=== PATIENT | female | born 1945 | race Caucasian/White ===

== ENCOUNTER → 2017-07-21 06:33 | Outpatient (CLI) | payer MEDICARE, SELFPAY ==
--- NOTE | 2017-07-21 08:14 | AAVD_ITS ---
Reason For Study: AAA repair Aorta Measurements Aorta Doppler Measurements Proximal aorta measures1.9 x 1.8cm. in cross- Peak systolic flow velocities within the proximal sectional axis. aorta measure 74.8 cm/sec. Proximal aorta measures1.8cm. in longitudinal Peak systolic flow velocities within the mid axis. aorta measure 79.3 cm/sec. Mid aorta measures1.9 x 2.0cm. in cross-sectionalPeak systolic flow velocities within the distal axis. aorta measure 60.2 cm/sec. Mid aorta measures1.9cm. in longitudinal axis. Distal aorta measures2.0 x 2.0cm. in cross- sectional axis. Distal aorta measures2.0cm. in longitudinal axis. Left Iliac Artery Left iliac artery measures 1.1 x 1.0 cm. in the cross-sectional axis. Peak systolic velocity in the left iliac artery measures 109.0 cm/sec. Right Iliac Artery Right iliac artery measures 1.0 x 1.0 cm. in the cross-sectional axis. Peak systolic velocity in the right iliac artery measures 114.0 cm/sec. Procedure Aorta IVC Iliac vasculature or bypass grafts 34951. Technically difficult due to body habitus and bowel gas. Exam performed in department. Interpretation Summary 1. No aneurysm seen. 2. No aortoiliac stenosis. Ordering Physician: Frank Kellogg Referring Physician: Ari Carballo Chi Performed By: Adali Allen RVT
== END ==
PROVIDERS: Family Provider Family Medicine Geriatric Medicine; PCP Family Medicine Geriatric Medicine; Visit Provider Nurse Practitioner Family
DX: I71.4 Abdominal aortic aneurysm, without rupture (principal); Z98.890 Other specified postprocedural states; Z86.79 Personal history of other diseases of the circulatory system
CPT/HCPCS: 93978

== ENCOUNTER → 2017-10-04 15:47 | Outpatient (CLI) | payer MEDICARE, SELFPAY ==
[2017-10-04 17:29] LABS: Absolute Lymphocyte Count 1.87 X10^3/ul (0.83-4.51); Absolute Neutrophil Count 4.5 X10^3/uL (2.0-7.7); Basophil# 0.04 X10^3/uL; Basophil% 0.6 % (0-1); Eosinophil# 0.12 X10^3/uL; Eosinophils% 1.7 % (0-5); Hematocrit 47.2 % (37-47); Hemoglobin 15.6 g/dl (12.0-15.0); Lymphocyte # 1.87 X10^3/ul (4.0); Lymphocyte % 27.1 % (19-41); Mean Corp Hgb Conc 33.1 g/gl (32-36); Mean Corpuscular Hgb 30.4 pg (27.0-32.0); Mean Corpuscular Volume 91.8 fL (81-99); Mean Platelet Vol. 11.9 fl (6.2-12.0); Monocyte# 0.34 X10^3/uL; Monocyte% 4.9 % (0-10); Neutrophil # 4.51 X10^3/uL (2.7-7.7); Neutrophil % 65.4 % (47-70); Platelet Count 225 K/mm3 (150-450); RBC Distribution Width CV 14.1 % (11.6-14.6); RBC Distribution Width SD 46.1 fl (35.1-43.9); Red Blood Count 5.14 M/mm3 (4.2-5.4); White Blood Count 6.9 K/mm3 (4.4-11.0)
[2017-10-04 17:44] LABS: POSITIVE COUNT NO; POSITIVE DIFFERENTIAL NO; POSITIVE MORPHOLOGY NO
[2017-10-04 17:46] LABS: ALB/GLOB Ratio 1.1 RATIO (0.9-2.4); AST(SGOT) 16 U/L (15-37); Alanine Aminotransfer ALT/SGPT 24 U/L (13-56); Albumin, Serum 3.7 g/dL (3.2-5.0); Alkaline Phosphatase 52 U/L (45-117); Anion Gap 6 (5-15); BUN 16 mg/dL (7-18); BUN/Creat Ratio 15.2 RATIO (10-20); Calcium,Total 8.8 mg/dL (8.5-10.1); Chloride 101 mmol/L (98-107); Creatinine, Serum 1.05 mg/dL (0.55-1.02); EST Glomerular Filtration Rate 55 mL/min (>60); Est Glom Filt Rate - Afr Amer 67 mL/min (>60); Globulin 3.4 g/dL (2.2-4.2); Glucose 119 mg/dL (74-106); Potassium 3.7 mmol/L (3.5-5.1); Protein, Total 7.1 g/dL (6.4-8.2); Sodium Level 139 mmol/L (136-145); Thyroid Stim Hormone (TSH) 0.91 uIU/mL (0.358-3.74); Vitamin D,25 Hydroxy 24.3 ng/mL (29.95-100.01)
== END ==
PROVIDERS: Family Provider Family Medicine Geriatric Medicine; PCP Family Medicine Geriatric Medicine; Visit Provider Family Medicine Geriatric Medicine
DX: E55.9 Vitamin D deficiency, unspecified (principal); R53.83 Other fatigue
CPT/HCPCS: 36415; 80053; 82306; 84443; 85025

== ENCOUNTER → 2017-12-29 07:49 | Outpatient (CLI) | payer MEDICARE, SELFPAY ==
[2017-12-29 09:23] LABS: AST(SGOT) 14 U/L (15-37); Alanine Aminotransfer ALT/SGPT 21 U/L (13-56); Albumin, Serum 3.7 g/dL (3.2-5.0); Alkaline Phosphatase 59 U/L (45-117); Cholesterol 222 mg/dL (200); Globulin 3.5 g/dL (2.2-4.2); High Density Lipoprotein 54 mg/dL; Protein, Total 7.2 g/dL (6.4-8.2); Triglycerides 82 mg/dL; Very Low Density Lipoprotein 16 mg/dL (5-40)
== END ==
PROVIDERS: Physician Assistant Medical; Family Provider Family Medicine Geriatric Medicine; PCP Family Medicine Geriatric Medicine; Visit Provider Internal Medicine Cardiovascular Disease
DX: E78.5 Hyperlipidemia, unspecified (principal)
CPT/HCPCS: 36415; 80061; 80076

== ENCOUNTER → 2018-04-11 16:31 | Outpatient (CLI) | payer MEDICARE, SELFPAY ==
[2018-04-11 17:39] LABS: Absolute Lymphocyte Count 1.68 X10^3/ul (0.83-4.51); Absolute Neutrophil Count 4.8 X10^3/uL (2.0-7.7); Basophil# 0.06 X10^3/uL; Basophil% 0.8 % (0-1); Eosinophil# 0.12 X10^3/uL; Eosinophils% 1.7 % (0-5); Hemoglobin 15.6 g/dl (12.0-15.0); Lymphocyte # 1.68 X10^3/ul (4.0); Lymphocyte % 23.4 % (19-41); Mean Corp Hgb Conc 33.2 g/gl (32-36); Mean Corpuscular Hgb 30.2 pg (27.0-32.0); Mean Corpuscular Volume 90.9 fL (81-99); Mean Platelet Vol. 12.2 fl (6.2-12.0); Monocyte# 0.47 X10^3/uL; Monocyte% 6.5 % (0-10); Neutrophil # 4.84 X10^3/uL (2.7-7.7); Neutrophil % 67.3 % (47-70); Platelet Count 217 K/mm3 (150-450); RBC Distribution Width CV 14.2 % (11.6-14.6); RBC Distribution Width SD 46.9 fl (35.1-43.9); Red Blood Count 5.17 M/mm3 (4.2-5.4); White Blood Count 7.2 K/mm3 (4.4-11.0)
[2018-04-11 17:42] LABS: POSITIVE COUNT NO; POSITIVE DIFFERENTIAL NO; POSITIVE MORPHOLOGY NO
[2018-04-11 18:13] LABS: Vitamin D,25 Hydroxy 25.2 ng/mL (29.95-100.01)
[2018-04-11 18:16] LABS: ALB/GLOB Ratio 1.1 RATIO (0.9-2.4); AST(SGOT) 20 U/L (15-37); Alanine Aminotransfer ALT/SGPT 25 U/L (13-56); Albumin, Serum 3.5 g/dL (3.2-5.0); Alkaline Phosphatase 51 U/L (45-117); Anion Gap 4 (5-15); BUN 16 mg/dL (7-18); BUN/Creat Ratio 16.6 RATIO (10-20); Calcium,Total 8.6 mg/dL (8.5-10.1); Chloride 103 mmol/L (98-107); Creatinine, Serum 0.96 mg/dL (0.55-1.02); EST Glomerular Filtration Rate 61 mL/min (>60); Est Glom Filt Rate - Afr Amer 73 mL/min (>60); Globulin 3.3 g/dL (2.2-4.2); Glucose 99 mg/dL (74-106); Potassium 3.5 mmol/L (3.5-5.1); Protein, Total 6.8 g/dL (6.4-8.2); Sodium Level 138 mmol/L (136-145); Thyroid Stim Hormone (TSH) 0.69 uIU/mL (0.358-3.74)
[2018-04-15 08:49] LABS: Hep C Antibodies <0.1 s/co ratio (0.0-0.9)
== END ==
PROVIDERS: Family Provider Family Medicine Geriatric Medicine; PCP Family Medicine Geriatric Medicine; Visit Provider Family Medicine Geriatric Medicine
DX: E55.9 Vitamin D deficiency, unspecified (principal); I10 Essential (primary) hypertension; Z13.89 Encounter for screening for other disorder
CPT/HCPCS: 36415; 80053; 82306; 84443; 85025; 86803

== ENCOUNTER → 2018-08-26 10:02 | Outpatient (CLI) | payer MEDICARE, SELFPAY ==
[2018-08-15 15:35] VITALS: BMI 32.9
--- NOTE | 2018-08-26 10:05 | STEWCON_ITS ---
Reason For Study: S/P CABG Stress Results Protocol: Dobutamine Stress Echo Maximum Predicted HR: 149 bpm Target HR: 127 bpm % Maximum Predicted HR: 90 % DurationHeart Rate Stage (mm:ss) (bpm) BP Dose Comment BASELINE 68 134/84 DEFINITY 0.8 ML USED DURING STRESS DSE- 10 MCG 3:30 85 122/4410.00 DSE- 20 MCG 3:14 125 90/75 20.00 DSE- 30 MCG 1:05 134 114/5430.00 RECOVERY 95 119/86 Stress Duration: 7:49 mm:ss Maximum Stress HR: 134 bpm Baseline Echocardiogram Findings The estimated ejection fraction is 65 %. Stress Echo Wall motion Data Resting WM Intermediate WM Stress WM Resting Wall Motion Wall Motion Stress No regional wall motion No regional wall motion abnormalities noted. abnormalities noted. EKG Data The baseline ECG displays normal sinus rhythm. The patient was titrated from 10 mcg to a maximun of 30 mcg of dobutamine during the stress. The maximum heart rate attained was 134 beats per minute. This was 89% of maximum predicted heart rate. During dobutamine infusion, there were no ST or T wave changes noted to suggest ischemia. No clinical angina was noted. Interpretation Summary The estimated ejection fraction is 65 %. Normal, adequate, dobutamine echocardiogram. Negative for ischemia by EKG and echocardiographic criteria. No anginal symptoms noted. Rare PVCs noted. Appropriate blood pressure response to dobutamine. Final LVEF is 75%. Test terminated due to the attainment of target heart rate. Decreased sensitivity due to poor echo windows requiring Definity agent. No complications. The study was technically difficult. Contrast injection was performed. Ordering Physician: Deepak Chacon Referring Physician: Deepak Chacon Performed By: Alea Kellogg, LIAM, RVT
--- NOTE | 2018-08-26 10:05 | CDU_ITS ---
Reason For Study: CVA Rt. Velocities/BP Lt. Velocities/BP Prox CCA 70/7 cm/sec. Prox CCA 80/18 cm/sec. Mid CCA 45/13 cm/sec. Mid CCA 66/16 cm/sec. Dist CCA 91/ cm/sec. Dist CCA 61/18 cm/sec. Prox ICA 79/21 cm/sec. Prox ICA 106/29 cm/sec. Mid ICA 100/32 cm/sec. Mid ICA 121/30 cm/sec. Dist ICA 120/33 cm/sec. Dist ICA 61/24 cm/sec. Rt. ICA/CCA = 2.7. Lt. ICA/CCA = 1.8. Prox ECA 70/18 cm/sec. Prox ECA 153/19 cm/sec. Rt. Vert. 45/10 cm/sec. Lt. Vert. 63/10 cm/sec. Right Extracranial There is heterogeneous, irregular atherosclerotic plaque noted in the right common carotid artery. There is heterogeneous, irregular atherosclerotic plaque noted in the right internal carotid artery. There is heterogeneous, irregular atherosclerotic plaque noted in the right external carotid artery. Antegrade flow is noted in the right vertebral artery. Left Extracranial There is heterogeneous, irregular atherosclerotic plaque noted in the left common carotid artery. There is heterogeneous, irregular atherosclerotic plaque noted in the left internal carotid artery. There is heterogeneous, irregular atherosclerotic plaque noted in the left external carotid artery. Antegrade flow is noted in the left vertebral artery. Procedure Carotid Duplex 52076. Exam performed in department. Interpretation Summary Mild (<50%) stenosis right extracranial internal carotid. Mild (<50%) stenosis left extracranial internal carotid. Flow within the vertebral arteries is antegrade bilaterally. Ordering Physician: Deepak Chacon Referring Physician: SALVADOR ELI CHI Performed By: Isabel Kay, RDCS, RVT
== END ==
PROVIDERS: Family Provider Family Medicine Geriatric Medicine; PCP Family Medicine Geriatric Medicine; Referring Provider Internal Medicine Cardiovascular Disease; Visit Provider Internal Medicine Cardiovascular Disease
DX: I25.10 Atherosclerotic heart disease of native coronary artery without angina pectoris (principal); Z98.890 Other specified postprocedural states; E78.5 Hyperlipidemia, unspecified; I65.22 Occlusion and stenosis of left carotid artery
CPT/HCPCS: 93017; 93350; 93880; J7040; Q9957; A4216; C8928

== ENCOUNTER 2018-10-14 02:57 | Inpatient (IN) | payer MEDICARE, SELFPAY ==
[2018-08-15 15:35] VITALS: BMI 32.9
[2018-10-14] VITALS (18 sets, daily range): BP systolic 86–109; BP diastolic 54–75; PULSE 76–112; RESP 18–24; TEMP 36.4–37.3; O2SAT 82–97; BMI 33.1; BMI 33.0
--- NOTE | 2018-10-14 03:14 | EKG12_ITS ---
Test Reason : SOB Blood Pressure : / mmHG Vent. Rate : 094 BPM Atrial Rate : 094 BPM P-R Int : 148 ms QRS Dur : 088 ms QT Int : 358 ms P-R-T Axes : 064 045 097 degrees QTc Int : 447 ms Normal sinus rhythm with sinus arrhythmia Nonspecific ST and T wave abnormality Abnormal ECG Confirmed by JAYEN HOGUE, MICHAEL ([id number]), editor book PANFILO RODRIGUES ([id number]) on 10/17/2018 2:07:51 PM Referred By: Fawad Monsivais Confirmed By:MICHAEL GODOY MD
[2018-10-14] MEDS: Albuterol 2.5 MG/3 ML VIAL.NEB. INHALATION (03:28)
[2018-10-14] MEDS: Ipratropium/Albuterol Sulfate 3 ML AMPUL.NEB INHALATION ×5 (03:28→19:22)
[2018-10-14] MEDS: MethylPREDNISolone 125 MG/2 ML Vial IV (03:28)
[2018-10-14 03:36] LABS: Absolute Lymphocyte Count 0.79 X10^3/ul (0.83-4.51); Absolute Neutrophil Count 3.6 X10^3/uL (2.0-7.7); Basophil# 0.03 X10^3/uL; Basophil% 0.6 % (0-1); Eosinophil# 0.01 X10^3/uL; Eosinophils% 0.2 % (0-5); Hematocrit 46.9 % (37-47); Hemoglobin 15.7 g/dl (12.0-15.0); Lymphocyte # 0.79 X10^3/ul (4.0); Lymphocyte % 15.9 % (19-41); Mean Corp Hgb Conc 33.5 g/gl (32-36); Mean Corpuscular Hgb 30.4 pg (27.0-32.0); Mean Corpuscular Volume 90.9 fL (81-99); Mean Platelet Vol. 11.2 fl (6.2-12.0); Monocyte# 0.57 X10^3/uL; Monocyte% 11.5 % (0-10); Neutrophil # 3.56 X10^3/uL (2.7-7.7); Neutrophil % 71.6 % (47-70); Platelet Count 142 K/mm3 (150-450); RBC Distribution Width CV 14.4 % (11.6-14.6); RBC Distribution Width SD 48.2 fl (35.1-43.9); Red Blood Count 5.16 M/mm3 (4.2-5.4)
[2018-10-14 03:38] LABS: POSITIVE COUNT NO; POSITIVE DIFFERENTIAL NO; POSITIVE MORPHOLOGY NO
[2018-10-14 03:55] LABS: Anion Gap 8 (5-15); BUN 16 mg/dL (7-18); BUN/Creat Ratio 13.7 RATIO (10-20); Chloride 95 mmol/L (98-107); Creatinine, Serum 1.17 mg/dL (0.55-1.02); EST Glomerular Filtration Rate 48 mL/min (>60); Est Glom Filt Rate - Afr Amer 59 mL/min (>60); Estimated Creatinine Clearance 36.48 ml/min; Glucose 113 mg/dL (74-106); Potassium 3.4 mmol/L (3.5-5.1); Sodium Level 136 mmol/L (136-145)
--- NOTE | 2018-10-14 03:55 | RAD_ITS ---
STUDY: X-RAY CHEST REASON FOR EXAM: Female, 73 years old. Cough and upper respiratory congestion TECHNIQUE: PA and lateral views of the chest. COMPARISON: 01/06/1916 FINDINGS: Mild patchy airspace opacification at the right lung base, new from prior imaging. Questionable correlate seen anteriorly on the lateral view. No pleural effusion or pneumothorax. Normal size heart. Median sternotomy wires and coronary artery bypass graft clips noted. Normal mediastinum and candis. Normal visualized pulmonary arteries. Normal visualized aortic arch and descending thoracic aorta. There are diffuse degenerative changes of the visualized thoracic spine. Normal visualized ribs, clavicles, and shoulders. There is no demonstrated abnormality of the visualized soft tissue structures of the upper abdomen. RAD/Chest PA and Lateral IMPRESSION: Right anterior lung base atelectasis versus infiltrate Electronically Signed: Abhilash Jalloh MD at 4:22 EDT Tel , Service support ,
--- NOTE | 2018-10-14 04:39 | ED.DCSUM_ITS ---
- ER Visit Summary Date of Service: 10/14/18 Chief Complaint: Cough History of Present Illness: The patient is a 73 F who presents with chills sweats and cough. She has been ill for 4 days. She complains of nonproductive cough and shortness of breath. She reports subjective fevers chills and sweats. No sick contacts. She is not on home oxygen. Patient denies history of COPD or asthma although COPD was noted on the patient's prior records. She also has a history of coronary disease, prior stroke, AAA and repair. She denies any pain. She denies nausea vomiting diarrhea congestion rhinorrhea sore throat. Physical Examination: Initial heart rate 112, respiratory rate 22, temperature 99.2, blood pressure 96/62, pulse ox 82% on room air Moist mucous membranes Heart regular tachycardia Patient is tachypneic with increased work of breathing decreased air exchange and diffuse inspiratory and expiratory wheezing Abdomen soft Extremities nontender without edema Alert Test Results: EKG shows sinus rhythm at a rate of 94. Rapid influenza is negative. Labs notable for platelets 142, creatinine 1.17, glucose 113. Chest x-ray shows right anterior lung base atelectasis versus infiltrate. Emergency Department Course and Treatment: Patient presents with inspiratory and expiratory wheezing, decreased air exchange. She was treated with albuterol and Atrovent aerosols here as well as IV Solu-Medrol. She is improved on reevaluation although continues to wheeze significantly. Chest x-ray showed possible infiltrate. After discussion with the hospitalist we will treat with oral Levaquin. Patient discussed with hospitalist and admitted. Treatment Plan: [] Disposition: Admit Impression: Bronchitis with wheezing Possible community-acquired pneumonia Hypoxia This note was generated with [employer] dictation software. It may contain incorrect words, spelling, and punctuation that were not noted in review of the chart prior to signing ED Disposition - Plan for ED Patient: Referrals: Ari Carballo Chi, MD [Primary Care Provider] -
[2018-10-14] MEDS: levoFLOXacin 750 MG Tablet PO (04:56)
--- NOTE | 2018-10-14 05:22 | PCM.HP.STD ---
Problem List (1) Shortness of breath Status: Acute (2) Nonproductive cough Status: Acute (3) Chills with fever Status: Acute History of Present Illness Date of Admission: 10/14/18 Chief Complaint: Shortness of breath, nonproductive cough, chills and fever The patient is a 73 year old F who was seen in the emergency room at [facility] with a chief complaint of nonproductive cough, chills, and fever over the last several days. Patient states she began feeling ill this last Wednesday, she denies any dysuria, diarrhea, nausea, or vomiting. Patient has a history of COPD and her medical record here but the patient denies any knowledge of having COPD. Patient had pulmonary function tests in 2017 which showed COPD. Work-up in the emergency room included a chest x-ray which resulted and a reading of right anterior lung base atelectasis versus infiltrate, patient's CBC was unremarkable, her chemistry panel was remarkable for a slightly low potassium at 3.4 and creatinine was 1.17. On examination, patient had marked expiratory wheezing over all lung chairez. Patient was given IV Solu-Medrol and aerosol treatments, she required supplemental oxygen at 3 L to maintain her pulse ox above 90. Patient will be admitted to [facility] for acute exacerbation of COPD, hypoxia, and probable viral tracheobronchitis. 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 Blue 07/15/2005 Benign essential hypertension (Chronic) Chronic obstructive lung disease (Chronic) Hyperlipidemia (Chronic) TIA (transient ischemic attack) (Chronic) Medical History: Medical History (Last Reviewed 08/15/18 @ 15:35 by Toshia Paniagua) Left carotid artery stenosis (Chronic) I65.22 Atherosclerosis of coronary artery of [place] heart without angina pectoris (Chronic) I25.10 Weight gain (Chronic) R63.5 Benign essential hypertension (Chronic) I10 Chronic obstructive lung disease (Chronic) J44.9 Hyperlipidemia (Chronic) E78.5 TIA (transient ischemic attack) (Chronic) Acute left TAPPER HAND stroke (Acute) I63.532 JOSEMANUEL (obstructive sleep apnea) G47.33 Allergies codeine Allergy (Verified 10/14/18 03:03) Unknown Penicillins Allergy (Verified 10/14/18 05:19) Rash, fainting Sulfa (Sulfonamide Antibiotics) Allergy (Verified 10/14/18 03:03) Unknown per pt when was a child mother told her she was allergic not sure of reaction atorvastatin [From Lipitor] Adverse Reaction (Unknown, Verified 10/14/18 03:03) Myalgia fluvastatin [From Lescol] Adverse Reaction (Unknown, Verified 10/14/18 03:03) Myalgia lisinopril Adverse Reaction (Unknown, Verified 10/14/18 03:03) Cough losartan [From Cozaar] Adverse Reaction (Unknown, Verified 10/14/18 03:03) Cough niacin Adverse Reaction (Unknown, Verified 10/14/18 03:03) Rash rosuvastatin [From Crestor] Adverse Reaction (Unknown, Verified 10/14/18 03:03) Myalgia simvastatin [From Zocor] Adverse Reaction (Unknown, Verified 10/14/18 03:03) Myalgia Iodinated Contrast- Oral and IV Dye [DYEE] Adverse Reaction (Verified 10/14/18 05:19) Vomiting Home Medications: Ambulatory Orders Medication Instructions Recorded cholecalciferol (vitamin D3) 1,000 1,000 unit PO QDAY 01/17/18 unit capsule hydrochlorothiazide 12.5 mg tablet 12.5 mg PO QDAY #90 tab 08/15/18 isosorbide mononitrate ER 30 mg 30 mg PO QDAY #90 tab 08/15/18 tablet,extended release 24 hr magnesium oxide 400 mg capsule 400 mg PO DAILY cap 08/15/18 metoprolol succinate ER 25 mg 25 mg PO QDAY #90 tab 08/15/18 tablet,extended release 24 hr clopidogrel 75 mg tablet 75 mg PO QDAY #90 tab 10/10/18 Surgical History: Surgical History (Last Reviewed 08/15/18 @ 15:35 by Toshia Paniagua) History of AAA (abdominal aortic aneurysm) repair (Chronic) Onset Date: ~2008 Z98.890 Hx of CABG (Chronic) Onset Date: 07/15/05 Z95.1 COLIN to LAD, radial artery as a free graft to the ramus intermedius, SVG to Dx and marginal branch of LCX @ [facility] per Dr. Blue 07/15/2005 History of abdominal aortic aneurysm repair Onset Date: ~05/10/09 Z98.890 [facility] per Dr. 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 Denies: Anorexia, Night Sweats, Malaise, Weakness, Weight Change, Fatigue Eyes: Denies: Cataracts, Conjunctivae Inflammation, Double vision, Drainage HEENT: Denies: Difficulty Swallowing, Dysphasia, Ear Pain, Eye Pain, Hearing Changes, Nasal bleeding, Nasal Congestion, Post Nasal Drip Cardiovascular: Denies: Chest Pain, Claudication, Chest Pressure, Chest Tightness, Edema, Heaviness, Orthopnea, Palpitations, Paroxysmal Noc. Dyspnea Respiratory: Reports: Cough, Shortness of Breath, Shortness of breath at rest, Shortness of breath upon exertion, Wheezing. Denies: Hemoptysis, Sputum production Gastrointestinal: Denies: Abdominal Pain, Constipation, Diarrhea, Hematemesis, Hematochezia, Nausea, Melena, Vomiting Genitourinary: Denies: Dysuria, Frequency, Hematuria, Hesitancy, Incontinence, Nocturia, Urgency Gynecological: Denies: Breast symptoms Musculoskeletal: Denies: Foot Pain, Hand Pain, Joint Pain, Joint stiffness, Joint swelling, Joint Tenderness, Leg Pain Skin: Denies: Dryness, Jaundice, Pruritis, Rash Neurological: Denies: Blurred vision, Double vision, Change in Speech, Slurred speech, Difficulty swallowing, Focal weakness, Headaches, Numbness, Tingling Psychiatric: Denies: Anxiety, Depression, Homicidal Ideations, Suicidal Ideations Endocrine: Denies: Change in Body Habitus, Heat/ Cold Intolerance, Polydipsia, Polyuria Hematologic/ Lymphatic: Denies: Adenopathy, Anemia, Easy Bruising, Easy Bleeding, Petechiae, Purpura VTE Information - Inpt Only VTE Present on Admission: No VTE Mechan Device Prophylaxis: None VTE Pharm Prophylaxis ordered?: Yes Patient Problems: Active and Suspected Problems (Last Reviewed 08/15/18 @ 15:35 by Toshia Paniagua) Shortness of breath (Acute) Nonproductive cough (Acute) Chills with fever (Acute) - Physical Exam General: Alert, Oriented x3, Cooperative HEENT: Atraumatic, PERRLA, EOMI, Normocephalic Neck: Supple, No JVD, Negative Carotid Bruits Lungs: Normal air movement, No rhonchi, No rales, Wheezes Cardiovascular: Regular rate, Regular Rhythm, Normal S1, Normal S2, No murmurs Abdomen: Bowel Sounds Present, Soft, Non Tender, Non-Distended, No hernias noted Extremities: No clubbing, No cyanosis, No edema, Capillary Refill Less than 3 Seconds Skin: No rashes, No breakdown Musculoskeletal: No Tenderness to Palpation of Joints or Extremities Neurological: Cranial nerves II-XII grossly intact, Neuro grossly intact, Sensory exam intact to light touch and pain, Coordination normal Psych/Mental Status: Normal Affect, Appropriate, Alert and oriented to time, place, person, mood and affect Vital Signs Temp Pulse Resp BP Pulse Ox 99.2 F H 92 19 H 96/62 92 10/14/18 02:57 10/14/18 03:41 10/14/18 03:41 10/14/18 03:04 10/14/18 03:30 Oxygen Flow Rate (L/min) 3 Oxygen Delivery Method Nasal Cannula Weight: 84.9 kg Body Mass Index (BMI) 33.1 Finger Stick Blood Glucose 96 Microbiology Past 72 Hours 10/14/18 03:45 Influenza Types A,B Direct FA (DIDI) - Final Mucosa - Nose Laboratory Tests Past 24 Hrs 03/29/19 03/29/19 03:27 03:27 WBC 5.0 RBC 5.16 Hgb 15.7 H Hct 46.9 MCV 90.9 MCH 30.4 MCHC 33.5 RDW 14.4 RDW Differential 48.2 H Plt Count 142 L MPV 11.2 Immature Gran % (Auto) 0.200 Neut % (Auto) 71.6 H Lymph % (Auto) 15.9 L [facility] % (Auto) 11.5 H Eos % (Auto) 0.2 Baso % (Auto) 0.6 Absolute Neuts (auto) 3.6 Absolute Lymphs (auto) 0.79 L Total Counted Not Reportable Sodium 136 Potassium 3.4 L Chloride 95 L Carbon Dioxide 33.0 H Anion Gap 8 BUN 16 Creatinine 1.17 H Estim Creat Clear Calc 36.48 Est GFR (MDRD) Af Amer 59 L Est GFR (MDRD) Non-Af 48 L BUN/Creatinine Ratio 13.7 Glucose 113 H Calcium 8.0 L Assessment/Plan All Active Problems (Last Reviewed 08/15/18 @ 15:35 by Toshia Paniagua) Shortness of breath (Acute) Nonproductive cough (Acute) Chills with fever (Acute) Acute left TAPPER HAND stroke (Acute) #1 acute exacerbation of COPD-patient will be admitted to [facility] 3, she will be given IV corticosteroids, aggressive aerosol treatments, pulse ox will be monitored, respiratory panel was ordered, I have elected to keep the patient on oral Levaquin for now #2 hypoxia secondary to #1-pulse ox will be monitored, oxygen will be weaned possible #3 probable viral tracheobronchitis-respiratory panel was ordered #4 coronary artery disease-stable #5 [id number] secondary to diuretic usage- patient will be given potassium supplementation #6 elevated creatinine-probably secondary to diuretic usage #7 essential hypertension Code Visit Inpatient E&M: 58939 Init Hosp L3
--- NOTE | 2018-10-14 05:26 | HP.PCM_ITS ---
Problem List (1) Shortness of breath Status: Acute (2) Nonproductive cough Status: Acute (3) Chills with fever Status: Acute History of Present Illness Date of Admission: 10/14/18 Chief Complaint: Shortness of breath, nonproductive cough, chills and fever The patient is a 73 year old F who was seen in the emergency room at [facility] with a chief complaint of nonproductive cough, chills, and fever over the last several days. Patient states she began feeling ill this last Wednesday, she denies any dysuria, diarrhea, nausea, or vomiting. Patient has a history of COPD and her medical record here but the patient denies any knowledge of having COPD. Patient had pulmonary function tests in 2017 which showed COPD. Work-up in the emergency room included a chest x-ray which resulted and a reading of right anterior lung base atelectasis versus infiltrate, patient's CBC was unremarkable, her chemistry panel was remarkable for a slightly low potassium at 3.4 and creatinine was 1.17. On examination, patient had marked expiratory wheezing over all lung chairez. Patient was given IV Solu-Medrol and aerosol treatments, she required supplemental oxygen at 3 L to maintain her pulse ox above 90. Patient will be admitted to [facility] for acute exacerbation of COPD, hypoxia, and probable viral tracheobronchitis. 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) I63.532 JOSEMANUEL (obstructive sleep apnea) G47.33 Allergies codeine Allergy (Verified 10/14/18 03:03) Unknown Penicillins Allergy (Verified 10/14/18 05:19) Rash, fainting Sulfa (Sulfonamide Antibiotics) Allergy (Verified 10/14/18 03:03) Unknown per pt when was a child mother told her she was allergic not sure of reaction atorvastatin [From Lipitor] Adverse Reaction (Unknown, Verified 10/14/18 03:03) Myalgia fluvastatin [From Lescol] Adverse Reaction (Unknown, Verified 10/14/18 03:03) Myalgia lisinopril Adverse Reaction (Unknown, Verified 10/14/18 03:03) Cough losartan [From Cozaar] Adverse Reaction (Unknown, Verified 10/14/18 03:03) Cough niacin Adverse Reaction (Unknown, Verified 10/14/18 03:03) Rash rosuvastatin [From Crestor] Adverse Reaction (Unknown, Verified 10/14/18 03:03) Myalgia simvastatin [From Zocor] Adverse Reaction (Unknown, Verified 10/14/18 03:03) Myalgia Iodinated Contrast- Oral and IV Dye [DYEE] Adverse Reaction (Verified 10/14/18 05:19) Vomiting Home Medications: Ambulatory Orders Medication Instructions Recorded cholecalciferol (vitamin D3) 1,000 1,000 unit PO QDAY 01/17/18 unit capsule hydrochlorothiazide 12.5 mg tablet 12.5 mg PO QDAY #90 tab 08/15/18 isosorbide mononitrate ER 30 mg 30 mg PO QDAY #90 tab 08/15/18 tablet,extended release 24 hr magnesium oxide 400 mg capsule 400 mg PO DAILY cap 08/15/18 metoprolol succinate ER 25 mg 25 mg PO QDAY #90 tab 08/15/18 tablet,extended release 24 hr clopidogrel 75 mg tablet 75 mg PO QDAY #90 tab 10/10/18 Surgical History: Surgical History (Last Reviewed 08/15/18 @ 15:35 by Toshia Paniagua) History of AAA (abdominal aortic aneurysm) repair (Chronic) Onset Date: ~2008 Z98.890 Hx of CABG (Chronic) Onset Date: 07/15/05 Z95.1 COLIN to LAD, radial artery as a free graft to the ramus intermedius, SVG to Dx and marginal branch of LCX @ [facility] per Dr. Blue 07/15/2005 History of abdominal aortic aneurysm repair Onset Date: ~05/10/09 Z98.890 [facility] per Dr. 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 Denies: Anorexia, Night Sweats, Malaise, Weakness, Weight Change, Fatigue Eyes: Denies: Cataracts, Conjunctivae Inflammation, Double vision, Drainage HEENT: Denies: Difficulty Swallowing, Dysphasia, Ear Pain, Eye Pain, Hearing Changes, Nasal bleeding, Nasal Congestion, Post Nasal Drip Cardiovascular: Denies: Chest Pain, Claudication, Chest Pressure, Chest Tightness, Edema, Heaviness, Orthopnea, Palpitations, Paroxysmal Noc. Dyspnea Respiratory: Reports: Cough, Shortness of Breath, Shortness of breath at rest, Shortness of breath upon exertion, Wheezing. Denies: Hemoptysis, Sputum production Gastrointestinal: Denies: Abdominal Pain, Constipation, Diarrhea, Hematemesis, Hematochezia, Nausea, Melena, Vomiting Genitourinary: Denies: Dysuria, Frequency, Hematuria, Hesitancy, Incontinence, Nocturia, Urgency Gynecological: Denies: Breast symptoms Musculoskeletal: Denies: Foot Pain, Hand Pain, Joint Pain, Joint stiffness, Joint swelling, Joint Tenderness, Leg Pain Skin: Denies: Dryness, Jaundice, Pruritis, Rash Neurological: Denies: Blurred vision, Double vision, Change in Speech, Slurred speech, Difficulty swallowing, Focal weakness, Headaches, Numbness, Tingling Psychiatric: Denies: Anxiety, Depression, Homicidal Ideations, Suicidal Ideations Endocrine: Denies: Change in Body Habitus, Heat/ Cold Intolerance, Polydipsia, Polyuria Hematologic/ Lymphatic: Denies: Adenopathy, Anemia, Easy Bruising, Easy Bleeding, Petechiae, Purpura VTE Information - Inpt Only VTE Present on Admission: No VTE Mechan Device Prophylaxis: None VTE Pharm Prophylaxis ordered?: Yes Patient Problems: Active and Suspected Problems (Last Reviewed 08/15/18 @ 15:35 by Toshia Paniagua) Shortness of breath (Acute) Nonproductive cough (Acute) Chills with fever (Acute) - Physical Exam General: Alert, Oriented x3, Cooperative HEENT: Atraumatic, PERRLA, EOMI, Normocephalic Neck: Supple, No JVD, Negative Carotid Bruits Lungs: Normal air movement, No rhonchi, No rales, Wheezes Cardiovascular: Regular rate, Regular Rhythm, Normal S1, Normal S2, No murmurs Abdomen: Bowel Sounds Present, Soft, Non Tender, Non-Distended, No hernias noted Extremities: No clubbing, No cyanosis, No edema, Capillary Refill Less than 3 Seconds Skin: No rashes, No breakdown Musculoskeletal: No Tenderness to Palpation of Joints or Extremities Neurological: Cranial nerves II-XII grossly intact, Neuro grossly intact, Sensory exam intact to light touch and pain, Coordination normal Psych/Mental Status: Normal Affect, Appropriate, Alert and oriented to time, place, person, mood and affect Vital Signs Temp Pulse Resp BP Pulse Ox 99.2 F H 92 19 H 96/62 92 10/14/18 02:57 10/14/18 03:41 10/14/18 03:41 10/14/18 03:04 10/14/18 03:30 Oxygen Flow Rate (L/min) 3 Oxygen Delivery Method Nasal Cannula Weight: 84.9 kg Body Mass Index (BMI) 33.1 Finger Stick Blood Glucose 96 Microbiology Past 72 Hours 10/14/18 03:45 Influenza Types A,B Direct FA (DIDI) - Final Mucosa - Nose Laboratory Tests Past 24 Hrs 03/29/19 03/29/19 03:27 03:27 WBC 5.0 RBC 5.16 Hgb 15.7 H Hct 46.9 MCV 90.9 MCH 30.4 MCHC 33.5 RDW 14.4 RDW Differential 48.2 H Plt Count 142 L MPV 11.2 Immature Gran % (Auto) 0.200 Neut % (Auto) 71.6 H Lymph % (Auto) 15.9 L Dewey % (Auto) 11.5 H Eos % (Auto) 0.2 Baso % (Auto) 0.6 Absolute Neuts (auto) 3.6 Absolute Lymphs (auto) 0.79 L Total Counted Not Reportable Sodium 136 Potassium 3.4 L Chloride 95 L Carbon Dioxide 33.0 H Anion Gap 8 BUN 16 Creatinine 1.17 H Estim Creat Clear Calc 36.48 Est GFR (MDRD) Af Amer 59 L Est GFR (MDRD) Non-Af 48 L BUN/Creatinine Ratio 13.7 Glucose 113 H Calcium 8.0 L Assessment/Plan All Active Problems (Last Reviewed 08/15/18 @ 15:35 by Toshia Paniagua) Shortness of breath (Acute) Nonproductive cough (Acute) Chills with fever (Acute) 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) #1 acute exacerbation of COPD-patient will be admitted to [facility] 3, she will be given IV corticosteroids, aggressive aerosol treatments, pulse ox will be monitored, respiratory panel was ordered, I have elected to keep the patient on oral Levaquin for now #2 hypoxia secondary to #1-pulse ox will be monitored, oxygen will be weaned possible #3 probable viral tracheobronchitis-respiratory panel was ordered #4 coronary artery disease-stable #5 [id number] secondary to diuretic usage- patient will be given potassium supplementation #6 elevated creatinine-probably secondary to diuretic usage #7 essential hypertension Code Visit Inpatient E&M: 38731 Init Hosp L3
[2018-10-14] MEDS: 0.9% NaCl Peripheral Flush Adult/Peds IV ×2 (06:05→16:32)
--- NOTE | 2018-10-14 07:02 | PCM.PROGNOTE ---
Patient Problems: Active and Suspected Problems (Last Reviewed 08/15/18 @ 15:35 by Toshia Paniagua) Shortness of breath (Acute) Nonproductive cough (Acute) Chills with fever (Acute) Subjective: The patient is a 73-year-old female with a past medical history of coronary artery disease with history of CABG, AAA (status post repair), COPD, hyperlipidemia, TIA, hypertension, left carotid stenosis and obesity who presented to the emergency department at [facility] on 10/14/2018 complaining of nonproductive cough, chills and fever for the preceding several days. Vital signs of presentation to the emergency room were temp 99.2, pulse rate 112, respiratory rate 22 and she was 82% saturated on room air. White blood cell count was 5.0 with 72% neutrophils. Hemoglobin was increased at 15.7 and platelet count was decreased at 142. Serum bicarb was increased at 33 and the potassium was 3.4. BUN was 16 and creatinine was 1.17 which is within her baseline. Chest x-ray shows possible early infiltrate in the right base vs atelectasis. There is a suspicious irregular nodule vs infiltrate in the left mid lung per my review....when compared to an old film this area is larger. She was treated with aerosolized bronchodilators, supplemental oxygen and IV Levaquin in the emergency department. she was admitted to the hospital with a diagnosis of Acute exacerbation of COPD and was kept on Levaquin, Duoneb q6H and Albuterol q4H. High dose IV steroids were added. All events of the past 24 hours been reviewed. She is afebrile this morning. Tachycardia has resolved. Blood pressure is low at 86/59. Respiratory rate is 24 she is 92% saturated on a 35% Ventimask. Tells me she got sick this past Wednesday, 5 days ago. She had chills and fever and a dry cough. Denies myalgias and arthralgias. Denies chest pain. She has had decreased appetite and intake. She has a dry cough and shortness of breath at rest and with exertion. She has had pulmonary function tests in the past but does not know the results. She has had a sleep study and has JOSEMANUEL only when laying on her back and so she was not prescribed CPAP. She felt somewhat better after aerosol a short time ago. She had a stress echocardiogram in August 2018 that was negative for ischemia and revealed a 65% ejection fraction. - Physical Exam General: Alert, Oriented x3, Cooperative, No apparent distress - has a venti mask on. No conversational dyspnea, no accessory muscle use. HEENT: Atraumatic, PERRLA, Normocephalic Oral: Dry Mucosa Neck: Supple, Negative Carotid Bruits Lungs: No rales, Diminished, Wheezes - with a prolonged expiratory phase Cardiovascular: Regular rate, Regular Rhythm, Normal S1, Normal S2, No murmurs, No Ectopic Activity, No rub noted, No Gallop Abdomen: Bowel Sounds Present, Soft, Non Tender, Non-Distended, No Hepato-splenomegaly, - - No masses Extremities: No clubbing, No cyanosis, No edema, No Calf Tenderness, Peripheral Pulses Normal Skin: No rashes Neurological: Cranial nerves II-XII grossly intact, Neuro grossly intact Psych/Mental Status: Normal Affect, Appropriate Vital Signs Temp Pulse Resp BP Pulse Ox 98.9 F 85 24 H 86/59 L 92 10/14/18 06:44 10/14/18 06:44 10/14/18 06:44 10/14/18 06:44 10/14/18 06:44 Oxygen Flow Rate (L/min) 8 Oxygen Delivery Method Venturi Mask Weight: 186 lb 8.177 oz Body Mass Index (BMI) 33.0 Finger Stick Blood Glucose 96 Microbiology Past 72 Hours 10/14/18 03:45 Influenza Types A,B Direct FA (DIDI) - Final Mucosa - Nose Laboratory Tests Past 24 Hrs 10/14/18 10/14/18 03:27 03:27 WBC 5.0 RBC 5.16 Hgb 15.7 H Hct 46.9 MCV 90.9 MCH 30.4 MCHC 33.5 RDW 14.4 RDW Differential 48.2 H Plt Count 142 L MPV 11.2 Immature Gran % (Auto) 0.200 Neut % (Auto) 71.6 H Lymph % (Auto) 15.9 L Darke % (Auto) 11.5 H Eos % (Auto) 0.2 Baso % (Auto) 0.6 Absolute Neuts (auto) 3.6 Absolute Lymphs (auto) 0.79 L Total Counted Not Reportable Sodium 136 Potassium 3.4 L Chloride 95 L Carbon Dioxide 33.0 H Anion Gap 8 BUN 16 Creatinine 1.17 H Estim Creat Clear Calc 36.48 Est GFR (MDRD) Af Amer 59 L Est GFR (MDRD) Non-Af 48 L BUN/Creatinine Ratio 13.7 Glucose 113 H Calcium 8.0 L Medical Necessity - Tobacco Use Smoking Status: Former smoker Tobacco Use: Cigarettes Assessment/Plan All Active Problems (Last Reviewed 08/15/18 @ 15:35 by Toshia Paniagua) Shortness of breath (Acute) Nonproductive cough (Acute) Chills with fever (Acute) 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 acute exacerbation COPD likely due to a viral URI 2. ? early infiltrate in the right base - no crackles in this area......suspect just atelectasis 3. COPD 4. hx of tobacco dependence - quit 7 years ago 5. CAD with hx of CABG - negative stress ECHO 08/26/18 with normal EF 6. HTN 7. HLD 8. Left carotid stenosis with a hx of TIA 9. Obesity 10. Hypokalemia ABG - refused Normal saline fluid bolus and started an IV at 100 cc/h of normal saline with 10 mEq potassium Change the DuoNeb aerosols to every 4 hours and continue every 2 are albuterol as needed Continue Solu-Medrol 40 mg IV every 8 hours Blood cultures now Respiratory panel has been ordered Continue Levaquin - will DC if the respiratory panel is positive Code Visit Inpatient E&M: 42311 Subs Hosp L2
[2018-10-14 07:40] LABS: AST(SGOT) 36 U/L (15-37); Alanine Aminotransfer ALT/SGPT 27 U/L (13-56); Albumin, Serum 3.3 g/dL (3.2-5.0); Alkaline Phosphatase 48 U/L (45-117); Bilirubin, Direct 0.19 mg/dL (0.00-0.30); Globulin 3.4 g/dL (2.2-4.2); Magnesium 1.7 mg/dL (1.6-2.6); Protein, Total 6.7 g/dL (6.4-8.2)
[2018-10-14 07:45] LABS: Hemoglobin A1c 5.7 % (4.2-6.3)
--- NOTE | 2018-10-14 08:10 | CPS ---
pt refused ABG jose alberto, RN & Dr Quintana are aware.
--- NOTE | 2018-10-14 10:15 | CASEMGMT ---
RN CM Face to Face with patient for initial transition planning/care coordination assessment. RN CM introduced self and role at [facility]. Patient sitting in chair, alert and oriented. Patient willing to participate in assessment and is able to answer all questions appropriately. Care providers, pharmacy, and demographics verified. Patient wishes to discharge home, denies need for home health at this time. Patient states she has no further needs or concerns at this time. CM to follow for discharge planning needs that may arise. PCP: Haris Specialists: Oswaldo payroll benefits clerk Preferred Pharmacy: [facility] Insurance: [employer] [facility] Prescription Benefit: yes Living Will/HPOA: None LNOK: Living Arrangements: Patient lives with and cares for father. Patient states she is independent at home. Transportation: self/ DME/HHC: Patient has cane and walker at home and blood pressure cuff. Patient denies need for home oxygen and does not want home oxygen at discharge. Preferred DME company is [employer], which is her insurance preferred provider. Denies need for HHC Disposition Plan: Patient to discharge home with family support and follow-up plans in place. CM to monitor for need for home oxygen. Reena MERCHANT, RN, CM
[2018-10-14] MEDS: Clopidogrel Bisulfate 75 MG Tablet PO (10:27)
[2018-10-14] MEDS: Magnesium Oxide 400 MG Tablet PO (10:27)
[2018-10-14] MEDS: Enoxaparin 40 MG/0.4 ML Syringe SC (10:27)
[2018-10-14] MEDS: Isosorbide Mononitrate 30 MG Tablet PO (11:33)
[2018-10-14] MEDS: proMETHazine 25 MG/ML Syringe 12.5 MG IV (16:32)
--- NOTE | 2018-10-14 21:49 | NURSING ---
Went in Pt rooms to get vitals and give night time meds. Pt was very angry that she was woken up. She had told previous nurses that if she was sleeping not to wake her. Informed patient that I needed to make sure she was doing ok and give her her meds. Her BP had been running low and I needed to make sure that it hadn't dropped. Pt stated that it had been fine last time. It was 100/75 and I told her that was low and I just need to make sure. Pt states that now she will not be able to fall back asleep. I let her know I would ask the Dr if she could have something to sleep. I told he I would not bother her until morning.
[2018-10-15] VITALS (11 sets, daily range): BP systolic 93–117; BP diastolic 60–80; PULSE 60–96; RESP 18–20; TEMP 36.6–36.8; O2SAT 89–97
[2018-10-15] MEDS: Ipratropium/Albuterol Sulfate 3 ML AMPUL.NEB INHALATION ×4 (06:42→20:53)
[2018-10-15] MEDS: Isosorbide Mononitrate 30 MG Tablet PO (10:48)
[2018-10-15] MEDS: Clopidogrel Bisulfate 75 MG Tablet PO (10:48)
[2018-10-15] MEDS: Magnesium Oxide 400 MG Tablet PO (10:48)
--- NOTE | 2018-10-15 12:55 | CT_ITS ---
We are attempting to reach Kathleen Quintana to discuss findings. An addendum with communication details will be sent when the communication is complete. STUDY: CT CHEST WITHOUT CONTRAST REASON FOR EXAM: Female, 73 years old. Shortness of breath. Cough and fever. RADIATION DOSAGE (If Supplied By Facility): CTDIvol = ( 23.54 ) mGy, DLP = ( 754.59 ) mGycm TECHNIQUE: Transaxial imaging was performed without the administration of intravenous contrast material. Individualized dose optimization techniques were used for this CT. COMPARISON: None. FINDINGS: TRACHEA, THYROID, ESOPHAGUS: No tracheomalacia,stricture or wall thickening. Thyroid and esophagus are normal CARDIOVASCULAR SYSTEM: The thoracic aorta is grossly within normal limits. The pulmonary trunk and the left pulmonary arteries are also grossly within normal limits. The heart is not enlarged. There are no vascular developmental anomalies. STACY AND LYMPH NODES: There is a 1.6 x 0.9 cm precarinal lymph node LUNGS, LOW-ATTENUATION: No traction bronchiectasis, honeycombing,emphysema, lung cysts or cavitations LUNGS, HIGH ATTENUATION: There is a 1.7 cm spiculated nodule in the superior segment of the left lower lobe and a 9.5 mm spiculated groundglass nodule in the lingula division of the left upper lobe. Platelike atelectatic changes and patchy areas of consolidation are identified in the right lung base. Pneumonia suspected LUNGS, MOSAIC/CRAZY PAVING: Not evident PLEURA AND CHEST WALL: No plural effusions, pneumothoraces,rib fractures or any osteolytic/osteoblastic changes . The soft tissue chest wall including the breasts are normal UPPER ABDOMEN: Unremarkable CT/Chest without Contrast IMPRESSION: A mixture of consolidation and atelectatic changes in the right lower lobe. Pneumonia suspected. A 1.7 cm spiculated nodule in the apical segment of the left lower lobe. A malignant neoplastic process is suspected. A 9.5 mm spiculated groundglass nodule in the lingula division of the left upper lobe. A PET CT scan is suggested to further evaluate the 2 left lung lesions Electronically Signed: Carlos Brandon MD at 0:54 EDT Tel , Service support ,
--- NOTE | 2018-10-15 19:11 | PCM.PROGNOTE ---
Patient Problems: Active and Suspected Problems (Last Reviewed 08/15/18 @ 15:35 by Toshia Paniagua) Shortness of breath (Acute) Nonproductive cough (Acute) Chills with fever (Acute) Subjective: All events of the past 24 hours of been reviewed. She is afebrile. The last blood pressure was mildly decreased at 93/60. Tachycardia has resolved. She is 94% saturated on a 1-1/2 L nasal cannula and 89% on room air at rest. Respiratory panel is positive for influenza A, subtype H1. Sputum culture appears to be normal respiratory bismark. States she is feeling better today. Still coughing. Tells me that she has been using the IS and the acapella. Having some loose stool. Denies CP and the SOB is better Objective: - Physical Exam General: Alert, Oriented x3, Cooperative, No apparent distress - Currently saturating well on a 2 LPM NC. No conversational dyspnea, no accessory muscle use. HEENT: Atraumatic, PERRLA, Normocephalic Oral: Dry Mucosa Neck: Supple, Negative Carotid Bruits Lungs: No rales, Diminished, minimal wheezing today and mostly in the R base Cardiovascular: Regular rate, Regular Rhythm, Normal S1, Normal S2, No murmurs, No Ectopic Activity, No rub noted, No Gallop Abdomen: Bowel Sounds Present, Soft, Non Tender, Non-Distended, No Hepato-splenomegaly, - - No masses Extremities: No clubbing, No cyanosis, No edema, No Calf Tenderness, Peripheral Pulses Normal Skin: No rashes Neurological: Cranial nerves II-XII grossly intact, Neuro grossly intact Psych/Mental Status: Normal Affect, Appropriate - Physical Exam Vital Signs Temp Pulse Resp BP Pulse Ox 98.3 F 86 20 H 93/60 94 10/15/18 14:40 10/15/18 15:25 10/15/18 15:25 10/15/18 14:40 10/15/18 14:40 Oxygen Flow Rate (L/min) 1.5 Oxygen Delivery Method Room Air Weight: 186 lb 8.177 oz Body Mass Index (BMI) 33.0 Finger Stick Blood Glucose 96 Intake and Output for Last 24 Hours 10/13/18 10/14/18 10/15/18 23:59 23:59 23:59 Intake Total 2093 / 2093 3245 / 3245 Output Total 200 / 200 200 / 200 Balance 1893 / 1893 3045 / 3045 Microbiology Past 72 Hours 10/14/18 09:15 Gram Stain - Final Sputum, Expectorated/Coughed Respiratory Culture - Preliminary Appears to be normal respiratory bismark. Further studies to follow. 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 acute exacerbation COPD likely due to influenza A 2. ? infiltrate in the right base 3. COPD 4. hx of tobacco dependence - quit 7 years ago 5. CAD with hx of CABG - negative stress ECHO 08/26/18 with normal EF 6. HTN 7. HLD 8. Left carotid stenosis with a hx of TIA 9. Obesity 10. Hypokalemia 11. CXR at admission has suspicious area in the left mid lung......compared to an old CXR in 2016......there was scarring in the past but the area looks bigger now. Tells me that she gets bronchitis every year for a few months and that she has had PNA several times Will get a CT of the chest with high resolution to look at possible nodule and to look for bronchiectasis Start Tamiflu 75 mg p.o. twice daily DC IV fluids-she is eating well now. Ambulatory pulse ox on room air prior to discharge Possible discharge in the a.m. if she continues to improve Code Visit Inpatient E&M: 73155 Subs Hosp L2
--- NOTE | 2018-10-15 19:15 | PN_ITS ---
Patient Problems: Active and Suspected Problems (Last Reviewed 08/15/18 @ 15:35 by Toshia Paniagua) Shortness of breath (Acute) Nonproductive cough (Acute) Chills with fever (Acute) Subjective: All events of the past 24 hours of been reviewed. She is afebrile. The last blood pressure was mildly decreased at 93/60. Tachycardia has res olved. She is 94% saturated on a 1-1/2 L nasal cannula and 89% on room air at rest. Respiratory panel is positive for influenza A, subtype H1. Sputum culture appears to be normal respiratory bismark. States she is feeling better today. Still coughing. Tells me that she has been using the IS and the acapella. Having some loose stool. Denies CP and the SOB is better Objective: - Physical Exam General: Alert, Oriented x3, Cooperative, No apparent distress - Currently saturating well on a 2 LPM NC. No conversational dyspnea, no accessory muscle use. HEENT: Atraumatic, PERRLA, Normocephalic Oral: Dry Mucosa Neck: Supple, Negative Carotid Bruits Lungs: No rales, Diminished, minimal wheezing today and mostly in the R base Cardiovascular: Regular rate, Regular Rhythm, Normal S1, Normal S2, No murmurs, No Ectopic Activity, No rub noted, No Gallop Abdomen: Bowel Sounds Present, Soft, Non Tender, Non-Distended, No Hepato- splenomegaly, - - No masses Extremities: No clubbing, No cyanosis, No edema, No Calf Tenderness, Peripheral Pulses Normal Skin: No rashes Neurological: Cranial nerves II-XII grossly intact, Neuro grossly intact Psych/Mental Status: Normal Affect, Appropriate - Physical Exam Vital Signs Temp Pulse Resp BP Pulse Ox 98.3 F 86 20 H 93/60 94 10/15/18 14:40 10/15/18 15:25 10/15/18 15:25 10/15/18 14:40 10/15/18 14:40 Oxygen Flow Rate (L/min) 1.5 Oxygen Delivery Method Room Air Weight: 186 lb 8.177 oz Body Mass Index (BMI) 33.0 Finger Stick Blood Glucose 96 Intake and Output for Last 24 Hours 10/13/18 10/14/18 10/15/18 23:59 23:59 23:59 Intake Total 2093 / 2093 3245 / 3245 Output Total 200 / 200 200 / 200 Balance 1893 / 1893 3045 / 3045 Microbiology Past 72 Hours 10/14/18 09:15 Gram Stain - Final Sputum, Expectorated/Coughed Respiratory Culture - Preliminary Appears to be normal respiratory bismark. Further studies to follow. 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 acute exacerbation COPD likely due to influenza A 2. ? infiltrate in the right base 3. COPD 4. hx of tobacco dependence - quit 7 years ago 5. CAD with hx of CABG - negative stress ECHO 08/26/18 with normal EF 6. HTN 7. HLD 8. Left carotid stenosis with a hx of TIA 9. Obesity 10. Hypokalemia 11. CXR at admission has suspicious area in the left mid lung......compared to an old CXR in 2016......there was scarring in the past but the area looks bigger now. Tells me that she gets bronchitis every year for a few months and that she has had PNA several times Will get a CT of the chest with high resolution to look at possible nodule and to look for bronchiectasis Start Tamiflu 75 mg p.o. twice daily DC IV fluids-she is eating well now. Ambulatory pulse ox on room air prior to discharge Possible discharge in the a.m. if she continues to improve Code Visit Inpatient E&M: 88408 Subs Hosp L2
[2018-10-15] MEDS: 0.9% NaCl Peripheral Flush Adult/Peds IV ×2 (19:51→21:18)
[2018-10-15] MEDS: Ceftriaxone 1 GM/50 ML BAG IV (19:51)
[2018-10-15] MEDS: guaiFENesin 1,200 MG Tablet 1200 MG PO (21:18)
[2018-10-15] MEDS: Oseltamivir Phosphate 30 MG Capsule PO (21:18)
[2018-10-15] MEDS: ALPRAZolam 0.25 MG Tablet PO (22:02)
[2018-10-16] VITALS (13 sets, daily range): BP systolic 103–124; BP diastolic 68–82; PULSE 72–99; RESP 18–24; TEMP 36.7–37.1; O2SAT 86–95
[2018-10-16] MEDS: Ipratropium/Albuterol Sulfate 3 ML AMPUL.NEB INHALATION ×6 (02:42→23:03)
[2018-10-16] MEDS: 0.9% NaCl Peripheral Flush Adult/Peds IV ×4 (05:55→23:19)
[2018-10-16 06:30] LABS: Hematocrit 42.8 % (37-47); Hemoglobin 13.9 g/dl (12.0-15.0); Mean Corp Hgb Conc 32.5 g/gl (32-36); Mean Corpuscular Hgb 29.8 pg (27.0-32.0); Mean Corpuscular Volume 91.8 fL (81-99); Mean Platelet Vol. 11.8 fl (6.2-12.0); Platelet Count 154 K/mm3 (150-450); RBC Distribution Width CV 14.9 % (11.6-14.6); RBC Distribution Width SD 50.3 fl (35.1-43.9); Red Blood Count 4.66 M/mm3 (4.2-5.4); White Blood Count 10.6 K/mm3 (4.4-11.0)
[2018-10-16 06:33] LABS: Scan Indicated on CBC? Y/N NO
[2018-10-16 06:41] LABS: Anion Gap 5 (5-15); BUN 22 mg/dL (7-18); Calcium,Total 8.3 mg/dL (8.5-10.1); Chloride 106 mmol/L (98-107); EST Glomerular Filtration Rate 58 mL/min (>60); Est Glom Filt Rate - Afr Amer 70 mL/min (>60); Estimated Creatinine Clearance 42.68 ml/min; Glucose 78 mg/dL (74-106); Sodium Level 140 mmol/L (136-145)
[2018-10-16] MEDS: Magnesium Oxide 400 MG Tablet PO (11:19)
[2018-10-16] MEDS: guaiFENesin 1,200 MG Tablet 1200 MG PO ×2 (11:20→22:09)
[2018-10-16] MEDS: Isosorbide Mononitrate 30 MG Tablet PO (11:20)
[2018-10-16] MEDS: Clopidogrel Bisulfate 75 MG Tablet PO (11:20)
[2018-10-16] MEDS: Oseltamivir Phosphate 30 MG Capsule PO ×2 (11:20→22:09)
--- NOTE | 2018-10-16 19:05 | PCM.PROGNOTE ---
Patient Problems: Active and Suspected Problems (Last Reviewed 08/15/18 @ 15:35 by Toshia Paniagua) Shortness of breath (Acute) Nonproductive cough (Acute) Chills with fever (Acute) Subjective: Day #2 Tamiflu Day #2 Rocephin The patient is a 73-year-old female admitted to the hospital with cough and shortness of breath. She has been diagnosed with influenza A. She was started on Tamiflu. Plain x-ray of the chest showed 2 suspicious nodular type lesions in the left mid lung. CT scan of the chest was obtained and showed a precarinal lymph node and 2 spiculated nodules in the left lung. She was a longtime smoker but quit 3 years ago. She is going to follow-up with Dr. Marko Deshpande in the pulmonary clinic to schedule further workup All events of the past 24 hours of been reviewed. Afebrile Vital signs are stable Pulse ox on room air at rest is 92% but ambulating on room air is 86%. All lab was personally reviewed. White blood cell count, hemoglobin and platelets are all within normal limits today. BMP is remarkable for a BUN of 22 but the creatinine has improved to 1.00. The elevation in BUN is likely secondary to intravenous steroids. Hypokalemia has resolved. CT scan of the chest showed a 1.6 x 0.9 cm precarinal lymph node, a 1.7 cm spiculated nodule in the apical segment of the left lower lobe and a 9.5 mm spiculated groundglass nodule in the lingula division of the left upper lobe. There is also a right lower lobe infiltrate. Malignancy can not be ruled out. I discussed the results of the CT scan with the patient and explained the need to follow-up with pulmonary to get a biopsy. On of the nodules is close to the pleura and may be able to be transcutaneously biopsied. She continues to cough and it is mostly dry. The cough kept her up most of the night. She denies any chest discomfort. States the shortness of breath is better. Objective: - Physical Exam General: Alert, Oriented x3, Cooperative, No apparent distress - Currently saturating well on a 2 LPM NC. No conversational dyspnea, no accessory muscle use. HEENT: Atraumatic, PERRLA, Normocephalic Oral: Dry Mucosa Neck: Supple, Negative Carotid Bruits Lungs: No rales, Diminished, localized inspiratory and exp wheezing in the R base. No other wheezing and no rales. Not tachypneic, no conversational dyspnea, no accessory muscle use. Cardiovascular: Regular rate, Regular Rhythm, Normal S1, Normal S2, No murmurs, No Ectopic Activity, No rub noted, No Gallop Abdomen: Bowel Sounds Present, Soft, Non Tender, Non-Distended, No Hepato-splenomegaly, - - No masses Extremities: No clubbing, No cyanosis, No edema, No Calf Tenderness, Peripheral Pulses Normal Skin: No rashes Neurological: Cranial nerves II-XII grossly intact, Neuro grossly intact Psych/Mental Status: Normal Affect, Appropriate - Physical Exam Vital Signs Temp Pulse Resp BP Pulse Ox 98.2 F 87 18 117/69 92 10/16/18 16:50 10/16/18 16:50 10/16/18 16:50 10/16/18 16:50 10/16/18 16:50 Oxygen Flow Rate (L/min) [ 1 AMBULATION with Oxygen] Oxygen Flow Rate (L/min) 1 Oxygen Delivery Method Room Air Weight: 186 lb 8.177 oz Body Mass Index (BMI) 33.0 Finger Stick Blood Glucose 96 Intake and Output for Last 24 Hours 10/14/18 10/15/18 10/16/18 23:59 23:59 23:59 Intake Total 2093 / 2093 3245 / 3245 2160 / 2160 Output Total 200 / 200 200 / 200 3 / 3 Balance 1893 / 1893 3045 / 3045 2157 / 2157 Microbiology Past 72 Hours 10/14/18 09:15 Gram Stain - Final Sputum, Expectorated/Coughed Respiratory Culture - Final 10/14/18 07:45 Blood Culture - Preliminary Blood Culture (Wb) - Anticubital Right No growth in 48 hours. 10/14/18 07:35 Blood Culture - Preliminary Blood Culture (Wb) - Anticubital Left No growth in 48 hours. 10/14/18 03:55 Respiratory Panel (PCR) - Final Mucosa - Nasopharyngeal Influenza A (Subtype H1) 10/14/18 03:45 Influenza Types A,B Direct FA (DIDI) - Final Mucosa - Nose Laboratory Tests Past 24 Hrs 10/16/18 10/16/18 05:28 05:28 WBC 10.6 RBC 4.66 Hgb 13.9 Hct 42.8 MCV 91.8 MCH 29.8 MCHC 32.5 RDW 14.9 H RDW Differential 50.3 H Plt Count 154 MPV 11.8 Sodium 140 Potassium 4.0 Chloride 106 Carbon Dioxide 29.0 Anion Gap 5 BUN 22 H Creatinine 1.00 Estim Creat Clear Calc 42.68 Est GFR (MDRD) Af Amer 70 Est GFR (MDRD) Non-Af 58 L BUN/Creatinine Ratio 22.0 H Glucose 78 Calcium 8.3 L Magnesium 2.0 Medical Necessity - Tobacco Use Smoking Status: Former smoker Tobacco Use: Cigarettes Assessment/Plan All Active Problems (Last Reviewed 08/15/18 @ 15:35 by Toshia Paniagua) Shortness of breath (Acute) Nonproductive cough (Acute) Chills with fever (Acute) 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 acute exacerbation COPD due to influenza A 2. CAP with infiltrate in the right base-started on Rocephin on 10/15/2018 3. COPD 4. hx of tobacco dependence - quit 7 years ago 5. CAD with hx of CABG - negative stress ECHO 08/26/18 with normal EF 6. HTN 7. HLD 8. Left carotid stenosis with a hx of TIA 9. Obesity 10. Hypokalemia-resolved 11. Abnormal CT chest with a 1.7 cm spiculated nodule in the apical segment of the left lower lobe and a 9.5 mm spiculated groundglass nodule in the lingula division of the left upper lobe. There is also a 1.6 by 0.9 cm precarinal lymph node. Continue Tamiflu and Rocephin Will likely need oxygen at discharge Continue incentive spirometry Will follow-up in the pulmonary clinic with Cammie or Dr. Deshpande within the next 1-2 weeks to order further workup to evaluate the spiculated pulmonary nodules in the left lung Convert to p.o. prednisone in the a.m. Possible discharge tomorrow Code Visit Inpatient E&M: 04747 Subs Hosp L2
[2018-10-16] MEDS: Ceftriaxone 1 GM/50 ML BAG IV (22:09)
[2018-10-16] MEDS: ALPRAZolam 0.25 MG Tablet PO (22:09)
[2018-10-17 05:22] VITALS: BP 140/85; PULSE 88; RESP 18; TEMP 36.7; O2SAT 92
[2018-10-17 06:45] VITALS: PULSE 74; RESP 16; O2SAT 92
[2018-10-17] MEDS: Ipratropium/Albuterol Sulfate 3 ML AMPUL.NEB INHALATION ×2 (06:45→10:51)
[2018-10-17 08:17] VITALS: BP 121/81; PULSE 79; RESP 16; TEMP 36.9; O2SAT 94
[2018-10-17] MEDS: predniSONE 20 MG Tablet 40 MG PO (08:28)
[2018-10-17] MEDS: Oseltamivir Phosphate 30 MG Capsule PO (08:38)
[2018-10-17 08:39] VITALS: PULSE 79
[2018-10-17] MEDS: Isosorbide Mononitrate 30 MG Tablet PO (08:39)
[2018-10-17] MEDS: Clopidogrel Bisulfate 75 MG Tablet PO (08:39)
[2018-10-17] MEDS: Metoprolol(XL)Succ 25 MG Tablet PO (08:39)
[2018-10-17] MEDS: guaiFENesin 1,200 MG Tablet 1200 MG PO (08:39)
[2018-10-17] MEDS: Magnesium Oxide 400 MG Tablet PO (08:39)
--- NOTE | 2018-10-17 10:46 | DCINST_ITS ---
- Discharge Diagnoses Current Active Problems: Current Active and Chronic Problems (Last Reviewed 08/15/18 @ 15:35 by Toshia Paniagua) Shortness of breath (Acute) Nonproductive cough (Acute) Chills with fever (Acute) You will use the following diet at home:: Cardiac Your food should be the consistency of: Regular Your liquids should be the consistency of: Regular/Thin Discharge Activity: Return to Normal Activity Weight Bearing Status: Weight bearing as tolerated Call your doctor if you observe: Fever of 101 or Higher, Shortness of breath Instructions: What is COPD?, ED Nodule Solitary Pulmonary Additional Instructions: follow up with Dr Deshpande in Pulmonary Clinic in one week for assessment of lung nodule Allergies/Adverse Reactions: Allergies codeine Allergy (Verified 10/14/18 03:03) Unknown Penicillins Allergy (Verified 10/14/18 05:19) Rash, fainting Sulfa (Sulfonamide Antibiotics) Allergy (Verified 10/14/18 03:03) Unknown per pt when was a child mother told her she was allergic not sure of reaction atorvastatin [From Lipitor] Adverse Reaction (Unknown, Verified 10/14/18 03:03) Myalgia fluvastatin [From Lescol] Adverse Reaction (Unknown, Verified 10/14/18 03:03) Myalgia lisinopril Adverse Reaction (Unknown, Verified 10/14/18 03:03) Cough losartan [From Cozaar] Adverse Reaction (Unknown, Verified 10/14/18 03:03) Cough niacin Adverse Reaction (Unknown, Verified 10/14/18 03:03) Rash rosuvastatin [From Crestor] Adverse Reaction (Unknown, Verified 10/14/18 03:03) Myalgia simvastatin [From Zocor] Adverse Reaction (Unknown, Verified 10/14/18 03:03) Myalgia Iodinated Contrast- Oral and IV Dye [DYEE] Adverse Reaction (Verified 10/14/18 05:19) Vomiting Medications to take at Discharge cholecalciferol (vitamin D3) 1,000 unit capsule 1,000 unit PO QDAY 01/17/18 hydrochlorothiazide 12.5 mg tablet 12.5 mg PO QDAY #90 tab 08/15/18 isosorbide mononitrate ER 30 mg tablet,extended release 24 hr 30 mg PO QDAY #90 tab 08/15/18 magnesium oxide 400 mg capsule 400 mg PO DAILY cap 08/15/18 metoprolol succinate ER 25 mg tablet,extended release 24 hr 25 mg PO QDAY #90 tab 08/15/18 clopidogrel 75 mg tablet 75 mg PO QDAY #90 tab 10/10/18 Albuterol IH (ProAir) [Proair Hfa] 1 - 2 puff INHALATION Q4H PRN PRN #1 inhaler 10/17/18 Oseltamivir Phosphate [Tamiflu] 30 mg PO BID 3 Days #6 capsule 10/17/18 predniSONE tablet 40 mg PO DAILY@0800 #10 tablet 10/17/18 The following prescriptions were given: Albuterol IH (ProAir) [Proair Hfa] 1 - 2 puff INHALATION Q4H PRN PRN #1 inhaler PRN Reason: Sob &/Or Wheezing predniSONE tablet 40 mg PO DAILY@0800 #10 tablet Oseltamivir Phosphate [Tamiflu] 30 mg PO BID 3 Days #6 capsule Primary Care Physician: Ari Carballo Chi, MD [Primary Care Provider] - Please follow up with your Primary Care Physician in: one week Test Results: Test results from this visit will be discussed in further detail at your follow- up appointment, if applicable. Please Follow Up With: Marko Deshpande DO When: 1 week Proposed Discharge Date: 10/17/18
--- NOTE | 2018-10-17 10:46 | PCM.DC.SUM ---
Discharge Date and Diagnosis Date of Admission: 10/14/18 Date of Discharge: 10/17/18 - Primary Discharge Diagnosis Active and Suspected Problems (Last Reviewed 08/15/18 @ 15:35 by Toshia Paniagua) Shortness of breath (Acute) Nonproductive cough (Acute) Chills with fever (Acute) influenza A infection lung nodules - Secondary Discharge Diagnosis Chronic Problems (Last Reviewed 08/15/18 @ 15:35 by Toshia Paniagua) Left carotid artery stenosis (Chronic) Atherosclerosis of coronary artery of [place] heart without angina pectoris (Chronic) Weight gain (Chronic) History of AAA (abdominal aortic aneurysm) repair (Chronic ~2008) Hx of CABG (Chronic 07/15/05) COLIN to LAD, radial artery as a free graft to the ramus intermedius, SVG to Dx and marginal branch of LCX @ [facility] Dr. Blue 07/15/2005 Benign essential hypertension (Chronic) Chronic obstructive lung disease (Chronic) Hyperlipidemia (Chronic) TIA (transient ischemic attack) (Chronic) Hospital Course and Treatment Imaging Results: Diagnostic Data Chest X-Ray 10/14/18 03:55 IMPRESSION: Right anterior lung base atelectasis versus infiltrate Electronically Signed: Abhilash Jalloh MD at 4:22 EDT Tel , Service support , Chest CT 10/15/18 12:55 IMPRESSION: A mixture of consolidation and atelectatic changes in the right lower lobe. Pneumonia suspected. A 1.7 cm spiculated nodule in the apical segment of the left lower lobe. A malignant neoplastic process is suspected. A 9.5 mm spiculated groundglass nodule in the lingula division of the left upper lobe. A PET CT scan is suggested to further evaluate the 2 left lung lesions Electronically Signed: Carols Brandon MD at 0:54 EDT Tel , Service support , ADDENDUM: 10/16/18 0205 IMPRESSION: A mixture of consolidation and atelectatic changes in the right lower lobe. Pneumonia suspected. A 1.7 cm spiculated nodule in the apical segment of the left lower lobe. A malignant neoplastic process is suspected. A 9.5 mm spiculated groundglass nodule in the lingula division of the left upper lobe. A PET CT scan is suggested to further evaluate the 2 left lung lesions N.B. : The above information has been verbally conveyed by Carlos Brandon MD to Kathi Dalal RN, on 10/16/2018 01:58:39 (ET). Electronically Signed: Carlos Brandon MD at 0:54 EDT Tel , Service support , Operations: None Procedures: None Summary of Care Provided: The patient is a 73 year old F with past medical history as listed. She was admitted to the ED with a complaint of fever, chills and a nonproductive cough for the last few days prior to admission. Patient was noted to have a history of COPD per her medical record however she denied having COPD. She had a chest x-ray which showed right anterior lung base atelectasis versus infiltrate. She had no elevated white cell count. She was started on IV Solu-Medrol and aerosols and was requiring up to 3 L of oxygen to maintain saturation above 90%. She was initially admitted and managed for acute COPD exacerbation. Influenza screen done was positive for influenza A. She was therefore managed for acute influenza infection and was started on Tamiflu. Patient remained stable and wheezing shortness of breath resolved. She was transitioned off of oxygen. Of note, plain chest x-ray showed 2 suspicious nodular type lesions in the left midlung and a CT of the chest obtained showed a precarinal lymph node and 2 spiculated nodules in the left lung. Patient had been a long-term smoker but quit 3 years prior to admission. She remained stable and walking pulse ox was 92% on room air, therefore she didnt qualify for oxygen. With a prescription for Tamiflu for 3 days to complete a 5-day course. She was also discharged with a prescription for p.o. prednisone and albuterol inhaler. She is to follow-up with pulmonology-Dr. Marko Deshpande on account of lung nodules. She is also to follow-up with her primary care doctor. Patient seen and examined prior to discharge. She felt very well and had no complaints. Shortness of breath and wheezing as well as cough had fully resolved. Review of systems otherwise negative. Labs and vitals reviewed. Home medications reviewed on consult. [] o/e: Vital Signs Height 5 ft 3 in Weight: 186 lb 8.177 oz Weight in Pounds 186.5 lbs Pulse Ox [AMBULATION with 94 Oxygen] Pulse Ox [AMBULATING on Room 88 Air] Pulse Ox [At REST on Room Air] 86 Pulse Ox 92 Temperature 98.4 F Pulse Rate 78 Respiratory Rate 16 Blood Pressure [BP] 100/75 Blood Pressure 121/81 Blood Pressure Position [BP] Sitting Blood Pressure Position Sitting General: Alert, Oriented x3, Cooperative, No apparent distress HEENT: Atraumatic, PERRLA, Normocephalic Oral: Dry Mucosa Neck: Supple, Negative Carotid Bruits Lungs: No rales, clear to auscultation. Cardiovascular: Regular rate, Regular Rhythm, Normal S1, Normal S2, No murmurs Abdomen: Bowel Sounds Present, Soft, Non Tender, Non-Distended, No Hepato-splenomegaly, Extremities: No clubbing, No cyanosis, No edema, No Calf Tenderness, Peripheral Pulses Normal Skin: No rashes Neurological: Cranial nerves II-XII grossly intact, Neuro grossly intact Psych/Mental Status: Normal Affect, Appropriate Plan as discussed above. - Physical Exam Vital Signs Temp Pulse Resp BP Pulse Ox 98.4 F 79 16 121/81 H 94 10/17/18 08:17 10/17/18 08:39 10/17/18 08:17 10/17/18 08:17 10/17/18 08:17 Oxygen Flow Rate (L/min) [ 1 AMBULATION with Oxygen] Oxygen Flow Rate (L/min) 1 Oxygen Delivery Method Room Air Weight: 186 lb 8.177 oz Body Mass Index (BMI) 33.0 Finger Stick Blood Glucose 96 Intake and Output for Last 24 Hours 10/15/18 10/16/18 10/17/18 23:59 23:59 23:59 Intake Total 3245 / 3245 2628 / 2628 150 / 150 Output Total 200 / 200 353 / 353 600 / 600 Balance 3045 / 3045 2275 / 2275 -450 / -450 Microbiology Past 72 Hours 10/14/18 09:15 Gram Stain - Final Sputum, Expectorated/Coughed Respiratory Culture - Final 10/14/18 07:45 Blood Culture - Preliminary Blood Culture (Wb) - Anticubital Right No growth in 48 hours. 10/14/18 07:35 Blood Culture - Preliminary Blood Culture (Wb) - Anticubital Left No growth in 48 hours. 10/14/18 03:55 Respiratory Panel (PCR) - Final Mucosa - Nasopharyngeal Influenza A (Subtype H1) Discharge Diet: Light diet - advance as tolerated Discharge Activity: Return to Normal Activity Weight Bearing Status: Weight bearing as tolerated Call your doctor if you observe: Fever of 101 or Higher, Shortness of breath Home Medications: Medications to take at Discharge cholecalciferol (vitamin D3) 1,000 unit capsule 1,000 unit PO QDAY 01/17/18 hydrochlorothiazide 12.5 mg tablet 12.5 mg PO QDAY #90 tab 08/15/18 isosorbide mononitrate ER 30 mg tablet,extended release 24 hr 30 mg PO QDAY #90 tab 08/15/18 magnesium oxide 400 mg capsule 400 mg PO DAILY cap 08/15/18 metoprolol succinate ER 25 mg tablet,extended release 24 hr 25 mg PO QDAY #90 tab 08/15/18 clopidogrel 75 mg tablet 75 mg PO QDAY #90 tab 10/10/18 Albuterol IH (ProAir) [Proair Hfa] 1 - 2 puff INHALATION Q4H PRN PRN #1 inhaler 10/17/18 Oseltamivir Phosphate [Tamiflu] 30 mg PO BID 3 Days #6 capsule 10/17/18 predniSONE tablet 40 mg PO DAILY@0800 #10 tablet 10/17/18 Following Prescrptions Were Given to Patient: Albuterol IH (ProAir) [Proair Hfa] 1 - 2 puff INHALATION Q4H PRN PRN #1 inhaler PRN Reason: Sob &/Or Wheezing predniSONE tablet 40 mg PO DAILY@0800 #10 tablet Oseltamivir Phosphate [Tamiflu] 30 mg PO BID 3 Days #6 capsule Primary Care Physician: Ari Carballo Chi, MD [Primary Care Provider] - Please follow up with your Primary Care Physician in: one week Please Follow Up With: Marko Deshpande, DO When: 1 week Patient Instructions: What is COPD?, ED Nodule Solitary Pulmonary Disposition: Home Minutes spent on discharge:: 40 Patient Condition:: Stable Medical Necessity - Tobacco Use Smoking Status: Former smoker Tobacco Use: Cigarettes Meaningful Use Info Meaningful Use Diagnoses (Choose all that apply): None applicable Code Visit Inpatient E&M: 47672 Disch Hosp
[2018-10-17 10:51] VITALS: PULSE 78; RESP 16
[2018-10-17 11:39] VITALS: O2SAT 92
--- NOTE | 2018-10-18 16:17 | CASEMGMT ---
RN FRANKIE DC PHONE CALL DC DATE: 10/17/18 DC Disposition: Home LACE/STRATA: 05/21 Intro role of CM to patient via home phone. Pt states she still has cough but is feeling better. No questions re: medications. Pt has f/u appointment scheduled. No care improvement suggestions given. Ariel BYNUMN RN AC
== END 2018-10-17 12:22 | disposition home or self-care (01) | DRG 194 ==
LOC: ED 03:34 → MS3 04:55
PROVIDERS: Internal Medicine; Admitting Provider Internal Medicine; Emergency Provider Emergency Medicine; Family Provider Family Medicine Geriatric Medicine; PCP Family Medicine Geriatric Medicine; Referring Provider Internal Medicine; Visit Provider Student in an Organized Health Care Education/Training Program
DX: J10.1 Influenza due to other identified influenza virus with other respiratory manifestations (principal); J44.1 Chronic obstructive pulmonary disease with (acute) exacerbation; I25.10 Atherosclerotic heart disease of native coronary artery without angina pectoris; E78.5 Hyperlipidemia, unspecified; Z95.1 Presence of aortocoronary bypass graft; Z86.79 Personal history of other diseases of the circulatory system; Z87.891 Personal history of nicotine dependence; Z86.73 Personal history of transient ischemic attack (TIA), and cerebral infarction without residual deficits; E87.6 Hypokalemia; E66.9 Obesity, unspecified; Z68.33 Body mass index [BMI] 33.0-33.9, adult; I65.22 Occlusion and stenosis of left carotid artery; I10 Essential (primary) hypertension; R91.8 Other nonspecific abnormal finding of lung field
CPT/HCPCS: 36415; 36600; 71046; 71250; 80048; 80076; 83036; 83735; 84100; 85025; 85027; 87040; 87070; 87205; 87633; 87804; 93005; 94640; 94667; 94668; 97110; 97116; 97162; 97166; 97530; 97535; 97802; 99285; J7030; J7040; A4216

== ENCOUNTER → 2018-10-25 | Outpatient (CLI) | payer MEDICARE, SELFPAY ==
[2018-10-19 08:43] VITALS: BMI 33.3
[2018-10-25 15:33] LABS: International Normalized Ratio 0.9; Prothrombin Time (Protime)PT. 12.4 SECONDS (11.7-14.9)
== END | disposition home or self-care (01) ==
PROVIDERS: Family Provider Family Medicine Geriatric Medicine; PCP Family Medicine Geriatric Medicine; Visit Provider Nurse Practitioner Acute Care
DX: R06.02 Shortness of breath (principal); R91.8 Other nonspecific abnormal finding of lung field; R68.83 Chills (without fever)
CPT/HCPCS: 36415; 85610; 85730; 87633

== ENCOUNTER → 2018-11-02 | Outpatient (CLI) | payer MEDICARE, SELFPAY ==
[2018-10-19 08:43] VITALS: BMI 33.3
[2018-11-02] VITALS (11 sets, daily range): BP systolic 112–157; BP diastolic 66–113; PULSE 64–80; RESP 11–18; TEMP 36.8; O2SAT 92–100; BMI 33.1
--- NOTE | 2018-11-02 | ASPIGT_PTH ---
PATIENT: CLEO SAM LOC: CT U#:[id number] AGE/SX: 73/F ROOM: RE11/02/[address]: GLORY Valerio : 1945 BED: DIS: 11/02/2018 SPEC #: [id number] RECD: 11/02/18 14:22 STATUS: MAXIMUS RESamson #: [id number] DAYAMI: 11/02/18 00:[address]: Cammie Martel NP DEPT: SURGICAL PATHOLOGY RECD BY: Abhilash Palomino ENTERED: 11/02/18 14:22 SP TYPE: ASP RAD OTHR DR: Dr. Ari Carballo MD Tissues: Lung, NOS Procedures: FNA Specimen Adequacy Special Stain Group II Surgery Specimen Level IV Imprint (control) HEADER OPERATION: CT-guided left lung biopsy PRE-OP DIAGNOSIS: Mass TISSUE SUBMITTED: [address]-guided left lung biopsy MICROSCOPIC DIAGNOSIS Left lung, CT-guided biopsy: A minute cluster of atypical cells (<0.1 cm in greatest dimension), highly suspicious for non-small cell carcinoma favor squamous cell carcinoma. See comment. JULIANNA:antonella 11/07/18 COMMENT The specimen is evaluated at the time of biopsy by Dr. Dumont. Immediate Evaluation: Set 1 - Negative for malignant cells (one touch imprint). Set 2 - Negative for malignant cells (one touch imprint). The specimen predominantly consists of unremarkable lung parenchymal tissue. Immunohistochemistry ([id number]) supports the above diagnosis. Case has been reviewed in consultation with Dr. Barbosa who concurs with the above diagnosis. IDC:AM MICROSCOPIC DESCRIPTION Slides are reviewed. GROSS DESCRIPTION Received in fixative is one container labeled with the patient's name and designated left lung, CT-guided biopsy. The specimen consists of multiple irregular fragments of diaz soft tissue that in aggregate measure 1 x 0.1 x <0.1 cm. The specimen is totally submitted in one cassette. Two touch imprints are prepared at the time of core biopsy. / JULIANNA:antonella 11/02/18 TC:0 CPT: 66850, 83963, 54061
--- NOTE | 2018-11-02 | IMM_PTH ---
PATIENT: CLEO SAM LOC: CT U#:[id number] AGE/SX: 73/F ROOM: RE11/02/[address]: GLORY Valerio : 1945 BED: DIS: 11/02/2018 SPEC #: [id number] RECD: 11/04/18 11:30 STATUS: MAXIMUS RESamson #: [id number] DAYAMI: 11/02/18 00:[address]: Cammie Martel NP DEPT: IMMUNOHISTOCHEMISTRY RECD BY: Heather Rodriguez ENTERED: 11/04/18 11:42 SP TYPE: IMMUNO OTHR DR: Dr. Ari Carballo MD Tissues: Lung, NOS Procedures: CK20 (add) CK5-6 (add) TTF1 (add) P40 (add) CK7 (initial) PHYSICIAN & INSTITUTION [place] [id number] SPECIMEN INFORMATION: Tissue Source: CT-guided left lung biopsy Clinical Info: Lung mass Specimen Number: [id number] CPT code: 14988, 74860 x4 METHODOLOGY: Deparaffinized sections of prefer/formalin-fixed tissue or PAP/DQ stained slides are incubated with monoclonal/polyclonal antibodies/oligonucleotide probes. Localization is made via biotin free immunoperoxidase method. Appropriate controls are performed and reacted as expected. Results on target cell population are indicated in the following table: RESULTS: ANTIBODY / CLONE RESULT CK7 (OV-TL12/30) negative CK20 (KS20.8) negative CK5-6 (D5 & 1684) positive P40 (BC28) positive TTF-1 (8G7G3/1) negative These tests were developed and their performance characteristics determined by [facility]. They may not have been cleared or approved by the U.S. Food and Drug Administration. The FDA has determined that such clearance or approval is not necessary. INTERPRETATION: Left lung, CT-guided biopsy: A minute cluster of atypical cells, highly suspicious for non-small cell carcinoma, favor squamous cell carcinoma. SJ:antonella 11/07/18 Case has been reviewed in consultation with Dr. Barbosa who concurs with the above diagnosis. IDC:AM
--- NOTE | 2018-11-02 08:46 | CT_ITS ---
PROCEDURE: CT GUIDED CORE NEEDLE BIOPSY OF A left lower lobe nodular LUNG LESION INDICATION: Female, 73 years old. 1.7 cm nodule in the apical segment of the left lower lobe. PHYSICIAN: Dr. Aguila CONSENT: Written informed consent was obtained having explained the risks, benefits and alternatives in detail with the patient who accepted the risks and agreed to proceed. Laboratory review and clinical assessment was performed. CONSCIOUS SEDATION PROTOCOL: The Drugs used were: 2 mg Versed, IV., and 50 mcg Fentanyl, IV. The sedation time was: 34 minutes. Conscious sedation was started at 9:41 AM and terminated at 10:15 AM. The conscious sedation protocol was independently monitored. RADIATION DOSAGE (If Supplied By Facility): CTDIvol = ( 16.7 ) mGy, DLP = ( 538.61 ) mGycm Individualized dose optimization techniques were used for this CT. TECHNIQUE: The patient was placed in the prone position. A noncontrast CT was performed to localize the lesion in the superior segment of the left lower lobe . The skin surface was prepped and draped in a sterile fashion. 1% lidocaine was used for local anesthesia. Using CT guidance, a 20-gauge coaxial biopsy device was advanced to the periphery of the lesion. A total of 5 core specimens were obtained. The specimens were placed in a formalin solution. A post procedure CT demonstrated no adverse sequelae or pneumothorax. The patient tolerated the procedure well without adverse event. A negative biopsy does not exclude malignancy. Further imaging or clinical followup based on patient condition and degree of clinical suspicion for malignancy. Suggest rebiopsy, if biopsy results do not match with clinical scenario. CT/Biopsy/Inj or Needle Placement IMPRESSION: 1. CT directed core needle biopsy of the left lower lobe nodule using CT image guidance with image documentation as described. Pathology results are pending. 2. Conscious Sedation protocol utilized with independent monitoring. Electronically Signed: Tripp Aguila, at 10:41 EDT , Service support ,
[2018-11-02] MEDS: Midazolam 2 MG/2 ML Syringe IV ×2 (09:40→10:01)
[2018-11-02] MEDS: fentaNYL 100 MCG/2 ML Ampul IV (10:01)
--- NOTE | 2018-11-02 10:25 | RAD_ITS ---
STUDY: X-RAY CHEST REASON FOR EXAM: Female, 73 years old. Immediate post left lung biopsy radiographs. TECHNIQUE: AP inspiration and expiration views. COMPARISON: Comparison is made with prior examination dated October 14, 2018. FINDINGS: There is no evidence of pneumothorax following the left lung biopsy. There is evidence of increased density in the superior segment of the left lower lobe most likely secondary to post biopsy focal pulmonary hemorrhage. The patient is asymptomatic. RAD/Chest Insp/Exp 2 View IMPRESSION: No evidence of pneumothorax on the immediate post left lung biopsy radiograph. Findings suggestive of focal hemorrhage at the biopsy site. Electronically Signed: Tripp Aguila, at 10:43 EDT , Service support ,
--- NOTE | 2018-11-02 12:10 | RAD_ITS ---
STUDY: X-RAY CHEST REASON FOR EXAM: Female, 73 years old. This is a 2 hour post left lung biopsy radiograph. TECHNIQUE: AP inspiration and expiration views. COMPARISON: Comparison is made with prior study done earlier today. FINDINGS: There is no evidence of pneumothorax on the delayed chest radiograph. RAD/Chest Insp/Exp 2 View IMPRESSION: No pneumothorax on the delayed chest radiographs. Electronically Signed: Tripp Augila, at 10:18 EDT , Service support ,
== END | disposition home or self-care (01) ==
LOC: CT 08:45
PROVIDERS: Family Provider Family Medicine Geriatric Medicine; PCP Family Medicine Geriatric Medicine; Referring Provider Nurse Practitioner Acute Care; Visit Provider Nurse Practitioner Acute Care
DX: R91.1 Solitary pulmonary nodule (principal)
CPT/HCPCS: 32405; 71046; 77012; 88172; 88305; 88313; 88341; 88342; 99156; 99157

== ENCOUNTER → 2018-11-14 | Outpatient (CLI) | payer MEDICARE, SELFPAY ==
[2018-11-08 14:38] VITALS: BMI 33.1
--- NOTE | 2018-11-14 12:00 | PET_ITS ---
EXAMINATION: FDG PET CT INDICATIONS: A 73-year-old female with history of recent diagnosis of primary lung carcinoma presenting for initial staging examination. COMPARISON EXAMINATION: CT of the chest report dated 10/15/18. INDEX LESION SIZE SUV INTERPRETATION Left lower posteromedial lung field, left lower lobe 22.5 mm x 23.6 mm (frame 177) 6.7 Fulfills quantitative criteria for viable neoplasm NON-INDEX LESION SIZE SUV INTERPRETATION Carinal level mediastinum, bilateral thoracic perihilum 2.6 (max) Quantitative criteria for viable neoplasm are not fulfilled Right lower anterior hemithorax pulmonary parenchyma, linear 1.2 Quantitative criteria for viable neoplasm are not fulfilled TECHNIQUE: Following the intravenous administration of 16.9 mCi of F-18 deoxyglucose via the right antecubital fossa, multiplanar image acquisitions of the neck, chest, abdomen and pelvis to level of mid thigh, obtained at one hour post radiopharmaceutical administration contemporaneously interpreted with the current CT of the neck, chest, abdomen and pelvis to level of mid thigh, dated 11/14/[address] of the chest report dated 10/15/18 reveal: SERUM GLUCOSE LEVEL: 75 mg/dl. HEIGHT: 63 inches. WEIGHT: 187 lbs. FINDINGS: 1. Focal increased glucose metabolism is defined in the left lower posteromedial lung field, left lower lobe generating a calculated maximum standard uptake value of 6.7. The maximal axial diameter of the pleural-based density on review of CT of the chest dated 11/14/18 is 22.5 mm (transverse) x 23.6 mm (AP). 2. Multifocal increased FDG concentration is demonstrated in the carinal level mediastinum and bilateral thoracic perihilum generating a calculated maximum standard uptake value of 2.6. Strict quantitative criteria for centrally located thoracic-viable neoplasm are not fulfilled. 3. Normal physiologic distribution of the radiopharmaceutical is apparent in the hepatic (4.4) and splenic parenchyma, both renal units, bladder and visualized intestinal tract. There is uniform distribution of the radiopharmaceutical concentration defined in the visualized cerebellar hemispheres and cerebral cortical structures.? There is an asymmetric decrease in glucose metabolism manifest in the right occipital cerebral cortex with otherwise relative preservation of tracer distribution in the remaining visualized cerebral cortical and subcortical structures. Diffuse intestinal tract activity is noted throughout all four quadrants of the abdominal-pelvic retroperitoneum, mesentery consistent with normal physiologic distribution of the radiopharmaceutical. There appears to be delineation of the left hemidiaphragm. A linear increase in fluorine-labeled glucose uptake is noted in the right lower anterior lung field oriented in the horizontal plane generating a calculated maximum standard uptake value of 1.2. Pertinent CT findings are as follows. CHEST: There are no additional parenchymal densities-nodules defined in the right-left hemithorax demonstrating discernible, quantitatively significant increased glucose metabolism. Atherosclerotic calcification is defined in the thoracic aorta without evidence of dilatation, aneurysm formation. Coronary arterial calcification is observed. Right-left axillary soft tissue densities with fatty hilus formation are non-glucose avid. There is evidence of prior median sternotomy. ABDOMEN AND PELVIS: Tortuosity of the abdominal aorta is noted. Atherosclerotic calcification is defined in the abdominal aorta without evidence of aneurysm formation. Abdominal-pelvic arterial calcification is observed. The uterus appears surgically absent. Colonic diverticulosis is defined. SKELETAL: Degenerative changes defined in the cervical, thoracic and lumbar spine demonstrate no evidence for glucose hypermetabolism. PET/PET/CT Tumor Base -Thigh Init IMPRESSION: 1. ABNORMAL EXAMINATION INDICATIVE OF MALIGNANT-VIABLE NEOPLASM. 2. Increased radiopharmaceutical concentration noted in the left lower posteromedial lung field, left lower lobe fulfills quantitative criteria for viable neoplasm. (Horta et al, Annals of Internal Medicine, 138:724, 2003). 3. Mediastinal and bilateral thoracic perihilar mild increased FDG distribution does not fulfill quantitative criteria for malignant transformation. (SvenSteentiffani et al, Journal of Clinical Oncology 16:2142, 1998). 4. The linear increase in glucose distribution visualized in the right lower anterior lung field does not fulfill quantitative criteria for viable neoplasm. 5. No other quantitatively significant hypermetabolic abnormalities are noted. There is no definitive scintigraphic evidence of distant metastatic disease. Electronic Signature Jose Ibrahim D.O. Electronically Signed: Jose Ibrahim DO at 23:41 EDT Tel , Service support ,
== END | disposition home or self-care (01) ==
LOC: ONC 11:20
PROVIDERS: Family Provider Family Medicine Geriatric Medicine; PCP Family Medicine Geriatric Medicine; Referring Provider Nurse Practitioner Acute Care; Visit Provider Nurse Practitioner Acute Care
DX: C34.32 Malignant neoplasm of lower lobe, left bronchus or lung (principal)
CPT/HCPCS: 78815; A9552

== ENCOUNTER → 2018-11-16 | Outpatient (CLI) | payer MEDICARE, SELFPAY ==
[2018-11-08 14:38] VITALS: BMI 33.1
--- NOTE | 2018-11-16 16:53 | MRI_ITS ---
STUDY: MRI BRAIN WITH AND WITHOUT CONTRAST REASON FOR EXAM: Female, 73 years old. Lung cancer staging TECHNIQUE: Standardized multiplanar fat and water weighted pulse sequences were obtained. 16ml IV Dotarem was administered for the contrast portion of the examination. COMPARISON: January 09, 2016 FINDINGS: Atrophy and scattered periventricular white matter ischemic changes without mass effect or restricted diffusion.. Tiny old lacunar infarct in left basal ganglia and right posterior thalamus.. There is no extra-axial fluid accumulation. Old infarct in the right medial temporal and occipital lobes. Normal flow voids within the major intracranial circulation suggesting patency by spin echo criteria. Normal venous enhancement. There is no enhancing intra-axial or extra-axial abnormality. Normal sella turcica, pituitary gland, infundibular stalk, optic chiasm and hypothalamus. Normal tectal plate and pineal gland. Normal midbrain, devyn and medulla. Normal cerebellum. Normal basal cisterns. Normal bilateral temporal bones. Normal bilateral internal auditory canals. Postsurgical changes of the orbits.. Severe diffuse mucosal thickening of the maxillary ethmoid and sphenoid sinuses with sparing of the frontal sinuses.. Normal calvarium and skull base. Normal visualized soft tissue structures. Normal visualized upper cervical spine. MRI/Brain W/WO Contrast IMPRESSION: Atrophy and periventricular white matter ischemic changes. 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
== END | disposition home or self-care (01) ==
LOC: MRI 16:46
PROVIDERS: Family Provider Family Medicine Geriatric Medicine; PCP Family Medicine Geriatric Medicine; Referring Provider Nurse Practitioner Acute Care; Visit Provider Nurse Practitioner Acute Care
DX: C34.90 Malignant neoplasm of unspecified part of unspecified bronchus or lung (principal)
CPT/HCPCS: 70553; A9575; A4216

== ENCOUNTER → 2019-01-02 | Outpatient (CLI) | payer MEDICARE, SELFPAY ==
[2018-11-21 15:22] VITALS: BMI 33.0
--- NOTE | 2019-01-02 10:38 | CPS ---
There was an attached comment with the PFT electronic order for an ABG on room air. The patient refused to get the ABG drawn and said that she has already discussed with Dr. Russell that she would not get it done unless she had something for anxiety/sedation because it scared her too much.
--- NOTE | 2019-01-02 12:54 | PFT ---
INTRODUCTION: The patient is a 73-year-old female that presents for pulmonary function testing secondary to a diagnosis of lung cancer. Respiratory therapy reports good patient effort. Bronchodilators were used during testing. INTERPRETATION: Forced expiration spirometry demonstrates the presence of a moderate large airways obstructive ventilatory defect. There was no significant response to aerosolized bronchodilators. Spirograms are of good quality and do not plateau. Body plethysmography was performed and reveals an elevated TLC and RV, indicative of underlying hyperinflation and air-trapping. Diffusing capacity by single breath CO is at the lower limits of normal. There has been improvement in the patient's spirometric values when compared to pulmonary function studies completed in May 2017. IMPRESSION: Irreversible moderate large airways obstructive ventilatory defect with associated hyperinflation and air-trapping. Diffusing capacity is at the lower limits of normal.
== END | disposition home or self-care (01) ==
LOC: PSN 09:06
PROVIDERS: Family Provider Family Medicine Geriatric Medicine; PCP Family Medicine Geriatric Medicine; Referring Provider Internal Medicine Medical Oncology; Visit Provider Internal Medicine Medical Oncology
DX: C34.92 Malignant neoplasm of unspecified part of left bronchus or lung (principal)
CPT/HCPCS: 94060; 94726; 94729

== ENCOUNTER → 2019-01-27 | Outpatient (CLI) | payer MEDICARE, SELFPAY ==
[2018-12-28 15:45] VITALS: BMI 33.5
--- NOTE | 2019-01-27 08:23 | CT_ITS ---
STUDY: CT CHEST WITHOUT CONTRAST REASON FOR EXAM: Female, 73 years old. Bronchogenic cancer. Scheduled for surgery for left lower lobectomy. RADIATION DOSAGE (If Supplied By Facility): CTDIvol = ( 16.03 ) mGy, DLP = ( 636.93 ) mGycm TECHNIQUE: Transaxial imaging was performed without the administration of intravenous contrast material. Multiplanar coronal and sagittal images were reformatted. Individualized dose optimization techniques were used for this CT. COMPARISON: PET/CT scan, November 14, 2018. FINDINGS: The lungs are well expanded. There is a lobulated pleural-based soft tissue mass in the superior segment of the left lower lobe measuring 1.9 x 1.8 x 1.5 cm. There is minimal linear scarring in the left posterior costophrenic angle. No other masses or infiltrates are noted. There is minimal pleural thickening inferior to the mass in the posterior right lung base. Sternal cerclage wires and vascular clips are present from a prior sternotomy and coronary artery bypass graft procedure (CABG). Heart is normal in size. There is paratracheal, AP window and subcarinal lymphadenopathy. The largest lymph node, in the paratracheal region, measures 0.8 x 1.4 x 1.0 cm Normal hilar regions. Normal unenhanced pulmonary arteries. There is atherosclerotic calcification of the aortic arch with tortuosity and elongation of the aortic arch and descending thoracic aorta. There is no aneurysm. There are multi-level degenerative changes of the thoracic spine. Contrast and noncalcified laminated gallstones within the gallbladder lumen. The upper abdomen appears otherwise unremarkable. CT/Chest without Contrast IMPRESSION: 1. Lobulated pleural-based mass in superior segment left lower lobe correlates with the abnormal area of increased metabolism noted on the PET scan. 2. Mediastinal lymphadenopathy. 3. Evidence of CABG procedure. 4. Atherosclerotic changes of the aorta without aneurysm. 5. Question gallstones without acute cholecystitis. 6. Degenerative changes of the thoracic spine. Electronically Signed: Hadley Hannah DO at 17:02 EDT Tel [phone], Service support ,
== END | disposition home or self-care (01) ==
PROVIDERS: Family Provider Family Medicine Geriatric Medicine; PCP Family Medicine Geriatric Medicine; Referring Provider Thoracic Surgery (Cardiothoracic Vascular Surgery)
DX: C34.92 Malignant neoplasm of unspecified part of left bronchus or lung (principal)
CPT/HCPCS: 71250

== ENCOUNTER → 2019-02-16 | Outpatient (CLI) | payer MEDICARE, SELFPAY ==
[2019-02-16 14:36] VITALS: BMI 35.5
== END | disposition home or self-care (01) ==
LOC: LABSPEC 15:37
PROVIDERS: Family Provider Family Medicine Geriatric Medicine; PCP Family Medicine Geriatric Medicine; Referring Provider Nurse Practitioner Acute Care; Visit Provider Nurse Practitioner Acute Care
DX: J44.9 Chronic obstructive pulmonary disease, unspecified (principal)
CPT/HCPCS: 87070; 87077; 87186; 87205

== ENCOUNTER → 2019-03-13 | Outpatient (CLI) | payer MEDICARE, SELFPAY ==
[2019-02-16 13:40] VITALS: BMI 35.5
[2019-03-02 13:30] VITALS: BMI 34.0
--- NOTE | 2019-03-13 13:12 | CT_ITS ---
STUDY: CT CHEST WITHOUT CONTRAST REASON FOR EXAM: Female, 74 years old. Lung cancer restaging, partial lung resection RADIATION DOSAGE (If Supplied By Facility): CTDIvol = ( 19.16 ) mGy, DLP = ( 660.74 ) mGycm TECHNIQUE: Transaxial imaging was performed without the administration of intravenous contrast material. Individualized dose optimization techniques were used for this CT. COMPARISON: Previous study of 01/27/2019 FINDINGS: There are linear fibrotic markings of the left lower lobe. Partial left lower lobectomy changes are noted. There is minimal pleural thickening of the posterior left hemithorax. There is fluid in the inferior right major fissure. The heart size is within normal limits. Coronary arterial and valvular calcifications are present. There is no pericardial effusion. There are scattered mediastinal nodes measuring up to 1.3 cm in short axis. This largest node is located in the precarinal region. Hilar areas are difficult to assess on this noncontrast study. There is no obvious hilar adenopathy. There is mild dilatation of the main pulmonary artery measuring up to 3.1 cm. There are calcified plaques of the thoracic aorta. There is no evidence of thoracic aortic aneurysm. Status post sternotomy changes are noted. There is diffuse endplate spondylosis of the thoracic spine. There is no evidence of osseous metastatic disease. There are status post surgical changes of the posterior left sixth rib. There are calcified plaques of the abdominal aorta. There appear to be faintly calcified gallstones. CT/Chest without Contrast IMPRESSION: 1. Partial left lower lobectomy changes are noted. There is minimal pleural thickening in the posterolateral left hemithorax. 2. There is fluid in the inferior right major fissure. 3. Scattered mediastinal nodes measuring up to 1.3 cm in short axis, appearing similar to the previous study. 4. Mild dilatation of the main pulmonary artery measuring up to 3.1 cm. This may be associated with pulmonary hypertension. 5. Calcified plaques of the thoracic aorta. There is no evidence of thoracic aortic aneurysm. 6. Status post surgical changes of the posterior left sixth rib. Electronically Signed: Umberto Mederos MD at 17:18 EDT , Service support ,
== END | disposition home or self-care (01) ==
LOC: CT 13:11
PROVIDERS: Family Provider Family Medicine Geriatric Medicine; PCP Family Medicine Geriatric Medicine; Referring Provider Internal Medicine Medical Oncology; Visit Provider Internal Medicine Medical Oncology
DX: C34.92 Malignant neoplasm of unspecified part of left bronchus or lung (principal)
CPT/HCPCS: 71250

== ENCOUNTER 2019-03-22 09:29 | Day surgery (SDC) | payer MEDICARE, SELFPAY ==
--- NOTE | 2019-03-16 02:29 | HP_ITS ---
Intake Vital Signs 03/16/19 Body Mass Index (BMI) 34.0 03/16/19 Height 5 ft 4 in 03/16/19 Weight: 195 lb 03/16/19 Body Mass Index (BMI) 33.5 03/16/19 Blood Pressure 142/91 H 03/16/19 Blood Pressure Location Rt brachial 03/16/19 Blood Pressure Position Sitting 03/16/19 Respiratory Rate 20 H 03/16/19 Pulse Rate 82 03/16/19 Pulse Source Monitor 03/16/19 Temperature 98.0 F 03/16/19 Temperature Source Oral 03/16/19 Pulse Ox 90 03/16/19 Oxygen Delivery Method room air Intake Visit Reasons: Port Placement Chief Complaint: F/U for management of Lung cancer. Shipping Support Required: No Is patient in pain?: No Allergies Penicillins Allergy (Mild, Verified 03/16/19 14:07) Rash simvastatin Allergy (Unknown, Verified 03/16/19 14:07) Myalgia Sulfa (Sulfonamide Antibiotics) Allergy (Unknown, Verified 03/16/19 14:07) Unknown Iodinated Contrast Media [Iodinated Contrast- Oral and IV Dye] Adverse Reaction (Severe, Verified 03/16/19 14:07) Vomiting lisinopril Adverse Reaction (Mild, Verified 03/16/19 14:07) Cough losartan Adverse Reaction (Mild, Verified 03/16/19 14:07) Cough atorvastatin Adverse Reaction (Unknown, Verified 03/16/19 14:07) Myalgia fluvastatin Adverse Reaction (Unknown, Verified 03/16/19 14:07) Myalgia niacin Adverse Reaction (Unknown, Verified 03/16/19 14:07) Rash rosuvastatin Adverse Reaction (Unknown, Verified 03/16/19 14:07) Myalgia Medications cholecalciferol (vitamin D3) 1,000 unit capsule 1,000 unit PO QDAY 01/17/18 [History Confirmed 03/16/19] isosorbide mononitrate ER 30 mg tablet,extended release 24 hr 30 mg PO QDAY #90 tab 08/15/18 [Rx Confirmed 03/16/19] magnesium 400 mg (as magnesium oxide) capsule 400 mg PO DAILY cap 08/15/18 [History Confirmed 03/16/19] metoprolol succinate ER 25 mg tablet,extended release 24 hr 25 mg PO QDAY #90 tab 01/28/19 [Rx Confirmed 03/16/19] clopidogrel 75 mg tablet 75 mg PO QDAY #90 tab 10/10/18 [Rx Confirmed 03/16/19] umeclidinium 62.5 mcg-vilanterol 25 mcg/actuation powdr for inhalation 1 inh INHALATION Q24H #60 ea 10/19/18 [Rx Confirmed 03/16/19] albuterol sulfate HFA 90 mcg/actuation aerosol inhaler 1 - 2 puff INHALATION Q4H PRN PRN #1 inhaler 10/25/18 [Rx Confirmed 03/16/19] Disability Placard 0 .ROUTE .MEDSUPPLY #1 ea 01/23/19 [Rx Confirmed 03/16/19] guaifenesin ER 1,200 mg tablet, extended release 12 hr 1,200 mg PO Q12H #60 tab 02/16/19 [Rx Confirmed 03/16/19] PFSH Medical History Squamous cell carcinoma of lung (Acute) Non-small cell cancer of left lung (Chronic) Left carotid artery stenosis (Chronic) Atherosclerosis of coronary artery of [place] heart without angina pectoris (Chronic) Weight gain (Chronic) Benign essential hypertension (Chronic) Chronic obstructive lung disease (Chronic) Hyperlipidemia (Chronic) TIA (transient ischemic attack) (Chronic) Acute left RN ON SITE stroke (Acute) R breast gland removed (Acute) JOSEMANUEL (obstructive sleep apnea) (Chronic) Surgical History History of AAA (abdominal aortic aneurysm) repair (Chronic ~2008) Hx of CABG (Chronic 07/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) History of appendectomy (Acute) History of partial hysterectomy (Acute) History of tonsillectomy (Acute) History of abdominal aortic aneurysm repair (Chronic ~05/10/09) History of left heart catheterization (Chronic) Family History Father CAD (coronary artery disease) CVA (cerebral vascular accident) Social History (Updated 03/16/19 @ 14:29 by Pete Matthews MD) Smoking Status: Former smoker alcohol intake: current alcohol intake frequency: holidays/special occasions only Alcohol type: beer, wine, hard liquor substance use type: does not use caffeine: Yes Type: coffee Number of servings: 5 what type of physical activity do you participate in: none seatbelt use: never do you feel safe at home: Yes HPI HPI HPI: CLEO SAM, is a 74 F who presents to the office today for HPI HPI Surgical H&P: Yes HPI: CLEO SAM, is a 74 F who presents to the office today for chest port placement. Patient is here for non-small cell carcinoma of the lung. She had resection in January. At that time she also had a CVA from being off of her Plavix. ROS General General: Yes fatigue; no weight change, appetite, colon cancer, breast cancer or weakness HEENT HEENT: Yes eye surgery; no difficulty swallowing, eye injury, swollen glands or hoarseness Endo Endocrine: No thyroid disease, diabetes mellitus, thyroid cancer, Hair loss, heat intolerance or cold intolerance Skin Skin: Yes changing moles; no rash Breast Breast: No left breast lump, right breast lump, nipple discharge, breast pain, abnormal mammogram, abnormal US or breast enlargement Musc Musculoskeletal: No back problems, arthritis, rheumatoid arthritis, gout or joint pain Cardio Cardiovascular: Yes heart disease, heart attack and heart stent; no murmur, pacemaker, atrial fibrillation, high blood pressure, palpitations, shortness of breat with exertion or chest pain Psych Psychiatric: No depression, anxiety or hearing voices Resp Respiratory: Yes shortness of breath, No sleep apnea, Yes cough, Yes COPD, No asthma, No emphysema, No wheezing Gastro Gastrointestinal: No abdominal pain, No nausea or vomiting, No diarrhea, No constipation, No blood in stool, No acid reflux, No hemorrhoids, No ulcers, No gallbladder problem, No black,tarry stools Leonel Hematologic: Yes blood thinners, No blood disorders, No bleeding, No anemia, Yes blood clots Neuro Neurologic: No system reviewed and no additional complaints, except as docu, No as per HPI, No abnormal walking, No abnormal hearing, No abnormal movements, No abnormal speech, No behavioral changes, No burning sensations, No confusion, No seizure-like activity, No unsteadiness, No dizziness, No localized weakness, No frequent falls, No headache(s), No lack of coordination, No loss of vision, No memory loss, Yes numbness, No other visual disturbances, No radiating pain, No restless legs, No sensory deficit, No fainting, Yes tingling, No tremor(s), No weakness, Yes other (Stroke/TIA) Exam Const General: cooperative Orientation: alert, oriented x3 Chest Breast Palpation: No nipple discharge Resp Effort & Inspection: normal respiratory effort Auscultation: clear to auscultation bilaterally Cardio Rate: regular rate Rhythm: regular rhythm Heart Sounds: no murmurs GI Inspection: non-distended Palpation: soft, nontender Assessment & Plan Problems 1. Squamous cell carcinoma of left lung C34.92 2. Encounter for insertion of venous access port Z45.2 Plan Patient is requiring port placement for chemotherapy. I discussed right chest port placement with patient. I discussed the risks of the procedure including but not limited to bleeding, infection, pneumothorax, DVT, line infection. The patient also has history of CVA when being taken off her blood thinners. I will only take her off of her Plavix for [address] chest port. I will resume her Plavix as soon as possible. Pete Matthews MD Pager: [facility] [address] [place] [address], [address] [place] [address] Office: Coding Level of Care Code Off vis,new,level 3 Diagnoses Squamous cell carcinoma of left lung C34.92 ??Laterality: left Encounter for insertion of venous access port Z45.2 03/16/19 [id number] <Electronically signed by Pete howard MD> Date _ Pete Matthews MD I have re-examined the patient. There are no clinical changes since date of exam.
[2019-03-16 14:08] VITALS: BMI 34.0
[2019-03-22] VITALS (7 sets, daily range): BP systolic 123–153; BP diastolic 92–116; PULSE 65–78; RESP 16–18; TEMP 36.1–36.5; O2SAT 91–96; BMI 33.2
[2019-03-22] MEDS: Lactated Ringers 1,000 ML 100 ML IV (10:05)
[2019-03-22] MEDS: Bupiv/Epi 0.5% Mpf 30 ML Vial (11:14)
--- NOTE | 2019-03-22 11:49 | OP.PCM_ITS ---
Problem List (1) Squamous cell carcinoma of lung Status: Acute Qualifiers: Laterality: right Qualified Code(s): C34.91 - Malignant neoplasm of unspecified part of right bronchus or lung Report of Operation Date of Procedure: 03/22/19 Pre-Operative Diagnosis: Lung cancer with need for vascular access port Post-Operative Diagnosis: Same Surgery/Procedure Performed:: Fluoroscopy and ultrasound-guided right chest port placement utilizing right IJ Description of Procedure: After obtaining informed consent patient was brought back to the operating room MAC anesthesia was induced and the right chest and neck were prepped in normal sterile fashion. Ultrasound was used to evaluate both IJs and the right IJ was selected. Next, using a needle, the right IJ was accessed and a guidewire was passed on into the superior vena cava under fluoroscopy guidance. A small incision was made over the puncture site and the dilator introducer was placed over the guidewire. Next this was capped and the pocket was made for the port. 1% lidocaine with epinephrine was injected in the proposed port site. An incision was made with scalpel. Electrocautery was used to make a pocket under the skin and subcutaneous tissue. Hemostasis was obtained. Next, the catheter was tunneled up to the neck incision site and placed through the introducer. The peel-away introducer was removed and the position of the catheter was confirmed on fluoroscopy. Next, the catheter was trimmed and attached to the port with the locking device. Interrupted 2-0 Vicryl sutures were used to anchor the port to the chest wall and then the port was placed inside the pocket. The pocket was then flushed with saline and the port irrigated with saline. There was good blood return and the port flushed easily. Next, heparin was injected into the port. The skin was closed with subcutaneous interrupted 3-0 Vicryl sutures. A single 3-0 Vicryl sutures placed under the skin at the neck incision site. Steri-Strips were placed as well as op sites. Patient tolerated procedure well, was taken to PACU in stable condition. Chest x-ray will be obtained. Grafts/Implants Used: 8 [employer] Power[employer] - Admit VTE Documentation VTE Mechan Device Prophylaxis: SCD's
--- NOTE | 2019-03-22 11:50 | DCINST_ITS ---
Discharge Diet: No Restrictions - Pain medication may cause nausea. You should typically eat light foods as you take your pain medication. Discharge Activity: Return to Normal Activity, May Shower - with your bandage in place in 1-2 days after surgery. DO NOT SHOWER WHEN YOUR PORT IS ACCESSED. Call your doctor if your incision/area has: Continuous Slow Oozing, Sudden Increased Bleeding, Increased Pain/ Swelling, Increased Redness Call your doctor if you observe: Fever of 101 or Higher Remove Dressing in (days):: 3 - When you remove the bandage, leave the steri- strips intact until they fall off. Additional Instructions: Resume plavix tomorrow Allergies/Adverse Reactions: Allergies Penicillins Allergy (Mild, Verified 03/21/19 08:17) Rash simvastatin Allergy (Unknown, Verified 03/21/19 08:17) Myalgia Sulfa (Sulfonamide Antibiotics) Allergy (Unknown, Verified 03/21/19 08:17) Unknown Iodinated Contrast Media [Iodinated Contrast- Oral and IV Dye] Adverse Reaction (Severe, Verified 03/21/19 08:17) Vomiting I throw up violently lisinopril Adverse Reaction (Mild, Verified 03/21/19 08:17) Cough losartan Adverse Reaction (Mild, Verified 03/21/19 08:17) Cough atorvastatin Adverse Reaction (Unknown, Verified 03/21/19 08:17) Myalgia fluvastatin Adverse Reaction (Unknown, Verified 03/21/19 08:17) Myalgia niacin Adverse Reaction (Unknown, Verified 03/21/19 08:17) Rash rosuvastatin Adverse Reaction (Unknown, Verified 03/21/19 08:17) Myalgia Medications to take at Discharge cholecalciferol (vitamin D3) 1,000 unit capsule 1,000 unit PO QDAY 01/17/18 isosorbide mononitrate ER 30 mg tablet,extended release 24 hr 30 mg PO QDAY #90 tab 08/15/18 magnesium 400 mg (as magnesium oxide) capsule 400 mg PO DAILY cap 08/15/18 metoprolol succinate ER 25 mg tablet,extended release 24 hr 25 mg PO QDAY #90 tab 08/15/18 clopidogrel 75 mg tablet 75 mg PO QDAY #90 tab 10/10/18 umeclidinium 62.5 mcg-vilanterol 25 mcg/actuation powdr for inhalation 1 inh INH ALATION Q24H #60 ea 10/19/18 albuterol sulfate HFA 90 mcg/actuation aerosol inhaler 1 - 2 puff INHALATION Q4H PRN PRN #1 inhaler 10/25/18 Primary Care Physician: Ari Carballo Chi, MD [Primary Care Provider] - Test Results: Test results from this visit will be discussed in further detail at your follow- up appointment, if applicable. Please Follow Up With: Pete Matthews MD When: Please call to schedule 2 week follow up appointment. [phone]
--- NOTE | 2019-03-22 11:55 | RAD_ITS ---
STUDY: X-RAY CHEST REASON FOR EXAM: Female, 74 years old. Postop port placement. TECHNIQUE: Single AP portable upright view of the chest. COMPARISON: Upright AP expiratory post biopsy chest x-ray November 02, 2018. FINDINGS: A new Port-A-Cath is now present on the right, a tub in the infraclavicular tissues overlapping the mid lung. The catheter loops over the base of the neck, its tip in the superior vena cava. No pneumothorax. The lungs overall are more fully expanded here, but there is some stable stranding/scarring in the lung bases. No new infiltrate. There is no demonstrated pleural abnormality. There is is stable mild cardiac enlargement. Sternal cerclage wires and vascular clips are present from a prior sternotomy and coronary artery bypass graft procedure (CABG). Normal mediastinum and candis. Normal visualized pulmonary arteries. Normal visualized aortic arch and descending thoracic aorta. There are stable multilevel degenerative changes of the visualized thoracic spine. There is stable mild degenerative osteoarthritis of the bilateral shoulders and acromioclavicular joints. There is no demonstrated abnormality of the visualized soft tissue structures of the upper abdomen. RAD/CXR for Line Placement IMPRESSION: 1. New right chest wall Port-A-Cath in place. No pneumothorax. 2. Stable subsegmental bibasilar scarring. 3. Prior median sternotomy and CABG. Stable mild cardiac enlargement. No CHF. Electronically Signed: Og Sage MD at 14:40 EDT , Service support ,
== END 2019-03-22 13:37 | disposition home or self-care (01) ==
LOC: SDC 09:30 → AC 09:31
PROVIDERS: Family Provider Family Medicine Geriatric Medicine; PCP Family Medicine Geriatric Medicine; Referring Provider Surgery; Visit Provider Surgery
PROC: (CPT 36561; principal; 2019-03-22 10:45)
DX: Z45.2 Encounter for adjustment and management of vascular access device (principal); C34.91 Malignant neoplasm of unspecified part of right bronchus or lung; G47.33 Obstructive sleep apnea (adult) (pediatric); I10 Essential (primary) hypertension; E78.5 Hyperlipidemia, unspecified; I25.10 Atherosclerotic heart disease of native coronary artery without angina pectoris; J44.9 Chronic obstructive pulmonary disease, unspecified; Z79.899 Other long term (current) drug therapy; Z79.02 Long term (current) use of antithrombotics/antiplatelets; Z87.891 Personal history of nicotine dependence; Z86.73 Personal history of transient ischemic attack (TIA), and cerebral infarction without residual deficits; Z95.1 Presence of aortocoronary bypass graft; I25.2 Old myocardial infarction
CPT/HCPCS: 00532; 36561; 71045; 77001; J7120; C1788; J2405

== ENCOUNTER → 2019-06-30 13:43 | Outpatient (CLI) | payer MEDICARE, SELFPAY ==
[2019-06-21 09:11] VITALS: BMI 33.6
[2019-06-28 08:11] VITALS: BMI 34.3
--- NOTE | 2019-06-30 13:45 | CT_ITS ---
STUDY: CT CHEST WITHOUT CONTRAST REASON FOR EXAM: Female, 74 years old. Lung cancer, hoarse voice, follow-up RADIATION DOSAGE (If Supplied By Facility): CTDIvol = ( 17.95 ) mGy, DLP = ( 593.46 ) mGycm TECHNIQUE: Transaxial imaging was performed without the administration of intravenous contrast material. Multiplanar coronal and sagittal images were reformatted. Individualized dose optimization techniques were used for this CT. COMPARISON: 03/13/2019 FINDINGS: Right chest port is identified with tip of the catheter extending to the lower SVC. Linear density in the left lower lobe extending to the left hilum with central calcifications stable when directly compared to the prior study. Rib deformities along the posterior left ribs likely related to prior thoracotomy. No discrete pulmonary nodule or mass. Decreased amount of volume loss involving the right middle lobe since the prior study. There is no demonstrated pleural abnormality. Normal heart and pericardium. Sternal wires and mediastinal surgical clips compatible with prior CABG. Very small lymph nodes of the mediastinum measure less than 9 mm in short axis (station 4) without dominant nadine mass, decreased in size since prior study (measured 13 mm). Normal hilar regions. Stable mild enlargement of the main pulmonary artery may suggest pulmonary hypertension. There is atherosclerotic calcification of the aortic arch with tortuosity and elongation of the aortic arch and descending thoracic aorta. There are multi-level degenerative changes of the thoracic spine. The adrenal glands are not focally enlarged. CT/Chest without Contrast IMPRESSION: 1. Since 03/13/2019, overall favorable change with decreased size of mediastinal lymph nodes and decreased right middle lobe atelectasis. 2. Operative changes in the left lower lung. 3. Right chest port. 4. Additional stable chronic changes, as above. Electronically Signed: Santos De La Paz MD ([place]) at 12:36 EST , Service support ,
== END ==
PROVIDERS: Family Provider Family Medicine Geriatric Medicine; PCP Family Medicine Geriatric Medicine; Referring Provider Internal Medicine Medical Oncology; Visit Provider Internal Medicine Medical Oncology
DX: C34.32 Malignant neoplasm of lower lobe, left bronchus or lung (principal)
CPT/HCPCS: 71250

== ENCOUNTER → 2019-11-06 14:39 | Outpatient (CLI) | payer MEDICARE, SELFPAY ==
[2019-07-05 09:01] VITALS: BMI 34.1
[2019-09-04 15:46] VITALS: BMI 35.0
--- NOTE | 2019-11-06 14:42 | CT_ITS ---
STUDY: CT ABDOMEN WITHOUT CONTRAST REASON FOR EXAM: Female, 74 years old. LUNG CA 4 MON F/U, HAD PARTIAL LUNG RESECTION AND CHEMO, LAST CHEMO IN JUN 2019, CVA, [place], STENTS, CABG,COPD RADIATION DOSAGE (If Supplied By Facility): CTDIvol = ( 20.48 ) mGy, DLP = ( 1224.59 ) mGycm TECHNIQUE: Transaxial images were obtained without intravenous contrast, and without oral contrast. Sagittal and coronal images were reconstructed. Individualized dose optimization techniques were used for this CT. COMPARISON: None. FINDINGS: Increased linear markings at the lung bases suggestive of linear atelectasis and/or scarring. The visualized portions of the heart are within normal limits. Normal liver. There are multiple gallstones. Normal spleen. Normal pancreas. Normal bilateral adrenal glands. Normal right kidney. Punctate calcification in the lower pole calyx of the left kidney. Normal visualized stomach. Normal small intestine. Normal colon. The appendix is visualized and appears normal. There is diffuse atherosclerotic calcification and tortuosity of the abdominal aorta and its major visceral branches, without a demonstrated aneurysm. Normal inferior vena cava. Normal retroperitoneum. Normal abdominal wall. Normal osseous structures. CT/Abdomen without IV Contrast IMPRESSION: There are multiple gallstones. Atherosclerotic calcification and tortuosity of the abdominal aorta. Punctate calcification in the lower pole calyx of the left kidney. Electronically Signed: Tripp Aguila, at 15:15 EDT , Service support ,
--- NOTE | 2019-11-06 14:42 | CT_ITS ---
STUDY: CT CHEST WITHOUT CONTRAST REASON FOR EXAM: Female, 74 years old. LUNG CA 4 MON F/U, HAD PARTIAL LUNG RESECTION AND CHEMO, LAST CHEMO IN JUN 2019, CVA, [place], STENTS, CABG,COPD RADIATION DOSAGE (If Supplied By Facility): CTDIvol = ( 20.48 ) mGy, DLP = ( 1224.59 ) mGycm TECHNIQUE: Transaxial imaging was performed without the administration of intravenous contrast material. Multiplanar coronal and sagittal images were reformatted. Individualized dose optimization techniques were used for this CT. COMPARISON: Comparison is made with prior examination dated June 30, 2019. FINDINGS: Stable scarring in the posterior aspect of the right upper lobe. Thickening of the right minor fissure. Stable increased linear markings at the left lung base suggestive of scarring. There is no demonstrated pleural abnormality. Sternal cerclage wires and vascular clips are present from a prior sternotomy and coronary artery bypass graft procedure (CABG). There are calcifications of the coronary arteries. There are multiple small lymph nodes within the mediastinum, which are normal in size and morphology most compatible with reactive lymph hyperplasia. Normal hilar regions. Normal unenhanced pulmonary arteries. Normal aorta arch and descending thoracic aorta. There are multi-level degenerative changes of the thoracic spine. Stable deformity of the posterior aspect of the left ribs most likely secondary to prior thoracotomy. There is no demonstrated abnormality of the visualized upper abdomen. CT/Chest without Contrast IMPRESSION: Stable examination. Electronically Signed: Tripp Aguila, at 15:19 EDT , Service support ,
== END ==
PROVIDERS: Family Provider Family Medicine Geriatric Medicine; PCP Family Medicine Geriatric Medicine; Referring Provider Internal Medicine Medical Oncology; Visit Provider Internal Medicine Medical Oncology
DX: C34.32 Malignant neoplasm of lower lobe, left bronchus or lung (principal)
CPT/HCPCS: 71250; 74150

== ENCOUNTER → 2020-05-22 14:30 | Outpatient (CLI) | payer MEDICARE, SELFPAY ==
[2019-11-13 10:22] VITALS: BMI 34.8
[2020-03-05 09:54] VITALS: BMI 34.3
--- NOTE | 2020-05-22 14:50 | CT_ITS ---
STUDY: CT CHEST WITHOUT CONTRAST REASON FOR EXAM: Female, 75 years old. MONITORING LUNG CA. PARTIAL LEFT LUNG REMOVAL RADIATION DOSAGE (If Supplied By Facility): CTDIvol = ( 16.12 ) mGy, DLP = ( 555.97 ) mGycm TECHNIQUE: Transaxial imaging was performed without the administration of intravenous contrast material. Individualized dose optimization techniques were used for this CT. COMPARISON: 11/06/2019 FINDINGS: Status post median sternotomy. No change in linear scarring in the posterior right middle lobe and left lower lobe. There is no demonstrated pleural abnormality. Normal heart and pericardium. There are calcifications of the coronary arteries. Normal mediastinum. Normal hilar regions. Normal unenhanced pulmonary arteries. There is atherosclerotic calcification of the aortic arch with tortuosity and elongation of the aortic arch and descending thoracic aorta. Healed fracture the posterior lateral left sixth rib. There is no demonstrated abnormality of the visualized upper abdomen. CT/Chest without Contrast IMPRESSION: No change from 11/06/2019. Electronically Signed: Jose Melo MD at 15:34 EST Tel , Service support ,
[2020-05-22 16:23] LABS: AST(SGOT) 26 U/L (15-37); Alanine Aminotransfer ALT/SGPT 27 U/L (13-56); Albumin, Serum 3.9 g/dL (3.2-5.0); Alkaline Phosphatase 56 U/L (45-117); Bilirubin, Direct 0.18 mg/dL (0.00-0.30); Cholesterol 236 mg/dL (200); Globulin 3.6 g/dL (2.2-4.2); High Density Lipoprotein 50 mg/dL; Protein, Total 7.5 g/dL (6.4-8.2); Triglycerides 150 mg/dL; Very Low Density Lipoprotein 30 mg/dL (5-40)
== END ==
PROVIDERS: Internal Medicine Cardiovascular Disease; PCP Family Medicine Geriatric Medicine; Referring Provider Internal Medicine Medical Oncology; Visit Provider Internal Medicine Medical Oncology
DX: C34.32 Malignant neoplasm of lower lobe, left bronchus or lung (principal); E78.5 Hyperlipidemia, unspecified; I25.10 Atherosclerotic heart disease of native coronary artery without angina pectoris
CPT/HCPCS: 36415; 71250; 80061; 80076

== ENCOUNTER → 2020-09-23 08:56 | Outpatient (CLI) | payer MEDICARE, SELFPAY ==
[2020-09-09 14:53] VITALS: BMI 36.5
--- NOTE | 2020-09-23 08:58 | AAVD_ITS ---
Reason For Study: Hx of AAA repair Aorta Measurements Aorta Doppler Measurements Proximal aorta measures2.01 x 2.01cm. in cross- Peak systolic flow velocities within the proximal sectional axis. aorta measure 94.8 cm/sec. Proximal aorta measures2.00cm. in longitudinal Peak systolic flow velocities within the mid aorta axis. measure 56.4 cm/sec. Mid aorta measures2.29 x 2.27cm. in cross- Peak systolic flow velocities within the distal sectional axis. aorta measure 69.2 cm/sec. Mid aorta measures2.28cm. in longitudinal axis. Distal aorta measures1.78 x 1.78cm. in cross- sectional axis. Distal aorta measures1.81cm. in longitudinal axis. Left Iliac Artery Left iliac artery measures 1.16 x 1.13 cm. in the cross-sectional axis. Left iliac artery measures 1.12 cm. in the longitudinal axis. Peak systolic velocity in the left iliac artery measures 61.9 cm/sec. Right Iliac Artery Right iliac artery measures 1.23 x 1.25 cm. in the cross-sectional axis. Right iliac artery measures 1.29 cm. in the longitudinal axis. Peak systolic velocity in the right iliac artery measures 100.3 cm/sec. Procedure Aorta IVC Iliac vasculature or bypass grafts [id number]. Exam performed in department. Interpretation Summary No evidence of aortoiliac aneurysm or stenosis. Ordering Physician: Frank Kellogg Referring Physician: Ari Carballo Chi Performed By: Reena Cleveland RVT
== END ==
PROVIDERS: PCP Family Medicine Geriatric Medicine; Referring Provider Nurse Practitioner Family; Visit Provider Nurse Practitioner Family
DX: I10 Essential (primary) hypertension (principal); Z98.890 Other specified postprocedural states
CPT/HCPCS: 93978

== ENCOUNTER → 2020-10-22 14:33 | Outpatient (CLI) | payer MEDICARE, SELFPAY ==
[2020-09-09 14:53] VITALS: BMI 36.5
[2020-10-22 15:05] LABS: Absolute Neutrophil Count 3.5 X10^3/uL (2.0-7.7); Basophil# 0.05 X10^3/uL; Basophil% 0.8 % (0-1); Eosinophil# 0.19 X10^3/uL; Eosinophils% 3.2 % (0-5); Hemoglobin 16.1 g/dL (12.0-15.0); Lymphocyte % 32.1 % (19-41); Mean Corp Hgb Conc 32.2 g/dL (32-36); Mean Corpuscular Hgb 29.9 pg (27.0-32.0); Mean Corpuscular Volume 92.9 fL (81-99); Mean Platelet Vol. 11.4 fl (6.2-12.0); Monocyte# 0.32 X10^3/uL; Monocyte% 5.4 % (0-10); NRBC Flagged by Analyzer 0 % (0-5); Neutrophil # 3.45 X10^3/uL (2.7-7.7); Neutrophil % 58.3 % (47-70); Platelet Count 192 K/mm3 (150-450); RBC Distribution Width CV 14.1 % (11.6-14.6); RBC Distribution Width SD 47.7 fl (35.1-43.9); Red Blood Count 5.38 M/mm3 (4.2-5.4); White Blood Count 5.9 K/mm3 (4.4-11.0)
[2020-10-22 15:17] LABS: Vitamin D,25 Hydroxy 64.7 ng/mL
[2020-10-22 15:26] LABS: ALB/GLOB Ratio 1.1 RATIO (0.9-2.4); AST(SGOT) 28 U/L (15-37); Alanine Aminotransfer ALT/SGPT 47 U/L (13-56); Albumin, Serum 3.7 g/dL (3.2-5.0); Alkaline Phosphatase 62 U/L (45-117); Anion Gap 6 (5-15); BUN 15 mg/dL (7-18); BUN/Creat Ratio 12.3 RATIO (10-20); Calcium,Total 9.3 mg/dL (8.5-10.1); Chloride 97 mmol/L (98-107); Creatinine, Serum 1.22 mg/dL (0.55-1.02); EST Glomerular Filtration Rate 46 mL/min (>60); Est Glom Filt Rate - Afr Amer 56 mL/min (>60); Globulin 3.5 g/dL (2.2-4.2); Glucose 100 mg/dL (74-106); Potassium 3.8 mmol/L (3.5-5.1); Protein, Total 7.2 g/dL (6.4-8.2); Sodium Level 136 mmol/L (136-145); Thyroid Stim Hormone (TSH) 1.39 uIU/mL (0.358-3.74)
== END ==
PROVIDERS: PCP Family Medicine Geriatric Medicine; Visit Provider Family Medicine Geriatric Medicine
DX: I10 Essential (primary) hypertension (principal); E55.9 Vitamin D deficiency, unspecified
CPT/HCPCS: 36415; 80053; 82306; 84443; 85025

== ENCOUNTER → 2020-11-01 07:46 | Outpatient (CLI) | payer MEDICARE, SELFPAY ==
[2020-09-09 14:53] VITALS: BMI 36.5
--- NOTE | 2020-11-01 07:48 | BI_ITS ---
MAMMOGRAPHY - BILATERAL SCREENING REASON FOR EXAM: Female, 75 years old. Routine annual screening examination. PERTINENT HISTORY: Non-contributory. Remote right excisional breast biopsy. TECHNIQUE: Digital bilateral breast dominic (3D mammographic acquisition) in the CC and MLO projections. 2-D mediolateral oblique (MLO) and craniocaudad (CC) views of both breasts were obtained. CAD: Full Field Digital Mammography with Computer Added Detection was performed. COMPARISON: Comparison is made with prior study 04/20/2017. FINDINGS: Breast Composition: There are scattered areas of fibroglandular density. There are no dominant masses or suspicious calcifications. No other significant abnormalities are identified. There has been no significant change since the prior study. BI/SCRN MAMM (CAD)W/DOMINIC BILAT IMPRESSION: Stable bilateral screening mammogram. Yearly follow-up mammogram recommended. (A) ASSESSMENT CATEGORY: BIRADS Category 1: Negative. A letter regarding these results will be sent to the patient by the facility within 30 days. Approximately 10% of breast cancers are not detected by mammography. A normal mammogram should not delay biopsy of a clinically suspicious abnormality. [id number] Electronically Signed: Tripp Aguila MD at 8:36 EDT , Service support ,
== END ==
PROVIDERS: PCP Family Medicine Geriatric Medicine; Referring Provider Family Medicine Geriatric Medicine; Visit Provider Family Medicine Geriatric Medicine
DX: Z12.31 Encounter for screening mammogram for malignant neoplasm of breast (principal)
CPT/HCPCS: 77063; 77067

== ENCOUNTER → 2020-11-18 13:02 | Outpatient (CLI) | payer MEDICARE, SELFPAY ==
[2020-09-09 14:53] VITALS: BMI 36.5
--- NOTE | 2020-11-18 13:05 | CT_ITS ---
STUDY: CT CHEST WITHOUT CONTRAST REASON FOR EXAM: Female, 75 years old. MONITORING LUNG CANCER RADIATION DOSAGE (If Supplied By Facility): CTDIvol = ( 17.75 ) mGy, DLP = ( 625.28 ) mGycm TECHNIQUE: Transaxial imaging was performed without the administration of intravenous contrast material. Multiplanar coronal and sagittal images were reformatted. Individualized dose optimization techniques were used for this CT. COMPARISON: Comparison is made with prior study dated 05/22/2020. FINDINGS: Small benign-appearing bilateral axillary Stable thickening of the right major fissure with evidence of scarring and bronchiectasis in the posterior aspect of the right middle lobe. Stable nodular density in the peripheral aspect of the left lower lobe with evidence of linear calcified scarring at that site. This is pleural-based. There is no demonstrated pleural abnormality. Sternal cerclage wires and vascular clips are present from a prior sternotomy and coronary artery bypass graft procedure (CABG). There are calcifications of the coronary arteries. There are multiple small lymph nodes within the mediastinum, which are normal in size and morphology most compatible with reactive lymph hyperplasia. Normal hilar regions. Normal unenhanced pulmonary arteries. There is atherosclerotic calcification of the aortic arch with tortuosity and elongation of the aortic arch and descending thoracic aorta. There are multi-level degenerative changes of the thoracic spine. Stable deformity along the posterior aspect of the upper left ribs in keeping with prior thoracotomy. Small hiatal hernia. CT/Chest without Contrast IMPRESSION: Stable examination. Electronically Signed: Tripp Aguila MD at 13:45 EDT , Service support ,
== END ==
PROVIDERS: PCP Family Medicine Geriatric Medicine; Referring Provider Internal Medicine Medical Oncology; Visit Provider Internal Medicine Medical Oncology
DX: C34.32 Malignant neoplasm of lower lobe, left bronchus or lung (principal)
CPT/HCPCS: 71250

== ENCOUNTER → 2020-12-06 12:34 | Outpatient (CLI) | payer MEDICARE, SELFPAY ==
[2020-11-25 13:54] VITALS: BMI 35.2
[2020-12-06 13:21] LABS: Carboxyhemoglobin Frac (CO) 3.2 % (0.0-1.5)
== END ==
PROVIDERS: PCP Family Medicine Geriatric Medicine; Visit Provider Internal Medicine Medical Oncology
DX: D75.1 Secondary polycythemia (principal)
CPT/HCPCS: 36415; 82375

== ENCOUNTER → 2021-03-14 09:48 | Outpatient (CLI) | payer MEDICARE, SELFPAY ==
[2021-02-24 15:03] VITALS: BMI 34.9
--- NOTE | 2021-03-14 09:53 | ECHOD_ITS ---
Reason For Study: MURMUR Procedure This was a 2D Doppler, Color Flow transthoracic echocardiogram. Poor apical images- possibly due to lung scar tissue- pt did not agree to the use of Definity for her exam stating she has been through enough. The study was technically difficult. Exam performed in department. Left Ventricle Normal LV size. Left ventricular systolic function is normal. The estimated ejection fraction is 55 %. Diastolic function is indeterminate. No regional wall motion abnormalities noted. Right Ventricle Normal RV size. Normal systolic function. Atria Normal left atrium. Normal right atrium. No doppler evidence for ASD. Mitral Valve There is mild mitral annular calcification. Extension of the mitral annular calcification on the base of the posterior mitral valve leaflet. Trivial mitral valve insufficiency. Tricuspid Valve Normal tricuspid valve. Trivial tricuspid valve insufficiency. Unable to estimate RV systolic pressure/pulmonary artery pressure due to technically difficult study. Aortic Valve Trisinus/trileaflet aortic valve. Normal aortic valve. Pulmonic Valve The pulmonic valve is not well visualized. Great Vessels Normal sized aortic root. Pericardium/Pleural Epicardial fat. No pericardial effusion. Medication Definity deferred per patient. MMode/2D Measurements & Calculations LVIDd: 4.3 cm IVSd: 1.00 cm Ao root diam: 3.2 cm LVIDs: 3.0 cm LVPWd: 1.1 cm FS: 30.5 % LAV(MOD-sp4): 54.8 ml LA A4 area: 19.2 cm2 LA dimension(2D): 3.2 cm Time Measurements MV dec time: 0.23 sec Doppler Measurements & Calculations MV E max yasmani: 48.8 cm/sec Lat Peak E' Yasmani: 3.5 cm/sec Med Peak E' Yasmani: 3.3 cm/sec MV A max yasmani: 83.9 cm/sec E/E' lat: 13.7 E/E' med: 14.8 MV E/A: 0.58 MV V2 max: 92.6 cm/sec Ao V2 max: 79.2 cm/sec LV V1 max: 76.1 cm/sec MV max P.4 mmHg Ao max P.5 mmHg LV V1 max P.3 mmHg MV V2 mean: 47.2 cm/sec MV mean P.0 mmHg MV V2 VTI: 21.7 cm PA V2 max: 67.2 cm/sec MV P1/2t-pr_phl: 129.9 msec ECHO/Echo Complete Interpretation Summary The study was technically difficult. Left ventricular systolic function is normal. The estimated ejection fraction is 55 %. There is mild mitral annular calcification. Extension of the mitral annular calcification on the base of the posterior mitr al valve leaflet. Trivial mitral valve insufficiency. Trivial tricuspid valve insufficiency. Epicardial fat. Unable to estimate RV systolic pressure/pulmonary artery pressure due to techni sherie difficult study. Diastolic function is indeterminate. Ordering Physician: Asher Pereira Referring Physician: SALVADOR ELI Performed By: Isabel Kay, RDCS, RVT
[2021-03-14 12:47] LABS: AST(SGOT) 24 U/L (15-37); Alanine Aminotransfer ALT/SGPT 24 U/L (13-56); Albumin, Serum 3.7 g/dL (3.2-5.0); Alkaline Phosphatase 54 U/L (45-117); Cholesterol 170 mg/dL (200); Globulin 3.6 g/dL (2.2-4.2); High Density Lipoprotein 53 mg/dL; Protein, Total 7.3 g/dL (6.4-8.2); Triglycerides 146 mg/dL; Very Low Density Lipoprotein 29 mg/dL (5-40)
== END ==
PROVIDERS: PCP Family Medicine Geriatric Medicine; Referring Provider Internal Medicine Cardiovascular Disease; Visit Provider Internal Medicine Cardiovascular Disease
DX: I25.10 Atherosclerotic heart disease of native coronary artery without angina pectoris (principal); R01.1 Cardiac murmur, unspecified; E78.00 Pure hypercholesterolemia, unspecified
CPT/HCPCS: 36415; 80061; 80076; 93306

== ENCOUNTER → 2021-05-23 12:30 | Outpatient (CLI) | payer MEDICARE, SELFPAY ==
--- NOTE | 2021-05-23 12:35 | CT_ITS ---
STUDY: CT CHEST WITHOUT CONTRAST REASON FOR EXAM: Female, 76 years old. Patient has a history of lung cancer. Follow-up examination. RADIATION DOSAGE (If Supplied By Facility): CTDIvol = ( 16.45 ) mGy, DLP = ( 587.93 ) mGycm TECHNIQUE: Transaxial imaging was performed without the administration of intravenous contrast material. Multiplanar coronal and sagittal images were reformatted. Individualized dose optimization techniques were used for this CT. COMPARISON: Comparison is made with prior study dated 11/18/2020. FINDINGS: Small benign-appearing bilateral axillary lymph nodes. Stable scarring and thickening of the right minor fissure. Once again, a noncalcified nodule is seen in the peripheral aspect of the left lower lobe with evidence of linear calcification laterally. This nodular density presently measures 2.5 cm x 1.2 cm. This has increased in size as compared to prior study. There is no demonstrated pleural abnormality. Sternal cerclage wires and vascular clips are present from a prior sternotomy and coronary artery bypass graft procedure (CABG). There are calcifications of the coronary arteries. Normal mediastinum. Normal hilar regions. Normal unenhanced pulmonary arteries. There is atherosclerotic calcification of the aortic arch with tortuosity and elongation of the aortic arch and descending thoracic aorta. There are multi-level degenerative changes of the thoracic spine. Stable deformity along the posterior aspect of the upper left ribs in keeping with prior thoracotomy. There is no demonstrated abnormality of the visualized upper abdomen. CT/Chest without Contrast IMPRESSION: Interval increase in size of the nodular density seen in the superior segment of the left lower lobe presently measuring 2.5 size by 1.2 cm. The remainder of the examination is unchanged. Electronically Signed: Tripp Aguila MD at 15:00 EDT , Service support ,
== END ==
PROVIDERS: PCP Family Medicine Geriatric Medicine; Referring Provider Internal Medicine Medical Oncology; Visit Provider Internal Medicine Medical Oncology
DX: C34.92 Malignant neoplasm of unspecified part of left bronchus or lung (principal)
CPT/HCPCS: 71250

== ENCOUNTER → 2021-06-25 06:53 | Outpatient (CLI) | payer MEDICARE, SELFPAY ==
--- NOTE | 2021-06-25 13:46 | PFTCOMP ---
COMPLETE PULMONARY FUNCTION TEST INTERPRETATION Brief HPI: Patient is a 76 year old female, currently under the care of Dr. Cervantes, who presents to [facility] [place] for complete pulmonary function tests secondary to diagnosis of lung cancer with chemotherapy. Respiratory therapist reports good effort and reproducible results. Interpretation: Forced expiration spirometry shows a moderately severe large airways obstructive ventilatory defect with an FEV1 of 53% predicted. There is a significant bronchodilator response in FVC and FEV1 by strict ATS criteria. Spirograms are of good quality and plateau slowly, indicating slowly emptying areas of the lungs. The respiratory flow volume loop shows decreased expiratory flow rates at all lung volumes consistent with airway obstruction. Lung volumes by body plethysmography show a normal total lung capacity at 4.74 L, 99% predicted. FRC and RV are elevated out of proportion. Lung volume measurements are consistent with air-trapping. Diffusion capacity by carbon monoxide is decreased at 68% predicted. The airway resistance is elevated. Compared to previous pulmonary function tests from 01/02/2019, there is been a significant reduction in FVC and FEV1 by 28% and 40% respectively. Impression: Partially reversible moderately severe large airways obstructive ventilatory defect with a symmetric reduction diffusing capacity, resulting in air trapping and significant worsening compared to 2019.
== END ==
PROVIDERS: PCP Family Medicine Geriatric Medicine
DX: C34.32 Malignant neoplasm of lower lobe, left bronchus or lung (principal)
CPT/HCPCS: 94060; 94726; 94729

== ENCOUNTER 2021-08-26 14:16 | Outpatient (CLI) | payer MEDICARE, SELFPAY ==
--- NOTE | 2021-08-26 14:21 | CT_ITS ---
EXAM: CT CHEST WITHOUT INTRAVENOUS CONTRAST : 1945 CLINICAL INDICATION: ASSESS TREATMENT RESPONSE-LUNG CA TECHNIQUE: Helically acquired images were obtained of the chest without intravenous contrast. This CT exam was performed using one or more of the following dose reduction techniques: automated exposure control, adjustment of the mA and/or kV according to patient size, and/or use of iterative reconstruction technique. This report was created using [employer] report [employer] technology. COMPARISON: None. FINDINGS: LUNGS AND PLEURAL SPACES: There is sutures seen in the superior segment of the left lower lobe. There is minimal consolidated lung in the right middle lobe which may represent atelectasis. No mass. No pleural effusion or thickening. No pneumothorax. HEART: There are coronary artery calcifications present. Heart size is normal. No pericardial effusion. MEDIASTINUM: Unremarkable. No mediastinal or hilar adenopathy. Esophagus is unremarkable. No hiatal hernia. THYROID: Unremarkable. No thyroid lesions. BONES/JOINTS: Unremarkable. No suspicious lytic or blastic abnormality. VASCULATURE: There are atherosclerotic calcifications in the aorta. Thoracic aorta is non-dilated. OTHER FINDINGS: Images from a PET CT scan dated 06/03/2021 are not available for comparison. CT/Chest without Contrast IMPRESSION: Suture and scarring in the left lower lobe. There is minimal atelectasis in the right middle lobe. No pulmonary nodules are identified. There is no acute pulmonary abnormality. Individualized dose optimization techniques were used for this CT. at 0210 Reported and signed by: Jonathan Colvin MD Electronically Signed: Jonathan Colvin MD at 2:08 EST ,
== END 2021-08-26 23:59 | disposition home or self-care (01) ==
LOC: CT 14:20
PROVIDERS: PCP Family Medicine Geriatric Medicine; Referring Provider Internal Medicine Medical Oncology; Visit Provider Internal Medicine Medical Oncology
DX: C34.32 Malignant neoplasm of lower lobe, left bronchus or lung (principal)
CPT/HCPCS: 71250

== ENCOUNTER 2021-10-21 16:14 | Outpatient (CLI) | payer MEDICARE, SELFPAY ==
[2021-10-21 17:23] LABS: Absolute Lymphocyte Count 1.17 X10^3/uL (0.83-4.51); Absolute Neutrophil Count 5.1 X10^3/uL (2.0-7.7); Basophil# 0.05 X10^3/uL; Basophil% 0.7 % (0-1); Eosinophil# 0.35 X10^3/uL; Eosinophils% 4.6 % (0-5); Hematocrit 41.4 % (37-47); Hemoglobin 13.3 g/dL (12.0-15.0); Lymphocyte # 1.17 X10^3/ul (0.83-4.51); Lymphocyte % 15.5 % (19-41); Mean Corp Hgb Conc 32.1 g/dL (32-36); Mean Corpuscular Hgb 30.8 pg (27.0-32.0); Mean Corpuscular Volume 95.8 fL (81-99); Monocyte# 0.79 X10^3/uL; Monocyte% 10.5 % (0-10); NRBC Flagged by Analyzer 0 % (0-5); Neutrophil # 5.14 X10^3/uL (2.7-7.7); Neutrophil % 68.3 % (47-70); Platelet Count 224 K/mm3 (150-450); RBC Distribution Width CV 13.4 % (11.6-14.6); RBC Distribution Width SD 48.1 fl (35.1-43.9); Red Blood Count 4.32 M/mm3 (4.2-5.4); White Blood Count 7.5 K/mm3 (4.4-11.0)
[2021-10-21 17:26] LABS: ALB/GLOB Ratio 0.8 RATIO (0.9-2.4); AST(SGOT) 14 U/L (15-37); Alanine Aminotransfer ALT/SGPT 25 U/L (13-56); Albumin, Serum 2.8 g/dL (3.2-5.0); Alkaline Phosphatase 54 U/L (45-117); Anion Gap 4 (5-15); BUN 20 mg/dL (7-18); Calcium,Total 7.8 mg/dL (8.5-10.1); Chloride 102 mmol/L (98-107); Creatinine, Serum 1.11 mg/dL (0.55-1.02); EST Glomerular Filtration Rate 51 mL/min (>60); Est Glom Filt Rate - Afr Amer 62 mL/min (>60); Globulin 3.3 g/dL (2.2-4.2); Glucose 96 mg/dL (74-106); Potassium 3.4 mmol/L (3.5-5.1); Protein, Total 6.1 g/dL (6.4-8.2); Sodium Level 137 mmol/L (136-145)
== END 2021-10-21 23:59 | disposition home or self-care (01) ==
LOC: POLAB3 16:16
PROVIDERS: PCP Family Medicine Geriatric Medicine; Visit Provider Family Medicine Geriatric Medicine
DX: J18.9 Pneumonia, unspecified organism (principal)
CPT/HCPCS: 36415; 80053; 85025

== ENCOUNTER 2021-10-21 17:31 | Outpatient (CLI) | payer MEDICARE, SELFPAY ==
--- NOTE | 2021-10-21 17:38 | RAD_ITS ---
STUDY: X-RAY CHEST REASON FOR EXAM: Female, 76 years old. SHORTNESS OF BREATH TECHNIQUE: PA and lateral COMPARISON: None. FINDINGS: The lungs are clear and expanded. There are healed left rib fractures. There is no demonstrated pleural abnormality. There is moderate cardiomegaly. There are median sternotomy sutures. Normal mediastinum and candis. Normal visualized pulmonary arteries. Normal visualized aortic arch and descending thoracic aorta. Normal visualized thoracic spine. Normal visualized ribs, clavicles, and shoulders. There is no demonstrated abnormality of the visualized soft tissue structures of the upper abdomen. RAD/Chest PA and Lateral IMPRESSION: There is cardiomegaly. There are healed left rib fractures. Electronically Signed: Juan Francisco Monae MD at 6:18 EDT ,
== END 2021-10-21 23:59 | disposition home or self-care (01) ==
PROVIDERS: PCP Family Medicine Geriatric Medicine; Referring Provider Family Medicine Geriatric Medicine; Visit Provider Family Medicine Geriatric Medicine
DX: R06.02 Shortness of breath (principal); J18.9 Pneumonia, unspecified organism
CPT/HCPCS: 36415; 71046; 80053; 85025

== ENCOUNTER 2021-10-22 08:39 | Outpatient (CLI) | payer MEDICARE, SELFPAY | END 2021-10-22 23:59 | disposition home or self-care (01) | LOC: PSN 08:40 | PROVIDERS: PCP Family Medicine Geriatric Medicine; Referring Provider Family Medicine Geriatric Medicine; Visit Provider Family Medicine Geriatric Medicine | DX: R68.83 Chills (without fever) (principal); Z20.822 Contact with and (suspected) exposure to COVID-19 | CPT/HCPCS: 87635; 87804; 87807; C9803; U0003; U0005 ==

== ENCOUNTER 2021-10-27 15:09 | Outpatient (CLI) | payer MEDICARE, SELFPAY ==
[2021-10-27 17:11] LABS: Absolute Lymphocyte Count 1.15 X10^3/uL (0.83-4.51); Absolute Neutrophil Count 9.3 X10^3/uL (2.0-7.7); Basophil# 0.06 X10^3/uL; Basophil% 0.5 % (0-1); Eosinophil# 0.03 X10^3/uL; Eosinophils% 0.3 % (0-5); Hemoglobin 15.1 g/dL (12.0-15.0); Lymphocyte # 1.15 X10^3/ul (0.83-4.51); Lymphocyte % 10.2 % (19-41); Mean Corp Hgb Conc 32.8 g/dL (32-36); Mean Corpuscular Hgb 30.8 pg (27.0-32.0); Mean Corpuscular Volume 93.9 fL (81-99); Mean Platelet Vol. 10.7 fl (6.2-12.0); Monocyte# 0.34 X10^3/uL; NRBC Flagged by Analyzer 0 % (0-5); Neutrophil # 9.34 X10^3/uL (2.7-7.7); Neutrophil % 82.8 % (47-70); Platelet Count 316 K/mm3 (150-450); RBC Distribution Width CV 13.9 % (11.6-14.6); RBC Distribution Width SD 47.9 fl (35.1-43.9); White Blood Count 11.3 K/mm3 (4.4-11.0)
[2021-10-27 17:21] LABS: Vitamin D,25 Hydroxy 78.7 ng/mL
[2021-10-27 17:36] LABS: ALB/GLOB Ratio 1.1 RATIO (0.9-2.4); AST(SGOT) 18 U/L (15-37); Alanine Aminotransfer ALT/SGPT 29 U/L (13-56); Albumin, Serum 3.3 g/dL (3.2-5.0); Alkaline Phosphatase 54 U/L (45-117); Anion Gap 5 (5-15); BUN 26 mg/dL (7-18); Calcium,Total 8.5 mg/dL (8.5-10.1); Chloride 102 mmol/L (98-107); EST Glomerular Filtration Rate 43 mL/min (>60); Est Glom Filt Rate - Afr Amer 51 mL/min (>60); Globulin 3.1 g/dL (2.2-4.2); Glucose 115 mg/dL (74-106); Potassium 4.8 mmol/L (3.5-5.1); Protein, Total 6.4 g/dL (6.4-8.2); Sodium Level 139 mmol/L (136-145); Thyroid Stim Hormone (TSH) 1.39 uIU/mL (0.358-3.74)
== END 2021-10-27 23:59 | disposition home or self-care (01) ==
LOC: POLAB3 15:21
PROVIDERS: PCP Family Medicine Geriatric Medicine; Visit Provider Family Medicine Geriatric Medicine
DX: I10 Essential (primary) hypertension (principal); E55.9 Vitamin D deficiency, unspecified
CPT/HCPCS: 36415; 80053; 82306; 84443; 85025

== ENCOUNTER → 2021-11-11 | Outpatient (CLI) | payer MEDICARE, SELFPAY ==
--- NOTE | 2021-11-11 16:00 | BI_ITS ---
MAMMOGRAPHY - BILATERAL SCREENING REASON FOR EXAM: Female, 76 years old. Routine annual screening examination. PERTINENT HISTORY: Non-contributory. Remote right excisional breast biopsy. History of lung carcinoma with chemotherapy and radiation therapy. TECHNIQUE: Digital bilateral breast dominic (3D mammographic acquisition) in the CC and MLO projections. 2-D mediolateral oblique (MLO) and craniocaudad (CC) views of both breasts were obtained. CAD: Full Field Digital Mammography with Computer Added Detection was performed. COMPARISON: Comparison is made with prior examination dated 11/01/2020 and 04/20/2017. FINDINGS: Breast Composition: There are scattered areas of fibroglandular density. There are no dominant masses or suspicious calcifications. Stable asymmetry of breast tissue were slightly more breast tissue is seen in the upper outer quadrant of the left breast as compared to the right side. No other significant abnormalities are identified. There has been no significant change since the prior study. BI/SCRN MAMM (CAD)W/DOMINIC BILAT IMPRESSION: Stable bilateral screening mammogram. Yearly follow-up mammogram recommended. (A) ASSESSMENT CATEGORY: BIRADS Category 2: Benign. A letter regarding these results will be sent to the patient by the facility within 30 days. Approximately 10% of breast cancers are not detected by mammography. A normal mammogram should not delay biopsy of a clinically suspicious abnormality. [id number] Electronically Signed: Tripp Aguila MD at 8:51 EDT ,
== END | disposition home or self-care (01) ==
LOC: OPBI 15:59
PROVIDERS: PCP Family Medicine Geriatric Medicine; Referring Provider Family Medicine Geriatric Medicine; Visit Provider Family Medicine Geriatric Medicine
DX: Z12.31 Encounter for screening mammogram for malignant neoplasm of breast (principal)
CPT/HCPCS: 77063; 77067

== ENCOUNTER → 2022-03-17 | Outpatient (CLI) | payer MEDICARE, SELFPAY ==
--- NOTE | 2022-03-17 08:02 | CT_ITS ---
STUDY: CT CHEST WITHOUT CONTRAST REASON FOR EXAM: Female, 77 years old. MONITOR LUNG CA RADIATION DOSAGE (If Supplied By Facility): CTDIvol = ( 19.14 ) mGy, DLP = ( 679.19 ) mGycm TECHNIQUE: Transaxial imaging was performed without the administration of intravenous contrast material. Multiplanar coronal and sagittal images were reformatted. Individualized dose optimization techniques were used for this CT. COMPARISON: Comparison is made with prior study dated 08/26/2021. FINDINGS: CHEST Stable focal fibrocalcific scarring in the superior segment of the left lower lobe. Stable mild scarring at the lung bases slightly more prominent on the left side. There is no demonstrated pleural abnormality. There are calcifications of the coronary arteries. Sternal cerclage wires and vascular clips are present from a prior sternotomy and coronary artery bypass graft procedure (CABG). There are multiple small lymph nodes within the mediastinum, which are normal in size and morphology most compatible with reactive lymph hyperplasia. Normal hilar regions. Normal unenhanced pulmonary arteries. There is atherosclerotic calcification of the aortic arch with tortuosity and elongation of the aortic arch and descending thoracic aorta. There are multi-level degenerative changes of the thoracic spine. There is no demonstrated abnormality of the visualized upper abdomen. CT/Chest without Contrast IMPRESSION: Stable scarring in the left lung base as well as in the superior segment of the left lower lobe. Electronically Signed: Tripp Aguila MD at 15:47 EDT ,
== END | disposition home or self-care (01) ==
LOC: CT 14:47
PROVIDERS: PCP Family Medicine Geriatric Medicine; Referring Provider Internal Medicine Medical Oncology; Visit Provider Internal Medicine Medical Oncology
DX: C34.92 Malignant neoplasm of unspecified part of left bronchus or lung (principal)
CPT/HCPCS: 71250

== ENCOUNTER → 2022-04-28 | Outpatient (CLI) | payer MEDICARE, SELFPAY ==
[2022-04-28 16:58] LABS: Absolute Lymphocyte Count 1.41 X10^3/uL (0.83-4.51); Absolute Neutrophil Count 4.2 X10^3/uL (2.0-7.7); Basophil# 0.05 X10^3/uL; Basophil% 0.8 % (0-1); Eosinophil# 0.07 X10^3/uL; Eosinophils% 1.1 % (0-5); Hemoglobin 16.3 g/dL (12.0-15.0); Lymphocyte # 1.41 X10^3/ul (0.83-4.51); Lymphocyte % 22.4 % (19-41); Mean Corp Hgb Conc 33.3 g/dL (32-36); Mean Corpuscular Hgb 31.8 pg (27.0-32.0); Mean Corpuscular Volume 95.5 fL (81-99); Mean Platelet Vol. 11.3 fl (6.2-12.0); Monocyte# 0.53 X10^3/uL; Monocyte% 8.4 % (0-10); NRBC Flagged by Analyzer 0 % (0-5); Neutrophil # 4.22 X10^3/uL (2.7-7.7); Platelet Count 194 K/mm3 (150-450); RBC Distribution Width SD 45.9 fl (35.1-43.9); Red Blood Count 5.13 M/mm3 (4.2-5.4); White Blood Count 6.3 K/mm3 (4.4-11.0)
[2022-04-28 17:28] LABS: Vitamin D,25 Hydroxy 55.2 ng/mL
[2022-04-28 17:38] LABS: ALB/GLOB Ratio 1.1 RATIO (0.9-2.4); AST(SGOT) 20 U/L (15-37); Alanine Aminotransfer ALT/SGPT 27 U/L (13-56); Albumin, Serum 3.7 g/dL (3.2-5.0); Alkaline Phosphatase 51 U/L (45-117); Anion Gap 7 (5-15); BUN 15 mg/dL (7-18); Calcium,Total 9.7 mg/dL (8.5-10.1); Chloride 100 mmol/L (98-107); Creatinine, Serum 1.07 mg/dL (0.55-1.02); EST Glomerular Filtration Rate 53 mL/min (>60); Est Glom Filt Rate - Afr Amer 64 mL/min (>60); Globulin 3.4 g/dL (2.2-4.2); Glucose 68 mg/dL (74-106); Potassium 3.8 mmol/L (3.5-5.1); Protein, Total 7.1 g/dL (6.4-8.2); Sodium Level 139 mmol/L (136-145); Thyroid Stim Hormone (TSH) 1.32 uIU/mL (0.358-3.74)
== END | disposition home or self-care (01) ==
LOC: POLAB3 09:03
PROVIDERS: PCP Family Medicine Geriatric Medicine; Visit Provider Family Medicine Geriatric Medicine
DX: I10 Essential (primary) hypertension (principal); E55.9 Vitamin D deficiency, unspecified
CPT/HCPCS: 36415; 80053; 82306; 84443; 85025

== ENCOUNTER → 2022-09-18 | Outpatient (CLI) | payer MEDICARE, SELFPAY ==
--- NOTE | 2022-09-18 12:57 | CT_ITS ---
STUDY: CT CHEST T ABDOMEN WITHOUT CONTRAST REASON FOR EXAM: Female, 77 years old. NSCLC monitor; 2019 WITH REMOVAL,CHEMO AND RADIATION RADIATION DOSAGE (If Supplied By Facility): CTDIvol = ( 24.27 ) mGy, DLP = ( 1671.89 ) mGycm TECHNIQUE: Transaxial imaging was performed without the administration of intravenous contrast material. Individualized dose optimization techniques were used for this CT. COMPARISON: Comparison is made with prior study March 17, 2022. FINDINGS: CHEST Stable increased linear markings at the posterior segment of the left lower lobe. Minimal focal pleural thickening. There is been no change. There is no demonstrated pleural abnormality. Sternal cerclage wires and vascular clips are present from a prior sternotomy and coronary artery bypass graft procedure (CABG). There are calcifications of the coronary arteries. Normal mediastinum. Normal hilar regions. Normal unenhanced pulmonary arteries. There is atherosclerotic calcification of the aortic arch with tortuosity and elongation of the aortic arch and descending thoracic aorta. There are multi-level degenerative changes of the thoracic spine. ABDOMEN Normal liver. There are multiple gallstones. Normal spleen. Normal pancreas. Normal bilateral adrenal glands. Normal right kidney. Normal left kidney. Normal visualized stomach. Normal small intestine. There are scattered colonic diverticula consistent with diverticulosis. The appendix is visualized and appears normal. There is diffuse atherosclerotic calcification of the abdominal aorta, without a demonstrated aneurysm. Normal inferior vena cava. Normal retroperitoneum. Normal abdominal wall. There are mild degenerative changes of the visualized lumbar spine. CT/CT Chest AND Abd W/O Contrast IMPRESSION: Stable examination of the CT chest. Electronically Signed: Tripp Aguila MD at 15:05 EST ,
== END | disposition home or self-care (01) ==
LOC: CT 12:52
PROVIDERS: PCP Family Medicine Geriatric Medicine; Visit Provider Internal Medicine Medical Oncology
DX: C34.92 Malignant neoplasm of unspecified part of left bronchus or lung (principal)
CPT/HCPCS: 71250; 74150

== ENCOUNTER → 2022-11-03 | Outpatient (CLI) | payer MEDICARE, SELFPAY ==
[2022-11-03 17:35] LABS: Absolute Lymphocyte Count 1.54 X10^3/uL (0.83-4.51); Absolute Neutrophil Count 4.5 X10^3/uL (2.0-7.7); Basophil# 0.05 X10^3/uL; Basophil% 0.7 % (0-1); Eosinophil# 0.18 X10^3/uL; Eosinophils% 2.7 % (0-5); Hematocrit 42.4 % (37-47); Hemoglobin 13.1 g/dL (12.0-15.0); Lymphocyte # 1.54 X10^3/ul (0.83-4.51); Lymphocyte % 22.8 % (19-41); Mean Corp Hgb Conc 30.9 g/dL (32-36); Mean Corpuscular Hgb 28.9 pg (27.0-32.0); Mean Corpuscular Volume 93.4 fL (81-99); Mean Platelet Vol. 11.5 fl (6.2-12.0); Monocyte# 0.49 X10^3/uL; Monocyte% 7.2 % (0-10); NRBC Flagged by Analyzer 0 % (0-5); Neutrophil # 4.48 X10^3/uL (2.7-7.7); Neutrophil % 66.3 % (47-70); Platelet Count 257 K/mm3 (150-450); RBC Distribution Width SD 47.9 fl (35.1-43.9); Red Blood Count 4.54 M/mm3 (4.2-5.4); White Blood Count 6.8 K/mm3 (4.4-11.0)
[2022-11-03 17:52] LABS: Vitamin D,25 Hydroxy 55.1 ng/mL
[2022-11-03 18:03] LABS: ALB/GLOB Ratio 1.2 RATIO (0.9-2.4); AST(SGOT) 24 U/L (15-37); Alanine Aminotransfer ALT/SGPT 24 U/L (13-56); Albumin, Serum 3.6 g/dL (3.2-5.0); Alkaline Phosphatase 56 U/L (45-117); Anion Gap 4 (5-15); BUN 19 mg/dL (7-18); BUN/Creat Ratio 18.3 RATIO (10-20); Calcium,Total 8.8 mg/dL (8.5-10.1); Chloride 102 mmol/L (98-107); Creatinine, Serum 1.04 mg/dL (0.55-1.02); EST Glomerular Filtration Rate 55 mL/min (>60); Est Glom Filt Rate - Afr Amer 66 mL/min (>60); Glucose 102 mg/dL (74-106); LDH 195 U/L (84-246); Protein, Total 6.6 g/dL (6.4-8.2); Sodium Level 139 mmol/L (136-145); Thyroid Stim Hormone (TSH) 1.51 uIU/mL (0.358-3.74)
== END | disposition home or self-care (01) ==
LOC: POLAB3 11:03
PROVIDERS: Internal Medicine Medical Oncology; PCP Family Medicine Geriatric Medicine; Visit Provider Family Medicine Geriatric Medicine
DX: E55.9 Vitamin D deficiency, unspecified (principal); C34.32 Malignant neoplasm of lower lobe, left bronchus or lung; I10 Essential (primary) hypertension
CPT/HCPCS: 36415; 80053; 82306; 83615; 84443; 85025

== ENCOUNTER → 2023-01-14 | Outpatient (CLI) | payer MEDICARE, SELFPAY ==
--- NOTE | 2023-01-14 16:26 | RAD_ITS ---
INDICATION: R KNEE PAIN EXAMINATION/TECHNIQUE: X-RAY - RIGHT XR Knee 3 Views 3 VIEWS COMPARISON: None FINDINGS: SOFT TISSUES: No soft tissue swelling or gas. No radiopaque foreign body. BONES/JOINTS: No acute fracture or subluxation. Mild tricompartmental joint space narrowing and osteophytes. No sclerotic or destructive changes observed. RAD/Knee 3 Views IMPRESSION: Tricompartmental DJD. No acute abnormal finding. Electronically Signed: Asher Paredes MD at 16:57 EDT ,
== END | disposition home or self-care (01) ==
LOC: RAD 16:22
PROVIDERS: PCP Family Medicine Geriatric Medicine; Referring Provider Family Medicine Geriatric Medicine; Visit Provider Family Medicine Geriatric Medicine
DX: M25.561 Pain in right knee (principal)
CPT/HCPCS: 73562

== ENCOUNTER → 2023-02-27 | Outpatient (CLI) | payer MEDICARE, SELFPAY ==
--- NOTE | 2023-02-27 07:21 | MRI_ITS ---
EXAM: MR RIGHT LOWER EXTREMITY WITHOUT INTRAVENOUS CONTRAST, KNEE CLINICAL INDICATION: pain TECHNIQUE: Multiplanar and multisequence MR images of the right knee without intravenous contrast. COMPARISON: February 27, 2023 FINDINGS: BONES/JOINTS: Question partial thickness tear of the posterior root ligament of the medial meniscus and possibly a portion of the posterior horn although this is somewhat questionable and subtle. Mild degenerative changes are seen involving the medial greater than lateral femorotibial compartments. Mild to moderate grade diffuse chondral loss is seen at the patellofemoral compartment. No fracture. No abnormal bone marrow signal. No synovial hypertrophy. No intra-articular body. EXTENSOR MECHANISM: Unremarkable. MEDIAL MENISCUS: See above. LATERAL MENISCUS: Unremarkable. MEDIAL CAPSULE/SUPPORTING STRUCTURES: Unremarkable. Intact. LATERAL CAPSULE/SUPPORTING STRUCTURES: Unremarkable. Lateral collateral ligamentous complex, inclusive of the popliteal tendon, are intact. ANTERIOR CRUCIATE LIGAMENT: Unremarkable. Intact. POSTERIOR CRUCIATE LIGAMENT: Unremarkable. Intact. MUSCLES: Unremarkable. CARTILAGE: See above. FLUID: At least small size suprapatellar joint effusion. Small popliteal cyst with no evidence of inferior leakage or rupture. OTHER SOFT TISSUES: See above. MRI/Lower Ext Joint Only (Routine) IMPRESSION: 1. Question partial thickness tear of the posterior root ligament of the medial meniscus and possibly a portion of the posterior horn although this is somewhat questionable and subtle. 2. At least small suprapatellar joint effusion with small Emerson''s cyst. Electronically Signed: Dat Alicia MD at 22:26 EDT ,
== END | disposition home or self-care (01) ==
LOC: MRI 10:32
PROVIDERS: PCP Family Medicine Geriatric Medicine; Referring Provider Orthopaedic Surgery; Visit Provider Orthopaedic Surgery
DX: M25.561 Pain in right knee (principal)
CPT/HCPCS: 73721

== ENCOUNTER → 2023-04-09 | Outpatient (CLI) | payer MEDICARE, SELFPAY ==
--- NOTE | 2023-04-09 08:04 | CT_ITS ---
STUDY: CT CHEST T ABDOMEN WITHOUT CONTRAST REASON FOR EXAM: Female, 78 years old. MONITOR LUNG CA. RADIATION DOSAGE (If Supplied By Facility): CTDIvol = ( 21.16 ) mGy, DLP = ( 1361.64 ) mGycm TECHNIQUE: Transaxial imaging was performed without the administration of intravenous contrast material. Multiplanar coronal and sagittal images were reformatted. Individualized dose optimization techniques were used for this CT. COMPARISON: Comparison is made with prior study dated September 18, 2022. FINDINGS: CHEST Stable increased linear markings with areas of confluence in the posterior segment of the left lower lobe. Minimal overlying pleural thickening. There is no demonstrated pleural abnormality. There are calcifications of the coronary arteries. Sternal cerclage wires and vascular clips are present from a prior sternotomy and coronary artery bypass graft procedure (CABG). There are multiple small lymph nodes within the mediastinum, which are normal in size and morphology most compatible with reactive lymph hyperplasia. Normal hilar regions. Normal unenhanced pulmonary arteries. There is atherosclerotic calcification of the aortic arch with tortuosity and elongation of the aortic arch and descending thoracic aorta. There are multi-level degenerative changes of the thoracic spine. ABDOMEN Normal liver. Small gallstones. Normal spleen. Normal pancreas. Normal bilateral adrenal glands. Normal right kidney. Normal left kidney. Normal visualized stomach. Normal small intestine. There are multiple colonic diverticula consistent with diverticulosis. The appendix is visualized and appears normal. There is diffuse atherosclerotic calcification of the abdominal aorta and its major visceral branches. Stable dilatation of the infrarenal abdominal aorta with a transverse dimension of 3.2 cm. Normal inferior vena cava. Normal retroperitoneum. Normal abdominal wall. There are diffuse degenerative changes of the visualized lumbar spine. CT/CT Chest AND Abd W/O Contrast IMPRESSION: Essentially stable examination. Electronically Signed: Tripp Aguila MD at 13:27 EDT ,
== END | disposition home or self-care (01) ==
LOC: CT 08:04
PROVIDERS: PCP Family Medicine Geriatric Medicine; Referring Provider Internal Medicine Medical Oncology; Visit Provider Internal Medicine Medical Oncology
DX: C34.32 Malignant neoplasm of lower lobe, left bronchus or lung (principal)
CPT/HCPCS: 71250; 74150

== ENCOUNTER → 2023-06-01 | Outpatient (CLI) | payer MEDICARE, SELFPAY ==
--- NOTE | 2023-06-01 14:10 | RAD_ITS ---
STUDY: X-RAY CHEST REASON FOR EXAM: Female, 78 years old. CONGESTION OF RESPIRATORY TRACT TECHNIQUE: PA and lateral views of the chest. COMPARISON: None. FINDINGS: Status post median sternotomy. There is hyperinflation of the lungs consistent with chronic obstructive lung disease (COPD). There is no demonstrated pleural abnormality. There is moderate cardiac enlargement. Normal mediastinum and candis. Normal visualized pulmonary arteries. Normal visualized aortic arch and descending thoracic aorta. Normal visualized thoracic spine. Multiple healed left rib fractures. There is no demonstrated abnormality of the visualized soft tissue structures of the upper abdomen. RAD/Chest PA and Lateral IMPRESSION: Emphysema without pneumonia or atelectasis. Cardiomegaly. Electronically Signed: Jose Melo MD at 23:28 EST ,
[2023-06-01 15:44] LABS: Absolute Lymphocyte Count 0.95 X10^3/uL (0.83-4.51); Absolute Neutrophil Count 8.1 X10^3/uL (2.0-7.7); Basophil# 0.05 X10^3/uL; Basophil% 0.5 % (0-1); Eosinophil# 0.02 X10^3/uL; Eosinophils% 0.2 % (0-5); Hematocrit 43.5 % (37-47); Hemoglobin 12.2 g/dL (12.0-15.0); Lymphocyte # 0.95 X10^3/ul (0.83-4.51); Lymphocyte % 9.5 % (19-41); Mean Corpuscular Hgb 21.6 pg (27.0-32.0); Monocyte# 0.83 X10^3/uL; Monocyte% 8.3 % (0-10); NRBC Flagged by Analyzer 0 % (0-5); Neutrophil # 8.12 X10^3/uL (2.7-7.7); Neutrophil % 81.2 % (47-70); POSITIVE MORPHOLOGY YES; Platelet Count 176 K/mm3 (150-450); RBC Distribution Width CV 21.4 % (11.6-14.6); RBC Distribution Width SD 57.6 fl (35.1-43.9); Red Blood Count 5.65 M/mm3 (4.2-5.4)
[2023-06-01 15:45] LABS: Differential Indicated SCAN CRITERIA MET
[2023-06-01 15:56] LABS: Lactic Acid 1.7 mmol/L (0.4-1.9)
[2023-06-01 16:02] LABS: AST(SGOT) 17 U/L (15-37); Alanine Aminotransfer ALT/SGPT 18 U/L (13-56); Albumin, Serum 3.3 g/dL (3.2-5.0); Alkaline Phosphatase 60 U/L (45-117); Anion Gap 3 (5-15); BUN 15 mg/dL (7-18); BUN/Creat Ratio 12.9 RATIO (10-20); Calcium,Total 8.4 mg/dL (8.5-10.1); Chloride 97 mmol/L (98-107); Creatinine, Serum 1.16 mg/dL (0.55-1.02); EST Glomerular Filtration Rate 48 mL/min (>60); Est Glom Filt Rate - Afr Amer 58 mL/min (>60); Globulin 3.4 g/dL (2.2-4.2); Glucose 105 mg/dL (74-106); Potassium 3.1 mmol/L (3.5-5.1); Protein, Total 6.7 g/dL (6.4-8.2); Sodium Level 136 mmol/L (136-145)
[2023-06-01 16:37] LABS: Differential Comment SCANNED
== END | disposition home or self-care (01) ==
PROVIDERS: PCP Family Medicine Geriatric Medicine; Referring Provider Family Medicine Geriatric Medicine; Visit Provider Family Medicine Geriatric Medicine
DX: I10 Essential (primary) hypertension (principal); J98.8 Other specified respiratory disorders
CPT/HCPCS: 36415; 71046; 80053; 83605; 85025; 87635; 87804; 87807

== ENCOUNTER → 2023-10-15 | Outpatient (CLI) | payer MEDICARE, SELFPAY ==
--- NOTE | 2023-10-15 08:36 | AAVD_ITS ---
Reason For Study: Hx of AAA repair Aorta Measurements Aorta Doppler Measurements Proximal aorta measures2.34 x 2.34cm. in cross- Peak systolic flow velocities within the proximal sectional axis. aorta measure 42.0 cm/sec. Proximal aorta measures2.31cm. in longitudinal Peak systolic flow velocities within the mid aorta axis. measure 46.5 cm/sec. Mid aorta measures2.44 x 2.46cm. in cross- Peak systolic flow velocities within the distal sectional axis. aorta measure 43.1 cm/sec. Mid aorta measures2.32cm. in longitudinal axis. Distal aorta measures2.07 x 1.8cm. in cross- sectional axis. Distal aorta measures2.0cm. in longitudinal axis. Left Iliac Artery Left iliac artery measures 1.0 x 1.06 cm. in the cross-sectional axis. Left iliac artery measures 1.03 cm. in the longitudinal axis. Peak systolic velocity in the left iliac artery measures 98.5 cm/sec. Right Iliac Artery Right iliac artery measures 1.30 x 1.25 cm. in the cross-sectional axis. Right iliac artery measures 1.24 cm. in the longitudinal axis. Peak systolic velocity in the right iliac artery measures 35.1 cm/sec. Procedure Aorta IVC Iliac vasculature or bypass grafts 32703. Technically difficult study. Exam performed in department. VL/Abd Aortic/IVC Duplex scan Interpretation Summary Aorta patent, normal caliber Right iliac artery patent with 1.3 cm ectasia left iliac artery patent, normal caliber Ordering Physician: Edu Gaming Referring Physician: Ari Carballo Chi Performed By: Emilia Carreno, LIAM, RVT
[2023-10-15 09:54] LABS: Anion Gap 3 (5-15); BUN 10 mg/dL (7-18); BUN/Creat Ratio 9.3 RATIO (10-20); Calcium,Total 8.9 mg/dL (8.5-10.1); Chloride 105 mmol/L (98-107); Creatinine, Serum 1.08 mg/dL (0.55-1.02); EST Glomerular Filtration Rate 52 mL/min (>60); Est Glom Filt Rate - Afr Amer 63 mL/min (>60); Glucose 91 mg/dL (74-106); Potassium 4.3 mmol/L (3.5-5.1); Sodium Level 139 mmol/L (136-145)
== END | disposition home or self-care (01) ==
PROVIDERS: PCP Family Medicine Geriatric Medicine; Referring Provider Internal Medicine Cardiovascular Disease; Visit Provider Internal Medicine Cardiovascular Disease
DX: Z98.890 Other specified postprocedural states (principal); I10 Essential (primary) hypertension
CPT/HCPCS: 36415; 80048; 93978

== ENCOUNTER → 2023-11-19 | Outpatient (CLI) | payer MEDICARE, SELFPAY ==
[2023-11-19 13:12] LABS: Absolute Lymphocyte Count 1.53 X10^3/uL (0.83-4.51); Absolute Neutrophil Count 4.3 X10^3/uL (2.0-7.7); Basophil# 0.05 X10^3/uL; Basophil% 0.8 % (0-1); Eosinophil# 0.09 X10^3/uL; Eosinophils% 1.4 % (0-5); Hematocrit 50.8 % (37-47); Hemoglobin 15.4 g/dL (12.0-15.0); Lymphocyte # 1.53 X10^3/ul (0.83-4.51); Lymphocyte % 23.7 % (19-41); Mean Corp Hgb Conc 30.3 g/dL (32-36); Mean Corpuscular Volume 85.8 fL (81-99); Mean Platelet Vol. 11.2 fl (6.2-12.0); Monocyte# 0.44 X10^3/uL; Monocyte% 6.8 % (0-10); NRBC Flagged by Analyzer 0 % (0-5); Neutrophil # 4.32 X10^3/uL (2.7-7.7); Platelet Count 210 K/mm3 (150-450); RBC Distribution Width CV 16.3 % (11.6-14.6); RBC Distribution Width SD 50.4 fl (35.1-43.9); Red Blood Count 5.92 M/mm3 (4.2-5.4); White Blood Count 6.5 K/mm3 (4.4-11.0)
[2023-11-19 13:51] LABS: Vitamin D,25 Hydroxy 88.2 ng/mL
[2023-11-19 13:56] LABS: ALB/GLOB Ratio 1.2 RATIO (0.9-2.4); AST(SGOT) 17 U/L (15-37); Alanine Aminotransfer ALT/SGPT 15 U/L (13-56); Albumin, Serum 3.6 g/dL (3.2-5.0); Alkaline Phosphatase 61 U/L (45-117); Anion Gap 4 (5-15); BUN 15 mg/dL (7-18); Calcium,Total 9.7 mg/dL (8.5-10.1); Chloride 99 mmol/L (98-107); Cholesterol 170 mg/dL (200); Creatinine, Serum 1.07 mg/dL (0.55-1.02); EST Glomerular Filtration Rate 53 mL/min (>60); Est Glom Filt Rate - Afr Amer 64 mL/min (>60); Globulin 3.1 g/dL (2.2-4.2); Glucose 86 mg/dL (74-106); High Density Lipoprotein 48 mg/dL; Potassium 4.4 mmol/L (3.5-5.1); Protein, Total 6.7 g/dL (6.4-8.2); Sodium Level 136 mmol/L (136-145); Thyroid Stim Hormone (TSH) 1.31 uIU/mL (0.358-3.74); Triglycerides 125 mg/dL; Very Low Density Lipoprotein 25 mg/dL (5-40)
== END | disposition home or self-care (01) ==
LOC: LAB 11:30
PROVIDERS: PCP Family Medicine Geriatric Medicine; Referring Provider Family Medicine Geriatric Medicine; Visit Provider Family Medicine Geriatric Medicine
DX: I10 Essential (primary) hypertension (principal); E78.5 Hyperlipidemia, unspecified; E55.9 Vitamin D deficiency, unspecified
CPT/HCPCS: 36415; 80053; 80061; 82306; 84443; 85025

== ENCOUNTER → 2024-03-01 | Outpatient (CLI) | payer MEDICARE, SELFPAY ==
--- NOTE | 2024-03-01 16:15 | RAD_ITS ---
EXAM: XR CHEST, 2 VIEWS CLINICAL INDICATION: PNEUMONIA TECHNIQUE: Frontal and lateral views of the chest. COMPARISON: 06/01/2023 FINDINGS: LUNGS AND PLEURAL SPACES: There is minimal blunting of the left costophrenic angle which may represent trace left-sided effusion. No pneumothorax. HEART: Unremarkable. Cardiac silhouette not enlarged. MEDIASTINUM: Central airways and mediastinal contour are unremarkable. BONES/JOINTS: Healed left-sided rib fracture. SOFT TISSUES: Unremarkable. RAD/Chest PA and Lateral IMPRESSION: Trace left-sided pleural effusion. There is no focal consolidation. Electronically Signed: Jonathan Colvin MD at 0:04 EDT ,
[2024-03-01 16:22] LABS: Absolute Lymphocyte Count 1.12 X10^3/uL (0.83-4.51); Absolute Neutrophil Count 5.4 X10^3/uL (2.0-7.7); Basophil# 0.05 X10^3/uL; Basophil% 0.7 % (0-1); Eosinophils% 1.4 % (0-5); Hematocrit 51.2 % (37-47); Hemoglobin 15.1 g/dL (12.0-15.0); Lymphocyte # 1.12 X10^3/ul (0.83-4.51); Lymphocyte % 15.5 % (19-41); Mean Corp Hgb Conc 29.5 g/dL (32-36); Mean Corpuscular Hgb 25.7 pg (27.0-32.0); Mean Corpuscular Volume 87.2 fL (81-99); Mean Platelet Vol. 11.1 fl (6.2-12.0); Monocyte# 0.56 X10^3/uL; Monocyte% 7.8 % (0-10); NRBC Flagged by Analyzer 0 % (0-5); Neutrophil # 5.35 X10^3/uL (2.7-7.7); Neutrophil % 74.2 % (47-70); Platelet Count 241 K/mm3 (150-450); RBC Distribution Width SD 49.7 fl (35.1-43.9); Red Blood Count 5.87 M/mm3 (4.2-5.4); White Blood Count 7.2 K/mm3 (4.4-11.0)
[2024-03-01 16:52] LABS: ALB/GLOB Ratio 0.8 RATIO (0.9-2.4); AST(SGOT) 15 U/L (15-37); Alanine Aminotransfer ALT/SGPT 30 U/L (13-56); Alkaline Phosphatase 95 U/L (45-117); Anion Gap 4 (5-15); BUN 13 mg/dL (7-18); BUN/Creat Ratio 14.7 RATIO (10-20); Calcium,Total 9.1 mg/dL (8.5-10.1); Chloride 101 mmol/L (98-107); Creatinine, Serum 0.88 mg/dL (0.55-1.02); EST Glomerular Filtration Rate 66 mL/min (>60); Est Glom Filt Rate - Afr Amer 80 mL/min (>60); Globulin 3.9 g/dL (2.2-4.2); Glucose 96 mg/dL (74-106); Potassium 4.1 mmol/L (3.5-5.1); Protein, Total 6.9 g/dL (6.4-8.2); Sodium Level 140 mmol/L (136-145)
== END | disposition home or self-care (01) ==
PROVIDERS: PCP Family Medicine Geriatric Medicine; Referring Provider Family Medicine Geriatric Medicine; Visit Provider Family Medicine Geriatric Medicine
DX: J18.9 Pneumonia, unspecified organism (principal)
CPT/HCPCS: 36415; 71046; 80053; 85025

== ENCOUNTER → 2024-03-02 | Outpatient (CLI) | payer MEDICARE, SELFPAY | END | disposition home or self-care (01) | LOC: PSN 13:47 | PROVIDERS: PCP Family Medicine Geriatric Medicine; Referring Provider Family Medicine Geriatric Medicine; Visit Provider Family Medicine Geriatric Medicine | DX: R68.83 Chills (without fever) (principal) | CPT/HCPCS: 87631 ==

== ENCOUNTER 2024-04-09 03:52 | Inpatient (IN) | payer MEDICARE, SELFPAY ==
[2024-04-09] VITALS (17 sets, daily range): BP systolic 127–203; BP diastolic 53–90; PULSE 67–89; RESP 16–22; TEMP 36.4–36.8; O2SAT 93–97; BMI 32.2; BMI 32.4
--- NOTE | 2024-04-09 04:07 | EKG12_ITS ---
Test Reason : SOB Blood Pressure : / mmHG Vent. Rate : 080 BPM Atrial Rate : 080 BPM P-R Int : 150 ms QRS Dur : 088 ms QT Int : 420 ms P-R-T Axes : 060 026 093 degrees QTc Int : 484 ms Normal sinus rhythm Abnormal QRS-T angle, consider primary T wave abnormality Abnormal ECG Confirmed by Edu Gaming ([id number]), movie editor FABIAN TORRES ([id number]) on 04/10/2024 10:59:52 AM Referred By: Confirmed By:Edu Gaming
--- NOTE | 2024-04-09 04:07 | RAD_ITS ---
EXAM: XR CHEST, 2 VIEWS CLINICAL INDICATION: sob, cough TECHNIQUE: Frontal and lateral views of the chest. COMPARISON: Previous chest radiographs of 03/01/2024 and 06/01/2023. FINDINGS: LUNGS AND PLEURAL SPACES: Chronic parenchymal scarring within the left lung. The previously noted left lateral costophrenic angle blunting has resolved. No acute pulmonary infiltrates or pleural effusions are identified. No pneumothorax. HEART: Mild cardiomegaly with normal pulmonary vasculature. Previous median sternotomy. MEDIASTINUM: Stable elongation and calcification of the thoracic aorta. No mediastinal widening. Trachea is midline. BONES/JOINTS: Thoracic degenerative disc space narrowing. Sternal wires are again noted. Old fracture of the posterior left sixth rib again noted. SOFT TISSUES: Unremarkable. UPPER ABDOMEN: Numerous surgical clips noted within the upper abdomen. RAD/Chest PA and Lateral IMPRESSION: 1. Interval resolution of small left pleural effusion. 2. Otherwise stable. No acute cardiopulmonary disease process identified. Electronically Signed: Bud Cuadra MD at 5:32 EDT ,
--- NOTE | 2024-04-09 04:10 | EDS_ITS ---
HPI History of Present Illness Chief Complaint: Shortness of Breath Informant: patient and spouse/S.O. Narrative Narrative: Patient presents around 4 AM completely out of breath and hypoxic at home at 78%. She had pneumonia a couple weeks ago and was home with oxygen for that, but she was not on home oxygen prior to the pneumonia. The supply company came and got the oxygen when she recovered and no longer needed it, she finished the antibiotics and steroids, and states several days later, which was within the last 2 days, she started getting worse again. She states she has the same symptoms that she did when she had pneumonia which is a cough reductive of clear nonbloody sputum, small amounts and occasionally not all the time, and dyspnea. She denies any chest discomfort, fevers or chills, headaches, body aches, edema in her legs, orthopnea specifically. 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 TIA (transient ischemic attack) Hyperlipidemia Chronic obstructive lung disease Benign essential hypertension Home Medications ?Medication ?Instructions ?Recorded ?Last Taken ?Type cholecalciferol (vitamin D3) 25 1,000 unit PO QDAY supplement 01/17/18 10/13/18 07:30 History mcg (1,000 unit) capsule magnesium oxide 400 mg PO DAILY 09/15/21 Unknown History clopidogrel 75 mg tablet 75 mg PO QDAY #90 tabs 10/08/23 Unknown Rx isosorbide mononitrate 30 mg 30 mg PO QDAY #90 tabs 10/08/23 Unknown Rx tablet,extended release 24 hr metoprolol succinate 25 mg 25 mg PO QDAY #90 tabs 10/08/23 Unknown Rx tablet,extended release 24 hr evolocumab 140 mg/mL subcutaneous See Rx Instructions .Route 10/18/23 Unknown Rx syringe (Repatha Syringe) .COMPLEX #6 mL amlodipine 5 mg tablet 5 mg PO DAILY #90 tabs 03/10/24 Unknown Rx albuterol sulfate 90 mcg/actuation 2 puff inhalation Q4H PRN PRN 04/09/24 Unknown History aerosol inhaler shortness of breath or wheezing Allergy/AdvReac Type Severity Reaction Status Date / Time Penicillins Allergy Mild Rash Verified 04/09/24 04:01 simvastatin Allergy Unknown Myalgia Verified 04/09/24 04:01 Sulfa (Sulfonamide Allergy Unknown Unknown Verified 04/09/24 04:01 Antibiotics) gemfibrozil AdvReac Severe Pain in Verified 04/09/24 04:01 joints Iodinated Contrast Media AdvReac Severe Vomiting Verified 04/09/24 04:01 (Iodinated Contrast- Oral and IV Dye) spironolactone AdvReac Intermediate Nausea and Verified 04/09/24 04:01 higher BP lisinopril AdvReac Mild Cough Verified 04/09/24 04:01 losartan AdvReac Mild Cough Verified 04/09/24 04:01 atorvastatin AdvReac Unknown Myalgia Verified 04/09/24 04:01 fluvastatin AdvReac Unknown Myalgia Verified 04/09/24 04:01 niacin AdvReac Unknown Rash Verified 04/09/24 04:01 rosuvastatin AdvReac Unknown Myalgia Verified 04/09/24 04:01 Family History Father CAD (coronary artery disease) CVA (cerebral vascular accident) Other History of AAA (abdominal aortic aneurysm) repair Surgical History Port-A-Cath in place History of partial hysterectomy History of appendectomy History of tonsillectomy History of AAA (abdominal aortic aneurysm) repair (~2008) History of left heart catheterization History of abdominal aortic aneurysm repair (~05/10/09) Hx of CABG (07/15/05) Social History (Updated 04/09/24 @ 05:[address] Jesi Skaggs MD) household members: spouse Smoking Status: Former smoker alcohol intake: current alcohol intake frequency: holidays/special occasions only Alcohol type: beer, wine and hard liquor substance use type: does not use caffeine: Yes Type: coffee Number of servings: 5 what type of physical activity do you participate in: none seatbelt use: never do you feel safe at home: Yes ROS ROS ED Constitutional Constitutional ED: Denies chills or fever(s) Eyes Eyes: Denies change in vision or diplopia ENT ENT ED: Denies rhinorrhea or sore throat Cardiovascular Cardiovascular: Denies chest pain, leg edema, orthopnea, palpitations or syncope Respiratory/Chest Respiratory/Chest: Reports cough, dyspnea, dyspnea on exertion and sputum; Denies orthopnea Gastrointestinal Gastrointestinal: Denies abdominal pain, diarrhea, nausea or vomiting Genitourinary Genitourinary ED: Denies dysuria or hematuria Musculoskeletal Musculoskeletal: Denies back pain or neck pain Integumentary Denies abscess or rash Neurologic Neurologic: Denies headache(s), paresthesias or weakness Psychiatric Psychiatric: Denies suicidal thoughts EXAM Physical Exam Const Vital Signs: 04/09/24 03:53 04/09/24 03:58 04/09/24 04:15 Temperature 97.6 F L Temperature Source Temporal Pulse Rate 89 Respiratory Rate 22 H Respiratory Effort Short of Breath Blood Pressure 203/90 H Blood Pressure Mean 127 Pulse Ox 93 Oxygen Delivery Method Nasal Cannula Nasal Cannula Oxygen Flow Rate (L/min) 3 3 04/09/24 04:26 Temperature Temperature Source Pulse Rate 79 Respiratory Rate 20 H Respiratory Effort Blood Pressure Blood Pressure Mean Pulse Ox Oxygen Delivery Method Oxygen Flow Rate (L/min) Positive well nourished and well developed General Appearance ED: well developed and NAD HEENT Reports moist mucous membranes normocephalic and atraumatic Eyes PERRL and EOMs intact bilaterally Neck full ROM, supple and no JVD Resp Resp Narrative: Inspiratory rhonchi left base. Expiratory wheezes mild end expiratory throughout. Tachypneic but in no distress at this time. Cardio regular rate, regular rhythm and no murmurs GI non-tender and non-distended Auscultation: normoactive bowel sounds Palpation: soft Back/Spine no CVA tenderness General Back: other FROM Extremity normal to inspection General Extremety ED: Negative for edema, pulses abnormal or tenderness General Extremity: Negative for edema or pulses abnormal Neuro oriented x3, CN's II-XII intact bilaterally and no sensory deficits noted Sensorium / Orientation: awake and alert Motor Exam: strength 5/5 throughout Psych mental status grossly normal Skin no rashes or lesions noted and no wounds MDM MDM MDM Narrative Medical decision making narrative: Patient was given nebulizer treatments, this did help her breathing. While she was on oxygen with that, oxygen saturations maxed out at 94 to 95%. Now on 3 L nasal cannula she is doing well. Two-view chest x-ray on my interpretation shows no acute pneumonia. Her labs are noted, and EKG unchanged without any acute injury pattern. Her COVID test came back positive. Discussed with hospitalist will admit the floor and started steroids. Lab Data Attestation: I reviewed the patient's lab results. Labs: Laboratory Results - last 24 hr 04/09/24 04:03 WBC 3.9 L RBC 6.02 H Hgb 16.0 H Hct 51.9 H MCV 86.2 MCH 26.6 L MCHC 30.8 L RDW Std Deviation 58.7 H RDW Coeff of Aga 19.3 H Plt Count 139 L MPV 11.0 Immature Gran % (Auto) 0.300 Neut % (Auto) 69.9 Lymph % (Auto) 19.9 [place] % (Auto) 8.4 Eos % (Auto) 1.0 Baso % (Auto) 0.5 Absolute Neuts (auto) 2.7 Absolute Lymphs (auto) 0.78 L Nucleated RBC % 0 Sodium 140 Potassium 3.5 Chloride 102 Carbon Dioxide 32.0 Anion Gap 6 BUN 14 Creatinine 0.79 Estim Creat Clear Calc 59.91 Est GFR (MDRD) Af Amer 91 Est GFR (MDRD) Non-Af 75 BUN/Creatinine Ratio 17.8 Glucose 110 H Calcium 9.1 Troponin I High Sens 36 Radiography Diagnostic Testing: Clinical Impression(s) from Imaging Studies Chest X-Ray 04/09/24 04:07 IMPRESSION: 1. Interval resolution of small left pleural effusion. 2. Otherwise stable. No acute cardiopulmonary disease process identified. Electronically Signed: Bud Cuadra MD at 5:32 EDT , Rhythm Strip Rhythm Strip: Sinus Rhythm Rate: 80 Ectopy: None EKG Initial EKG: Attestation: I personally reviewed and interpreted this EKG as follows: Interpretation: Sinus Rhythm, No Acute Injury Pattern and Non-Specific ST Changes (I, aVL) Prior EKG tracings: available for review Prior: Unchanged Discharge Plan Dx/Rx/DC Orders Clinical Impression: Hypoxemia, COPD exacerbation, COVID-19 Disposition Disposition: Acute Care [facility]
[2024-04-09] MEDS: Ipratropium/Albuterol Sulfate 3 ML AMPUL.NEB INHALATION ×5 (04:25→20:10)
[2024-04-09] MEDS: Albuterol 2.5 MG/3 ML VIAL.NEB. INHALATION (04:25)
[2024-04-09 04:39] LABS: Absolute Lymphocyte Count 0.78 X10^3/uL (0.83-4.51); Absolute Neutrophil Count 2.7 X10^3/uL (2.0-7.7); Basophil# 0.02 X10^3/uL; Basophil% 0.5 % (0-1); Eosinophil# 0.04 X10^3/uL; Hematocrit 51.9 % (37-47); Lymphocyte # 0.78 X10^3/ul (0.83-4.51); Lymphocyte % 19.9 % (19-41); Mean Corp Hgb Conc 30.8 g/dL (32-36); Mean Corpuscular Hgb 26.6 pg (27.0-32.0); Mean Corpuscular Volume 86.2 fL (81-99); Monocyte# 0.33 X10^3/uL; Monocyte% 8.4 % (0-10); NRBC Flagged by Analyzer 0 % (0-5); Neutrophil # 2.73 X10^3/uL (2.7-7.7); Neutrophil % 69.9 % (47-70); Platelet Count 139 K/mm3 (150-450); RBC Distribution Width CV 19.3 % (11.6-14.6); RBC Distribution Width SD 58.7 fl (35.1-43.9); Red Blood Count 6.02 M/mm3 (4.2-5.4); White Blood Count 3.9 K/mm3 (4.4-11.0)
[2024-04-09 05:12] LABS: Anion Gap 6 (5-15); BUN 14 mg/dL (7-18); BUN/Creat Ratio 17.8 RATIO (10-20); Calcium,Total 9.1 mg/dL (8.5-10.1); Chloride 102 mmol/L (98-107); Creatinine, Serum 0.79 mg/dL (0.55-1.02); EST Glomerular Filtration Rate 75 mL/min (>60); Est Glom Filt Rate - Afr Amer 91 mL/min (>60); Estimated Creatinine Clearance 59.91 ml/min; Glucose 110 mg/dL (74-106); Potassium 3.5 mmol/L (3.5-5.1); Sodium Level 140 mmol/L (136-145); Troponin-I HS 36 pg/mL (3.0-54.0)
--- NOTE | 2024-04-09 05:30 | HP.PCM.HOS_ITS ---
HPI - General General Date of Admission: 04/09/24 Date of Service: 04/09/24 Chief Complaint: Dyspnea, wheezing, hypoxic. 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), COPD, HTN, HLD, Carotid disease, Hx Non-small cell L sided lung cancer, JOSEMANUEL who presents to the [facility] ED on 04/09/24 with significant dyspnea and noted hypoxia at home reported to be 78% on home oxygen which she was started on ~ 4 weeks prior secondary to pneumonia which was treated by her primary care physician with antibiotic completion as well as a round of steroids with clinical improvement since then until approximately 2 days prior to current presentation r when she started to again feel ill with cough with a clear nonbloody sputum with dyspnea which again has been worsening but no specific fevers or chills nor any pleuritic chest discomfort prompting ED evaluation. She notes that her who is present and her son have also been ill with similar symptoms of cough, dyspnea, congestion, rhinorrhea. Workup in the ED included T97.6, heart rate 89, BP 123/90, respiratory rate 22, 93% on 3 L nasal cannula, CBC with WC 3.9, [place] 16, MCV 86.2, platelet 139 with lymphopenia, BMP with glucose 110, troponin 36, COVID/Influenza/RSV PCR with positive COVID. chest x-ray with no acute cardiopulmonary findings despite recent pneumonia treated outpatient, EKG with sinus rhythm with nonspecific ST changes with mucoid evidence of ischemia unchanged from previous. In the ED patient ministered albuterol, Solu-Medrol 125 mg IV x 1 and DuoNeb therapy. 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 stroke TIA (transient ischemic attack) Hyperlipidemia Chronic obstructive lung disease Benign essential hypertension Home Medications ?Medication ?Instructions ?Recorded ?Last Taken ?Type cholecalciferol (vitamin D3) 25 1,000 unit PO QDAY supplement 01/17/18 10/13/18 07:30 History mcg (1,000 unit) capsule magnesium oxide 400 mg PO DAILY 09/15/21 Unknown History clopidogrel 75 mg tablet 75 mg PO QDAY #90 tabs 10/08/23 Unknown Rx isosorbide mononitrate 30 mg 30 mg PO QDAY #90 tabs 10/08/23 Unknown Rx tablet,extended release 24 hr metoprolol succinate 25 mg 25 mg PO QDAY #90 tabs 10/08/23 Unknown Rx tablet,extended release 24 hr evolocumab 140 mg/mL subcutaneous See Rx Instructions .Route 10/18/23 Unknown Rx syringe (Repatha Syringe) .COMPLEX #6 mL amlodipine 5 mg tablet 5 mg PO DAILY #90 tabs 03/10/24 Unknown Rx albuterol sulfate 90 mcg/actuation 2 puff inhalation Q4H PRN PRN 04/09/24 Unknown History aerosol inhaler shortness of breath or wheezing Allergy/AdvReac Type Severity Reaction Status Date / Time Penicillins Allergy Mild Rash Verified 04/09/24 04:01 simvastatin Allergy Unknown Myalgia Verified 04/09/24 04:01 Sulfa (Sulfonamide Allergy Unknown Unknown Verified 04/09/24 04:01 Antibiotics) gemfibrozil AdvReac Severe Pain in Verified 04/09/24 04:01 joints Iodinated Contrast Media AdvReac Severe Vomiting Verified 04/09/24 04:01 (Iodinated Contrast- Oral and IV Dye) spironolactone AdvReac Intermediate Nausea and Verified 04/09/24 04:01 higher BP lisinopril AdvReac Mild Cough Verified 04/09/24 04:01 losartan AdvReac Mild Cough Verified 04/09/24 04:01 atorvastatin AdvReac Unknown Myalgia Verified 04/09/24 04:01 fluvastatin AdvReac Unknown Myalgia Verified 04/09/24 04:01 niacin AdvReac Unknown Rash Verified 04/09/24 04:01 rosuvastatin AdvReac Unknown Myalgia Verified 04/09/24 04:01 Family History (Updated 04/09/24 @ 06:[address] Jesi Skaggs MD) Father CAD (coronary artery disease) CVA (cerebral vascular accident) Heart disease Mother Heart disease Other History of AAA (abdominal aortic aneurysm) repair Surgical History Port-A-Cath in place History of partial hysterectomy History of appendectomy History of tonsillectomy History of AAA (abdominal aortic aneurysm) repair (~2008) History of left heart catheterization History of abdominal aortic aneurysm repair (~05/10/09) Hx of CABG (07/15/05) Social History (Updated 04/09/24 @ 05:[address] Jesi Skaggs MD) household members: spouse Smoking Status: Former smoker alcohol intake: current alcohol intake frequency: holidays/special occasions only Alcohol type: beer, wine and hard liquor substance use type: does not use caffeine: Yes Type: coffee Number of servings: 5 what type of physical activity do you participate in: none seatbelt use: never do you feel safe at home: Yes ROS ROS Narrative Admission Review of Systems: CONSTITUTIONAL: No weight loss, fever, chills, + weakness or fatigue. HEENT: + Congestion, rhinorrhea. Eyes: No visual loss, blurred vision, double vision or yellow sclerae. Ears, Nose, Throat: No hearing loss, sneezing. SKIN: No rash or itching, lesions, wounds. CARDIOVASCULAR: No chest pain, chest pressure or chest discomfort, palpitations, edema, orthopnea, syncopal events. RESPIRATORY: + shortness of breath, cough, wheezing. No marked sputum, hemoptysis. GASTROINTESTINAL: + anorexia. No nausea, vomiting, diarrhea, abdominal pain, melena, BRBPR. GENITOURINARY: No dysuria, frequency, urgency or retention. NEUROLOGICAL: No marked headache, dizziness, syncope, paralysis, ataxia, numbness or tingling in the extremities, focal weakness, change in bowel or bladder control, seizure. MUSCULOSKELETAL: + muscle, back pain, joint pain or stiffness. HEMATOLOGIC: + History of polycythemia, easy bleeding/bruising on antiplatelet therapy. LYMPHATICS: No enlarged nodes. No history of splenectomy. PSYCHIATRIC: + History of anxiety and depression. ENDOCRINOLOGIC: No reports of sweating, cold or heat intolerance. No polyuria or polydipsia. ALLERGIES: No history of asthma, hives, eczema or rhinitis. Vital Signs Vital Signs Vital Signs: 04/09/24 03:53 04/09/24 03:58 04/09/24 04:15 Temperature 97.6 F L Temperature Source Temporal Pulse Rate 89 Respiratory Rate 22 H Respiratory Effort Short of Breath Blood Pressure 203/90 H Blood Pressure Mean 127 Pulse Ox 93 Oxygen Delivery Method Nasal Cannula Nasal Cannula Oxygen Flow Rate (L/min) 3 3 04/09/24 04:26 Temperature Temperature Source Pulse Rate 79 Respiratory Rate 20 H Respiratory Effort Blood Pressure Blood Pressure Mean Pulse Ox Oxygen Delivery Method Oxygen Flow Rate (L/min) Weight Weight: 181 lb 14.102 oz Body Mass Index (BMI) 32.2 Physical Exam Narrative Physical Examination: General: Awake, alert, oriented x 3 and cooperative, seated upright in the ED bed, fatigued and ill-appearing, mildly increased respiratory rate but no distress noted. Skin: Normal color, normal turgor, no icterus, no cyanosis. HEENT: AT/NC, EOMI, PERRLA, moderately dry MM, no carotid bruits or JVD noted. Lungs: Diffusely diminished, greater bases, mildly increased respiratory rate but no distress noted, expiratory wheezing diffusely noted. Heart: Currently regular rate with regular rhythm; no gallop, rub audible. Abdomen: Soft, obese, no obvious TTP, nondistended, mildly hyperactive BS, no HSM discerned. Extremities: No cyanosis, clubbing, or edema. Neurological: Patient awake, alert, oriented as noted, cognitive function intact; pupils equally reactive to light and accommodation, cranial nerves grossly normal, moving all 4 extremities, no focal deficits, strength moderately to severely global decrease secondary to acute presentation. Psychiatric: Affect appears fatigued, ill-appearing, no acute evidence of depressive or anxiety feelings but does have underlying history. Results Lab / Micro Data 04/09/24 04:03 04/09/24 04:03 Labs: Laboratory Results - last 24 hr 04/09/24 04:03: WBC 3.9 L, RBC 6.02 H, Hgb 16.0 H, Hct 51.9 H, MCV 86.2, MCH 26.6 L, MCHC 30.8 L, RDW Std Deviation 58.7 H, RDW Coeff of Aga 19.3 H, Plt Count 139 L, MPV 11.0, Immature Gran % (Auto) 0.300, Neut % (Auto) 69.9, Lymph % (Auto) 19.9, [place] % (Auto) 8.4, Eos % (Auto) 1.0, Baso % (Auto) 0.5, Absolute Neuts (auto) 2.7, Absolute Lymphs (auto) 0.78 L, Nucleated RBC % 0, Sodium 140, Potassium 3.5, Chloride 102, Carbon Dioxide 32.0, Anion Gap 6, BUN 14, Creatinine 0.79, Estim Creat Clear Calc 59.91, Est GFR (MDRD) Af Amer 91, Est GFR (MDRD) Non-Af 75, BUN/Creatinine Ratio 17.8, Glucose 110 H, Calcium 9.1, Troponin I High Sens 36 Rhythm Strip Rhythm Strip: Sinus Rhythm Rate: 80 Ectopy: None Assessment & Plan Assessment/Plan (1) COPD exacerbation: PLAN: Plan The patient is a 79 y/o F w/ PMHx: Chronic Polycythemia, CKD stage III unclear subtype per GFR trending, Hx AAA s/p repair, CAD s/p CABG, Anxiety and Depression, 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), COPD, HTN, HLD, Carotid disease, Hx Non-small cell L sided lung cancer, JOSEMANUEL who presents to the [facility] ED on 04/09/24 with significant dyspnea and noted hypoxia at home reported to be 78% on home oxygen which she was started on in 4 weeks prior secondary to pneumonia reporting that she finished antibiotics and steroids with no immediate issues at that time feeling improved however in the last 2 days she started to worsen again with similar symptoms with cough with a clear nonbloody sputum with dyspnea which again has been worsening but no specific fevers or chills nor any pleuritic chest discomfort prompting ED evaluation. #1. Acute Hypoxia secondary to Acute Viral Syndrome, COVID-19 with resulting Acute on Chronic COPD exacerbation with questionable recent prior (~ 1 month prior PNA, CAP diagnosis): Will admit to the [facility] given stable vital signs, maintain on COVID precautions, will maintain on oxygen with wean as tolerated to room air, PRN albuterol, HOB, IS parameters, we will obtain D-dimer, procalcitonin, CRP, CPK, Ferritin, LDH and BNP, continue supportive care including q 2 hour turning including prone given no prone bed availability and judicious hydration, closely monitor for worsening status for ARDS and multiorgan failure, will initiate and continue IV decadron x 10 doses, given presentation will also initiate IV remdesivir but defer to discretion of Infectious disease. #2. Leukopenia, thrombocytopenia, new: Admission CBC with WBC 3.9, platelet 139, new compared to previous review of baseline, likely related with acute presentation #1, reactive, will continue to trend CBC. #3. Chronic polycythemia: Admission CBC with hemoglobin 16, following with hematology/oncology also given concurrent lung cancer history, noted history of underlying polycythemia considered mild with clinical decision at this point for ongoing observation, encourage continued outpatient follow-up as previously arranged. #4. CAD: Status post CABG w/COLIN to LAD, radial artery as a free graft to the ramus intermedius, SVG to Dx and marginal branch of LCX at [facility] per Dr. Blue 07/15/2005, continue Plavix, noted statin allergy, on Repatha outpatient, continue metoprolol, not on MELISSA inhibitor/ARB. #5. History non-small cell lung cancer: History of left-sided squamous cell lung cancer status post left wedge resection with SBRT to left lower lobe considered in remission, following outpatient with hematology/oncology Dr. Russell, encourage continued outpatient follow-up as previously arranged. #6. History AAA: Status post repair 04/2009, continue Plavix, noted statin allergy on Repatha outpatient, continue hypertensive regimen as noted. Most recent vascular ultrasound imaging 10/15/[address] Browne with noted patent aorta, normal caliber, right iliac artery patent with 1.3 cm ectasia, left iliac artery patent with normal caliber. #7. 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 #8. Hypertension: Continue home regimen including amlodipine, metoprolol, isosorbide with hold parameters as needed, PRN hydralazine. #9. Hyperlipidemia: Noted statin allergy, noted to be on Repatha outpatient, encourage continued outpatient follow-up. #10. Chronic Kidney Disease Stage III per GFR trending, unclear subtype: Admission BUN/Cr 14/0.79, baseline renal function primarily 1-1.2 however most recently 03/01/24 creatinine 0.88, repeat BMP in AM. #11. Anxiety and depression: Not on any chronic regimen, encourage continued outpatient follow-up and regimen as needed. #12. Carotid disease: Noted history of left carotid disease, continue Plavix, noted statin allergy with Repatha outpatient, continue hypertensive regimen as BP allows. #13. Former tobacco use: Encourage continued tobacco cessation. #14. JOSEMANUEL: Does not use any PAP therapy #15. DVT prophylaxis: Lovenox twice daily per COVID protocol. #16. CODE status: Patient HCPOA and living will are not in place but her who is present she notes would be her medical decision-maker if necessary. Discussed CODE status at length including difference between FULL code, DNR-CCA and DNR-CC status. Following discussions about the differences in these status, requested Full Code status. Advanced Care Planning Face to Face Time: 16 minutes. Charges/Coding Visit Charges Inpatient E&M: 93350 Init Hosp L3 Procedures Hospitalists Procedures: 72146 Advncd Care Plan 30 Min
[2024-04-09] MEDS: MethylPREDNISolone 125 MG/2 ML Vial IV (05:53)
[2024-04-09 06:27] LABS: Magnesium 1.7 mg/dL (1.6-2.6)
[2024-04-09 07:24] LABS: Ferritin 51 ng/mL (8-252); LDH 292 U/L (84-246)
[2024-04-09 07:27] LABS: Erythrocyte Sedimentation Rate 22 mm/hr (0-30)
[2024-04-09 07:44] LABS: BNP,B-Type NATRIURETIC PEPTIDE 169.6 pg/mL (0-100)
[2024-04-09 07:45] LABS: Procalcitonin 0.04 ng/mL (0.00-0.09)
[2024-04-09 08:01] LABS: D-Dimer Quantitative (DVT/PE) 3.04 FEU/ug/m (0.27-0.49)
[2024-04-09 08:16] LABS: CPK Total, Creatine Kinase 37 U/L (26-192)
[2024-04-09] MEDS: 0.9% Normal Saline (250mL Bag) 250 ML 15 ML IV (08:25)
[2024-04-09] MEDS: Remdesivir 200 MG in 0.9% Normal Saline (250mL Bag) 210 ML 250 MG IV (08:25)
[2024-04-09] MEDS: 0.9% Saline Lock 10 ML Syringe IV (08:26)
[2024-04-09] MEDS: Isosorbide Mononitrate 30 MG Tablet PO (08:42)
[2024-04-09] MEDS: Metoprolol(XL)Succ 25 MG Tablet PO (08:43)
[2024-04-09] MEDS: Clopidogrel Bisulfate 75 MG Tablet PO (08:43)
[2024-04-09] MEDS: amLODIPine 5 MG Tablet PO (08:43)
--- NOTE | 2024-04-09 09:53 | PCM.PN.BLA ---
Progress Note Contacted for an elevated D-dimer however she is not very concerning for a PE at this time given the fact that she has an allergy to contrast even if it is just vomiting, will obtain a VQ scan tomorrow as her chest x-ray does appear to be clear at this time.
[2024-04-09] MEDS: Loperamide 2 MG Capsule PO (12:56)
[2024-04-09] MEDS: Enoxaparin 40 MG/0.4 ML Syringe 30 MG SC (22:26)
[2024-04-10] VITALS (12 sets, daily range): BP systolic 134–174; BP diastolic 61–85; PULSE 67–88; RESP 12–20; TEMP 36.6–36.7; O2SAT 94–97
--- NOTE | 2024-04-10 01:59 | VDLE_ITS ---
Reason For Study: Elevated D-Dimer RIGHT LEFT GSV is normal. GSV is normal. CFV is patent and compressible. CFV is patent and compressible. Rt FV is compressible Lt FV is compressible Rt PopV is compressible Lt PopV is compressible. Anechoic, non vascular structure noted Rt Pop T/P Trunk is compressible. Fossa measuring 1.4cm x 2.4cm. PTV is compressible. T/P Trunk is compressible. LT PerV is compressible. PTV is compressible. RT PerV is compressible. Procedure This is a venous duplex using B-mode, color flow and spectral Doppler. Exam performed portable in patient room. The exam was abbreviated due to the COVID 19 protocol. A preliminary report was called and/or faxed to Patients RN. VL/Venous Duplex US - Gamaliel Extrem Interpretation Summary Deep veins of the bilateral lower extremities are patent and compressible segme ntally. There is no evidence of bilateral lower extremity deep vein thrombosis. The bilateral great saphenous veins appear patent and compressible segmentally. Ordering Physician: Jesi Skaggs Referring Physician: Ari Carballo Chi Performed By: Alea Kellogg, MARCOCS, RVT
--- NOTE | 2024-04-10 01:59 | PN.HOSP_ITS ---
Hospitalist Note Notified by nursing staff from [facility] that they do not perform VQ scans on COVID patients. Will request BL LE duplex US in the interim until clarified.
--- NOTE | 2024-04-10 01:59 | PCM.HOSP.N ---
Hospitalist Note Notified by nursing staff from [facility] that they do not perform VQ scans on COVID patients. Will request BL LE duplex US in the interim until clarified.
--- NOTE | 2024-04-10 07:09 | CT_ITS ---
We are attempting to reach an attending provider to discuss findings. An addendum with communication details will be sent when the communication is complete. EXAM: CT ANGIOGRAPHY CHEST WITHOUT AND WITH INTRAVENOUS CONTRAST CLINICAL INDICATION: R/o PE TECHNIQUE: Helically acquired angiography images were obtained of the chest without and with intravenous contrast. This CT exam was performed using one or more of the following dose reduction techniques: automated exposure control, adjustment of the mA and/or kV according to patient size, and/or use of iterative reconstruction technique. MIP reconstructed images were created and reviewed. CONTRAST: IV 100mL Isovue-370 COMPARISON: CT chest, 04/09/2023 and chest radiograph, 04/09/2024. FINDINGS: PULMONARY ARTERIES: No significant abnormality. Normal in caliber. No evidence of pulmonary embolism. AORTA: 3.7 cm unruptured suprarenal abdominal aortic aneurysm. Extensive calcified and bland atheroma throughout the aorta with areas of apparent plaque ulcerations in the arch some which appears unstable. No evidence of dissection. 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 Moderate stenosis of the origin of the left common carotid artery secondary to atheroma. Normal in caliber. No evidence of dissection. OTHER ARTERIES: Nonvisualization of the left vertebral artery likely secondary to proximal occlusion. LUNGS AND PLEURAL SPACES: Right lower lobe consolidative airspace disease which may be pneumonia or atelectasis. Minimal atelectasis in the left lower lobe with associated scarring perhaps related to postoperative change. No mass. No pleural effusion or thickening. HEART: Status post CABG. Heart size is normal. No pericardial effusion. No significant coronary artery calcifications. MEDIASTINUM: No significant abnormality. No mediastinal or hilar adenopathy. Esophagus is unremarkable. No hiatal hernia. THYROID: No significant abnormality. No thyroid lesions. BONES/JOINTS: Median sternotomy. Degenerative changes in the axial and appendicular skeletal structures. No suspicious lytic or blastic abnormality. GALLBLADDER AND BILE DUCTS: Findings suggestive of cholelithiasis without evidence of cholecystitis. STOMACH AND BOWEL: Colonic diverticulosis. CT/CTA Chest W/WO Contrast IMPRESSION: 1. 3.7 cm unruptured suprarenal abdominal aortic aneurysm. Extensive calcified and bland atheroma throughout the aorta with areas of apparent plaque ulcerations in the arch some which appears unstable. 2. 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 3. Moderate stenosis of the origin of the left common carotid artery secondary to atheroma. 4. Nonvisualization of the left vertebral artery likely secondary to proximal occlusion. 5. No evidence of pulmonary artery embolus. 6. Right lower lobe consolidative airspace disease which may be pneumonia or atelectasis. 7. Findings suggestive of cholelithiasis without evidence of cholecystitis. 8. Status post CABG. 9. Minimal atelectasis in the left lower lobe with associated scarring perhaps related to postoperative change. Correlate with history. 10. Colonic diverticulosis. Electronically Signed: Hal Olsen DO at 23:23 EDT ,
[2024-04-10] MEDS: Ipratropium/Albuterol Sulfate 3 ML AMPUL.NEB INHALATION ×3 (07:28→19:57)
[2024-04-10 07:35] LABS: Absolute Lymphocyte Count 0.62 X10^3/uL (0.83-4.51); Absolute Neutrophil Count 4.6 X10^3/uL (2.0-7.7); Basophil# 0.01 X10^3/uL; Basophil% 0.2 % (0-1); Hematocrit 51.4 % (37-47); Hemoglobin 15.8 g/dL (12.0-15.0); Lymphocyte # 0.62 X10^3/ul (0.83-4.51); Mean Corp Hgb Conc 30.7 g/dL (32-36); Mean Corpuscular Hgb 26.9 pg (27.0-32.0); Mean Corpuscular Volume 87.6 fL (81-99); Mean Platelet Vol. 10.7 fl (6.2-12.0); Monocyte# 0.34 X10^3/uL; NRBC Flagged by Analyzer 0 % (0-5); Neutrophil # 4.63 X10^3/uL (2.7-7.7); Neutrophil % 82.4 % (47-70); Platelet Count 157 K/mm3 (150-450); RBC Distribution Width SD 59.4 fl (35.1-43.9); Red Blood Count 5.87 M/mm3 (4.2-5.4); White Blood Count 5.6 K/mm3 (4.4-11.0)
[2024-04-10 08:06] LABS: AST(SGOT) 22 U/L (15-37); Alanine Aminotransfer ALT/SGPT 36 U/L (13-56); Albumin, Serum 3.1 g/dL (3.2-5.0); Alkaline Phosphatase 65 U/L (45-117); Anion Gap 5 (5-15); BUN 16 mg/dL (7-18); BUN/Creat Ratio 18.7 RATIO (10-20); Calcium,Total 9.2 mg/dL (8.5-10.1); Chloride 103 mmol/L (98-107); Creatinine, Serum 0.85 mg/dL (0.55-1.02); EST Glomerular Filtration Rate 69 mL/min (>60); Est Glom Filt Rate - Afr Amer 83 mL/min (>60); Estimated Creatinine Clearance 56.59 ml/min; Globulin 3.2 g/dL (2.2-4.2); Glucose 98 mg/dL (74-106); Potassium 4.2 mmol/L (3.5-5.1); Protein, Total 6.3 g/dL (6.4-8.2); Sodium Level 141 mmol/L (136-145)
--- NOTE | 2024-04-10 08:47 | PN.HOSP_ITS ---
Subjective Subjective Doing well, no issues overnight. Feels better today. Objective Data Objective Data Vital Signs: Vital Signs Temp Pulse Resp BP Pulse Ox O2 Del Method O2 Flow Rate 98.1 F 74 16 134/76 H 97 Nasal Cannula 2 04/10/24 03:01 04/10/24 03:01 04/10/24 03:01 04/10/24 03:01 04/10/24 03:02 04/10/24 03:02 04/10/24 03:02 Oxygen Flow Rate (L/min) 2 Oxygen Delivery Method Nasal Cannula Weight: 183 lb 3.266 oz Body Mass Index (BMI) 32.4 Intake & Output: Intake and Output for Last 24 Hours 04/09/24 04/10/24 04/11/24 03:59 03:59 03:59 Intake Total 1259.5 / 1259.5 480.5 / 480.5 Balance 1259.5 / 1259.5 480.5 / 480.5 Lab / Micro Data 04/10/24 07:17 04/10/24 07:17 Labs: Laboratory Results - last 24 hr 04/10/24 07:17: WBC 5.6, RBC 5.87 H, Hgb 15.8 H, Hct 51.4 H, MCV 87.6, MCH 26.9 L, MCHC 30.7 L, RDW Std Deviation 59.4 H, RDW Coeff of Aga 19.0 H, Plt Count 157, MPV 10.7, Immature Gran % (Auto) 0.400, Neut % (Auto) 82.4 H, Lymph % (Auto) 11.0 L, Mcculloch % (Auto) 6.0, Eos % (Auto) 0.0, Baso % (Auto) 0.2, Absolute Neuts (auto) 4.6, Absolute Lymphs (auto) 0.62 L, Nucleated RBC % 0, Sodium 141, Potassium 4.2, Chloride 103, Carbon Dioxide 33.0 H, Anion Gap 5, BUN 16, Creatinine 0.85, Estim Creat Clear Calc 56.59, Est GFR (MDRD) Af Amer 83, Est GFR (MDRD) Non-Af 69, BUN/Creatinine Ratio 18.7, Glucose 98, Calcium 9.2, Total Bilirubin 0.60, AST 22, ALT 36, Alkaline Phosphatase 65, Total Protein 6.3 L, A lbumin 3.1 L, Globulin 3.2, Albumin/Globulin Ratio 1.0 Micro: Microbiology 04/09/24 07:00 Mucosa - Nasopharyngeal Respiratory Panel (PCR) - Final 04/09/24 04:16 Mucosa - Nose SARS-CoV-2, Influenza & RSV (PCR) - Final SARS-CoV-2 (COVID 19 PCR) Rhythm Strip Rhythm Strip: Sinus Rhythm Rate: 80 Ectopy: None Physical Exam Narrative General: Alert, Oriented x3, Cooperative, No apparent distress HEENT: Atraumatic, PERRLA, EOMI, Normocephalic Oral: Moist Mucosa Neck: Supple, No JVD Lungs: Diminished, Normal air movement, No rhonchi, No wheeze, No rales Cardiovascular: Regular rate, Regular Rhythm, Normal S1, Normal S2, No murmurs Abdomen: Soft, Non Tender, Non-Distended, No Hepato-splenomegaly Extremities: No edema, Capillary Refill Less than 3 Seconds Skin: No rashes, No breakdown Musculoskeletal: No Tenderness to Palpation of Joints or Extremities Neurological: No focal neurological deficits, Motor Exam 5/5 strength throughout, Sensory exam intact to light touch and pain Psych/Mental Status: Normal Affect, Appropriate Assessment & Plan Assessment/Plan (1) COPD exacerbation: PLAN: Plan 1. Acute hypoxia secondary to COVID-19 ? A D-dimer was obtained unfortunately she is allergic to contrast so initially a VQ scan was ordered however they will not do a VQ scan in someone with COVID ? Will proceed with the contrast allergy intervention and obtain a CTA this evening ? Duplex is also ordered ? Will continue with DVT prophylaxis as I do not think a PE or blood clots are likely at this point ? Continue with COVID interventions with Decadron and remdesivir 2. CAD status post CABG/essential HTN/HLD/history of AAA/history of CVA ? Blood pressure stable ? Continue with her home medications ? Will monitor and make adjustments as necessary ? Her AAA was repaired in 2008 ? Continue with her antiplatelets 3. History of non-small cell lung cancer/tobacco abuse ? Status post wedge resection with SBRT to the left lower lobe currently in remission ? Continue to follow-up as an outpatient ? She did have slight wheezing today, continue with DuoNebs DVT: Lovenox Charges/Coding Visit Charges Inpatient E&M: 62954 Subs Hosp L2
[2024-04-10] MEDS: 0.9% Saline Lock 10 ML Syringe IV (09:15)
[2024-04-10] MEDS: Metoprolol(XL)Succ 25 MG Tablet PO (09:16)
[2024-04-10] MEDS: predniSONE 10 MG Tablet 50 MG PO ×3 (09:16→21:24)
[2024-04-10] MEDS: Clopidogrel Bisulfate 75 MG Tablet PO (09:17)
[2024-04-10] MEDS: dexAMETHasone 4 MG/ML Vial 6 MG IV (09:17)
[2024-04-10] MEDS: Isosorbide Mononitrate 30 MG Tablet PO (09:17)
[2024-04-10] MEDS: amLODIPine 5 MG Tablet PO (09:17)
[2024-04-10] MEDS: Remdesivir 100 MG in 0.9% Normal Saline (250mL Bag) 230 ML 250 MG IV (09:27)
--- NOTE | 2024-04-10 12:02 | CASEMGMT ---
VICTORINA DAVID Assessment: Face to Face with pt for initial transition planning/care coordination assessment. VICTORINA DAVID introduced self and role at [facility], pt voices understanding and consents to assessment. Pt is A&O x4 and answers all questions appropriately at this time. Pt lying in bed in no distress. Care providers, pharmacy, and demographics verified/updated. Admitting Dx: Hypoxia, COPD exacerbation Strata Score: 2 PCP: Haris Specialists: Ilir, Replanting Machine Operator; Drew, Oncologist Preferred Pharmacy: [facility] Insurance: [employer] [facility] Prescription Benefit: yes LNOK: , Fawad. Living Arrangements: Pt lives with and son in a 2 story house with 2 steps to enter. Pt reports I with ADLs and IADLs. Transportation: Pt drives self and denies concerns with transportation. DME: Built in shower bench, walker. Previously used O2 from [employer], does not currently have oxygen at home. Pt denies wanting a DME providers for O2, would like to use [employer] again if needed. HHC/SNF: Denies Hx of. Pt states no concerns with going home at time of dc. Pt states no further concerns/needs. CM to follow. Advised pt to ask CM if any further question/concerns/needs arise, voices understanding. Pt Goal: Home Plan: Home, follow for O2 needs. Aliya PRAJAPATI CM
[2024-04-10] MEDS: DiphenhydrAMINE 25 MG Capsule 50 MG PO (21:24)
--- NOTE | 2024-04-10 23:36 | CT_ITS ---
EXAM: CT ANGIOGRAPHY HEAD AND NECK WITH INTRAVENOUS CONTRAST CLINICAL INDICATION: Abnormal CT of abd/pelvis with unstable plaques. TECHNIQUE: [place]/head and neck CT angiography protocol performed with intravenous contrast. CTDIvol = ( 50.56 ) mGy, DLP = ( 1516.69 ) mGycm This CT exam was performed using one or more of the following dose reduction techniques: automated exposure control, adjustment of the mA and/or kV according to patient size, and/or use of iterative reconstruction technique. MIP reconstructed images were created and reviewed. CONTRAST: IV 75mL Isovue-370 COMPARISON: No relevant prior studies available. FINDINGS: HEAD: RIGHT ANTERIOR CEREBRAL ARTERY: Unremarkable. No occlusion or significant stenosis. Anterior communicating artery is present. No aneurysm. RIGHT MIDDLE CEREBRAL ARTERY: Unremarkable. No occlusion or significant stenosis. No aneurysm. RIGHT POSTERIOR CEREBRAL ARTERY: Unremarkable. No occlusion or significant stenosis. No aneurysm. RIGHT INTRACRANIAL INTERNAL CAROTID ARTERY: Unremarkable. No significant stenosis. No dissection or occlusion. RIGHT INTRACRANIAL VERTEBRAL ARTERY: Unremarkable. No significant stenosis. No dissection or occlusion. LEFT ANTERIOR CEREBRAL ARTERY: Unremarkable. No occlusion or significant stenosis. No aneurysm. LEFT MIDDLE CEREBRAL ARTERY: Unremarkable. No occlusion or significant stenosis. No aneurysm. LEFT POSTERIOR CEREBRAL ARTERY: Unremarkable. No occlusion or significant stenosis. No aneurysm. LEFT INTRACRANIAL INTERNAL CAROTID ARTERY: Unremarkable. No significant stenosis. No dissection or occlusion. LEFT INTRACRANIAL VERTEBRAL ARTERY: Unremarkable. No significant stenosis. No dissection or occlusion. BASILAR ARTERY: Unremarkable. No occlusion or significant stenosis. No aneurysm. OTHER VASCULATURE: Atherosclerotic calcifications along the carotid siphons but no more than mild luminal narrowing. No vascular malformation. BRAIN AND EXTRA-AXIAL SPACES: Old infarct involving the right occipital lobe with encephalomalacia. NECK: RIGHT COMMON CAROTID ARTERY: Distal right common carotid artery atherosclerotic calcifications result in at least moderate luminal narrowing. Left distal common carotid artery atherosclerotic calcifications result in mild luminal narrowing. Dense atherosclerotic calcifications along the right carotid bulb results in moderate luminal narrowing. RIGHT EXTRACRANIAL INTERNAL CAROTID ARTERY: Medialization of the internal carotid arteries at the level of the hyoid bone. No significant stenosis. No dissection or occlusion. RIGHT EXTERNAL CAROTID ARTERY: At least moderate stenosis of the origin of the right external carotid artery. RIGHT EXTRACRANIAL VERTEBRAL ARTERY: Unremarkable. No significant stenosis. No dissection or occlusion. LEFT COMMON CAROTID ARTERY: Unremarkable. No significant stenosis. No dissection or occlusion. LEFT EXTRACRANIAL INTERNAL CAROTID ARTERY: See above. LEFT EXTERNAL CAROTID ARTERY: Unremarkable. No occlusion. 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 Short segment significant stenosis of the left vertebral artery at the level of the clivus. THYROID: Ill-defined heterogeneous left thyroid nodule measuring up to 1.5 cm. BRACHIOCEPHALIC AND SUBCLAVIAN ARTERIES: Unremarkable as visualized. No occlusion or significant stenosis. LUNG APICES: Unremarkable as visualized. HEAD and NECK: BONES/JOINTS: Degenerative changes of the spine multiple levels.. No discrete lytic or blastic abnormalities. SOFT TISSUES: Unremarkable. Mild nonprotruding ulcerated plaque in the aortic arch. CAROTID STENOSIS REFERENCE USING NASCET CRITERIA: % ICA stenosis = (1 - narrowest ICA diameter/diameter of distal cervical ICA) x 100. Mild - <50% stenosis. Moderate - 50-69% stenosis. Severe - 70-94% stenosis. Near occlusion - 95-99% stenosis. Occluded - 100% stenosis. CT/CTA Head AND Neck W/ Contrast IMPRESSION: 1. 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 Significant short segment stenosis of the left vertebral artery at the level of the clivus. 2. Dense atherosclerotic calcifications along the right carotid bulb results in moderate luminal narrowing. 3. Ill-defined heterogeneous left thyroid nodule measuring up to 1.5 cm can be further assessed with dedicated thyroid ultrasound. Electronically Signed: Dat Alicia MD at 2:44 EDT ,
--- NOTE | 2024-04-10 23:41 | PCM.HOSP.N ---
Hospitalist Note I was contacted by Dr. Olsen from [facility] and informed of this patient's abnormal CTA with results noted below. He recommends a STAT head CTA head/neck due to the unstable atheromatous plaques seen in her unruptured ~3.7 cm suprarenal AAA with near occlusion of the Left subclavian artery and moderate stenosis of the origin of the Left common carotid artery. 3rd floor RN was updated with plan. Patient is currently stable and A&Ox3. [facility] Imaging Services [address] [place] [address] CTA Chest W/WO Contrast MR#: [id number] Acct: [id number] Name: CLEO SAM Rep #: [id number] : 1945 F 79 From: Hal Olsen DO PCP: Dr. Ari Carballo MD Status: ADM IN Study: CTA Chest W/WO Contrast Date of Exam: 04/10/24 Exam# [id number] Ordering Dr: Geraldo Hines MD We are attempting to reach an attending provider to discuss findings. An addendum with communication details will be sent when the communication is complete. EXAM: CT ANGIOGRAPHY CHEST WITHOUT AND WITH INTRAVENOUS CONTRAST CLINICAL INDICATION: R/o PE TECHNIQUE: Helically acquired angiography images were obtained of the chest without and with intravenous contrast. This CT exam was performed using one or more of the following dose reduction techniques: automated exposure control, adjustment of the mA and/or kV according to patient size, and/or use of iterative reconstruction technique. MIP reconstructed images were created and reviewed. CONTRAST: IV 100mL Isovue-370 COMPARISON: CT chest, 04/09/2023 and chest radiograph, 04/09/2024. FINDINGS: PULMONARY ARTERIES: No significant abnormality. Normal in caliber. No evidence of pulmonary embolism. AORTA: 3.7 cm unruptured suprarenal abdominal aortic aneurysm. Extensive calcified and bland atheroma throughout the aorta with areas of apparent plaque ulcerations in the arch some which appears unstable. No evidence of dissection. 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 Moderate stenosis of the origin of the left common carotid artery secondary to atheroma. Normal in caliber. No evidence of dissection. OTHER ARTERIES: Nonvisualization of the left vertebral artery likely secondary to proximal occlusion. LUNGS AND PLEURAL SPACES: Right lower lobe consolidative airspace disease which may be pneumonia or atelectasis. Minimal atelectasis in the left lower lobe with associated scarring perhaps related to postoperative change. No mass. No pleural effusion or thickening. HEART: Status post CABG. Heart size is normal. No pericardial effusion. No significant coronary artery calcifications. MEDIASTINUM: No significant abnormality. No mediastinal or hilar adenopathy. Esophagus is unremarkable. No hiatal hernia. THYROID: No significant abnormality. No thyroid lesions. BONES/JOINTS: Median sternotomy. Degenerative changes in the axial and appendicular skeletal structures. No suspicious lytic or blastic abnormality. GALLBLADDER AND BILE DUCTS: Findings suggestive of cholelithiasis without evidence of cholecystitis. STOMACH AND BOWEL: Colonic diverticulosis. CT/CTA Chest W/WO Contrast IMPRESSION: 1. 3.7 cm unruptured suprarenal abdominal aortic aneurysm. Extensive calcified and bland atheroma throughout the aorta with areas of apparent plaque ulcerations in the arch some which appears unstable. 2. 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 3. Moderate stenosis of the origin of the left common carotid artery secondary to atheroma. 4. Nonvisualization of the left vertebral artery likely secondary to proximal occlusion. 5. No evidence of pulmonary artery embolus. 6. Right lower lobe consolidative airspace disease which may be pneumonia or atelectasis. 7. Findings suggestive of cholelithiasis without evidence of cholecystitis. 8. Status post CABG. 9. Minimal atelectasis in the left lower lobe with associated scarring perhaps related to postoperative change. Correlate with history. 10. Colonic diverticulosis. Electronically Signed: Hal Olsen DO at 23:23 EDT , CC: Dr. Geraldo Hines MD; Dr. Ari Carballo MD ~ [place] [employer]ter: Signed [facility] Imaging Services [address] [place] [id number] CTA Head AND Neck W/ Contrast MR#: [id number] Acct: [id number] Name: CLEO SMA Rep #: [id number] : 1945 F 79 From: Dat Alicia MD PCP: Dr. Ari Carballo MD Status: ADM IN Study: CTA Head AND Neck W/ Contrast Date of Exam: 04/10/24 Exam# [id number] Ordering Dr: Misha Leon DO EXAM: CT ANGIOGRAPHY HEAD AND NECK WITH INTRAVENOUS CONTRAST CLINICAL INDICATION: Abnormal CT of abd/pelvis with unstable plaques. TECHNIQUE: [place]/head and neck CT angiography protocol performed with intravenous contrast. CTDIvol = ( 50.56 ) mGy, DLP = ( 1516.69 ) mGycm This CT exam was performed using one or more of the following dose reduction techniques: automated exposure control, adjustment of the mA and/or kV according to patient size, and/or use of iterative reconstruction technique. MIP reconstructed images were created and reviewed. CONTRAST: IV 75mL Isovue-370 COMPARISON: No relevant prior studies available. FINDINGS: HEAD: RIGHT ANTERIOR CEREBRAL ARTERY: Unremarkable. No occlusion or significant stenosis. Anterior communicating artery is present. No aneurysm. RIGHT MIDDLE CEREBRAL ARTERY: Unremarkable. No occlusion or significant stenosis. No aneurysm. RIGHT POSTERIOR CEREBRAL ARTERY: Unremarkable. No occlusion or significant stenosis. No aneurysm. RIGHT INTRACRANIAL INTERNAL CAROTID ARTERY: Unremarkable. No significant stenosis. No dissection or occlusion. RIGHT INTRACRANIAL VERTEBRAL ARTERY: Unremarkable. No significant stenosis. No dissection or occlusion. LEFT ANTERIOR CEREBRAL ARTERY: Unremarkable. No occlusion or significant stenosis. No aneurysm. LEFT MIDDLE CEREBRAL ARTERY: Unremarkable. No occlusion or significant stenosis. No aneurysm. LEFT POSTERIOR CEREBRAL ARTERY: Unremarkable. No occlusion or significant stenosis. No aneurysm. LEFT INTRACRANIAL INTERNAL CAROTID ARTERY: Unremarkable. No significant stenosis. No dissection or occlusion. LEFT INTRACRANIAL VERTEBRAL ARTERY: Unremarkable. No significant stenosis. No dissection or occlusion. BASILAR ARTERY: Unremarkable. No occlusion or significant stenosis. No aneurysm. OTHER VASCULATURE: Atherosclerotic calcifications along the carotid siphons but no more than mild luminal narrowing. No vascular malformation. BRAIN AND EXTRA-AXIAL SPACES: Old infarct involving the right occipital lobe with encephalomalacia. NECK: RIGHT COMMON CAROTID ARTERY: Distal right common carotid artery atherosclerotic calcifications result in at least moderate luminal narrowing. Left distal common carotid artery atherosclerotic calcifications result in mild luminal narrowing. Dense atherosclerotic calcifications along the right carotid bulb results in moderate luminal narrowing. RIGHT EXTRACRANIAL INTERNAL CAROTID ARTERY: Medialization of the internal carotid arteries at the level of the hyoid bone. No significant stenosis. No dissection or occlusion. RIGHT EXTERNAL CAROTID ARTERY: At least moderate stenosis of the origin of the right external carotid artery. RIGHT EXTRACRANIAL VERTEBRAL ARTERY: Unremarkable. No significant stenosis. No dissection or occlusion. LEFT COMMON CAROTID ARTERY: Unremarkable. No significant stenosis. No dissection or occlusion. LEFT EXTRACRANIAL INTERNAL CAROTID ARTERY: See above. LEFT EXTERNAL CAROTID ARTERY: Unremarkable. No occlusion. 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 Short segment significant stenosis of the left vertebral artery at the level of the clivus. THYROID: Ill-defined heterogeneous left thyroid nodule measuring up to 1.5 cm. BRACHIOCEPHALIC AND SUBCLAVIAN ARTERIES: Unremarkable as visualized. No occlusion or significant stenosis. LUNG APICES: Unremarkable as visualized. HEAD and NECK: BONES/JOINTS: Degenerative changes of the spine multiple levels.. No discrete lytic or blastic abnormalities. SOFT TISSUES: Unremarkable. Mild nonprotruding ulcerated plaque in the aortic arch. CAROTID STENOSIS REFERENCE USING NASCET CRITERIA: % ICA stenosis = (1 - narrowest ICA diameter/diameter of distal cervical ICA) x 100. Mild - <50% stenosis. Moderate - 50-69% stenosis. Severe - 70-94% stenosis. Near occlusion - 95-99% stenosis. Occluded - 100% stenosis. CT/CTA Head AND Neck W/ Contrast IMPRESSION: 1. 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 Significant short segment stenosis of the left vertebral artery at the level of the clivus. 2. Dense atherosclerotic calcifications along the right carotid bulb results in moderate luminal narrowing. 3. Ill-defined heterogeneous left thyroid nodule measuring up to 1.5 cm can be further assessed with dedicated thyroid ultrasound. Electronically Signed: Dat Alicia MD at 2:44 EDT , CC: Dr. Misha Leon DO; Dr. Ari Carballo MD ~ [place] [employer]ter: Signed
[2024-04-11 04:31] VITALS: BMI 32.6
[2024-04-11 04:33] VITALS: BP 154/68; PULSE 75; RESP 16; TEMP 36.6; O2SAT 97
[2024-04-11 08:26] VITALS: BP 174/69; PULSE 88; RESP 18; TEMP 36.8; O2SAT 96
[2024-04-11] MEDS: Furosemide 20 MG/2 ML VIAL IV (08:31)
[2024-04-11] MEDS: 0.9% Saline Lock 10 ML Syringe IV (08:32)
[2024-04-11] MEDS: Isosorbide Mononitrate 30 MG Tablet PO (08:35)
[2024-04-11] MEDS: amLODIPine 5 MG Tablet PO (08:35)
[2024-04-11 08:36] VITALS: PULSE 88
[2024-04-11] MEDS: Metoprolol(XL)Succ 25 MG Tablet PO (08:36)
[2024-04-11] MEDS: dexAMETHasone 4 MG/ML Vial 6 MG IV (08:36)
[2024-04-11] MEDS: Clopidogrel Bisulfate 75 MG Tablet PO (08:36)
[2024-04-11] MEDS: Remdesivir 100 MG in 0.9% Normal Saline (250mL Bag) 230 ML 250 MG IV (10:03)
[2024-04-11 12:14] VITALS: O2SAT 87; O2SAT 94; O2SAT 96
--- NOTE | 2024-04-11 12:28 | DCINST_ITS ---
Discharge Instructions Diet Discharge Diet: Low fat / Low cholesterol Activity Discharge Activity: Return to Normal Activity Dressing / Incision Call your doctor if you observe: Fever of 101 or Higher, Shortness of breath, Dizziness, Fainting spells, Swelling in the ankles, Chest pain and Increased palpitations (irregular heartbeat) Follow Up Care Test Results: Test results from this visit will be discussed in further detail at your follow- up appointment, if applicable. Discharge Plan Admission Admit Date/Time: 04/09/24 05:31 Attending Provider: Geraldo Hines Primary Care Provider: Ari Carballo [employer] Providers: Jesi Skaggs Instructions Additional Instructions / Restrictions: Follow-up with your PCP in 3 to 5 days to obtain an outpatient ultrasound of the thyroid once her COVID is past the 10-day madison to evaluate a nodule seen on the CT scan of your head and neck Discharge Orders/Prescriptions Prescriptions: New dexamethasone 6 mg tablet 6 mg PO DAILY Qty: 8 0RF Continued cholecalciferol (vitamin D3) 1,000 unit capsule 1,000 unit PO QDAY magnesium oxide 400 mg magnesium tablet 400 mg PO DAILY albuterol sulfate 90 mcg/actuation HFA aerosol inhaler 2 puff INHALATION Q4H PRN PRN (Reason: shortness of breath or wheezing) metoprolol succinate 25 mg tablet extended release 24 hr 25 mg PO QDAY Qty: 90 3RF Rx Instructions: blood pressure isosorbide mononitrate 30 mg tablet extended release 24 hr 30 mg PO QDAY Qty: 90 3RF Rx Instructions: blood pressure/heart - swallow whole with glass of water; do not crush/chew /dissolve /cut/break clopidogrel 75 mg tablet 75 mg PO QDAY Qty: 90 3RF Patient Comments: blood thinner Repatha Syringe 140 mg/mL syringe See Rx Instructions .ROUTE .COMPLEX Qty: 6 0RF Dose Instruction: INJECT 140 MG SUBCUTANEOUSLY EVERY 2 WEEKS FOR 90 DAYS Rx Instructions: INJECT 140 MG SUBCUTANEOUSLY EVERY 2 WEEKS FOR 90 DAYS amlodipine 5 mg tablet 5 mg PO DAILY Qty: 90 3RF Referrals / Follow Up: Naga Browne MD [Med Staff - Active Staff] - Within 3 Months Ari Carballo Chi, MD [Primary Care Provider] - Within 1 Week Disposition Disposition (needs filled in before D/C Order can be placed): Home, Self Care
--- NOTE | 2024-04-11 12:51 | CASEMGMT ---
Addendum entered by Cheyanne Stewart 04/11/24 15:00: Progress note sent to [facility] at [facility]. Addendum entered by Cheyanne Stewart 04/11/24 14:29: TC to [facility], they are requesting dc summary. Requested hospitalist to complete. Original Note: Pt qualifies for 2L with exertion of oxygen. Referral sent to [facility] at this time via [facility].
--- NOTE | 2024-04-11 13:43 | PHA.DC.MR.R ---
Pharmacy [place] Med Reconciliation Pharmacy Service has performed discharge medication reconciliation for this patient. Attempted to call patient x2 due to COVID precautions, no answer. Medications reviewed. The patient's discharge medication list was reviewed for discrepancies and discrepancies were resolved. Medications at Discharge Home Medications cholecalciferol (vitamin D3) 25 mcg (1,000 unit) capsule 1,000 unit PO QDAY supplement 01/17/18 magnesium oxide 400 mg PO DAILY 09/15/21 clopidogrel 75 mg tablet 75 mg PO QDAY #90 tabs 10/08/23 isosorbide mononitrate 30 mg tablet,extended release 24 hr 30 mg PO QDAY #90 tabs 10/08/23 metoprolol succinate 25 mg tablet,extended release 24 hr 25 mg PO QDAY #90 tabs 10/08/23 evolocumab 140 mg/mL subcutaneous syringe (Repatha Syringe) See Rx Instructions .Route .COMPLEX #6 mL 10/18/23 amlodipine 5 mg tablet 5 mg PO DAILY #90 tabs 03/10/24 albuterol sulfate 90 mcg/actuation aerosol inhaler 2 puff inhalation Q4H PRN PRN shortness of breath or wheezing 04/09/24 dexamethasone 6 mg tablet 6 mg PO DAILY #8 tabs 04/11/24
--- NOTE | 2024-04-11 14:54 | PCM.PN.BLA ---
Progress Note I have reviewed the oxygen testing, and this patient qualifies for the home equipment and portability. The patient is mobile in the home and the community.
[2024-04-11 15:19] VITALS: BP 173/97; PULSE 93; RESP 18; TEMP 36.6; O2SAT 95
--- NOTE | 2024-04-11 17:57 | PCM.DC.SUM ---
Providers Date of Admission: 04/09/24 Primary Care Physician: Dr. Ari Carballo MD Reason For Visit: HYPOXIA COPD EXACERBATION Diagnosis Discharge Diagnosis (1) COPD exacerbation: Status: Chronic Code(s): J44.1 - Chronic obstructive pulmonary disease with (acute) exacerbation Medications at Discharge Home Medications cholecalciferol (vitamin D3) 25 mcg (1,000 unit) capsule 1,000 unit PO QDAY supplement 01/17/18 magnesium oxide 400 mg PO DAILY 09/15/21 clopidogrel 75 mg tablet 75 mg PO QDAY #90 tabs 10/08/23 isosorbide mononitrate 30 mg tablet,extended release 24 hr 30 mg PO QDAY #90 tabs 10/08/23 metoprolol succinate 25 mg tablet,extended release 24 hr 25 mg PO QDAY #90 tabs 10/08/23 evolocumab 140 mg/mL subcutaneous syringe (Repatha Syringe) See Rx Instructions .Route .COMPLEX #6 mL 10/18/23 amlodipine 5 mg tablet 5 mg PO DAILY #90 tabs 03/10/24 albuterol sulfate 90 mcg/actuation aerosol inhaler 2 puff inhalation Q4H PRN PRN shortness of breath or wheezing 04/09/24 dexamethasone 6 mg tablet 6 mg PO DAILY #8 tabs 04/11/24 Hospital Course Operations None Procedures None Summary of Care Provided Minutes Spent on Discharge: 39 Hospital Course: Per HPI: The patient is a 79 y/o F w/ PMHx: Chronic Polycythemia, CKD stage III unclear subtype per GFR trending, Hx AAA s/p repair, CAD s/p CABG, Anxiety and Depression, Hx CVA (L [employer]), COPD, HTN, HLD, Carotid disease, Hx Non-small cell L sided lung cancer, JOSEMANUEL who presents to the [facility] ED on 04/09/24 with significant dyspnea and noted hypoxia at home reported to be 78% on home oxygen which she was started on ~ 4 weeks prior secondary to pneumonia which was treated by her primary care physician with antibiotic completion as well as a round of steroids with clinical improvement since then until approximately 2 days prior to current presentation r when she started to again feel ill with cough with a clear nonbloody sputum with dyspnea which again has been worsening but no specific fevers or chills nor any pleuritic chest discomfort prompting ED evaluation. She notes that her who is present and her son have also been ill with similar symptoms of cough, dyspnea, congestion, rhinorrhea. Workup in the ED included T97.6, heart rate 89, BP 123/90, respiratory rate 22, 93% on 3 L nasal cannula, CBC with WC 3.9, Drummond 16, MCV 86.2, platelet 139 with lymphopenia, BMP with glucose 110, troponin 36, COVID/Influenza/RSV PCR with positive COVID. chest x-ray with no acute cardiopulmonary findings despite recent pneumonia treated outpatient, EKG with sinus rhythm with nonspecific ST changes with mucoid evidence of ischemia unchanged from previous. In the ED patient ministered albuterol, Solu-Medrol 125 mg IV x 1 and DuoNeb therapy. Hospital Course: 1. Acute hypoxia secondary to COVID-19?79-year-old female presented to the hospital with increasing shortness of breath, she had had bacterial pneumonia apparently 4 weeks prior to admission where she was treated by her PCP with antibiotics as well as a round of steroids. She does have a history of non-small cell left-sided lung cancer that she is currently in remission for. On admission to the hospital she was positive for COVID to started on remdesivir and Decadron and has had significant improvement however she was also noted to have an elevated D-dimer and therefore had a lower extremity duplex performed which was negative for DVT, she is allergic to contrast and we did not do a VQ scan because they would not do one on a patient with COVID therefore we did the 13-hour allergy prep and proceed with a CTA of the chest which was negative for PE but it did show a 3.7 cm unruptured suprarenal abdominal aortic aneurysm with extensive calcified and gland atheroma throughout the aorta with areas of apparent plaque ulcerations in the arch some which appears unstable. This was discussed with vascular surgery who recommended continuation of Plavix as well as Repatha and to follow-up as an outpatient as this was not an emergent issue. There is also a thyroid nodule that was seen on further imaging that will need to be followed up on as an outpatient with an ultrasound. This was discussed with patient. Sputum cultures were negative and respiratory panel was negative for other viruses. She will complete 8 more days of Decadron on discharge and I discussed with her the need to follow-up with both vascular surgery as well as her primary care doctor for follow-up on these abnormal scans. I discussed with her the plan for discharge today and she expressed understanding the risk benefits going home and would like to go home today. Of note prior to discharge she was given a dose of Lasix which seemed to help her respiratory status somewhat, she did require 2 L of oxygen with ambulation and I have reviewed the oxygen testing, and this patient qualifies for the home equipment and portability. The patient is mobile in the home and the community. 2. Coronary artery disease status post CABG, essential hypertension, hyperlipidemia, history of AAA repair, history of CVA, history of non-small cell lung cancer all chronic medical conditions which complicate her care. Her home medications were continued where appropriate Physical Exam Narrative General: Alert, Oriented x3, Cooperative, No apparent distress HEENT: Atraumatic, PERRLA, EOMI, Normocephalic Oral: Moist Mucosa Neck: Supple, No JVD Lungs: Diminished, Normal air movement, No rhonchi, No wheeze, No rales Cardiovascular: Regular rate, Regular Rhythm, Normal S1, Normal S2, No murmurs Abdomen: Soft, Non Tender, Non-Distended, No Hepato-splenomegaly Extremities: No edema, Capillary Refill Less than 3 Seconds Skin: No rashes, No breakdown Musculoskeletal: No Tenderness to Palpation of Joints or Extremities Neurological: No focal neurological deficits, Motor Exam 5/5 strength throughout, Sensory exam intact to light touch and pain Psych/Mental Status: Normal Affect, Appropriate Weight / BMI Weight Weight: 184 lb 4.903 oz Body Mass Index (BMI) 32.6 ABG / Lab / Microbiology Data 04/10/24 07:17 04/10/24 07:17 Microbiology: Microbiology 04/09/24 08:30 Sputum, Expectorated/Coughed Gram Stain - Final 04/09/24 08:30 Sputum, Expectorated/Coughed Respiratory Culture - Final 04/09/24 07:00 Mucosa - Nasopharyngeal Respiratory Panel (PCR) - Final 04/09/24 04:16 Mucosa - Nose SARS-CoV-2, Influenza & RSV (PCR) - Final SARS-CoV-2 (COVID 19 PCR) Radiography Diagnostic Testing: Radiology Impression Venous Doppler Study 04/10/24 01:59 Interpretation Summary Deep veins of the bilateral lower extremities are patent and compressible segmentally. There is no evidence of bilateral lower extremity deep vein thrombosis. The bilateral great saphenous veins appear patent and compressible segmentally. Ordering Physician: Jesi Skaggs Referring Physician: Ari Carballo Chi Performed By: Alea Kellogg, LIAM, RVT Chest CTA 04/10/24 07:09 IMPRESSION: 1. 3.7 cm unruptured suprarenal abdominal aortic aneurysm. Extensive calcified and bland atheroma throughout the aorta with areas of apparent plaque ulcerations in the arch some which appears unstable. 2. 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 3. Moderate stenosis of the origin of the left common carotid artery secondary to atheroma. 4. Nonvisualization of the left vertebral artery likely secondary to proximal occlusion. 5. No evidence of pulmonary artery embolus. 6. Right lower lobe consolidative airspace disease which may be pneumonia or atelectasis. 7. Findings suggestive of cholelithiasis without evidence of cholecystitis. 8. Status post CABG. 9. Minimal atelectasis in the left lower lobe with associated scarring perhaps related to postoperative change. Correlate with history. 10. Colonic diverticulosis. Electronically Signed: Hal Olsen DO at 23:23 EDT , ADDENDUM: 04/10/24 [id number] IMPRESSION: 1. 3.7 cm unruptured suprarenal abdominal aortic aneurysm. Extensive calcified and bland atheroma throughout the aorta with areas of apparent plaque ulcerations in the arch some which appears unstable. 2. 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 3. Moderate stenosis of the origin of the left common carotid artery secondary to atheroma. 4. Nonvisualization of the left vertebral artery likely secondary to proximal occlusion. 5. No evidence of pulmonary artery embolus. 6. Right lower lobe consolidative airspace disease which may be pneumonia or atelectasis. 7. Findings suggestive of cholelithiasis without evidence of cholecystitis. 8. Status post CABG. 9. Minimal atelectasis in the left lower lobe with associated scarring perhaps related to postoperative change. Correlate with history. 10. Colonic diverticulosis. N.B. : The above Results were Read Back by Hal Olsen DO to Misha Shaw MD, and understanding confirmed on 04/10/2024 23:37:26 (ET). Electronically Signed: Hal Olsen DO at 23:23 EDT , Head/Neck CTA 04/10/24 23:36 IMPRESSION: 1. 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 Significant short segment stenosis of the left vertebral artery at the level of the clivus. 2. Dense atherosclerotic calcifications along the right carotid bulb results in moderate luminal narrowing. 3. Ill-defined heterogeneous left thyroid nodule measuring up to 1.5 cm can be further assessed with dedicated thyroid ultrasound. Electronically Signed: Dat Alicia MD at 2:44 EDT , D/C Instructions Discharge Diet: Low fat / Low cholesterol Call your doctor if you observe: Fever of 101 or Higher, Shortness of breath, Dizziness, Fainting spells, Swelling in the ankles, Chest pain and Increased palpitations (irregular heartbeat) Meaningful Use Info Meaningful Use Meaningful Use Diagnoses (Choose all that apply): None applicable Ischemic Stroke Statin Dosing Therapy Reference: STATIN DOSE THERAPY REFERENCE: * Patients > 75 years receive moderate or high dose statin therapy. * Patients 75 years or YOUNGER should receive HIGH intensity statin dose unless contraindicated. You will be required to document reason for non-treatment if statin daily dose does not meet guidelines. HIGH DOSE STATIN THERAPY DAILY Atorvastatin > than or = to 40 mg Rosuvastatin > than or = to 20 mg Amlodipine + Atorvastatin > than or = to 2.5/40 mg Ezetimibe + Simvastatin 10/80 mg Simvastatin 80mg Discharge Plan Admission Admit Date/Time: 04/09/24 05:31 Attending Provider: Geraldo Hines Primary Care Provider: Ari Carballo [employer] Providers: Jesi Sakggs Instructions Additional Instructions / Restrictions: Follow-up with your PCP in 3 to 5 days to obtain an outpatient ultrasound of the thyroid once her COVID is past the 10-day madison to evaluate a nodule seen on the CT scan of your head and neck Discharge Orders/Prescriptions Prescriptions: New dexamethasone 6 mg tablet 6 mg PO DAILY Qty: 8 0RF Continued cholecalciferol (vitamin D3) 1,000 unit capsule 1,000 unit PO QDAY magnesium oxide 400 mg magnesium tablet 400 mg PO DAILY albuterol sulfate 90 mcg/actuation HFA aerosol inhaler 2 puff INHALATION Q4H PRN PRN (Reason: shortness of breath or wheezing) metoprolol succinate 25 mg tablet extended release 24 hr 25 mg PO QDAY Qty: 90 3RF Rx Instructions: blood pressure isosorbide mononitrate 30 mg tablet extended release 24 hr 30 mg PO QDAY Qty: 90 3RF Rx Instructions: blood pressure/heart - swallow whole with glass of water; do not crush/chew /dissolve /cut/break clopidogrel 75 mg tablet 75 mg PO QDAY Qty: 90 3RF Patient Comments: blood thinner Repatha Syringe 140 mg/mL syringe See Rx Instructions .ROUTE .COMPLEX Qty: 6 0RF Dose Instruction: INJECT 140 MG SUBCUTANEOUSLY EVERY 2 WEEKS FOR 90 DAYS Rx Instructions: INJECT 140 MG SUBCUTANEOUSLY EVERY 2 WEEKS FOR 90 DAYS amlodipine 5 mg tablet 5 mg PO DAILY Qty: 90 3RF Referrals / Follow Up: Naga Browne MD [Med Staff - Active Staff] - 05/12/24 1:00 pm Ari Carballo Chi, MD [Primary Care Provider] - 04/12/24 3:00 pm Disposition Disposition (needs filled in before D/C Order can be placed): Home, Self Care Charges/Coding Visit Charges Inpatient E&M: 05425 Disch Hosp >30min
== END 2024-04-11 15:42 | disposition home or self-care (01) | DRG 178 ==
LOC: ED 05:35 → MS3 05:41
PROVIDERS: Admitting Provider Family Medicine; Emergency Provider Emergency Medicine; PCP Family Medicine Geriatric Medicine; Visit Provider Family Medicine
DX: U07.1 COVID-19 (principal); J44.1 Chronic obstructive pulmonary disease with (acute) exacerbation; D69.6 Thrombocytopenia, unspecified; N18.30 Chronic kidney disease, stage 3 unspecified; I12.9 Hypertensive chronic kidney disease with stage 1 through stage 4 chronic kidney disease, or unspecified chronic kidney disease; I25.10 Atherosclerotic heart disease of native coronary artery without angina pectoris; E78.5 Hyperlipidemia, unspecified; D72.819 Decreased white blood cell count, unspecified; D75.1 Secondary polycythemia; Z79.02 Long term (current) use of antithrombotics/antiplatelets; Z86.73 Personal history of transient ischemic attack (TIA), and cerebral infarction without residual deficits; Z87.891 Personal history of nicotine dependence; Z95.1 Presence of aortocoronary bypass graft; Z85.118 Personal history of other malignant neoplasm of bronchus and lung; Z79.899 Other long term (current) drug therapy; Z90.710 Acquired absence of both cervix and uterus; Z90.49 Acquired absence of other specified parts of digestive tract; R09.02 Hypoxemia; R79.1 Abnormal coagulation profile
CPT/HCPCS: 70496; 70498; 71046; 71275; 80048; 80053; 82550; 82728; 83615; 83735; 83880; 84145; 84484; 85025; 85379; 85652; 86140; 87070; 87205; 87631; 87633; 93005; 93970; 94640; 94668; 99284; J7050; Q9967; A4216; J0248; J1940

== ENCOUNTER → 2024-04-27 | Outpatient (CLI) | payer MEDICARE, SELFPAY ==
--- NOTE | 2024-04-27 08:31 | US_ITS ---
STUDY: THYROID ULTRASOUND REASON FOR EXAM: Female, 79 years old. THYROID NODULE TECHNIQUE: Ultrasound evaluation of the thyroid was performed with real-time and static nevarez-scale imaging. COMPARISON: None. FINDINGS: RIGHT LOBE: The right lobe of the thyroid gland measures 4.1 x 1.4 x 1.4 cm. There is a homogeneous echotexture. Nodule 1:6 x 4 x 5 mm solid hypoechoic wider than tall smoothly marginated nodule with no echogenic foci (TR 4) in the mid right lobe consistent with a small adenoma. Nodule 2:12 x 6 x 7 mm solid hypoechoic wider than tall smoothly marginated nodule with punctate echogenic foci (TR 5) in the inferior right lobe for which ultrasound-guided biopsy is recommended. LEFT LOBE: The left lobe of the thyroid gland measures 4.3 x 1.6 x 1.4 cm. There is a heterogeneous echotexture. There are no demonstrated solid, cystic or complex lesions. ISTHMUS: The isthmus measures 3 mm thick. . The regional lymph nodes are normal. US/Thyroid IMPRESSION: Thyroiditis with a dominant nodule in the inferior right lobe of the thyroid gland for which ultrasound-guided biopsy is recommended. Electronically Signed: Jose Melo MD at 8:23 EDT ,
== END | disposition home or self-care (01) ==
PROVIDERS: PCP Family Medicine Geriatric Medicine; Referring Provider Family Medicine Geriatric Medicine; Visit Provider Family Medicine Geriatric Medicine
DX: E04.1 Nontoxic single thyroid nodule (principal)
CPT/HCPCS: 76536

== ENCOUNTER → 2024-05-01 | Outpatient (CLI) | payer MEDICARE, SELFPAY ==
--- NOTE | 2024-05-01 16:40 | RAD_ITS ---
EXAM: XR CHEST, 2 VIEWS CLINICAL INDICATION: Wheezing. TECHNIQUE: Frontal and lateral views of the chest. COMPARISON: 04/09/2024. FINDINGS: LUNGS AND PLEURAL SPACES: Unremarkable. No suspicious infiltrates, consolidation or edema. No pleural effusion. No pneumothorax. HEART: Mild cardiomegaly. MEDIASTINUM: Central airways and mediastinal contour are unremarkable. BONES/JOINTS: Intact sternal wires. Old fracture deformity of the left posterior sixth rib. SOFT TISSUES: Unremarkable. RAD/Chest PA and Lateral IMPRESSION: No acute findings in the chest and unchanged when compared to 04/09/2024. Electronically Signed: Srini Oneal MD at 15:25 EDT ,
== END | disposition home or self-care (01) ==
LOC: LAB.FUTURE 16:18 → RAD 16:38
PROVIDERS: PCP Family Medicine Geriatric Medicine; Referring Provider Family Medicine Geriatric Medicine; Visit Provider Family Medicine Geriatric Medicine
DX: R68.83 Chills (without fever) (principal); R06.2 Wheezing; J98.8 Other specified respiratory disorders
CPT/HCPCS: 71046; 87631

== ENCOUNTER → 2024-05-11 | Outpatient (CLI) | payer MEDICARE, SELFPAY ==
--- NOTE | 2024-05-11 14:00 | ASPIG_PTH ---
PATHOLOGY RESULTS PATIENT: CLEO SAM [facility] U#:[id number] AGE/SX: 79/F ROOM: RE05/11/[address]: Dr. Edu Ruiz MD : 1945 BED: DIS: 05/11/2024 SPEC #: [id number] RECD: 05/11/24 15:11 STATUS: MAXIMUS REQ #: [id number] DAYAMI: 05/11/24 14:[address]: Edu Ruiz DEPT: CYTOLOGY RECD BY: Isabella Curiel ENTERED: 05/12/24 07:38 SP TYPE: ASP OUT OTHR DR: Dr. Ari Carballo MD Tissues: Thyroid gland, NOS Thyroid gland, NOS Procedures: FNA Specimen Adequacy Special Stain Group II Surgery Specimen Level IV Cytology Other HEADER OPERATION: Fine needle aspiration of thyroid nodule PRE-OP DIAGNOSIS: Thyroid nodule TISSUE SUBMITTED: A- Right inferior thyroid nodule fluid, B- Right inferior thyroid nodule slides DIAGNOSIS CYTOLOGY A. Right inferior thyroid nodule fluid, fine needle aspiration (cytospin and cellblock): Negative for malignant cells. See comment. B. Right inferior thyroid nodule, fine needle aspiration (smears): Non-diagnostic specimen, [place] Category I. See comment. [email or web address].mr 05/15/2024 COMMENT A. One rare cluster of benign follicular cells is noted. B. The smears are bloody. One rare cluster of follicular cells is noted obscured by blood. The specimen is non-diagnostic due to lack of adequate number of follicular cells. The [place] System for thyroid diagnostic categorization was used in the evaluation of this case. Correlation with clinical, radiologic findings and appropriate follow up are necessary. CYTOLOGY STUDY Slides are reviewed. CYTOLOGY GROSS A. Received is 30 ml of red fluid labeled with the patient's name and and designated per the requisition as Right inferior thyroid. Submitted for cytology preparation including cell block. B. Received are 4 smears labeled with the patient's name and designated per the requisition as Right inferior thyroid nodule. Submitted for staining. Mr 05/12/2024 TC: Cannot code CPT: [id number]
== END | disposition home or self-care (01) ==
LOC: LABSPEC 15:36
PROVIDERS: PCP Family Medicine Geriatric Medicine; Referring Provider Surgery; Visit Provider Surgery
DX: E07.9 Disorder of thyroid, unspecified (principal)
CPT/HCPCS: 88161; 88172; 88305; 88313

== ENCOUNTER → 2024-05-12 | Outpatient (CLI) | payer MEDICARE, SELFPAY ==
[2024-05-12 14:50] LABS: Absolute Lymphocyte Count 0.89 X10^3/uL (0.83-4.51); Absolute Neutrophil Count 5.3 X10^3/uL (2.0-7.7); Basophil# 0.04 X10^3/uL; Basophil% 0.6 % (0-1); Eosinophil# 0.09 X10^3/uL; Eosinophils% 1.3 % (0-5); Hematocrit 47.4 % (37-47); Hemoglobin 15.4 g/dL (12.0-15.0); Lymphocyte # 0.89 X10^3/ul (0.83-4.51); Lymphocyte % 12.8 % (19-41); Mean Corp Hgb Conc 32.5 g/dL (32-36); Mean Corpuscular Hgb 28.2 pg (27.0-32.0); Mean Corpuscular Volume 86.7 fL (81-99); Mean Platelet Vol. 11.2 fl (6.2-12.0); Monocyte# 0.55 X10^3/uL; Monocyte% 7.9 % (0-10); NRBC Flagged by Analyzer 0 % (0-5); Neutrophil # 5.29 X10^3/uL (2.7-7.7); Neutrophil % 75.7 % (47-70); Platelet Count 123 K/mm3 (150-450); RBC Distribution Width CV 19.9 % (11.6-14.6); RBC Distribution Width SD 61.1 fl (35.1-43.9); Red Blood Count 5.47 M/mm3 (4.2-5.4)
--- OUTSIDE RECORDS SUMMARY | 2024-05-12 14:56 | XMS RPT_ITS | CCD ---
Author Organization [facility] Care Team Providers Care Engineering Surveyor Name Role Phone Arcelia PRAJAPATI, Toshia Jaimes Unavailable Unavailable Allergies Allergy Classification Reported Allergen(s) Allergy Type Date of Onset Reaction(s) Facility (1 source) atorvastatin Drug Allergy 05-14-2017 myalgias [facility] Work Phone: [phone] (1 source) codeine Drug Allergy 05-14-2017 unknown [facility] Work Phone: [phone] (1 source) Contrast media drug allergy 05-14-2017 vomiting [facility] Work Phone: [phone] (1 source) fluvastatin Drug Allergy 05-14-2017 Myalgias [facility] Work Phone: [phone] (1 source) niacin Drug Allergy 05-14-2017 rash [facility] Work Phone: [phone] (1 source) penicillin Drug Allergy 05-14-2017 rash [facility] Work Phone: [phone] (1 source) rosuvastatin Drug Allergy 05-14-2017 myalgias [facility] Work Phone: [phone] (1 source) simvastatin Drug Allergy 05-14-2017 myalgias [facility] Work Phone: [phone] (1 source) Sulfonamides (Antibiotic) drug allergy 05-14-2017 unknown [facility] Work Phone: Medications Completed/Discontinued Medications Medication Drug Class(es) Dates Sig (Normalized) Sig (Original) 1 ml alirocumab 75 mg/ml auto-injector (1 source) PCSK9 Inhibitor Start: 05-14-2017 PRALUENT 75 MG/ML SOPN twice per month, ordered by Dr. Carballo (pt intolerant of statins) ALIROCUMAB [id number] Toshia Paniagua RN clopidogrel 75 mg oral tablet (1 source) P2Y12 Platelet Inhibitor Start: 05-14-2017 take 1 tablet by mouth once daily PLAVIX 75 MG TABS One tablet by mouth daily CLOPIDOGREL BISULFATE [id number] Toshia Paniagua RN Problems Active Problems Problem Classification Problem Date Documented Date Episodic/Chronic Acute cerebrovascular disease (1 source) Cerebrovascular accident; Translations: [Cerebral infarction, unspecified] Onset: 05-14-2017 05-14-2017 Chronic Chronic obstructive pulmonary disease and bronchiectasis (1 source) Chronic obstructive lung disease; Translations: [Chronic obstructive pulmonary disease, unspecified] 05-14-2017 Chronic Coronary atherosclerosis and other heart disease (1 source) Atherosclerotic heart disease of [place] coronary artery without angina pectoris; Translations: [Atherosclerotic heart disease of [place] coronary artery without angina pectoris] Onset: 05-14-2017 05-14-2017 Chronic Disorders of lipid metabolism (1 source) Hyperlipidemia; Translations: [Hyperlipidemia, unspecified] 05-14-2017 Chronic Essential hypertension (1 source) Hypertensive disorder; Translations: [Essential (primary) hypertension] 05-14-2017 Chronic Occlusion or stenosis of precerebral arteries (1 source) Carotid artery stenosis; Translations: [Occlusion and stenosis of left carotid artery] Onset: 05-14-2017 05-14-2017 Chronic Unclassified (1 source) Obstructive sleep apnea syndrome; Translations: [Obstructive sleep apnea (adult) (pediatric)] Onset: 05-14-2017 05-14-2017 Chronic Unclassified (1 source) Long-term drug therapy; Translations: [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 terminal 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 supervisor (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) drug therapy] Onset: 05-14-2017 05-14-2017 Unclassified (1 source) 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; Translations: [Presence of cardiac and vascular implant and graft, unspecified] Onset: 05-14-2017 05-14-2017 Unclassified (1 source) 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; Translations: [Presence of aortocoronary bypass graft] Onset: 05-14-2017 05-14-2017 Past or Other Problems Problem Classification Problem Date Documented Da te Episodic/Chronic Other circulatory disease (1 source) H/O: aortic aneurysm; Translations: [Personal history of other diseases of the circulatory system] Onset: 05-14-2017 05-14-2017 Episodic Other lower respiratory disease (1 source) Dyspnea on exertion; Translations: [Other forms of dyspnea] Onset: 05-14-2017 05-14-2017 Episodic Results Test Name Value Interpretation Reference Range Facility Basic Metabolic Panelon 01-17 Anion gap [Moles/Vol] 3 Normal [facility] Comment on above: Performed By: #### H EMOG, BMP3, PT/AP #### [address] [address] [place], [place] Calcium [Mass/Vol] 8.7 mg/dL Normal 8.4-10.4 [facility] Comment on above: Performed By: #### H EMOHanh, BMP3, PT/AP #### [address] [address] [place], [place] CO2 [Moles/Vol] 36 mmol/L High 22-30 [facility] Comment on above: Performed By: #### H EMOG, BMP3, PT/AP #### [address] Creatinine [Mass/Vol] 0.70 mg/dL Normal 0.52-1.25 [facility] Comment on above: Performed By: #### H EMOG, BMP3, PT/AP #### [address] [address] [place], [place] GFR/1.73 sq M predicted among blacks MDRD (S/P/Bld) [Vol rate/Area] mL/min/{1.73_m2} Normal >60 [facility] Comment on above: Performed By: #### H EMOG, BMP3, PT/AP #### [address] [address] [place], [place] GFR/1.73 sq M predicted among non-blacks MDRD (S/P/Bld) [Vol rate/Area] mL/min/{1.73_m2} Normal >60 [facility] Comment on above: Result Comment: Sour ce- MDRD equation with creatinine calibration to IDMS(NKDEP) eGFR not recommended for drug dose adjustment Performed By: #### H EMOG, BMP3, PT/AP #### [address] [address] [place] [address] Glucose [Mass/Vol] 118 mg/dL High 70-100 [facility] Comment on above: Performed By: #### H EMOG, BMP3, PT/AP #### [facility] [address] [place] [address] Urea nitrogen [Mass/Vol] 17 mg/dL Normal 7-20 [facility] Comment on above: Performed By: #### H EMOG, BMP3, PT/AP #### [facility] [address] [place] [address] Chloride [Moles/Vol] 101 mmol/L Normal 98-107 [facility] Comment on above: Performed By: #### H EMOG, BMP3, PT/AP #### [address] [address] [address] [place], [place] Potassium [Moles/Vol] 4.2 mmol/L Normal 3.5-5.1 [facility] Comment on above: Result Comment: Slig htly hemolysed, interpret with caution. Performed By: #### H EMOG, BMP3, PT/AP #### [address] [address] [address] [place], [place] Sodium [Moles/Vol] 140 mmol/L Normal 135-145 [facility] Comment on above: Performed By: #### H EMOG, BMP3, PT/AP #### [address] [address] [address] [place], [place] CR Chest Portableon 02-14-20 19 CR Chest Portable Patient Name: SHANTHI CORTEZ Diagnostic Radiology Exam Date/Time 02/13/2019 06:19:00 EDT Exam CR Chest Portable Ordering Physician JAN ARIAS Accession Number [id number] CPT4 Codes 69195 () Reason For Exam thoracotomy Report Indication: Thoracotomy. A frontal view of the chest timed 0532 is compared to the study dated 02/12/2019. Again identified are sternotomy wires and mediastinal vascular clips. A small amount of subcutaneous emphysema is identified along the left lateral chest wall, improved. No pneumothorax is seen. There are low lung volumes. There is stable enlargement of the cardiac silhouette. The mediastinum and pulmonary vascularity are within normal limits. There are lower lung infiltrates/atelectati c changes and probable small bilateral pleural effusions. These findings are similar on the left and mildly progressed on the right. Report Dictated on Final Dictated: 02/13/2019 7:09 am Dictating Physician: DO PATEL ANTHONY Signed Date and Time: 02/13/2019 7:10 am Signed by: DO PATEL ANTHONY Transcribed Date and Time: 02/13/2019 7:09 Normal [facility] Hemogram w/ Autodiffon 02-13 Abs Baso Cnt 0.0 10*3/uL Normal 0.0-0.2 [facility] Comment on above: Performed By: #### H EMDF, BMP3 ####[facility] [id number] [place] [address] Abs Neutrophile Cnt 4.2 10*3/uL Normal 1.8-7.0 [facility] Comment on above: Performed By: #### H EMDF, BMP3 ####[facility] [id number] [place], [place] Basophils/100 WBC (Bld) 0.6 % Normal 0.0-2.0 [facility] Comment on above: Performed By: #### H EMDF, BMP3 ####[facility] [employer] [id number] [place] [address] Eosinophils (Bld) [#/Vol] 0.1 10*3/uL Normal 0.0-0.5 [facility] Comment on above: Performed By: #### H EMDF, BMP3 ####[facility] [employer] [id number] [place] [address] Eosinophils/100 WBC (Bld) 2.1 % Normal 1.0-6.0 [facility] Comment on above: Performed By: #### H EMDF, BMP3 ####[facility] [id number] [place] [address] Erythrocyte distribution width (RBC) [Ratio] 15.4 % High 11.5-14.5 [facility] Comment on above: Performed By: #### H DEE BMP3 ####[address] Granulocytes/100 WBC (Bld) 76.5 % Normal 40.0-80.0 [facility] Comment on above: Performed By: #### H DEE BMP3 ####[address] Hematocrit (Bld) [Volume fraction] 35.6 % Normal 35.0-47.0 [facility] Comment on above: Performed By: #### H DEE BMP3 ####[address] Hemoglobin (Bld) [Mass/Vol] 12.0 g/dL Normal 11.7-16.0 [facility] Comment on above: Performed By: #### H DEE BMP3 ####[address] Lymphocytes (Bld) [#/Vol] 0.8 10*3/uL Low 1.0-4.3 [facility] Comment on above: Performed By: #### H DEE BMP3 ####[address] Lymphocytes/100 WBC (Bld) 14.0 % Low 20.0-40.0 [facility] Comment on above: Performed By: #### H DEE BMP3 ####[address] MCH (RBC) [Entitic mass] 29.7 pg Normal 26.0-34.0 [facility] Comment on above: Performed By: #### H DEE BMP3 ####[address] MCHC (RBC) [Mass/Vol] 33.6 % Normal 32.0-36.0 [facility] Comment on above: Performed By: #### H DEE BMP3 ####[address] [place] MCV (RBC) [Entitic vol] 88.3 fL Normal 79.0-98.0 [facility] Comment on above: Performed By: #### H DEE BMP3 ####[id number] [place], [place] Monocytes (Bld) [#/Vol] 0.4 10*3/uL Normal 0.0-0.8 [facility] Comment on above: Performed By: #### H DEE BMP3 ####[address] Monocytes/100 WBC (Bld) 6.8 % Normal 2.0-10.0 [facility] Comment on above: Performed By: #### H DEE BMP3 ####[address] Platelet mean volume (Bld) [Entitic vol] 9.8 fL Normal 7.4-10.4 [facility] Comment on above: Performed By: #### H DEE BMP3 ####[address] Platelets (Bld) [#/Vol] 158 10*3/uL Normal 140-440 [facility] Comment on above: Performed By: #### H DEE, BMP3 ####[address] RBC (Bld) [#/Vol] 4.03 10*6/uL Normal 3.80-5.20 [facility] Comment on above: Performed By: #### H EMDF, BMP3 ####[address] WBC (Bld) [#/Vol] 5.5 10*3/uL Normal 3.6-10.7 [facility] Comment on above: Performed By: #### H EMDF, BMP3 ####[address] CR Chest Portableon 02-13-20 19 CR Chest Portable Patient Name: SHANTHI CORTEZ Diagnostic Radiology Exam Date/Time 02/12/2019 07:14:27 EDT Exam CR Chest Portable Ordering Physician [id number] PUGH Accession Number [id number] CPT4 Codes 82809 () Reason For Exam thoracotomy Report CHEST - PORTABLE: CLINICAL INDICATION: Follow-up for surgery TECHNIQUE: Portable AP COMPARISON: One day ago FINDINGS: Life support devices: Sternal wires and mediastinal clips are noted Heart/Mediastinum: Unchanged Lungs/Pleura: Atelectasis is noted at the left lung base. There is subcutaneous emphysema in the left chest wall. Blunting of the left costophrenic angle is again noted. No new consolidation or atelectasis is noted on the right. IMPRESSION: Postoperative changes on the left. No new consolidation or atelectasis in the right. Report Dictated on Final Dictated: 02/12/2019 8:47 am Dictating Physician: MD MEHTA JEFFREY Signed Date and Time: 02/12/2019 8:48 am Signed by: MD MEHTA JEFFREY Transcribed Date and Time: 02/12/2019 8:47 Normal [facility] Comp Panel with Mg Reflexon 02-12-2019 Calcium [Mass/Vol] 9.1 mg/dL Normal 8.4-10.4 [facility] Comment on above: Performed By: #### H EMDF, CMP3M, LIPD2, HA1C2, TROPN ####[facility] [id number] [place] [address] ALP [Catalytic activity/Vol] 37 U/L Low 38-126 [facility] Comment on above: Performed By: #### H EMDF, CMP3M, LIPD2, HA1C2, TROPN ####[facility] [id number] [place] [address] ALT [Catalytic activity/Vol] 21 U/L Normal 13-69 [facility] Comment on above: Performed By: #### H EMDF, CMP3M, LIPD2, HA1C2, TROPN ####[facility] [id number] [place], [place] Anion gap [Moles/Vol] 4 Normal [facility] Comment on above: Performed By: #### H EMDF, CMP3M, LIPD2, HA1C2, TROPN ####[facility] [place], [place] AST [Catalytic activity/Vol] 31 U/L Normal 15-46 [facility] Comment on above: Performed By: #### H EMDF, CMP3M, LIPD2, HA1C2, TROPN ####[address] [place], [place] Bilirubin [Mass/Vol] 1.5 mg/dL High 0.2-1.3 [facility] Comment on above: Performed By: #### H EMDF, CMP3M, LIPD2, HA1C2, TROPN ####[address] [place], [place] CO2 [Moles/Vol] 37 mmol/L High 22-30 [facility] Comment on above: Performed By: #### H EMDF, CMP3M, LIPD2, HA1C2, TROPN ####[address] [place], [place] Creatinine [Mass/Vol] 0.81 mg/dL Normal 0.52-1.25 [facility] Comment on above: Performed By: #### H EMDF, CMP3M, LIPD2, HA1C2, TROPN ####[address] [place], [place] GFR/1.73 sq M predicted among blacks MDRD (S/P/Bld) [Vol rate/Area] mL/min/{1.73_m2} Normal >60 [facility] Comment on above: Performed By: #### H EMDF, CMP3M, LIPD2, HA1C2, TROPN ####[address] [place], [place] GFR/1.73 sq M predicted among non-blacks MDRD (S/P/Bld) [Vol rate/Area] mL/min/{1.73_m2} Normal >60 [facility] Comment on above: Result Comment: Sour ce- MDRD equation with creatinine calibration to IDMS(NKDEP) eGFR not recommended for drug dose adjustment Performed By: #### H EMDF, CMP3M, LIPD2, HA1C2, TROPN ####[address] [place], [place] Glucose [Mass/Vol] 110 mg/dL High 70-100 [facility] Comment on above: Performed By: #### H EMDF, CMP3M, LIPD2, HA1C2, TROPN ####[address] [place], [place] Protein [Mass/Vol] 5.6 g/dL Low 6.3-8.2 [facility] Comment on above: Performed By: #### H EMDF, CMP3M, LIPD2, HA1C2, TROPN ####[address] [place], [place] Urea nitrogen [Mass/Vol] 15 mg/dL Normal 7-20 [facility] Comment on above: Performed By: #### H EMDF, CMP3M, LIPD2, HA1C2, TROPN ####[address] [place], [place] Potassium [Moles/Vol] 4.0 mmol/L Normal 3.5-5.1 [facility] Comment on above: Performed By: #### H EMDF, CMP3M, LIPD2, HA1C2, TROPN ####[address] [place], [place] Sodium [Moles/Vol] 141 mmol/L Normal 135-145 [facility] Comment on above: Performed By: #### H EMDF, CMP3M, LIPD2, HA1C2, TROPN ####[address] [place], [place] Albumin [Mass/Vol] 3.2 g/dL Low 3.5-5.0 [facility] Comment on above: Performed By: #### H EMDF, CMP3M, LIPD2, HA1C2, TROPN ####[address] [place], [place] Chloride [Moles/Vol] 100 mmol/L Normal 98-107 [facility] Comment on above: Performed By: #### H EMDF, CMP3M, LIPD2, HA1C2, TROPN ####[address] [place], [place] Hemoglobin A1Con 02-12-2019 HbA1c (Bld) [Mass fraction] 117 mg/dL Normal [facility] Comment on above: Performed By: #### H EMDF, CMP3M, LIPD2, HA1C2, TROPN ####[address] HbA1c (Bld) [Mass fraction] 5.7 % Normal 4.0-5.7 [facility] Comment on above: Result Comment: --Hg bA1C levels may not be accurate in patients who have renal disease, received recent blood transfusions, are anemic, or who have dyshemoglobinemia. Performed By: #### H EMDF, CMP3M, LIPD2, HA1C2, TROPN ####[address] Hemogram w/ Autodiffon 02-12 Abs Baso Cnt 0.0 10*3/uL Normal 0.0-0.2 [facility] Comment on above: Performed By: #### H EMDF, CMP3M, LIPD2, HA1C2, TROPN ####[address] [place], [place] Abs Neutrophile Cnt 4.2 10*3/uL Normal 1.8-7.0 [facility] Comment on above: Performed By: #### H EMDF, CMP3M, LIPD2, HA1C2, TROPN ####[address] Basophils/100 WBC (Bld) 0.4 % Normal 0.0-2.0 [facility] Comment on above: Performed By: #### H EMDF, CMP3M, LIPD2, HA1C2, TROPN ####[address] [place], [place] Eosinophils (Bld) [#/Vol] 0.1 10*3/uL Normal 0.0-0.5 [facility] Comment on above: Performed By: #### H EMDF, CMP3M, LIPD2, HA1C2, TROPN ####[address] [place], [place] Eosinophils/100 WBC (Bld) 1.9 % Normal 1.0-6.0 [facility] Comment on above: Performed By: #### H EMDF, CMP3M, LIPD2, HA1C2, TROPN ####[address] [place], [place] Erythrocyte distribution width (RBC) [Ratio] 15.0 % High 11.5-14.5 [facility] Comment on above: Performed By: #### H EMDF, CMP3M, LIPD2, HA1C2, TROPN ####[address] Granulocytes/100 WBC (Bld) 75.2 % Normal 40.0-80.0 [facility] Comment on above: Performed By: #### H EMDF, CMP3M, LIPD2, HA1C2, TROPN ####[address] [place], [place] Hematocrit (Bld) [Volume fraction] 36.1 % Normal 35.0-47.0 [facility] Comment on above: Performed By: #### H EMDF, CMP3M, LIPD2, HA1C2, TROPN ####[address] [place], [place] Hemoglobin (Bld) [Mass/Vol] 12.2 g/dL Normal 11.7-16.0 [facility] Comment on above: Performed By: #### H EMDF, CMP3M, LIPD2, HA1C2, TROPN ####[address] Lymphocytes (Bld) [#/Vol] 0.8 10*3/uL Low 1.0-4.3 [facility] Comment on above: Performed By: #### H EMDF, CMP3M, LIPD2, HA1C2, TROPN ####[address] [place], [place] Lymphocytes/100 WBC (Bld) 13.5 % Low 20.0-40.0 [facility] Comment on above: Performed By: #### H EMDF, CMP3M, LIPD2, HA1C2, TROPN ####[address] MCH (RBC) [Entitic mass] 29.9 pg Normal 26.0-34.0 [facility] Comment on above: Performed By: #### H EMDF, CMP3M, LIPD2, HA1C2, TROPN ####[address] MCHC (RBC) [Mass/Vol] 33.8 % Normal 32.0-36.0 [facility] Comment on above: Performed By: #### H EMDF, CMP3M, LIPD2, HA1C2, TROPN ####[address] MCV (RBC) [Entitic vol] 88.4 fL Normal 79.0-98.0 [facility] Comment on above: Performed By: #### H EMDF, CMP3M, LIPD2, HA1C2, TROPN ####[address] Monocytes (Bld) [#/Vol] 0.5 10*3/uL Normal 0.0-0.8 [facility] Comment on above: Performed By: #### H EMDF, CMP3M, LIPD2, HA1C2, TROPN ####[address] Monocytes/100 WBC (Bld) 9.0 % Normal 2.0-10.0 [facility] Comment on above: Performed By: #### H EMDF, CMP3M, LIPD2, HA1C2, TROPN ####[address] [place], [place] Platelet mean volume (Bld) [Entitic vol] 9.8 fL Normal 7.4-10.4 [facility] Comment on above: Performed By: #### H EMDF, CMP3M, LIPD2, HA1C2, TROPN ####[address] [place], [place] Platelets (Bld) [#/Vol] 153 10*3/uL Normal 140-440 [facility] Comment on above: Performed By: #### H EMDF, CMP3M, LIPD2, HA1C2, TROPN ####[address] [place], [place] RBC (Bld) [#/Vol] 4.08 10*6/uL Normal 3.80-5.20 [facility] Comment on above: Performed By: #### H EMDF, CMP3M, LIPD2, HA1C2, TROPN ####[address] [place], [place] WBC (Bld) [#/Vol] 5.6 10*3/uL Normal 3.6-10.7 [facility] Comment on above: Performed By: #### H EMDF, CMP3M, LIPD2, HA1C2, TROPN ####[address] [place], [place] Lipid Panelon 02-12-2019 Cholesterol in HDL [Mass/Vol] 46 mg/dL Normal 40-60 [facility] Comment on above: Performed By: #### H EMDF, CMP3M, LIPD2, HA1C2, TROPN ####[address] [place], [place] Cholesterol.total/ Cholesterol in HDL [Mass ratio] 4 Normal [facility] Comment on above: Result Comment: Ref Range: < 3 Low Risk for CHD 3-6 Mod Risk for CHD > 6 High Risk for CHD Performed By: #### H EMDF, CMP3M, LIPD2, HA1C2, TROPN ####[address] [place] [address] Protein [Mass/Vol] 99 mg/dL Normal <100 [facility] Comment on above: Performed By: #### H EMDF, CMP3M, LIPD2, HA1C2, TROPN ####[address] [place] [address] Cholesterol [Mass/Vol] 165 mg/dL Normal < 200 [facility] Comment on above: Performed By: #### H EMDF, CMP3M, LIPD2, HA1C2, TROPN ####[facility] [place] [address] Triglyceride [Mass/Vol] 98 mg/dL Normal <150 [facility] Comment on above: Performed By: #### H EMDF, CMP3M, LIPD2, HA1C2, TROPN ####[address] [place] [address] MRA Head w/o Contraston 01-17 MRA Head w/o Contrast Patient Name: SHANTHI SAM MRI Exam Date/Time 02/12/2019 15:36:38 EDT Exam MRA Head w/o Contrast Ordering Physician CARMEN MARTIN Accession Number [id number] CPT4 Codes 60300 () Reason For Exam stroke work up Report MRI BRAIN WITHOUT AND WITH CONTRAST: CLINICAL INDICATION: Stroke workup TECHNIQUE: Transaxial, sagittal and coronal T1, transaxial fast T2, FLAIR and gradient echo along with diffusion weighted imaging was performed through the brain. Post contrast transaxial and coronal T1 weighted sequences were performed following administration of 17 ml gadolinium contrast. COMPARISON: None. FINDINGS: There is an area of restricted diffusion along the medial right occipital lobe, consistent with acute ischemia. There is surrounding adjacent edema with effacement of adjacent cortical sulci. There is a more chronic appearing area of encephalomalacia and gliosis in the inferior right occipital lobe and posterior right temporal lobe. There is mild ex vacuo dilatation of the right occipital horn. Ventricles and sulci are otherwise normal in size and configuration for age. There are scattered foci of hyperintense signal on T2-weighted imaging and FLAIR, which is nonspecific, but, seen with changes of chronic small vessel ischemia. No intracranial mass. No midline shift. Intracranial flow voids are intact at the skull base. No hemorrhage noted on gradient echo imaging. No extra-axial collection. No abnormal intracranial enhancement. Bone marrow signal is unremarkable. There is increased signal within the right mastoids. 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 MR ARTERIOGRAPHY EXTRACRANIAL CAROTID/VERTEBRAL WITHOUT AND WITH CONTRAST: TECHNIQUE: Three-dimensional gradient echo non-contrast sequence along with dynamic contrast enhanced MRA sequences were performed through the extracranial carotid arterial circulation following administration of gadolinium contrast as noted above. Maximum intensity projection images were created in various orientations. Measurement of carotid stenosis is a ratio based on conventional angiographic data from the NASCET trials with the smallest caliber of the internal carotid as the numerator and normal post-stenotic internal carotid caliber as denominator. Images degraded by patient motion artifact. COMPARISON: None. FINDINGS: Aortic arch and great vessel origins: Normal. Right common and external carotid: Normal. Right internal carotid: No significant stenosis identified with less than 30 percent luminal narrowing. Left common and external carotid: Normal. Left internal carotid: No significant stenosis identified with less than 30 percent luminal narrowing. Vertebral arteries: Normal. IMPRESSION: 1. No hemodynamically significant internal carotid stenosis. 2. Patent vertebral arteries. MR ARTERIOGRAPHY INTRACRANIAL: TECHNIQUE: Three-dimensional gradient echo intracranial MRA sequence was performed. Maximum intensity projection images were created various orientations. Images heavily degraded by patient motion artifact COMPARISON: None. FINDINGS: Distal internal carotid arteries: Normal Anterior cerebral arteries: Normal Middle cerebral arteries: Normal Distal vertebral arteries: Normal Basilar artery: Normal Posterior cerebral arteries: There is nonvisualization of the P1 segment of the right posterior cerebral artery, suggesting a origin. There is visualization of the P2 and proximal P3 segment of the right posterior cerebral artery with nonvisualization of the distal P3 segment and P4 branches, suggesting occlusion. The left posterior cerebral artery appears within normal limits. Anterior communicating artery: Normal Posterior communicating arteries: Possible origin of the right posterior cerebral artery. Left posterior commuting artery not visualized. Aneurysm or vascular malformation: None grossly identified. IMPRESSION: Images heavily degraded by much artifact. Poor visualization of the distal P3 segment and P4 segment branches of the right posterior cerebral artery, suggesting occlusion. Report Dictated on Final Dictated: 02/12/2019 3:59 pm Dictating Physician: MD RIVAS KEVIN Signed Date and Time: 02/12/2019 4:12 pm Signed by: MD RIVAS KEVIN Transcribed Date and Time: 02/12/2019 3:59 Normal [facility] MRA Neck w/ + w/o Contraston 02-12-2019 MRA Neck w/ + w/o Contrast Patient Name: SHANTHI SAM MRI Exam Date/Time 02/12/2019 15:43:10 EDT Exam MRA Neck w/ + w/o Contrast Ordering Physician CARMEN MARTIN Accession Number [id number] CPT4 Codes 24693 () Reason For Exam stroke work up Report MRI BRAIN WITHOUT AND WITH CONTRAST: CLINICAL INDICATION: Stroke workup TECHNIQUE: Transaxial, sagittal and coronal T1, transaxial fast T2, FLAIR and gradient echo along with diffusion weighted imaging was performed through the brain. Post contrast transaxial and coronal T1 weighted sequences were performed following administration of 17 ml gadolinium contrast. COMPARISON: None. FINDINGS: There is an area of restricted diffusion along the medial right occipital lobe, consistent with acute ischemia. There is surrounding adjacent edema with effacement of adjacent cortical sulci. There is a more chronic appearing area of encephalomalacia and gliosis in the inferior right occipital lobe and posterior right temporal lobe. There is mild ex vacuo dilatation of the right occipital horn. Ventricles and sulci are otherwise normal in size and configuration for age. There are scattered foci of hyperintense signal on T2-weighted imaging and FLAIR, which is nonspecific, but, seen with changes of chronic small vessel ischemia. No intracranial mass. No midline shift. Intracranial flow voids are intact at the skull base. No hemorrhage noted on gradient echo imaging. No extra-axial collection. No abnormal intracranial enhancement. Bone marrow signal is unremarkable. There is increased signal within the right mastoids. 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 MR ARTERIOGRAPHY EXTRACRANIAL CAROTID/VERTEBRAL WITHOUT AND WITH CONTRAST: TECHNIQUE: Three-dimensional gradient echo non-contrast sequence along with dynamic contrast enhanced MRA sequences were performed through the extracranial carotid arterial circulation following administration of gadolinium contrast as noted above. Maximum intensity projection images were created in various orientations. Measurement of carotid stenosis is a ratio based on conventional angiographic data from the NASCET trials with the smallest caliber of the internal carotid as the numerator and normal post-stenotic internal carotid caliber as denominator. Images degraded by patient motion artifact. COMPARISON: None. FINDINGS: Aortic arch and great vessel origins: Normal. Right common and external carotid: Normal. Right internal carotid: No significant stenosis identified with less than 30 percent luminal narrowing. Left common and external carotid: Normal. Left internal carotid: No significant stenosis identified with less than 30 percent luminal narrowing. Vertebral arteries: Normal. IMPRESSION: 1. No hemodynamically significant internal carotid stenosis. 2. Patent vertebral arteries. MR ARTERIOGRAPHY INTRACRANIAL: TECHNIQUE: Three-dimensional gradient echo intracranial MRA sequence was performed. Maximum intensity projection images were created various orientations. Images heavily degraded by patient motion artifact COMPARISON: None. FINDINGS: Distal internal carotid arteries: Normal Anterior cerebral arteries: Normal Middle cerebral arteries: Normal Distal vertebral arteries: Normal Basilar artery: Normal Posterior cerebral arteries: There is nonvisualization of the P1 segment of the right posterior cerebral artery, suggesting a origin. There is visualization of the P2 and proximal P3 segment of the right posterior cerebral artery with nonvisualization of the distal P3 segment and P4 branches, suggesting occlusion. The left posterior cerebral artery appears within normal limits. Anterior communicating artery: Normal Posterior communicating arteries: Possible origin of the right posterior cerebral artery. Left posterior commuting artery not visualized. Aneurysm or vascular malformation: None grossly identified. IMPRESSION: Images heavily degraded by much artifact. Poor visualization of the distal P3 segment and P4 segment branches of the right posterior cerebral artery, suggesting occlusion. Report Dictated on Final Dictated: 02/12/2019 3:59 pm Dictating Physician: MD RIVAS KEVIN Signed Date and Time: 02/12/2019 4:12 pm Signed by: MD RIVAS KEVIN Transcribed Date and Time: 02/12/2019 3:59 Normal [facility] MRI Brain w/ + w/o Contrasto n 02-12-2019 MRI Brain w/ + w/o Contrast Patient Name: SHANTHI SAM MRI Exam Date/Time 02/12/2019 15:47:18 EDT Exam MRI Brain w/ + w/o Contrast Ordering Physician CARMEN MARTIN Accession Number [id number] CPT4 Codes 87826 () Reason For Exam stroke work up Report MRI BRAIN WITHOUT AND WITH CONTRAST: CLINICAL INDICATION: Stroke workup TECHNIQUE: Transaxial, sagittal and coronal T1, transaxial fast T2, FLAIR and gradient echo along with diffusion weighted imaging was performed through the brain. Post contrast transaxial and coronal T1 weighted sequences were performed following administration of 17 ml gadolinium contrast. COMPARISON: None. FINDINGS: There is an area of restricted diffusion along the medial right occipital lobe, consistent with acute ischemia. There is surrounding adjacent edema with effacement of adjacent cortical sulci. There is a more chronic appearing area of encephalomalacia and gliosis in the inferior right occipital lobe and posterior right temporal lobe. There is mild ex vacuo dilatation of the right occipital horn. Ventricles and sulci are otherwise normal in size and configuration for age. There are scattered foci of hyperintense signal on T2-weighted imaging and FLAIR, which is nonspecific, but, seen with changes of chronic small vessel ischemia. No intracranial mass. No midline shift. Intracranial flow voids are intact at the skull base. No hemorrhage noted on gradient echo imaging. No extra-axial collection. No abnormal intracranial enhancement. Bone marrow signal is unremarkable. There is increased signal within the right mastoids. 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 MR ARTERIOGRAPHY EXTRACRANIAL CAROTID/VERTEBRAL WITHOUT AND WITH CONTRAST: TECHNIQUE: Three-dimensional gradient echo non-contrast sequence along with dynamic contrast enhanced MRA sequences were performed through the extracranial carotid arterial circulation following administration of gadolinium contrast as noted above. Maximum intensity projection images were created in various orientations. Measurement of carotid stenosis is a ratio based on conventional angiographic data from the NASCET trials with the smallest caliber of the internal carotid as the numerator and normal post-stenotic internal carotid caliber as denominator. Images degraded by patient motion artifact. COMPARISON: None. FINDINGS: Aortic arch and great vessel origins: Normal. Right common and external carotid: Normal. Right internal carotid: No significant stenosis identified with less than 30 percent luminal narrowing. Left common and external carotid: Normal. Left internal carotid: No significant stenosis identified with less than 30 percent luminal narrowing. Vertebral arteries: Normal. IMPRESSION: 1. No hemodynamically significant internal carotid stenosis. 2. Patent vertebral arteries. MR ARTERIOGRAPHY INTRACRANIAL: TECHNIQUE: Three-dimensional gradient echo intracranial MRA sequence was performed. Maximum intensity projection images were created various orientations. Images heavily degraded by patient motion artifact COMPARISON: None. FINDINGS: Distal internal carotid arteries: Normal Anterior cerebral arteries: Normal Middle cerebral arteries: Normal Distal vertebral arteries: Normal Basilar artery: Normal Posterior cerebral arteries: There is nonvisualization of the P1 segment of the right posterior cerebral artery, suggesting a origin. There is visualization of the P2 and proximal P3 segment of the right posterior cerebral artery with nonvisualization of the distal P3 segment and P4 branches, suggesting occlusion. The left posterior cerebral artery appears within normal limits. Anterior communicating artery: Normal Posterior communicating arteries: Possible origin of the right posterior cerebral artery. Left posterior commuting artery not visualized. Aneurysm or vascular malformation: None grossly identified. IMPRESSION: Images heavily degraded by much artifact. Poor visualization of the distal P3 segment and P4 segment branches of the right posterior cerebral artery, suggesting occlusion. Report Dictated on Final Dictated: 02/12/2019 3:59 pm Dictating Physician: MD RIVAS KEVIN Signed Date and Time: 02/12/2019 4:12 pm Signed by: MD RIVAS KEVIN Transcribed Date and Time: 02/12/2019 3:59 Normal [facility] Troponin Ion 02-12-2019 Troponin I.cardiac [Mass/Vol] ng/mL Normal 0.000-0.034 [facility] Comment on above: Result Comment: < 0. 034 = negative 0.034 ? 0.120 = indeterminate > 0.120 = positive Performed By: #### H EMDF, CMP3M, LIPD2, HA1C2, TROPN ####[facility] [employer] [id number] [place] [address] Basic Metabolic Panelon 01-17 Calcium [Mass/Vol] 9.0 mg/dL Normal 8.4-10.4 [facility] Comment on above: Performed By: #### H EMDF, BMP3 ####[facility] [id number] [place] [address] Anion gap [Moles/Vol] 7 Normal [facility] Comment on above: Performed By: #### H EMDF, BMP3 ####[address] [place] [address] CO2 [Moles/Vol] 34 mmol/L High 22-30 [facility] Comment on above: Performed By: #### H BENJI PRICE3 ####[address] [place] [address] Glucose [Mass/Vol] 105 mg/dL High 70-100 [facility] Comment on above: Performed By: #### H DEE BMP3 ####[address] [place] [address] Urea nitrogen [Mass/Vol] 19 mg/dL Normal 7-20 [facility] Comment on above: Performed By: #### H BENJI PRICE3 ####[address] [place] [address] Creatinine [Mass/Vol] 1.00 mg/dL Normal 0.52-1.25 [facility] Comment on above: Performed By: #### H DEE BMP3 ####[address] [address] GFR/1.73 sq M predicted among blacks MDRD (S/P/Bld) [Vol rate/Area] mL/min/{1.73_m2} Normal >60 [facility] Comment on above: Performed By: #### H DEE BMP3 ####[address] [place] [address] GFR/1.73 sq M predicted among non-blacks MDRD (S/P/Bld) [Vol rate/Area] 54.5 mL/min/{1.73_m2} Normal >60 [facility] Comment on above: Result Comment: Sour ce- MDRD equation with creatinine calibration to IDMS(NKDEP) eGFR not recommended for drug dose adjustment Performed By: #### H DEE BMP3 ####[address] [place] [address] Chloride [Moles/Vol] 98 mmol/L Normal 98-107 [facility] Comment on above: Performed By: #### H EMDF, BMP3 ####[facility] [address] [place] [address] Potassium [Moles/Vol] 4.2 mmol/L Normal 3.5-5.1 [facility] Comment on above: Performed By: #### H DEE, BMP3 ####[facility] [place] [address] Sodium [Moles/Vol] 138 mmol/L Normal 135-145 [facility] Comment on above: Performed By: #### H DEE, BMP3 ####[facility] [place] [address] CR Chest Portableon 02-12-20 19 CR Chest Portable Patient Name: SHANTHI CORTEZ Diagnostic Radiology Exam Date/Time 02/11/2019 06:20:09 EDT Exam CR Chest Portable Ordering Physician [id number] PUGH Accession Number [id number] CPT4 Codes 11469 () Reason For Exam thoracotomy Report CHEST PORTABLE: Indication: Inpatient; thoracotomy Views: Portable frontal Comparison: 02/10/2019 Time: 5:13 on 02/11/2019 FINDINGS: Interval removal of a left chest tube. No sizable pneumothorax present. Median sternotomy wires and clips are present. Cardiac monitoring wires and leads are present limiting overall evaluation. The trachea is midline. The cardiomediastinal silhouette is within normal limits. The osseous structures are stable with left rib fractures. Emphysematous air is present within the subcutaneous tissue of the lateral hemithorax. Bibasilar opacities are present. IMPRESSION: 1. Removal of left chest tube. Subcutaneous emphysematous air remains. No pneumothorax. 2. Bibasilar opacities possibly representing a combination of atelectasis, pleural fluid, and/or infiltrate. 3. Left rib fractures, stable. Report Dictated on Workstation: [id number] Final Dictated: 02/11/2019 7:08 am Dictating Physician: MD SHAIKH JENNIFER R Signed Date and Time: 02/11/2019 7:11 am Signed by: MD SHAIKH JENNIFER R Transcribed Date and Time: 02/11/2019 7:[address] [facility] [address] Head or Brain w/o Contras ton 02-11-2019 CT Head or Brain w/o Contrast Patient Name: SHANTHI SAM CT Exam Date/Time 02/11/2019 13:45:[address] Head or Brain w/o Contrast Ordering Physician CARMEN MARTIN Accession Number [id number] CPT4 Codes 04535 () Reason For Exam STROKE Report Examination: CT head Technique: Axial CT images of the head were obtained without IV contrast at 3 mm intervals. Coronal and sagittal reconstructions were also provided. Indication: STROKE Findings: There is encephalomalacia of the right occipital and posterior temporal lobe. Otherwise, the ventricles, sulci and cisterns are grossly normal in size and configuration. The nevarez-white differentiation is otherwise grossly intact. Slightly diminished attenuation in the periventricular white matter is likely secondary to chronic small vessel ischemia. There is atherosclerotic calcification of the carotid siphons. Mild atherosclerotic calcification of the distal vertebral arteries is also noted. There are no extra-axial fluid collections or acute intracranial hemorrhage appreciated. There is no midline shift identified. The posterior fossa is grossly unremarkable. The paranasal sinuses and mastoid air cells are grossly clear. The bones are grossly unremarkable. ASPECTS score is 10. Impression: No CT evidence of acute intracranial abnormality. Remote right occipital and posterior right temporal infarct. This represents a critical test result (CTR). Findings were discussed with Dr. Hankins at approximately 2:10 PM on 02/11/2019. Report Dictated on Final Dictated: 02/11/2019 2:05 pm Dictating Physician: MD PAPPAS KRIKOR Signed Date and Time: 02/11/2019 2:13 pm Signed by: MD PAPPAS KRIKOR Transcribed Date and Time: 02/11/2019 2:05 Normal [facility] Glucose,Bedsideon 02-11-2019 Glucose [Mass/Vol] 80 mg/dL Normal 70-100 [facility] Comment on above: Result Comment: Test performed by glucose meter. Results may be 10%-15% lower than serum/plasma values. (CLIA ID [id number]) Performed By: #### B GLU ####[address] Hemogramon 02-11-2019 Erythrocyte distribution width (RBC) [Ratio] 15.0 % High 11.5-14.5 [facility] Comment on above: Performed By: #### H EMOG ####[address] #### PT ####[address] [address] Hematocrit (Bld) [Volume fraction] 37.9 % Normal 35.0-47.0 [facility] Comment on above: Performed By: #### H EMOG ####[address] #### PT ####[address] [address] Hemoglobin (Bld) [Mass/Vol] 12.6 g/dL Normal 11.7-16.0 [facility] Comment on above: Performed By: #### H EMOG ####[address] #### PT ####[address] [address] MCH (RBC) [Entitic mass] 29.5 pg Normal 26.0-34.0 [facility] Comment on above: Performed By: #### H EMOG ####[address] #### PT ####[address] [address] MCHC (RBC) [Mass/Vol] 33.3 % Normal 32.0-36.0 [facility] Comment on above: Performed By: #### H EMOG ####[address] #### PT ####[address] [address] MCV (RBC) [Entitic vol] 88.4 fL Normal 79.0-98.0 [facility] Comment on above: Performed By: #### H EMOG ####[facility] [employer] [address] #### PT ####[address] [address] Platelet mean volume (Bld) [Entitic vol] 9.3 fL Normal 7.4-10.4 [facility] Comment on above: Performed By: #### H EMOG ####[address] #### PT ####[address] [address] Platelets (Bld) [#/Vol] 149 10*3/uL Normal 140-440 [facility] Comment on above: Performed By: #### H EMOG ####[address] #### PT ####[address] [address] RBC (Bld) [#/Vol] 4.28 10*6/uL Normal 3.80-5.20 [facility] Comment on above: Performed By: #### H EMOG ####[address] #### PT ####[address] [address] WBC (Bld) [#/Vol] 6.3 10*3/uL Normal 3.6-10.7 [facility] Comment on above: Performed By: #### H EMOG ####[facility] [employer] [address] #### PT ####[address] [address] Hemogram w/ Autodiffon 02-11 Abs Baso Cnt 0.1 10*3/uL Normal 0.0-0.2 [facility] Comment on above: Performed By: #### H EMDF, BMP3 ####[address] [place] [address] Abs Neutrophile Cnt 5.7 10*3/uL Normal 1.8-7.0 [facility] Comment on above: Performed By: #### H EMDF, BMP3 ####[address] [place] [address] Basophils/100 WBC (Bld) 1.0 % Normal 0.0-2.0 [facility] Comment on above: Performed By: #### H EMDF, BMP3 ####[address] [place] [address] Eosinophils (Bld) [#/Vol] 0.1 10*3/uL Normal 0.0-0.5 [facility] Comment on above: Performed By: #### H EMDF, BMP3 ####[address] [address] Eosinophils/100 WBC (Bld) 1.2 % Normal 1.0-6.0 [facility] Comment on above: Performed By: #### H EMDF BMP3 ####[address] Erythrocyte distribution width (RBC) [Ratio] 15.1 % High 11.5-14.5 [facility] Comment on above: Performed By: #### H EMDF, BMP3 ####[address] Granulocytes/100 WBC (Bld) 76.6 % Normal 40.0-80.0 [facility] Comment on above: Performed By: #### H EMDF, BMP3 ####[address] [place] [address] Hematocrit (Bld) [Volume fraction] 38.9 % Normal 35.0-47.0 [facility] Comment on above: Performed By: #### H EMDF, BMP3 ####[address] [place] [address] Hemoglobin (Bld) [Mass/Vol] 13.0 g/dL Normal 11.7-16.0 [facility] Comment on above: Performed By: #### H DEE BMP3 ####[address] Lymphocytes (Bld) [#/Vol] 1.1 10*3/uL Normal 1.0-4.3 [facility] Comment on above: Performed By: #### H DEE BMP3 ####[address] Lymphocytes/100 WBC (Bld) 14.6 % Low 20.0-40.0 [facility] Comment on above: Performed By: #### H DEE BMP3 ####[address] MCH (RBC) [Entitic mass] 29.4 pg Normal 26.0-34.0 [facility] Comment on above: Performed By: #### H DEE BMP3 ####[address] MCHC (RBC) [Mass/Vol] 33.5 % Normal 32.0-36.0 [facility] Comment on above: Performed By: #### H DEE BMP3 ####[address] MCV (RBC) [Entitic vol] 87.8 fL Normal 79.0-98.0 [facility] Comment on above: Performed By: #### H DEE BMP3 ####[address] Monocytes (Bld) [#/Vol] 0.5 10*3/uL Normal 0.0-0.8 [facility] Comment on above: Performed By: #### H DEE BMP3 ####[address] Monocytes/100 WBC (Bld) 6.6 % Normal 2.0-10.0 [facility] Comment on above: Performed By: #### H DEE BMP3 ####[address] Platelet mean volume (Bld) [Entitic vol] 9.9 fL Normal 7.4-10.4 [facility] Comment on above: Performed By: #### H DEE BMP3 ####[facility] [employer] [address] [place] Platelets (Bld) [#/Vol] 171 10*3/uL Normal 140-440 [facility] Comment on above: Performed By: #### H DEE BMP3 ####[facility] [employer] [address] [place], [place] RBC (Bld) [#/Vol] 4.42 10*6/uL Normal 3.80-5.20 [facility] Comment on above: Performed By: #### H DEE BMP3 ####[address] [place], [place] WBC (Bld) [#/Vol] 7.5 10*3/uL Normal 3.6-10.7 [facility] Comment on above: Performed By: #### H BENJI PRICE3 ####[facility] [employer] [id number] [place], [place] Prothrombin Timeon 9 INR Coag (PPP) [Relative time] 0.92 s Normal 0.90-1.10 [facility] Comment on above: Result Comment: Shiv mmended Anticoagulant Therapy: SEE BELOW ----- INR of 2.0 - 3.0 : - Prophylaxis of Venous Thrombosis (high-risk surgery) - Treatment of Venous Thrombosis - Treatment of Pulmonary Embolism (Includes tissue heart valves, Acute Myocardial Infarction to prevent systemic embolism, Valvular Heart Disease, and Atrial Fibrillation) ----- INR of 2.5 - 3.5 : - Mechanical Prosthetic Valves (high risk) - If oral anticoagulant therapy is used to prevent Myocardial Infarction Performed By: #### H EMOG ####[facility] [employer] [address] [place], [place] #### PT ####[facility] [place] [address] PT Coag (PPP) [Time] 9.7 s Normal 9.0-12.0 [facility] Comment on above: Performed By: #### H EMOG ####[facility] [employer] [address] [place], [place] #### PT ####[facility] [address] [place] [address] Troponin Ion 02-11-2019 Troponin I.cardiac [Mass/Vol] ng/mL Normal 0.000-0.034 [facility] Comment on above: Result Comment: < 0. 034 = negative 0.034 ? 0.120 = indeterminate > 0.120 = positive Performed By: #### T ROPN ####[address] [place], [place] Basic Metabolic Panelon 01-17 Calcium [Mass/Vol] 9.0 mg/dL Normal 8.4-10.4 [facility] Comment on above: Performed By: #### H DEE BMP3 ####[facility] [employer] [address] [place], [place] Anion gap [Moles/Vol] 7 Normal [facility] Comment on above: Performed By: #### H EMDF BMP3 ####[facility] [place], [place] CO2 [Moles/Vol] 32 mmol/L High 22-30 [facility] Comment on above: Performed By: #### H MACYF BMP3 ####[facility] [employer] [address] [place], [place] Creatinine [Mass/Vol] 1.02 mg/dL Normal 0.52-1.25 [facility] Comment on above: Performed By: #### H EMDF BMP3 ####[facility] [address] [place], [place] GFR/1.73 sq M predicted among blacks MDRD (S/P/Bld) [Vol rate/Area] mL/min/{1.73_m2} Normal >60 [facility] Comment on above: Performed By: #### H EMDF BMP3 ####[facility] [employer] [address] [place] GFR/1.73 sq M predicted among non-blacks MDRD (S/P/Bld) [Vol rate/Area] 53.3 mL/min/{1.73_m2} Normal >60 [facility] Comment on above: Result Comment: Sour ce- MDRD equation with creatinine calibration to IDMS(NKDEP) eGFR not recommended for drug dose adjustment Performed By: #### H DEE, BMP3 ####[facility] [employer] [address] [place], [place] Glucose [Mass/Vol] 109 mg/dL High 70-100 [facility] Comment on above: Performed By: #### H DEE, BMP3 ####[facility] [employer] [address] [place] Urea nitrogen [Mass/Vol] 20 mg/dL Normal 7-20 [facility] Comment on above: Performed By: #### H DEE, BMP3 ####[facility] [employer] [address] [place] Chloride [Moles/Vol] 101 mmol/L Normal 98-107 [facility] Comment on above: Performed By: #### H MACYF, BMP3 ####[facility] [employer] [address] [place], [place] Potassium [Moles/Vol] 4.3 mmol/L Normal 3.5-5.1 [facility] Comment on above: Performed By: #### H MACYF, BMP3 ####[facility] [employer] [address] [place] Sodium [Moles/Vol] 140 mmol/L Normal 135-145 [facility] Comment on above: Performed By: #### H EMDF, BMP3 ####[facility] [employer] [address] [place], [place] CR Chest Portableon 02-11-20 19 CR Chest Portable Patient Name: SHANTHI CORTEZ Diagnostic Radiology Exam Date/Time 02/10/2019 09:56:13 EDT Exam CR Chest Portable Ordering Physician JAN ARIAS Accession Number [id number] CPT4 Codes 11703 () Reason For Exam thoracotomy Report EXAM TYPE: RADIOLOGIC EXAMINATION, CHEST, SINGLE VIEW FRONTAL (CXR SINGLE VIEW) EXAM DATE AND TIME: 02/10/2019 9:56 AM EDT INDICATION: Thoracotomy COMPARISON: 02/09/2019 TECHNIQUE: A single frontal view of the thorax was obtained and reviewed. Special views: None. IMPRESSION: 1. Lines/Tubes/Devices/Chavez rdware: Stable projection left chest tube. Please confirm position/function of devices/catheters clinically. 2. Lungs: Some atelectasis left lower lobe. 3. Pleura: Possible small left effusion. Left subcutaneous emphysema. No significant pneumothorax. 4. Heart and mediastinum: Limited. Atherosclerosis. Cardiac enlargement. 5. Upper abdomen: No acute process seen. Report Dictated on Workstation: [employer] Final Dictated: 02/10/2019 10:11 am Dictating Physician: MD SAGE JOHN Signed Date and Time: 02/10/2019 10:12 am Signed by: MD SAGE JOHN Transcribed Date and Time: 02/10/2019 10:11 Normal [facility] Hemogram w/ Autodiffon 02-10 Abs Baso Cnt 0.1 10*3/uL Normal 0.0-0.2 [facility] Comment on above: Performed By: #### H DEE BMP3 #### [facility] [address] [place] [address] Abs Neutrophile Cnt 9.9 10*3/uL High 1.8-7.0 [facility] Comment on above: Performed By: #### H DEE BMP3 #### [facility] [address] [place] [address] Basophils/100 WBC (Bld) 0.6 % Normal 0.0-2.0 [facility] Comment on above: Performed By: #### H BENJI PRICE3 #### [facility] [address] [place], [place] Eosinophils (Bld) [#/Vol] 0.0 10*3/uL Normal 0.0-0.5 [facility] Comment on above: Performed By: #### H BENJI PRICE3 #### [facility] [address] [place] [address] Eosinophils/100 WBC (Bld) 0.2 % Low 1.0-6.0 [facility] Comment on above: Performed By: #### H EMDF, BMP3 #### [facility] [address] [place] [address] Erythrocyte distribution width (RBC) [Ratio] 15.6 % High 11.5-14.5 [facility] Comment on above: Performed By: #### H EMDF, BMP3 #### [facility] [address] [place] [address] Granulocytes/100 WBC (Bld) 84.1 % High 40.0-80.0 [facility] Comment on above: Performed By: #### H EMDF, BMP3 #### [address] [place] [address] Hematocrit (Bld) [Volume fraction] 41.4 % Normal 35.0-47.0 [facility] Comment on above: Performed By: #### H EMDF, BMP3 #### [address] [place] [address] Hemoglobin (Bld) [Mass/Vol] 13.8 g/dL Normal 11.7-16.0 [facility] Comment on above: Performed By: #### H EMDF, BMP3 #### [facility] [address] [place] [address] Lymphocytes (Bld) [#/Vol] 1.2 10*3/uL Normal 1.0-4.3 [facility] Comment on above: Performed By: #### H EMDF, BMP3 #### [facility] [address] [place] [address] Lymphocytes/100 WBC (Bld) 10.2 % Low 20.0-40.0 [facility] Comment on above: Performed By: #### H EMDF, BMP3 #### [facility] [address] [place] [address] MCH (RBC) [Entitic mass] 29.4 pg Normal 26.0-34.0 [facility] Comment on above: Performed By: #### H EMDF, BMP3 #### [facility] [address] [place], [place] MCHC (RBC) [Mass/Vol] 33.3 % Normal 32.0-36.0 [facility] Comment on above: Performed By: #### H EMDF, BMP3 #### [facility] [address] [place], [place] MCV (RBC) [Entitic vol] 88.5 fL Normal 79.0-98.0 [facility] Comment on above: Performed By: #### H EMDF, BMP3 #### [address] [address] [place], [place] Monocytes (Bld) [#/Vol] 0.6 10*3/uL Normal 0.0-0.8 [facility] Comment on above: Performed By: #### H EMDF, BMP3 #### [address] [address] [place], [place] Monocytes/100 WBC (Bld) 4.9 % Normal 2.0-10.0 [facility] Comment on above: Performed By: #### H EMDF, BMP3 #### [address] [address] [place], [place] Platelet mean volume (Bld) [Entitic vol] 9.5 fL Normal 7.4-10.4 [facility] Comment on above: Performed By: #### H EMDF, BMP3 #### [address] [place], [place] Platelets (Bld) [#/Vol] 174 10*3/uL Normal 140-440 [facility] Comment on above: Performed By: #### H EMDF, BMP3 #### [address] RBC (Bld) [#/Vol] 4.68 10*6/uL Normal 3.80-5.20 [facility] Comment on above: Performed By: #### H EMDF, BMP3 #### [address] [address] [place], [place] WBC (Bld) [#/Vol] 11.8 10*3/uL High 3.6-10.7 [facility] Comment on above: Performed By: #### H DEE BMP3 #### [facility] [address] [place], [place] Basic Metabolic Panelon 07-2 Anion gap [Moles/Vol] 9 Normal [facility] Comment on above: Performed By: #### H DEE BMP3 #### [address] [place], [place] Calcium [Mass/Vol] 8.7 mg/dL Normal 8.4-10.4 [facility] Comment on above: Performed By: #### H DEE BMP3 #### [address] [place], [place] CO2 [Moles/Vol] 27 mmol/L Normal 22-30 [facility] Comment on above: Performed By: #### H DEE BMP3 #### [address] [place], [place] Glucose [Mass/Vol] 140 mg/dL High 70-100 [facility] Comment on above: Performed By: #### H DEE BMP3 #### [address] [place], [place] Urea nitrogen [Mass/Vol] 17 mg/dL Normal 7-20 [facility] Comment on above: Performed By: #### H DEE BMP3 #### [address] [place], [place] Creatinine [Mass/Vol] 0.88 mg/dL Normal 0.52-1.25 [facility] Comment on above: Performed By: #### H DEE BMP3 #### [address] [place], [place] GFR/1.73 sq M predicted among blacks MDRD (S/P/Bld) [Vol rate/Area] mL/min/{1.73_m2} Normal >60 [facility] Comment on above: Performed By: #### H DEE BMP3 #### [address] [place], [place] GFR/1.73 sq M predicted among non-blacks MDRD (S/P/Bld) [Vol rate/Area] mL/min/{1.73_m2} Normal >60 [facility] Comment on above: Result Comment: Sour ce- MDRD equation with creatinine calibration to IDMS(NKDEP) eGFR not recommended for drug dose adjustment Performed By: #### H BENJI PRICE3 #### [facility] [address] [place], [place] Chloride [Moles/Vol] 102 mmol/L Normal 98-107 [facility] Comment on above: Performed By: #### H BENJI PRICE3 #### [address] [address] [place], [place] Potassium [Moles/Vol] 4.4 mmol/L Normal 3.5-5.1 [facility] Comment on above: Performed By: #### H BENJI PRICE3 #### [facility] [address] [place], [place] Sodium [Moles/Vol] 137 mmol/L Normal 135-145 [facility] Comment on above: Performed By: #### H BENJI PRICE3 #### [address] [address] [place], [place] CR Chest Portableon 02-10-20 19 CR Chest Portable Patient Name: SHANTHI CORTEZ Diagnostic Radiology Exam Date/Time 02/09/2019 05:41:33 EDT Exam CR Chest Portable Ordering Physician JAN ARIAS Accession Number [id number] CPT4 Codes 34884 () Reason For Exam s/p Thoracotomy Report PORTABLE CHEST X-RAY CLINICAL INDICATION: Status post thoracotomy A portable frontal view of the chest was obtained. COMPARISON: 02/08/2019 FINDINGS: Heart size is within normal limits. Sternotomy wires and left-sided chest tube appear unchanged. There is coarsening of interstitial lung markings which is least partially chronic. There may be mild superimposed pulmonary vascular congestion, unchanged. No focal consolidation is seen. There is no large pleural effusion. IMPRESSION: No significant change when compared with the previous study. Report Dictated on Final Dictated: 02/09/2019 7:36 am Dictating Physician: MD DICK JONATHAN R Signed Date and Time: 02/09/2019 7:37 am Signed by: MD DICK JONATHAN R Transcribed Date and Time: 02/09/2019 7:36 Normal [facility] Hemogram w/ Autodiffon 02-09 Abs Baso Cnt 0.0 10*3/uL Normal 0.0-0.2 [facility] Comment on above: Performed By: #### H EMDGeorgia BMP3 #### [address] [place] [address] Abs Neutrophile Cnt 9.9 10*3/uL High 1.8-7.0 [facility] Comment on above: Performed By: #### H EMDGeorgia BMP3 #### [facility] [address] [address] [place] [address] Basophils/100 WBC (Bld) 0.4 % Normal 0.0-2.0 [facility] Comment on above: Performed By: #### H EMDGeorgia BMP3 #### [facility] [employer] [address] [address] Eosinophils (Bld) [#/Vol] 0.0 10*3/uL Normal 0.0-0.5 [facility] Comment on above: Performed By: #### H EMDF BMP3 #### [facility] [address] [place] [address] Eosinophils/100 WBC (Bld) 0.0 % Low 1.0-6.0 [facility] Comment on above: Performed By: #### H EMDF BMP3 #### [facility] [employer] [address] [address] Erythrocyte distribution width (RBC) [Ratio] 14.9 % High 11.5-14.5 [facility] Comment on above: Performed By: #### H EMDF BMP3 #### [address] [address] [place] [address] Granulocytes/100 WBC (Bld) 92.7 % High 40.0-80.0 [facility] Comment on above: Performed By: #### H DEE BMP3 #### [address] Hematocrit (Bld) [Volume fraction] 43.8 % Normal 35.0-47.0 [facility] Comment on above: Performed By: #### H DEE BMP3 #### [address] Hemoglobin (Bld) [Mass/Vol] 14.7 g/dL Normal 11.7-16.0 [facility] Comment on above: Performed By: #### H DEE BMP3 #### [address] Lymphocytes (Bld) [#/Vol] 0.5 10*3/uL Low 1.0-4.3 [facility] Comment on above: Performed By: #### H DEE BMP3 #### [address] Lymphocytes/100 WBC (Bld) 5.0 % Low 20.0-40.0 [facility] Comment on above: Performed By: #### H DEE BMP3 #### [address] MCH (RBC) [Entitic mass] 29.4 pg Normal 26.0-34.0 [facility] Comment on above: Performed By: #### H DEE BMP3 #### [address] [place], [place] MCHC (RBC) [Mass/Vol] 33.5 % Normal 32.0-36.0 [facility] Comment on above: Performed By: #### H DEE BMP3 #### [address] MCV (RBC) [Entitic vol] 87.8 fL Normal 79.0-98.0 [facility] Comment on above: Performed By: #### H DEE BMP3 #### [address] [place] [address] Monocytes (Bld) [#/Vol] 0.2 10*3/uL Normal 0.0-0.8 [facility] Comment on above: Performed By: #### H EMDF, BMP3 #### [facility] [address] [place] [address] Monocytes/100 WBC (Bld) 1.9 % Low 2.0-10.0 [facility] Comment on above: Performed By: #### H EMDF, BMP3 #### [address] [place], [place] Platelet mean volume (Bld) [Entitic vol] 9.4 fL Normal 7.4-10.4 [facility] Comment on above: Performed By: #### H EMDF, BMP3 #### [address] [place], [place] Platelets (Bld) [#/Vol] 181 10*3/uL Normal 140-440 [facility] Comment on above: Performed By: #### H EMDF, BMP3 #### [address] [place] RBC (Bld) [#/Vol] 4.99 10*6/uL Normal 3.80-5.20 [facility] Comment on above: Performed By: #### H EMDF, BMP3 #### [address] [place] WBC (Bld) [#/Vol] 10.7 10*3/uL Normal 3.6-10.7 [facility] Comment on above: Performed By: #### H EMDF, BMP3 #### [address] [place], [place] Leukodepleted Red Cellson Leukodepleted Red Cells Leukodepleted Red Cells: [id number] released 02/09/19 07:30 [facility] Unit Blood Type: O Unit Blood Rh: POS Blood Product Code: AS1 Unit Number: [id number] Unit Status: released Barcoded Unit Number: =[id number] Barcoded Product Code: = Barcoded ABO/Rh: =%5100 Unit Expiration: [id number] Unit Volume Transfused: 0 Unit Transfusion Start Date/Time: Unit Transfusion End Date/Time: Normal [facility] Comment on above: Performed By: #### H EMDGeorgia, BMP3 #### [facility] [address] [place], [place] Arterial Blood Gaseson 02-08 CO2 [Moles/Vol] 23.7 mmol/L Normal 23.0-27.0 [facility] Comment on above: Performed By: #### H EMDF BMP3 #### [address] [place] HCO3 (Bld) [Moles/Vol] 22.7 mmol/L Normal 21.0-25.0 [facility] Comment on above: Performed By: #### H EMDF, BMP3 #### [address] [place] Hemoglobin (Bld) [Mass/Vol] 13.7 g/dL Normal ScreenOnly [facility] Comment on above: Performed By: #### H EMDF, BMP3 #### [address] [place] Oxygen (Bld) [Partial pressure] 70.0 mm[Hg] Low 80.0-100.0 [facility] Comment on above: Performed By: #### H EMDF, BMP3 #### [address] [place] Oxygen saturation in Blood 93.9 % Low 95.0-100.0 [facility] Comment on above: Performed By: #### H EMDF, BMP3 #### [address] [place] pCO2 34.1 mm[Hg] Low 35.0-45.0 [facility] Comment on above: Performed By: #### H EMDF, BMP3 #### [address] [place] pH (Bld) 7.441 Normal 7.350-7.450 [facility] Comment on above: Performed By: #### H EMDF, BMP3 #### [facility] [address] [place] [address] Std Base Excess -0.8 mmol/L Normal -3.0-3.0 [facility] Comment on above: Performed By: #### H EMDF, BMP3 #### [facility] [address] [place] [address] FIO2 No data Normal [facility] Comment on above: Performed By: #### H EMDF, BMP3 #### [facility] [address] [place] [address] CR Chest Portableon 02-09-20 19 CR Chest Portable Patient Name: SHANTHI CORTEZ Diagnostic Radiology Exam Date/Time 02/08/2019 17:10:32 EDT Exam CR Chest Portable Ordering Physician [id number] PUGH Accession Number [id number] CPT4 Codes 60718 () Reason For Exam s/p Thoracotomy Report PORTABLE CHEST CLINICAL INDICATION: Thoracotomy tube placement. COMPARISON: 01/05/2019.. TECHNIQUE: A single frontal view of thorax was obtained and reviewed. IMPRESSION: 1. Lines/ tubes/ devices: Interval sternotomy wires and mediastinal clips are noted. Interval left chest tube is directed toward the left lung apex. 2. Lungs and Pleura: Mild pulmonary vascular congestion is seen. No infiltrate or mass. No pneumothorax or pleural effusion. Minimal left chest wall subcutaneous emphysema. 3. Heart and mediastinum: Mild cardiomegaly. 4. Bones: Acute left posterior sixth and seventh rib fractures are identified. Thoracic degenerative spondylosis. Report Dictated on Final Dictated: 02/08/2019 6:18 pm Dictating Physician: ANA ALEXANDRA DO, I Signed Date and Time: 02/08/2019 6:20 pm Signed by: ANA ALEXANDRA DO, I Transcribed Date and Time: 02/08/2019 6:18 Normal [facility] Hemoglobin AND Hematocriton 02-08-2019 Hematocrit (Bld) [Volume fraction] 44.1 % Normal 35.0-47.0 [facility] Comment on above: Performed By: #### H DEE, BMP3 #### [facility] [address] [place] [address] Hemoglobin (Bld) [Mass/Vol] 14.6 g/dL Normal 11.7-16.0 [facility] Comment on above: Performed By: #### H DEE, BMP3 #### [facility] [address] [place] [address] Op Noteon 02-08-2019 Op Note PATIENT: SHANTHI SAM ADMISSION DATE: 02/08/2019 SURGERY DATE: 02/08/2019 DATE OF : 1945 AGE: 73 ADMITTING PHYSICIAN: Goran Knight MD ATTENDING PHYSICIAN: Goran Knight MD DICTATING PHYSICIAN: Goran Knight MD OPERATIVE RECORD PRIMARY CARE PHYSICIAN: Dr. Ari Carballo Procedure: 1. FIBEROPTIC BRONCHOSCOPY. 2. LEFT THORACOTOMY. 3. TAKEDOWN OF MASSIVE ADHESIONS OF LUNG TO CHEST WALL AND MEDIASTINUM. 4. LEFT LOWER LOBE PULMONARY WEDGE RESECTION. Preoperative Diagnosis: Left lung mass, suspicious for squamous cell carcinoma. Postoperative Diagnosis: Frozen section, squamous cell lung carcinoma. Anesthesia: General endotracheal. 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 The left upper lobe is densely adherent to the chest wall and mediastinum. The left lower lobe was adherent to the heart, phrenic nerve, diaphragm, chest wall, and aorta. The patient is not a candidate for lobectomy based upon the massive fibrothorax problem in the chest. Therefore, I was able to encircle the left lower lobe pulmonary mass and resected en bloc using the Ethicon green load stapling device. Description of Procedure: The lung was submerged under warm sterile water and insufflated and no air leak was evident. A 24-Estonian Sarwat drain was left in the chest cavity through a separate incision site. There was no way to perform a mediastinal lymph node dissection secondary to adhesion of the lung to the posterior chest wall. Therefore, we will have to rely upon the mediastinoscopy results of the lymph node pathology which was negative. The ribs were reapproximated with #2 Vicryl in an interrupted fashion. Soft tissues were closed in layers with Vicryl and skin with Monocryl in a subcuticular fashion. Dermabond dressing applied. The patient was transferred stable, extubated with no air leak to the recovery room. cc: Dr. Ari Judd Job ID: [id number] Goran Knight MD DOD:02/08/2019 04:06 P NOMAN/doug DOT:02/08/2019 05:30 P Job Number: [id number] Document Number: [id number] cc: Goran Knight MD [facility] [address] [place] [address] [address] [facility] [address] [facility] Surgical Pathologyon 019 Surgical Pathology [id number] [facility] PATHOLOGY AND LABORATORY MEDICINE [address] [place] [address] FINAL SURGICAL PATHOLOGY REPORT NAME: SHANTHI SAM : 1945 74 Y F BILLING NO.: [id number] LOCATION: [address] [place] [address] PROCEDURE 02/08/2019 DATE: SURGEON: GORAN KNIGHT MD RECEIVED 02/09/2019 DATE: ATTENDING: GORAN KNIGHT MD REPORT DATE: 2019 COPIES TO: DIAGNOSIS: A. 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 B. LUNG, LEFT LOWER LOBE, WEDGE - WELL DIFFERENTIATED SQUAMOUSCELL CARCINOMA. ASCesar/ADOLFO Signature> S SUE DE LA O, M.D. CLINICAL INFORMATION: C34.92 SPECIMEN: (A) LUNG, WEDGE BIOPSY/EXCISION (B) LUNG, WEDGE BIOPSY/EXCISION INTRAOPERATIVE CONSULTATION/FROZEN SECTION DIAGNOSIS: FROZEN SECTION: Squamous cell carcinoma. Javier De La O M.D., Vale Urbano M.D., Autumn Turner M.D. GROSS DESCRIPTION: A. Left lower lobe wedge Received in formalin previously utilized for frozen section is a wedge of lung measuring 2.5 x 1.7 cm. The surface appears to have previously been interrupted. There is a partial stapled suture line present near one edge. The pleural surface is purple-diaz. Cut surfaces are white-nevarez. A portion of the specimen previously utilized for frozen section is submitted in cassette 1. The remainder of the specimen is sectioned and entirely submitted in cassettes 2 and 3. (bits ss, 3) B. Left lower lobe wedge Received in formalin is a wedge of pulmonary tissue 2.5 x 1 x 1.5 cm. There is a row of metallic georgette present along one edge. The specimen appears to have previously been transected revealing a white-nevarez, ill-defined mass measuring approximately 1.3 cm. The surrounding lung is pink-diaz and crepitant. The specimen is sectioned and entirely submitted in two cassettes. (bits ss, 2) JCK/ADOLFO Disclaimer: The following statement applies to all immunohistochemistry, in situ hybridization, molecular studies, and immunofluorescence testing. The use of one or more reagents in the above tests is regulated as an analyte specific reagent (ASR). These tests were developed and their performance characteristics determined by the clinical laboratories of [facility]. They have not been cleared by the US Food and Drug Administration (FDA). The FDA has determined that such clearance or approval is not necessary. All the above immunostains were performed on paraffin embedded tissue. Appropriate positive and negative controls (where applicable) were run in parallel with the patient's specimen; these controls showed expected staining pattern, with acceptable intensity of staining. Immunohistochemical assays have not been validated on decalcified tissues. Results should be interpreted with caution given the raised possibility of false negativity on decalcified specimens. Professional Performing Location: [place] [address]. DEPARTMENT OF PATHOLOGY AND LABORATORY MEDICINE [place], [place] [address] [facility] TS GELon 02-08-2019 TS GEL ABO Group: O Rh, Gel: POS Antibody Screen Gel: NEG [facility] Comment on above: Performed By: #### H EMDF BMP3 #### [place] [id number] Leukodepleted Red Cellson Leukodepleted Red Cells Leukodepleted Red Cells: [id number] released 01/16/19 07:42 JMV Unit Blood Type: O Unit Blood Rh: POS Blood Product Code: AS3 Unit Number: [id number] Unit Status: released Barcoded Unit Number: =[id number] Barcoded Product Code: = Barcoded ABO/Rh: =%5100 Unit Expiration: Leukodepleted Red Cells: [id number] released 01/16/19 07:42 JMV Unit Blood Type: O Unit Blood Rh: POS Blood Product Code: AS3 Unit Number: [id number] Unit Status: released Barcoded Unit Number: =[id number] Barcoded Product Code: = Barcoded ABO/Rh: =%5100 Unit Expiration: [facility] Comment on above: Performed By: #### T SGL #### [place] [address] #### LRC #### [place] [address] Basic Metabolic Panelon 12-18 Anion gap [Moles/Vol] 7 [facility] Comment on above: Performed By: #### H EMOG BMP3, PT/AP #### [facility] [address] [place], [place] Calcium [Mass/Vol] 9.0 mg/dL Normal 8.4-10.4 [facility] Comment on above: Performed By: #### H EMOG, BMP3, PT/AP #### [facility] [address] [place], [place] CO2 [Moles/Vol] 29 mmol/L Normal 22-30 [facility] Comment on above: Performed By: #### H EMOG, BMP3, PT/AP #### [address] [address] [place], [place] Glucose [Mass/Vol] 102 mg/dL High 70-100 [facility] Comment on above: Performed By: #### H EMOG, BMP3, PT/AP #### [address] [address] [place], [place] Urea nitrogen [Mass/Vol] 14 mg/dL Normal 7-20 [facility] Comment on above: Performed By: #### H EMOG, BMP3, PT/AP #### [address] [address] [place], [place] Creatinine [Mass/Vol] 0.87 mg/dL Normal 0.52-1.25 [facility] Comment on above: Performed By: #### H EMOG, BMP3, PT/AP #### [address] [place], [place] GFR/1.73 sq M predicted among blacks MDRD (S/P/Bld) [Vol rate/Area] mL/min/{1.73_m2} Normal >60 [facility] Comment on above: Performed By: #### H EMOG, BMP3, PT/AP #### [address] [place], [place] GFR/1.73 sq M predicted among non-blacks MDRD (S/P/Bld) [Vol rate/Area] mL/min/{1.73_m2} Normal >60 [facility] Comment on above: Result Comment: Sour ce- MDRD equation with creatinine calibration to IDMS(NKDEP) eGFR not recommended for drug dose adjustment Performed By: #### H EMOG BMP3, PT/AP #### [facility] [address] [place] [address] Potassium [Moles/Vol] 4.3 mmol/L Normal 3.5-5.1 [facility] Comment on above: Performed By: #### H EMOG, BMP3, PT/AP #### [facility] [address] [place] [address] Sodium [Moles/Vol] 142 mmol/L Normal 135-145 [facility] Comment on above: Performed By: #### H EMOG, BMP3, PT/AP #### [facility] [address] [place] [address] Chloride [Moles/Vol] 106 mmol/L Normal 98-107 [facility] Comment on above: Performed By: #### H EMOG, BMP3, PT/AP #### [facility] [address] [place] [address] CR Chest Portableon 01-14-20 19 CR Chest Portable Patient Name: SHANTHI CORTEZ Diagnostic Radiology Exam Date/Time 01/13/2019 08:56:24 EDT Exam CR Chest Portable Ordering Physician ASHUTOSH PARKER JAN C Accession Number [id number] CPT4 Codes 97865 () Reason For Exam pre op lung surgery Report Portable chest 01/13/2019: Clinical Information: Preop for lung surgery. Findings: A single AP portable view of the chest was obtained at 802 hours. No prior studies for comparison. The trachea is midline. The heart is not enlarged. No focal areas of consolidation or volume loss are seen. There are no pleural effusions. The pulmonary vasculature does not appear congested. The visualized bony structures are intact. Impression: No acute process. Report Dictated on Final Dictated: 01/13/2019 9:58 am Dictating Physician: MD KAMARA RISA Signed Date and Time: 01/13/2019 9:59 am Signed by: MD KAMARA RISA Transcribed Date and Time: 01/13/2019 9:58 Normal [facility] Hemogramon 01-13-2019 Erythrocyte distribution width (RBC) [Ratio] 14.6 % High 11.5-14.5 [facility] Comment on above: Performed By: #### H EMOG, BMP3, PT/AP #### [address] [address] [place], [place] Hematocrit (Bld) [Volume fraction] 40.9 % Normal 35.0-47.0 [facility] Comment on above: Performed By: #### H EMOG, BMP3, PT/AP #### [address] [address] [place], [place] Hemoglobin (Bld) [Mass/Vol] 13.7 g/dL Normal 11.7-16.0 [facility] Comment on above: Performed By: #### H EMOG, BMP3, PT/AP #### [address] [address] [place], [place] MCH (RBC) [Entitic mass] 29.6 pg Normal 26.0-34.0 [facility] Comment on above: Performed By: #### H EMOG, BMP3, PT/AP #### [address] [address] [place], [place] MCHC (RBC) [Mass/Vol] 33.6 % Normal 32.0-36.0 [facility] Comment on above: Performed By: #### H EMOG, BMP3, PT/AP #### [address] MCV (RBC) [Entitic vol] 88.3 fL Normal 79.0-98.0 [facility] Comment on above: Performed By: #### H EMOG, BMP3, PT/AP #### [address] Platelet mean volume (Bld) [Entitic vol] 9.5 fL Normal 7.4-10.4 [facility] Comment on above: Performed By: #### H EMOG, BMP3, PT/AP #### [address] [address] [place], [place] Platelets (Bld) [#/Vol] 201 10*3/uL Normal 140-440 [facility] Comment on above: Performed By: #### H EMOG, BMP3, PT/AP #### [facility] [address] [place], [place] RBC (Bld) [#/Vol] 4.63 10*6/uL Normal 3.80-5.20 [facility] Comment on above: Performed By: #### H EMOG, BMP3, PT/AP #### [facility] [address] [place], [place] WBC (Bld) [#/Vol] 5.1 10*3/uL Normal 3.6-10.7 [facility] Comment on above: Performed By: #### H EMOG, BMP3, PT/AP #### [facility] [address] [place], [place] Protime AND APTTon 9 INR Coag (PPP) [Relative time] 0.9 Normal 0.9-1.1 [facility] Comment on above: Result Comment: Shiv mmended Anticoagulant Therapy: SEE BELOW ----- INR of 2.0 - 3.0 : - Prophylaxis of Venous Thrombosis (high-risk surgery) - Treatment of Venous Thrombosis - Treatment of Pulmonary Embolism (Includes tissue heart valves, Acute Myocardial Infarction to prevent systemic embolism, Valvular Heart Disease, and Atrial Fibrillation) ----- INR of 2.5 - 3.5 : - Mechanical Prosthetic Valves (high risk) - If oral anticoagulant therapy is used to prevent Myocardial Infarction Performed By: #### H EMOG, BMP3, PT/AP #### [facility] [address] [place], [place] PT Coag (PPP) [Time] 10.1 s Normal 9.0-12.0 [facility] Comment on above: Result Comment: . Performed By: #### H EMOG, BMP3, PT/AP #### [facility] [address], [place] aPTT Coag (Bld) [Time] 26.1 s Normal 20.0-30.5 [facility] Comment on above: Result Comment: NOTE : The therapeutic time for Heparin anticoagulation, based on Xa activity inhibition, is an APTT of 46-80 seconds. Performed By: #### H [id number], PT/AP #### [address] [address] TS GELon 01-13-2019 TS GEL ABO Group: O Rh, Gel: POS Antibody Screen Gel: NEG Normal [facility] Comment on above: Performed By: #### T SGL #### [address] [address] #### LRC #### [address] [address] Basic Metabolic Panelon 11-17 Calcium [Mass/Vol] 9.3 mg/dL Normal 8.4-10.4 [facility] Comment on above: Performed By: #### H DEE BMP3 #### [address] [address] Glucose [Mass/Vol] 95 mg/dL Normal 70-100 [facility] Comment on above: Performed By: #### H EMDF BMP3 #### [address] Urea nitrogen [Mass/Vol] 19 mg/dL Normal 7-20 [facility] Comment on above: Performed By: #### H EMDF, BMP3 #### [address] [address] Anion gap [Moles/Vol] 6 Normal [facility] Comment on above: Performed By: #### H EMDF, BMP3 #### [address] CO2 [Moles/Vol] 30 mmol/L Normal 22-30 [facility] Comment on above: Performed By: #### H EMDF, BMP3 #### [address] [address] Creatinine [Mass/Vol] 1.13 mg/dL Normal 0.52-1.25 [facility] Comment on above: Performed By: #### H EMDF, BMP3 #### [facility] [address] [place], [place] GFR/1.73 sq M predicted among blacks MDRD (S/P/Bld) [Vol rate/Area] 57.4 mL/min/{1.73_m2} Normal >60 [facility] Comment on above: Performed By: #### H EMDF, BMP3 #### [address] [address] [address] [place], [place] GFR/1.73 sq M predicted among non-blacks MDRD (S/P/Bld) [Vol rate/Area] 47.4 mL/min/{1.73_m2} Normal >60 [facility] Comment on above: Result Comment: Sour ce- MDRD equation with creatinine calibration to IDMS(NKDEP) eGFR not recommended for drug dose adjustment Performed By: #### H EMDF, BMP3 #### [address] [address] [address] [place], [place] Potassium [Moles/Vol] 4.5 mmol/L Normal 3.5-5.1 [facility] Comment on above: Performed By: #### H EMDF, BMP3 #### [address] [address] [address] [place], [place] Chloride [Moles/Vol] 105 mmol/L Normal 98-107 [facility] Comment on above: Performed By: #### H EMDF, BMP3 #### [address] [address] [address] [place], [place] Sodium [Moles/Vol] 140 mmol/L Normal 135-145 [facility] Comment on above: Performed By: #### H EMDF, BMP3 #### [address] [address] [address] [place], [place] Hemogram w/ Autodiffon 12-14 Abs Baso Cnt 0.1 10*3/uL Normal 0.0-0.2 [facility] Comment on above: Performed By: #### H EMDF, BMP3 #### [address] [address] [address] [place], [place] Abs Neutrophile Cnt 4.3 10*3/uL Normal 1.8-7.0 [facility] Comment on above: Performed By: #### H EMDF BMP3 #### [address] Basophils/100 WBC (Bld) 1.3 % Normal 0.0-2.0 [facility] Comment on above: Performed By: #### H EMDF BMP3 #### [address] Eosinophils (Bld) [#/Vol] 0.2 10*3/uL Normal 0.0-0.5 [facility] Comment on above: Performed By: #### H EMDGeorg[place] BMP3 #### [address] Eosinophils/100 WBC (Bld) 3.2 % Normal 1.0-6.0 [facility] Comment on above: Performed By: #### H DEE BMP3 #### [address] Erythrocyte distribution width (RBC) [Ratio] 14.8 % High 11.5-14.5 [facility] Comment on above: Performed By: #### H EMD[place] BMP3 #### [address] Granulocytes/100 WBC (Bld) 67.3 % Normal 40.0-80.0 [facility] Comment on above: Performed By: #### H EMD[place] BMP3 #### [address] Hematocrit (Bld) [Volume fraction] 42.8 % Normal 35.0-47.0 [facility] Comment on above: Performed By: #### H EMDF BMP3 #### [address] Hemoglobin (Bld) [Mass/Vol] 14.4 g/dL Normal 11.7-16.0 [facility] Comment on above: Performed By: #### H EMDF BMP3 #### [address] Lymphocytes (Bld) [#/Vol] 1.4 10*3/uL Normal 1.0-4.3 [facility] Comment on above: Performed By: #### H DEE BMP3 #### [facility] [address] [place], [place] Lymphocytes/100 WBC (Bld) 21.8 % Normal 20.0-40.0 [facility] Comment on above: Performed By: #### H DEE BMP3 #### [address] [address] [address] [place], [place] MCH (RBC) [Entitic mass] 30.4 pg Normal 26.0-34.0 [facility] Comment on above: Performed By: #### H DEE BMP3 #### [address] MCHC (RBC) [Mass/Vol] 33.6 % Normal 32.0-36.0 [facility] Comment on above: Performed By: #### H DEE BMP3 #### [address] [address] [place], [place] MCV (RBC) [Entitic vol] 90.6 fL Normal 79.0-98.0 [facility] Comment on above: Performed By: #### H DEE BMP3 #### [address] [address] [place], [place] Monocytes (Bld) [#/Vol] 0.4 10*3/uL Normal 0.0-0.8 [facility] Comment on above: Performed By: #### H DEE, BMP3 #### [address] [address] [address] [place], [place] Monocytes/100 WBC (Bld) 6.4 % Normal 2.0-10.0 [facility] Comment on above: Performed By: #### H DEE BMP3 #### [address] Platelet mean volume (Bld) [Entitic vol] 9.6 fL Normal 7.4-10.4 [facility] Comment on above: Performed By: #### H DEE BMP3 #### [facility] [address] [place] [address] Platelets (Bld) [#/Vol] 171 10*3/uL Normal 140-440 [facility] Comment on above: Performed By: #### H EMDF, BMP3 #### [facility] [address] [place] [address] RBC (Bld) [#/Vol] 4.72 10*6/uL Normal 3.80-5.20 [facility] Comment on above: Performed By: #### H EMDF, BMP3 #### [facility] [address] [place] [address] WBC (Bld) [#/Vol] 6.3 10*3/uL Normal 3.6-10.7 [facility] Comment on above: Performed By: #### H EMDF, BMP3 #### [facility] [address] [place] [address] Op Noteon 12-14-2018 Op Note PATIENT: SHANTHI SAM ADMISSION DATE: 12/14/2018 SURGERY DATE: 12/14/2018 DATE OF : 1945 AGE: 73 ADMITTING PHYSICIAN: Goran Knight MD ATTENDING PHYSICIAN: Goran Knight MD DICTATING PHYSICIAN: Goran Knight MD OPERATIVE RECORD PRIMARY CARE PHYSICIAN: Dr. Ari Carballo Procedure: MEDIASTINOSCOPY AND LYMPH NODE BIOPSIES OF LEVELS 4R AND 7. Preoperative Diagnosis: PET positive mediastinal lymphadenopathy. Postoperative Diagnosis: PET positive mediastinal lymphadenopathy. Anesthesia: General endotracheal. Complications: None. Indications for Procedure: The patient is a 73-year-old female with a lung mass and PET positive mediastinal lymph nodes, referred for mediastinoscopy and lymph node biopsies for diagnosis. Description of Procedure: The patient was positioned on the operating table in supine position. General endotracheal anesthesia was induced. The anterior neck and upper chest were prepped and draped in usual sterile fashion. A transverse 2-cm incision was made in the sternal notch region at the base of the neck anteriorly. Soft tissues were dissected bluntly using cautery and I was able to place my finger into the soft tissues in the pretracheal plane and developed the space. The mediastinoscope was introduced and adhesions were then taken down from her prior surgery. The levels 4R and 7 lymph nodes were biopsied and submitted for formal pathology. I could not locate a level a left-sided mediastinal lymph node. I suspect they were posteriorly based. No bleeding was noted at the conclusion of the procedure. The soft tissues were closed with Vicryl and the skin with Monocryl in a subcuticular fashion. Dermabond and Steri-Strips applied. The patient was transferred stable to the recovery room with anticipated discharge home. cc: Dr. Ari Deansddeena Job ID: [id number] Goran Knight MD DOD:12/14/2018 03:18 P NOMAN/doug DOT:12/14/2018 03:38 P Job Number: [id number] Document Number: [id number] cc: Goran Knight MD [facility] [address] [place] [address] [facility] Surgical Pathologyon 019 Surgical Pathology [id number] [facility] PATHOLOGY AND LABORATORY MEDICINE [address] [place] [address] FINAL SURGICAL PATHOLOGY REPORT NAME: SHANTHI SAM N [id number] : 1945 73 Y F BILLING NO.: [id number] LOCATION: SDS1O 1SD1 22 PROCEDURE 12/14/2018 DATE: SURGEON: GORAN KNIGHT MD RECEIVED 12/14/2018 DATE: ATTENDING: GORAN KNIGHT MD REPORT DATE: 12/16/2018 COPIES TO: DIAGNOSIS: A. LYMPH NODE, LEVEL 4R, EXCISION - REACTIVE LYMPH NODE WITH SINUS HISTIOCYTOSIS AND ANTHRACOSIS. NEGATIVE FOR MALIGNANCY. B. LYMPH NODE, LEVEL 7, EXCISION - REACTIVE LYMPH NODE WITH SINUS HISTIOCYTOSIS AND ANTHRACOSIS. NEGATIVE FOR MALIGNANCY. COMMENT: Immunostains were performed on Part B of the specimen and confirmed reactive lymphoid tissue, with normal follicles showing EC44-lybhehax follicular B-cells and CD3-positive paracortical T-cells. BCL-6 highlights germinal centers, which are negative for BCL-2. CD68 highlights histiocytes within the sinuses, and CD1a stains rare normal dendritic cells. Plasma cells present are polyclonal, confirmed with kappa and lambda CISH staining. A pankeratin stain is negative, confirming the absence of carcinoma in this sampling. CRH/CRH Signature> LOLITA NIEVES M.D. CLINICAL INFORMATION: Mediastinal mass SPECIMEN: (A) LYMPH NODE(S) SPECIMEN (B) LYMPH NODE(S) SPECIMEN GROSS DESCRIPTION: A. Level 4R lymph node Received in formalin are three, nevarez-black, nodular tissue segments 0.3 to 0.5 cm. Submitted in toto. (3 ns, 1) B. Level 7 lymph node Received in formalin are three segments of diaz tissue 0.4 to 0.5 cm. Submitted in toto. (3 ns, 1) JCK/JAF Disclaimer: The following statement applies to all immunohistochemistry, in situ hybridization, molecular studies, and immunofluorescence testing. The use of one or more reagents in the above tests is regulated as an analyte specific reagent (ASR). These tests were developed and their performance characteristics determined by the clinical laboratories of [facility]. They have not been cleared by the US Food and Drug Administration (FDA). The FDA has determined that such clearance or approval is not necessary. All the above immunostains were performed on paraffin embedded tissue. Appropriate positive and negative controls (where applicable) were run in parallel with the patient's specimen; these controls showed expected staining pattern, with acceptable intensity of staining. Immunohistochemical assays have not been validated on decalcified tissues. Results should be interpreted with caution given the raised possibility of false negativity on decalcified specimens. Professional Performing Location: [address] [address]. DEPARTMENT OF PATHOLOGY AND LABORATORY MEDICINE [place], [place] [address] Normal [facility] Clinical Lists Update: [facility] 05-14-2017 Left ventricular Ejection fraction 65 % Invalid Interpretation Code [employer] Work Phone: [phone] Tobacco use CPHS Former smoker Invalid Interpretation Code [employer] Work Phone: [phone] Clinical Lists Update: [facility] 04-05-2017 Cholesterol 186 mg/dL Invalid Interpretation Code [employer] Work Phone: [phone] HDL Cholesterol 46 mg/dL Invalid Interpretation Code [employer] Phone: [phone] LDL Cholesterol 114 mg/dL Invalid Interpretation Code [employer] Work Phone: [phone] Triglyceride 126 mg/dL Invalid Interpretation Code [employer] Work Phone: [phone] Plan of Treatment Date Care Activity Detail Author Start: 05-18-2017 End: 05-18-2017 Appointment Appointment [employer] Work Phone: Summary Purpose Family History No Family History Records Found Advance Directives No Advanced Directives Records Found Hospital Course Note Discharge Summary Shanthi dave : 1945 ADMIT DATE: 02/08/2019 DISCHARGE DATE: 02/13/2019 ATTENDING PHYSICIAN: Goran Knight MD VISIT STATUS: Admission CODE STATUS: Prior DISCHARGE DIAGNOSES: Active Problems: S/P thoracotomy Resolved Problems: * No resolved hospital problems. * HOSPITAL COURSE: Shanthi Sam is a 74 y.o. female who presented to [facility] on 02/08/2019 for a left thoracotomy with takedown of adhesions and left lower lobe wedge resection. Post-operative course initially was unremarkable with the left chest tube being removed without issue 2 days postoperatively. Patient had a prolonged course of needing supplementary oxygen. On day 3 of her hospital stay she was reported to have a loss of vision in her left visual field. This was also an area of vision loss from a previous stroke. She had a stroke team called, and follow up MRI did show an acute to subacute infarct of the medial posterior right occipital lobe, corresponding with clinical vision changes. Dede (more content not included)... Additional Source Comments INFORMATION SOURCE (unrecogn ized section and content) DATE CREATED AUTHOR 03/07/2019 [facility] FOR RECORDS PERTAINING TO PATIENTS WHO ARE OR HAVE BEEN ENROLLED IN A CHEMICAL DEPENDENCY/SUBSTANCEABUSE PROGRAM, SOME INFORMATION MAY BE OMITTED. This clinical summary was aggregated from multiple sources. Caution should be exercised in using it in the provision of clinical care. This summary normalizes information from multiple sources, and as a consequence, information in this document may materially change the coding, format and clinical context of patient data. In addition, data may be omitted in some cases. CLINICAL DECISIONS SHOULD BE BASED ON THE PRIMARY CLINICAL RECORDS. [employer] provides no warranty or guarantee of the accuracy or completeness of information in this document.
[2024-05-12 15:21] LABS: Vitamin D,25 Hydroxy 74.4 ng/mL
[2024-05-12 15:56] LABS: ALB/GLOB Ratio 1.1 RATIO (0.9-2.4); AST(SGOT) 27 U/L (15-37); Alanine Aminotransfer ALT/SGPT 41 U/L (13-56); Alkaline Phosphatase 51 U/L (45-117); Anion Gap 4 (5-15); BUN 24 mg/dL (7-18); BUN/Creat Ratio 34.3 RATIO (10-20); Calcium,Total 8.9 mg/dL (8.5-10.1); Chloride 102 mmol/L (98-107); Cholesterol 120 mg/dL (200); EST Glomerular Filtration Rate 86 mL/min (>60); Est Glom Filt Rate - Afr Amer 104 mL/min (>60); Globulin 2.8 g/dL (2.2-4.2); Glucose 85 mg/dL (74-106); High Density Lipoprotein 60 mg/dL; Potassium 3.7 mmol/L (3.5-5.1); Protein, Total 5.8 g/dL (6.4-8.2); Sodium Level 138 mmol/L (136-145); Thyroid Stim Hormone (TSH) 0.981 uIU/mL (0.358-3.740); Triglycerides 96 mg/dL; Very Low Density Lipoprotein 19 mg/dL (5-40)
== END | disposition home or self-care (01) ==
LOC: LAB 14:07
PROVIDERS: PCP Family Medicine Geriatric Medicine; Referring Provider Family Medicine Geriatric Medicine; Visit Provider Family Medicine Geriatric Medicine
DX: I10 Essential (primary) hypertension (principal); E55.9 Vitamin D deficiency, unspecified
CPT/HCPCS: 36415; 80053; 80061; 82306; 84443; 85025

== ENCOUNTER → 2024-05-23 | Outpatient (CLI) | payer MEDICARE, SELFPAY ==
--- NOTE | 2024-05-23 13:37 | CDU_ITS ---
Reason For Study: Carotid stenosis Rt. Velocities/BP Lt. Velocities/BP Subclavian artery 196 cm/sec. Subclavian artery 107/13.9 cm/sec. Prox CCA 64.2/6.5 cm/sec. Prox CCA 73.2/10.6 cm/sec. Mid CCA 33.3/7.8 cm/sec. Mid CCA 63.4/10.6 cm/sec. Dist CCA 49.4/12.6 cm/sec. Dist CCA 79.3/13 cm/sec. Prox ICA 90.5/9.1 cm/sec. Prox ICA 121.6/10.2 cm/sec. Mid ICA 82.8/11.3 cm/sec. Mid ICA 57.8/7.3 cm/sec. Dist ICA 44.5/9 cm/sec. Dist ICA 62.2/8.4 cm/sec. Rt. ICA/CCA = 2.72. Lt. ICA/CCA = 1.92. Prox ECA 51.3/5 cm/sec. Prox ECA 374.2/21.4 cm/sec. Rt. Vert. 58.6/11.3 cm/sec. Right Extracranial Right sublcavian artery is triphasic. There is heterogeneous, irregular atherosclerotic plaque noted in the right common carotid artery. There is heterogeneous, irregular atherosclerotic plaque noted in the right internal carotid artery. There is heterogeneous, irregular atherosclerotic plaque noted in the right external carotid artery. Antegrade flow is noted in the right vertebral artery. Left Extracranial Left subclavian artery is biphasic. There is heterogeneous, irregular atherosclerotic plaque noted in the left common carotid artery. There is heterogeneous, irregular atherosclerotic plaque noted in the left internal carotid artery. There is heterogeneous, irregular atherosclerotic plaque noted in the left external carotid artery. Unable to detect flow in the left vertebral artery. Procedure Carotid Duplex 28104. This is a Carotid Duplex examination using B-mode, color flow and specral Doppler. The study was technically difficult. Exam performed in department. VL/Carotid Duplex Ultrasound Interpretation Summary Mild (<50%) stenosis right extracranial internal carotid. Mild (<50%) stenosis left extracranial internal carotid. The Right vertebral is patent and antegrade. Unable to visualize the left vertebral artery. Left subclavian artery patent with monophasic waveforms Ordering Physician: Nuris Saravia Referring Physician: Ari Carballo Chi Performed By: Reena Cleveland RVT
== END | disposition home or self-care (01) ==
LOC: CVS 13:33
PROVIDERS: PCP Family Medicine Geriatric Medicine; Referring Provider Physician Assistant; Visit Provider Physician Assistant
DX: I65.22 Occlusion and stenosis of left carotid artery (principal); I77.1 Stricture of artery
CPT/HCPCS: 93880

== ENCOUNTER → 2024-06-30 | Outpatient (CLI) | payer MEDICARE, SELFPAY | END | disposition home or self-care (01) | PROVIDERS: PCP Family Medicine Geriatric Medicine; Referring Provider Nurse Practitioner Acute Care; Visit Provider Nurse Practitioner Acute Care | DX: J44.9 Chronic obstructive pulmonary disease, unspecified (principal) | CPT/HCPCS: 87070; 87077; 87186; 87205 ==

== ENCOUNTER → 2024-09-15 | Outpatient (CLI) | payer MEDICARE, SELFPAY ==
[2024-09-15 13:26] VITALS: PULSE 100; PULSE 101; PULSE 105; PULSE 91; PULSE 92; PULSE 95; PULSE 99; O2SAT 94; O2SAT 95; O2SAT 96; O2SAT 97
--- NOTE | 2024-09-22 07:49 | PCM.PSN.6M ---
PSN 6 Minute Walk Test 6 Minute Walk Test 6 Minute Walk Test: 6 Minute Walk Test PSN:6-Minute Walk Test Start: 09/15/24 12:53 Freq: Status: Active Protocol: RESP.6MINW Document 09/15/24 13:26 ANIKET (Rec: 09/15/24 13:29 [place] [id number]) 6 Minute Walk Test Date Performed 09/15/24 Time Performed 12:30 Height 5 ft [address]: Cammie Martel [employer] Assistive device Walker used: Pre-test Oxygen Delivery Room Air Method Pulse Ox (%) 96 Pulse Rate (60-100 92 beats/min) Dyspnea Kary Scale ( 0 0-10) Exertion Kary Scale 6 (6-20) 1st minute Oxygen Delivery Room Air Method Pulse Ox (%) 97 Pulse Rate (60-100 95 beats/min) 2nd minute Oxygen Delivery Room Air Method Pulse Ox (%) 94 Pulse Rate (60-100 99 beats/min) 3rd minute Oxygen Delivery Room Air Method Pulse Ox (%) 94 Pulse Rate (60-100 101 H beats/min) 4th minute Oxygen Delivery Room Air Method Pulse Ox (%) 95 Pulse Rate (60-100 100 beats/min) 5th minute Oxygen Delivery Room Air Method Pulse Ox (%) 95 Pulse Rate (60-100 105 H beats/min) 6th minute Oxygen Delivery Room Air Method Pulse Ox (%) 94 Pulse Rate (60-100 105 H beats/min) Dyspnea Kary Scale ( 2 0-10) Exertion Kary Scale 12 (6-20) Post-test Oxygen Delivery Room Air Method Pulse Ox (%) 96 Pulse Rate (60-100 91 beats/min) Full Laps Walked 10 Partial Lap, Number 36 of Tiles Walked Total Distance 626 Walked (ft) Interpretation Interpretation: The patient ambulated 626 feet over the course of 6 minutes beginning on room air with use of a walker. Pretesting oxygen saturation was noted to be 96% on room air. With ambulation, the erika oxygen saturation was 94%. Although there was evidence of impaired walk distance, there was no significant exertional oxygen desaturation. Recommendations Recommendations: There is no indication for the use of supplemental oxygen at this time.
== END | disposition home or self-care (01) ==
LOC: PSN 12:22
PROVIDERS: PCP Family Medicine Geriatric Medicine; Referring Provider Nurse Practitioner Acute Care; Visit Provider Nurse Practitioner Acute Care
DX: J44.9 Chronic obstructive pulmonary disease, unspecified (principal)
CPT/HCPCS: 94618

== ENCOUNTER → 2024-11-14 | Outpatient (CLI) | payer MEDICARE, SELFPAY ==
--- NOTE | 2024-11-14 17:30 | RAD_ITS ---
PROCEDURE: ABD INC DECUB AND/OR ERECT 11/14/2024 REASON FOR EXAM: CONGESTIVE HEART FAILURE AND WHEEZING TECHNIQUE: Single view abdomen. FINDINGS: Bowel gas: Gas in multiple loops of small bowel in a nonspecific bowel gas pattern. Calcifications: No suspicious calcifications. Bones: The bones are unremarkable. Other: RAD/Abd Inc Decub and/or Erect IMPRESSION: Nonspecific bowel gas pattern. Reading Location: [id number]
[2024-11-14 18:15] LABS: Absolute Lymphocyte Count 0.96 X10^3/uL (0.83-4.51); Absolute Neutrophil Count 6.4 X10^3/uL (2.0-7.7); Basophil# 0.05 X10^3/uL; Basophil% 0.6 % (0-1); Eosinophil# 0.13 X10^3/uL; Eosinophils% 1.6 % (0-5); Hematocrit 44.9 % (37-47); Hemoglobin 14.8 g/dL (12.0-15.0); Lymphocyte # 0.96 X10^3/ul (0.83-4.51); Lymphocyte % 11.8 % (19-41); Mean Corpuscular Hgb 30.4 pg (27.0-32.0); Mean Corpuscular Volume 92.2 fL (81-99); Mean Platelet Vol. 10.9 fl (6.2-12.0); Monocyte# 0.61 X10^3/uL; Monocyte% 7.5 % (0-10); NRBC Flagged by Analyzer 0 % (0-5); Neutrophil # 6.35 X10^3/uL (2.7-7.7); Neutrophil % 77.9 % (47-70); Platelet Count 225 K/mm3 (150-450); RBC Distribution Width CV 13.7 % (11.6-14.6); RBC Distribution Width SD 47.2 fl (35.1-43.9); Red Blood Count 4.87 M/mm3 (4.2-5.4); White Blood Count 8.2 K/mm3 (4.4-11.0)
[2024-11-14 20:23] LABS: ALB/GLOB Ratio 1.2 RATIO (0.9-2.4); AST(SGOT) 26 U/L (<=31); Alanine Aminotransfer ALT/SGPT 36 U/L (<=34); Albumin, Serum 3.5 g/dL (3.4-4.8); Alkaline Phosphatase 81 U/L (35-104); Anion Gap 10 (5-15); BUN 13 mg/dL (4-19); BUN/Creat Ratio 14.3 RATIO (10-20); Calcium,Total 9.6 mg/dL (7.6-11.0); Carbon Dioxide 30.2 mmol/L (21.0-32.0); Chloride 98 mmol/L (98-108); Creatinine, Serum 0.91 mg/dL (0.70-1.20); EST Glomerular Filtration Rate 65 (>60); Glucose 97 mg/dL (70-99); Potassium 3.8 mmol/L (3.3-5.1); Pro- Brain NATRIURETIC PEPTIDE 947 pg/mL (<=1800); Protein, Total 6.5 g/dL (5.9-8.4); Sodium Level 138 mmol/L (133-145)
== END | disposition home or self-care (01) ==
LOC: RAD 17:04
PROVIDERS: PCP Family Medicine Geriatric Medicine; Referring Provider Family Medicine Geriatric Medicine; Visit Provider Family Medicine Geriatric Medicine
DX: I11.0 Hypertensive heart disease with heart failure (principal); I50.9 Heart failure, unspecified; R06.2 Wheezing; J98.8 Other specified respiratory disorders; R05.9 Cough, unspecified; R68.83 Chills (without fever)
CPT/HCPCS: 36415; 74019; 80053; 83880; 85025; 87070; 87077; 87205; 87631

== ENCOUNTER → 2024-11-20 | Outpatient (CLI) | payer MEDICARE, SELFPAY ==
[2024-11-20 18:17] LABS: Absolute Lymphocyte Count 1.29 X10^3/uL (0.83-4.51); Absolute Neutrophil Count 6.5 X10^3/uL (2.0-7.7); Basophil# 0.06 X10^3/uL; Basophil% 0.7 % (0-1); Eosinophil# 0.13 X10^3/uL; Eosinophils% 1.5 % (0-5); Hematocrit 47.8 % (37-47); Hemoglobin 15.4 g/dL (12.0-15.0); Lymphocyte # 1.29 X10^3/ul (0.83-4.51); Lymphocyte % 14.9 % (19-41); Mean Corp Hgb Conc 32.2 g/dL (32-36); Mean Corpuscular Hgb 29.2 pg (27.0-32.0); Mean Corpuscular Volume 90.7 fL (81-99); Mean Platelet Vol. 10.4 fl (6.2-12.0); Monocyte# 0.43 X10^3/uL; NRBC Flagged by Analyzer 0 % (0-5); Neutrophil % 74.8 % (47-70); Platelet Count 266 K/mm3 (150-450); RBC Distribution Width CV 13.6 % (11.6-14.6); RBC Distribution Width SD 45.3 fl (35.1-43.9); Red Blood Count 5.27 M/mm3 (4.2-5.4); White Blood Count 8.7 K/mm3 (4.4-11.0)
[2024-11-20 18:59] LABS: ALB/GLOB Ratio 1.4 RATIO (0.9-2.4); AST(SGOT) 18 U/L (<=31); Alanine Aminotransfer ALT/SGPT 19 U/L (<=34); Albumin, Serum 3.7 g/dL (3.4-4.8); Alkaline Phosphatase 76 U/L (35-104); Anion Gap 8 (5-15); BUN 21 mg/dL (4-19); BUN/Creat Ratio 21.6 RATIO (10-20); Calcium,Total 9.7 mg/dL (7.6-11.0); Carbon Dioxide 31.7 mmol/L (21.0-32.0); Chloride 99 mmol/L (98-108); Cholesterol 134 mg/dL (<=200); Creatinine, Serum 0.96 mg/dL (0.70-1.20); EST Glomerular Filtration Rate 61 (>60); Globulin 2.7 g/dL (2.2-4.2); Glucose 90 mg/dL (70-99); High Density Lipoprotein 46 mg/dL; Low Density Lipoprotein Calc. 70 mg/dL; Potassium 4.2 mmol/L (3.3-5.1); Protein, Total 6.4 g/dL (5.9-8.4); Sodium Level 139 mmol/L (133-145); Total Bilirubin 0.51 mg/dL (0.00-1.30); Triglycerides 89 mg/dL; Very Low Density Lipoprotein 18 mg/dL (5-40); Vitamin D,25 Hydroxy 72.5 ng/mL (30-100); cholesterol:hdl ratio screen 2.93
== END | disposition home or self-care (01) ==
LOC: LAB 16:56
PROVIDERS: PCP Family Medicine Geriatric Medicine; Referring Provider Family Medicine Geriatric Medicine; Visit Provider Family Medicine Geriatric Medicine
DX: E78.5 Hyperlipidemia, unspecified (principal); I10 Essential (primary) hypertension; E55.9 Vitamin D deficiency, unspecified
CPT/HCPCS: 36415; 80053; 80061; 82306; 84443; 85025

== ENCOUNTER → 2024-11-24 | Outpatient (CLI) | payer MEDICARE, SELFPAY ==
--- NOTE | 2024-11-24 14:00 | ASPIG_PTH ---
PATIENT: CLEO SAM [facility] U#:[id number] AGE/SX: 79/F ROOM: RE11/24/[address]: Dr. Edu Ruiz MD : 1945 BED: DIS: 11/24/2024 SPEC #: [id number] RECD: 11/24/24 14:45 STATUS: MAXIMUS REQ #: [id number] DAYAMI: 11/24/24 14:[address]: Edu Ruiz DEPT: CYTOLOGY RECD BY: Kamaljit Cleveland ENTERED: 11/24/24 15:22 SP TYPE: ASP OUT OTHR DR: Dr. Ari Carballo MD Tissues: A - Thyroid gland, NOS Procedures: FNA Specimen Adequacy Special Stain Group II Surgery Specimen Level V Cytology Other HEADER OPERATION: Fine needle aspiration of right thyroid nodule PRE-OP DIAGNOSIS: Right thyroid nodule TISSUE SUBMITTED: A- Right thyroid nodule fluid for cytology DIAGNOSIS CYTOLOGY * Thyroid, fna - right: * No malignant cells are identified * Benign follicular nodular disease COMMENT The specimen is evaluated at the time of biopsy by Dr. Spring. Immediate Evaluation = 1. Acellular. 2. Blood. 3. Blood. 4. Blood. 5. Adequate. CYTOLOGY STUDY Slides are reviewed. CYTOLOGY GROSS A. Received is 30 ml of pink-cloudy fluid cytolyt with particles, 5 PAP, 5DQ labeled with the patient's name and and designated per the requisition as Right thyroid nodule. Submitted for cytology and cell block preparation. Mr 11/24/2024 CPT: 51430
== END | disposition home or self-care (01) ==
PROVIDERS: PCP Family Medicine Geriatric Medicine; Referring Provider Surgery; Visit Provider Surgery
DX: E04.1 Nontoxic single thyroid nodule (principal)
CPT/HCPCS: 88161; 88172; 88307; 88313

== ENCOUNTER → 2025-05-25 | Outpatient (CLI) | payer MEDICARE, SELFPAY ==
--- NOTE | 2025-05-25 13:44 | CT_ITS ---
PROCEDURE: CHEST WITHOUT CONTRAST 05/25/2025 REASON FOR EXAM: HX OF LUNG CA Cough and shortness of breath. TECHNIQUE: Chest CT without contrast. Coronal and Sagittal reconstruction series were provided. One or more dose reduction techniques were used (e.g., Automated exposure control, adjustment of the mA and/or kV according to patient size, use of iterative reconstruction technique RADIATION DOSE SUMMARY: CTDlvol: 16.18 mGy DLP: 662.91 mGycm COMPARISON: April 10, 2024. FINDINGS: Hardware: Prior CABG. Lymph nodes: Small benign-appearing mediastinal and axillary lymph nodes. Heart and Vasculature: Prior CABG. Atherosclerotic calcifications of the thoracic aorta. Thoracic aorta and pulmonary arteries have normal contours; noncontrast technique limits evaluation. Coronary Artery Calcifications: Present. Calcification of the mitral valve annulus. Lungs and Airways: Persistent focal scarring at the operative site in the apical segment of the left lower lobe. This is pleural-based. This has improved as compared to prior study. Stable thickening of the right major fissure as well as increased markings in the anterior aspect of the right upper lobe. Pleura: No pleural effusion. Upper Abdomen: Stable aneurysmal dilatation of the proximal abdominal aorta. Gallstones. Stable bilateral renal cysts and nonobstructive intrarenal calculi. Bones: Degenerative changes of the thoracic spine. CT/Chest without Contrast IMPRESSION: Coronary artery calcification (CAC) is is present Essentially stable examination except for improved aeration in the apical aspec t of the left lower lobe. Reading Location: [place] [address]
== END | disposition home or self-care (01) ==
PROVIDERS: PCP Family Medicine Geriatric Medicine; Referring Provider Internal Medicine Medical Oncology; Visit Provider Internal Medicine Medical Oncology
DX: Z85.118 Personal history of other malignant neoplasm of bronchus and lung (principal)
CPT/HCPCS: 71250

== ENCOUNTER → 2025-06-01 | Outpatient (CLI) | payer MEDICARE, SELFPAY ==
[2025-06-01 12:04] LABS: Hematocrit 49.3 % (37-47); Hemoglobin 16.4 g/dL (12.0-15.0); Immature Granulocytes Count 0.020 X10^3/uL (0.0-0.0); Mean Corp Hgb Conc 33.3 g/dL (32-36); Mean Corpuscular Volume 91.5 fL (81-99); Mean Platelet Vol. 11.8 fl (6.2-12.0); NRBC Flagged by Analyzer 0 % (0-5); Platelet Count 158 K/mm3 (150-450); RBC Distribution Width CV 13.7 % (11.6-14.6); RBC Distribution Width SD 46.5 fl (35.1-43.9); Red Blood Count 5.39 M/mm3 (4.2-5.4); White Blood Count 6.3 K/mm3 (4.4-11.0)
[2025-06-01 12:21] LABS: BUN 16 mg/dL (4-19); Glucose 80 mg/dL (70-99)
[2025-06-01 12:22] LABS: Anion Gap 9 (5-15); BUN/Creat Ratio 16.7 RATIO (10-20); Calcium,Total 9.7 mg/dL (7.6-11.0); Carbon Dioxide 30.3 mmol/L (21.0-32.0); Chloride 101 mmol/L (98-108); Potassium 4.1 mmol/L (3.3-5.1)
[2025-06-06 04:07] LABS: Aspirgillus flavus Negative (Neg:<1:1); Aspirgillus fumigatus Negative (Neg:<1:1); Aspirgillus niger Negative (Neg:<1:1)
[2025-06-06 06:07] LABS: Bluegrass, Kentucky <0.10 kU/L (Class 0); Cat Hair/Dander, Standard <0.10 kU/L (Class 0); Dog Epithelia <0.10 kU/L (Class 0); Elm, American White <0.10 kU/L (Class 0); Oak, White <0.10 kU/L (Class 0); Plantain, English <0.10 kU/L (Class 0); Ragweed, Short/Common <0.10 kU/L (Class 0)
== END | disposition home or self-care (01) ==
LOC: LAB 10:59
PROVIDERS: PCP Family Medicine Geriatric Medicine; Referring Provider Nurse Practitioner Acute Care; Visit Provider Nurse Practitioner Acute Care
DX: J30.9 Allergic rhinitis, unspecified (principal)
CPT/HCPCS: 36415; 80048; 82785; 85025; 86003; 86606

== ENCOUNTER → 2025-06-08 | Outpatient (CLI) | payer MEDICARE, SELFPAY ==
[2025-06-08 11:09] LABS: Hematocrit 52.6 % (37-47); Hemoglobin 16.6 g/dL (12.0-15.0); Immature Granulocytes Count 0.020 X10^3/uL (0.0-0.0); Mean Corp Hgb Conc 31.6 g/dL (32-36); Mean Corpuscular Volume 95.8 fL (81-99); Mean Platelet Vol. 12.1 fl (6.2-12.0); NRBC Flagged by Analyzer 0 % (0-5); Platelet Count 140 K/mm3 (150-450); RBC Distribution Width CV 13.8 % (11.6-14.6); RBC Distribution Width SD 48.9 fl (35.1-43.9); Red Blood Count 5.49 M/mm3 (4.2-5.4); White Blood Count 6.8 K/mm3 (4.4-11.0)
[2025-06-08 11:53] LABS: AST(SGOT) 19 U/L (<=31); Alanine Aminotransfer ALT/SGPT 12 U/L (<=34); Albumin, Serum 4.0 g/dL (3.4-4.8); Alkaline Phosphatase 72 U/L (35-104); Anion Gap 12 (5-15); BUN 12 mg/dL (4-19); BUN/Creat Ratio 12.8 RATIO (10-20); Calcium,Total 9.7 mg/dL (7.6-11.0); Carbon Dioxide 26.3 mmol/L (21.0-32.0); Chloride 101 mmol/L (98-108); Cholesterol 162 mg/dL (<=200); Globulin 2.7 g/dL (2.2-4.2); Glucose 86 mg/dL (70-99); Low Density Lipoprotein Calc. 91 mg/dL; Potassium 4.0 mmol/L (3.3-5.1); Triglycerides 105 mg/dL; Very Low Density Lipoprotein 21 mg/dL (5-40); cholesterol:hdl ratio screen 3.13
== END | disposition home or self-care (01) ==
LOC: POLAB3 10:46
PROVIDERS: PCP Family Medicine Geriatric Medicine; Visit Provider Family Medicine Geriatric Medicine
DX: E78.5 Hyperlipidemia, unspecified (principal); I25.10 Atherosclerotic heart disease of native coronary artery without angina pectoris; I10 Essential (primary) hypertension; E04.1 Nontoxic single thyroid nodule
CPT/HCPCS: 36415; 80053; 80061; 84443; 85025

== ENCOUNTER → 2025-07-04 | Outpatient (CLI) | payer MEDICARE, SELFPAY ==
--- NOTE | 2025-07-04 14:49 | CDU_ITS ---
Reason For Study Reason For Study: Caritud stenosis Rt. Velocities/BP Lt. Velocities/BP Subclavian artery 176.3 cm/sec. Subclavian artery 65.4/10.2 cm/sec. Prox CCA 54.2/11.3 cm/sec. Prox CCA 67.9/15.1 cm/sec. Mid CCA 33.4/9 cm/sec. Mid CCA 51.9/13.9 cm/sec. Dist CCA 43/14.2 cm/sec. Dist CCA 96.1/20 cm/sec. Prox ICA 137.5/26.1 cm/sec. Prox ICA 101/20.6 cm/sec. Mid ICA 112/18.8 cm/sec. Mid ICA 46.6/10.7 cm/sec. Dist ICA 38.9/10.6 cm/sec. Dist ICA 40.9/11.6 cm/sec. Rt. ICA/CCA = 4.12. Lt. ICA/CCA = 1.95. Prox ECA 69.6/10.2 cm/sec. Prox ECA 319/32.6 cm/sec. Rt. Vert. 63/17.6 cm/sec. Right Extracranial There is heterogeneous, irregular atherosclerotic plaque noted in the right common carotid artery. There is heterogeneous, irregular atherosclerotic plaque noted in the right internal carotid artery. There is heterogeneous, irregular atherosclerotic plaque noted in the right external carotid artery. Antegrade flow is noted in the right vertebral artery. Left Extracranial There is heterogeneous, irregular atherosclerotic plaque noted in the left common carotid artery. There is heterogeneous, irregular atherosclerotic plaque noted in the left internal carotid artery. There is heterogeneous, irregular atherosclerotic plaque noted in the left external carotid artery. Flow could not be demonstrated in the left vertebral artery. Procedure Carotid Duplex [id number]. This is a Carotid Duplex examination using B-mode, color flow and specral Doppler. Exam performed in department. VL/Carotid Duplex Ultrasound Interpretation Summary Moderate (50-69%) stenosis right extracranial internal carotid. Mild (<50%) stenosis left extracranial internal carotid. The right vertebral is patent and antegrade. Flow could not be demonstrated in the left vertebral artery. Ordering Physician: Nuris Saravia Referring Physician: Ari Carballo Chi Performed By: Reena Cleveland RVT
== END | disposition home or self-care (01) ==
LOC: CVS 14:45
PROVIDERS: PCP Family Medicine Geriatric Medicine; Referring Provider Physician Assistant; Visit Provider Physician Assistant
DX: I65.22 Occlusion and stenosis of left carotid artery (principal)
CPT/HCPCS: 93880

== ENCOUNTER → 2025-07-18 | Outpatient (CLI) | payer MEDICARE, SELFPAY ==
--- NOTE | 2025-07-18 10:54 | CT_ITS ---
PROCEDURE: CT CHEST AND ABD W/O CONTRAST REASON FOR EXAM: THORACOABDOMINAL ANEURYSM, WO CONTRAST D/T ALLERGY TECHNIQUE: Chest and abdomen CT without intravenous contrast. Coronal and Sagittal reconstruction series were provided. One or more dose reduction techniques were used (e.g., Automated exposure control, adjustment of the mA and/or kV according to patient size, use of iterative reconstruction technique PATIENT PREPARATION: Per protocol ORAL CONTRAST TYPE: None. COMPARISON: CT scan on 05/25/2025. RADIATION DOSE SUMMARY: CTDlvol: 16.5 mGy DLP: 840 mGycm FINDINGS: CT CHEST: Hardware: Prior CABG. Lymph nodes: Small benign-appearing mediastinal and axillary lymph nodes. Heart and Vasculature: Prior CABG. Atherosclerotic calcifications of the thoracic aorta. Thoracic aorta and pulmonary arteries have normal contours; noncontrast technique limits evaluation. Coronary Artery Calcifications: Present. Calcification of the mitral valve annulus. Lungs and Airways: Persistent focal scarring at the operative site in the apical segment of the left lower lobe. This is pleural-based. This is unchanged. Stable thickening of the right major fissure as well as increased markings in the anterior aspect of the right upper lobe. Increased bilateral basilar atelectatic pulmonary changes. Pleura: No pleural effusion. Upper Abdomen: Stable aneurysmal dilatation of the proximal abdominal aorta. The mid and distal abdominal aorta were not included on the prior exam. The largest dimensions of the aortoiliac abdominal aneurysm are unchanged measuring 4.1 x 3.7 cm. Gallstones. Stable bilateral renal cysts and nonobstructive intrarenal calculi. Bones: Degenerative changes of the thoracic spine. Liver: Unremarkable. Spleen: Unremarkable. Pancreas: Unremarkable. Adrenals: Unremarkable. Bowel: Unremarkable small bowels. Uncommon uncomplicated colonic diverticulosis. Lymph nodes: No lymphadenopathy is seen. Peritoneum / Retroperitoneum: Unremarkable. CT/CT Chest AND Abd W/O Contrast IMPRESSION: Mild increase in bilateral basilar atelectatic pulmonary changes. Unchanged aortic aneurysm. Reading Location: [place] [id number]
--- OUTSIDE RECORDS SUMMARY | 2025-07-18 11:14 | XMS RPT_ITS | CCD ---
Author Organization [facility] Care Team Providers Care Tobacco Hanger Name Role Phone Arcelia PRAJAPATI, Toshia Jaimes Unavailable Unavailable Haris, Dr. Ari Lara Primary Care Provider Haris, Dr. Ari Lara Referring Provider Drew, Dr. Hedrick Attending Provider Roof URBAN FORESTER, URBAN FORESTER-Caterina Villa Attending Provider Haris, Dr. Ari Lara Primary Care Provider Haris, Dr. Ari Lara Referring Provider 1([facility])[phone] [facility], Dr. Hedrick Attending Provider Haris, Dr. Ari Lara Primary Care Provider Haris, Dr. Ari Lara Referring Provider Pra, Dr. Hedrick Attending Provider Haris, Dr. Ari Lara Primary Care Provider Haris, Dr. Ari Lara Referring Provider [facility], Dr. Hedrick Attending Provider 1([facility])[phone] Haris, Dr. Ari Lara Primary Care Provider Haris, Dr. Ari Lara Referring Provider Roof URBAN FORESTER, JESUS-Caterina Villa Attending Provider Dr. Ryley Parada Attending Provider [phone] Dr. Walter Yeung Attending Provider Haris, Dr. Ari Lara Primary Care Provider Haris, Dr. Ari Lara Referring Provider Dr. Sue Gaming Attending Provider Dr. Naga Browne Attending Provider 1([facility])[phone] Sue Gaming Referring Provider 1([facility])[phone] Ryley Parada Attending Provider 1([facility])[phone] Haris HOGUE, Dr. Ari Lara Primary Care Provider 1([facility] )[phone] Haris HOGUE, Dr. Ari Lara Referring Provider 1([facility])[phone] Dr. Ryley Parada DO Attending Provider Hollie HOGUE, Dr. Nielson Attending Provider 1([facility])[phone] Delonte URBAN FORESTER-C, Cammie Attending Provider Delonte URBAN FORESTER-C, Cammie Referring Provider Delonte URBAN FORESTER-C, Cammie Other Provider 1([facility])[phone] Dr. Marko Deshpande DO Attending Provider 1([facility])[phone] Haris HOGUE, Dr. Ari Lara Primary Care Provider 1([facility] )[phone] Haris HOGEU, Dr. Ari Lara Referring Provider 1([facility])[phone] Delonte URBAN FORESTER-C, Cammie Attending Provider Dr. Ryley Parada DO Attending Provider Delonte URBAN FORESTER-C, Cammie Referring Provider Haris HOGUE, Dr. Ari Lara Attending Provider 1([facility])[phone] Valeriano URBAN FORESTER-C, Becky Attending Provider 1([facility])[phone] Sara HOGUE, Dr. Sorensen Attending Provider 1([facility])[phone] Sara HOGUE, Dr. Sorensen Referring Provider 1([facility])[phone] Haris HOGUE, Dr. Ari Lara Primary Care Provider 1([facility] )[phone] Haris HOGUE, Dr. Ari Lara Referring Provider 1([facility])[phone] Mekhi HOGUE, Dr. Sorensen Attending Provider Delonte URBAN FORESTER-C, Cammie Attending Provider Haris, Ari Chi Primary Care Unavailable Haris, Ari Chi Referring Unavailable Naga Browne Attending Unavailable Haris, Ari Chi Primary Care Unavailable Haris, Ari Chi Referring Unavailable Martel URBAN FORESTER, Cammie Attending Unavailable Haris, Ari Chi Primary Care Unavailable Ryley Parada Attending Unavailable Haris, Ari Chi Referring Unavailable Haris, Ari Chi Primary Care Unavailable Haris, Ari Chi Referring Unavailable Delonte URBAN FORESTER, Cammie Attending Unavailable Haris, Ari Chi Referring Unavailable Haris, Ari Chi Primary Care Unavailable Delonte URBAN FORESTER, Cammie Attending Unavailable Sue Ruiz Attending Unavailable Haris, Ari Chi Primary Care Unavailable Haris, Ari Chi Referring Unavailable Haris, Rai Chi Primary Care Unavailable Haris, Ari Chi Referring Unavailable Becky Bal Attending Unavailable Haris, Ari Chi Primary Care Unavailable Haris, Ari Chi Referring Unavailable Sue Gaming Attending Unavailable Haris, Ari Chi Primary Care Unavailable Haris, Ari Chi Referring Unavailable Delonte URBAN FORESTER, Cammie Attending Unavailable Haris, Ari Chi Primary Care Unavailable Haris, Ari Chi Referring Unavailable Ryley Parada Attending Unavailable Sue Ruiz Attending Unavailable Haris, Ari Chi Primary Care Unavailable Haris, Ari Chi Referring Unavailable Haris, Ari Chi Primary Care Unavailable Delonte URBAN FORESTER, Cammie Consulting Unavailable Delonte URBAN FORESTER, Cammie Referring Unavailable Marko Deshpande Attending Unavailable Haris, Ari Chi Primary Care Unavailable Haris, Ari Chi Referring Unavailable Ryley Parada Attending Unavailable Haris, Ari Chi Primary Care Unavailable Haris, Ari Chi Referring Unavailable Haris, Ari Chi Attending Unavailable Haris, Ari Chi Primary Care Unavailable Harsi, Ari Chi Referring Unavailable Haris, Ari Chi Attending Unavailable Sue Ruiz Referring Unavailable Sue Ruiz Attending Unavailable Haris, Ari Chi Primary Care Unavailable Haris, Ari Chi Primary Care Unavailable Delonte URBAN FORESTER, Cammie Referring Unavailable Delonte URBAN FORESTER, Cammie Attending Unavailable Haris, Ari Chi Primary Care Unavailable Delonte URBAN FORESTER, Cammie Attending Unavailable Delonte URBAN FORESTER, Cammie Referring Unavailable Haris, Ari Chi Primary Care Unavailable Delonte URBAN FORESTER, Cammie Consulting Unavailable Ryley Russell Referring Unavailable Ryley Russell Attending Unavailable Allergies Allergy Classification Reported Allergen(s) Allergy Type Date of Onset Reaction(s) Facility (1 source) atorvastatin Drug Allergy 05-14-20 17 myalgias [facility] Work Phone: (1 source) codeine Drug Allergy 05-14-20 17 unknown [facility] Work Phone: (1 source) Contrast media drug allergy 05-14-20 17 vomiting [facility] Work Phone: [phone] (1 source) fluvastatin Drug Allergy 05-14-20 17 Myalgias [facility] Work Phone: (18 sources) niacin; Translations: [niacin] Drug Allergy 05-14-20 17 rash [facility] Work Phone: [phone] (1 source) penicillin Drug Allergy 05-14-20 17 rash [facility] Work Phone: [phone] (1 source) rosuvastatin Drug Allergy 05-14-20 17 myalgias [facility] Work Phone: [phone] (1 source) simvastatin Drug Allergy 05-14-20 17 myalgias [facility] Work Phone: [phone] (1 source) Sulfonamides (Antibiotic) drug allergy 05-14-20 17 unknown [facility] Work Phone: [phone] (16 sources) atorvastatin Drug Allergy 09-15-19 22 Myalgia [facility] (16 sources) fluvastatin Drug Allergy 09-15-19 22 Myalgia [facility] (16 sources) Gemfibrozil Drug Allergy 09-15-19 22 Pain in joints [facility] (16 sources) Lisinopril Drug Allergy 09-15-19 22 Cough [facility] (16 sources) Losartan Drug Allergy 09-15-19 22 Cough [facility] (17 sources) Penicillins; Translations: [Penicillins] Allergy to substance 09-15-19 22 Rash [facility] (16 sources) rosuvastatin Drug Allergy 09-15-19 22 Myalgia [facility] (16 sources) Simvastatin Drug Allergy 09-15-19 22 Myalgia [facility] (16 sources) Sulfonamides (Antibiotic); Translations: [Sulfa (Sulfonamide Antibiotics)] Allergy to substance 09-15-19 22 Unknown [facility] (17 sources) Iodinated Contrast Media; Translations: [Iodinated Contrast Media] Propensity to adverse reactions 09-15-19 22 Vomiting [facility] Comment on above: I throw up violentl y (6 sources) Spironolactone Drug Allergy 10-08-19 24 Nausea and higher BP [facility] (1 source) atorvastatin Drug Allergy 03-30-20 25 [facility] Repository (1 source) fluvastatin Drug Allergy 03-30-20 25 [facility] (1 source) Gemfibrozil Drug Allergy 03-30-20 25 [facility] (1 source) Lisinopril Drug Allergy 03-30-20 [facility] (1 source) Losartan Drug Allergy 03-30-20 [facility] (1 source) rosuvastatin Drug Allergy 03-30-20 [facility] (1 source) Simvastatin Drug Allergy 03-30-20 [facility] (1 source) Spironolactone Drug Allergy 03-30-20 [facility] Medications Current Medications Medication Drug Class(es) Dates Sig (Normalized) Sig (Original) albuterol 0.833 mg/ml / ipratropium bromide 0.167 mg/ml inhalation solution (5 sources) Anticholinergic, beta2-Adrenergic Agonist Start: 07-04-2024 End: 03-30-2025 take 1 mL by inhalation every four hours as needed for wheezing Ipratropium-Albuter ol 0.5 mg-3 mg(2.5 mg base)/3 mL solution for nebulization Active 3 mL INHALATION EVERY 4 HOURS NEEDED as needed for SOB &/OR WHEEZING 180 March 30, 2025 1:40pm Stage 2 moderate COPD by GOLD classification Chronic obstructive pulmonary disease, unspecified budesonide 0.25 mg/ml inhalation suspension (9 sources) Corticosteroid Start: 03-30-2025 take 0.5 mg by inhalation twice daily Budesonide 0.5 mg/2 mL suspension for nebulization Active 0.5 mg INHALATION TWICE A DAY 120 March 30, 2025 12:00am Asthma-chronic obstructive pulmonary disease overlap syndrome Other specified chronic obstructive pulmonary disease Start: 09-08-2024 End: 03-30-2025 take 1 mg by inhalation once daily Budesonide 1 mg/2 mL suspension for nebulization Discontinued 1 mg INHALATION daily September 08, 2024 10:52am March 30, 2025 1:39pm Chronic obstructive pulmonary disease, unspecified Start: 07-04-2024 End: 09-08-2024 take 1 mg by inhalation twice daily Budesonide 1 mg/2 mL suspension for nebulization Discontinued 1 mg INHALATION TWICE A DAY 120 July 04, 2024 1:00am September 08, 2024 10:52am Chronic obstructive pulmonary disease, unspecified cholecalciferol 0.025 mg oral capsule (16 sources) Vitamin D Start: 01-17-2018 take 1 capsule by mouth once daily Cholecalciferol (Vitamin D3) 1,000 unit capsule Active 1000 U PO daily January 17, 2018 12:00am supplement magnesium oxide 400 mg oral tablet (20 sources) Start: 09-15-2021 take 1 tablet by mouth once daily Magnesium Oxide 400 mg magnesium tablet Active 400 mg PO DAILY September 15, 2021 1:00am Start: 08-15-2018 End: 02-24-2021 take 1 capsule by mouth once daily Magnesium Oxide 400 mg capsule Discontinued 400 mg PO DAILY August 15, 2018 1:00am February 24, 2021 3:07pm supplement Tirzepatide (Mounjaro) 2.5 mg/0.5 mL pen injector (1 source) Start: 03-30-2025 Tirzepatide (M ounjaro) 2.5 mg/0.5 mL pen injector Active 2.5 mg SC EVERY WEEK March 30, 2025 12:00am for 4 weeks Completed/Discontinued Medications Medication Drug Class(es) Dates Sig (Normalized) Sig (Original) acetaminophen 325 mg oral tablet (16 sources) Start: 01-16-2016 End: 08-15-2018 take 2 tablets by mouth every six hours as needed for pain Acetaminophen 325 MG tablet Discontinued 650 mg PO EVERY 6 HOURS NEEDED as needed for Mild Pain (0-3/10)/Headache 0 0 January 16, 2016 12:00am August 15, 2018 4:40pm Start: 01-16-2016 End: 08-15-2018 take 650 mg by mouth every six hours as needed Acetaminophen Discontinued 650 MG PO EVERY 6 HOURS NEEDED 0 January 16, 2016 12:00am August 15, 2018 4:40pm [id number] actuat albuterol 0.09 mg/actuat metered dose inhaler (20 sources) beta2-Adrenergic Agonist Start: 04-09-2024 End: 04-27-2024 Albuterol Sulfate 90 mcg/actuation HFA aerosol inhaler Discontinued 2 NMA INHALATION EVERY 4 HOURS NEEDED as needed for shortness of breath or wheezing April 09, 2024 12:00am April 27, 2024 10:22am Start: 10-17-2018 End: 10-25-2018 Albuterol Sulfate 1 PUFF inh aler Discontinued 1 - 2 NMA INHALATION EVERY 4 HOURS NEEDED as needed for Sob &/Or Wheezing 1 0 October 17, 2018 12:00am October 25, 2018 3:42pm Start: 10-17-2018 End: 10-25-2018 take 1 puff(s) by inhalation every four hours as needed Albuterol Sulfate Discontinued 1 - 2 PUFF INHALATION EVERY 4 HOURS NEEDED October 17, 2018 12:00am October 25, 2018 3:42pm Start: 01-16-2016 End: 07-08-2017 Albuterol Sulfate 1 INHALER inhaler Discontinued 1 - 2 NMA INHALATION EVERY 4 HOURS NEEDED as needed for Sob &/Or Wheezing 1 January 16, 2016 12:00am July 08, 2017 11:21am Start: 01-16-2016 End: 07-08-2017 take 1 puff(s) by inhalation every four hours as needed Albuterol Sulfate Discontinued 1 - 2 PUFF INHALATION EVERY 4 HOURS NEEDED January 16, 2016 12:00am July 08, 2017 11:21am 1 ml alirocumab 75 mg/ml auto-injector (1 source) PCSK9 Inhibitor Start: 05-14-2017 PRALUENT 75 MG/ML SOPN twice per month, ordered by Dr. Carballo (pt intolerant of statins) ALIROCUMAB [id number] Toshia Paniagua RN amLODIPine 5 mg oral tablet (14 sources) Dihydropyridine Calcium Channel Jas Start: 02-28-2024 End: 11-14-2024 take 1 tablet by mouth once daily Amlodipine 5 mg tablet Discontinued 5 mg PO DAILY 90 3 November 03, 2024 5:12pm November 14, 2024 11:02am Antiarthritic Combination No.2 (Glucosamine-Chondr oitin) 900 mg tablet (6 sources) Start: 04-19-2023 End: 04-09-2024 Antiarthritic Combination No.2 (Glucosamine-Chond roitin) 900 mg tablet Discontinued mg PO April 19, 2023 12:00am April 09, 2024 4:02am Start: 04-19-2023 Antiarthritic Combination No.2 (Glucosamine-Chondroitin) 900 mg tablet Active MG PO April 19, 2023 12:00am aspirin 81 mg delayed release oral tablet (20 sources) Platelet Aggregation Inhibitor, Nonsteroidal Anti-inflammatory Drug Start: 06-24-2017 End: 08-15-2018 Aspirin (Adult Low Dose Aspirin) 81 mg tablet,delayed release (DR/EC) Discontinued 81 mg PO daily as needed June 24, 2017 1:00am August 15, 2018 4:40pm Start: 01-10-2016 End: 01-10-2016 take 1 tablet by mouth once daily Aspirin 81 MG Tab.Chew Discontinued 81 mg PO DAILY@0800 30 0 January 10, 2016 12:00am January 10, 2016 9:20am azithromycin 250 mg oral tablet (20 sources) Macrolide Antimicrobial Start: 02-16-2019 End: 02-16-2019 take 2 tablets by mouth once daily, then take 1 tablet by mouth once daily Azithromycin 250 MG tablet Discontinued 250 mg PO DIRECTED February 16, 2019 12:00am February 16, 2019 2:54pm TAKE 2 TABLETS 1ST DAY THEN 1 TABLET DAILY FOR NEXT 4 DAYS. Start: 10-25-2018 End: 11-08-2018 take 1 tablet by mouth once daily Azithromycin 250 mg tablet Discontinued 250 mg PO daily 6 0 October 25, 2018 12:00am November 08, 2018 2:27pm bacitracin zinc 0.5 unt/mg topical ointment (16 sources) Start: 01-16-2016 End: 07-08-2017 Bacitracin Zinc 1 APPLIC ointment Discontinued 1 NMA TOPICAL TWICE A DAY 0 January 16, 2016 12:00am July 08, 2017 11:22am Start: 01-16-2016 End: 07-08-2017 Bacitracin Zinc Discontinued 1 APPLIC TOPICAL TWICE A DAY January 16, 2016 12:00am July 08, 2017 11:22am choline bitartrate 250 mg oral tablet (16 sources) Start: 09-15-2021 End: 12-25-2022 take 1 tablet by mouth once daily Choline 250 mg tablet Discontinued 250 mg PO DAILY September 15, 2021 1:00am December 25, 2022 3:33pm chromium picolinate 0.2 mg / gamboge 500 mg oral tablet (16 sources) Start: 01-17-2018 End: 08-15-2018 take 200-500 tablets by mouth once Chromium-Brindal Cabrera (Garcinia Cambogia) 200-500 mcg-mg tablet Discontinued 1 {tbl} PO ONCE January 17, 2018 12:00am August 15, 2018 4:39pm clopidogrel 75 mg oral tablet (20 sources) [id number] Platelet Inhibitor Start: 01-10-2016 End: 11-14-2024 take 1 tablet by mouth once daily Clopidogrel 75 mg tablet Discontinued 75 mg PO daily 90 3 November 03, 2024 5:12pm November 14, 2024 11:02am dexamethasone 6 mg oral tablet (20 sources) Corticosteroid Start: 04-11-2024 End: 04-27-2024 take 1 tablet by mouth once daily Dexamethasone 6 mg tablet Discontinued 6 mg PO DAILY 8 April 11, 2024 12:00am April 27, 2024 10:23am Start: 03-27-2019 End: 04-26-2019 Dexamethasone 4 MG tablet Di scontinued 8 mg PO DAILY 16 March 27, 2019 4:15pm April 23, 2019 12:00am April 26, 2019 12:09am Non-small cell cancer of left lung Malignant neoplasm of unspecified part of left bronchus or lung Take 8 mg ONLY on days 1-4 and 8-11 of chemotherapy cycle Start: 03-27-2019 End: 04-26-2019 Dexamethasone Discontinued 8 MG PO DAILY March 27, 2019 4:15pm April 26, 2019 12:09am Take 8 mg ONLY on days 1-4 and 8-11 of chemotherapy cycle docusate sodium 50 mg / sennosides, shelter 8.6 mg oral tablet (16 sources) Start: 01-16-2016 End: 07-08-2017 Sennosides-Docusate Sodium 1 TABLET tablet Discontinued 2 {tbl} PO DAILY 0 January 16, 2016 12:00am July 08, 2017 11:22am Start: 01-16-2016 End: 07-08-2017 take 2 tablets by mouth once daily Sennosides-Docusate Sodium Discontinued 2 TABLET PO DAILY January 16, 2016 12:00am July 08, 2017 11:22am 1 ml evolocumab 140 mg/ml prefilled syringe (20 sources) PCSK9 Inhibitor Start: 02-24-2021 End: 06-30-2024 Evolocumab (Repatha Syringe) 140 mg/mL syringe Discontinued 140 mg SC every 2 weeks 6 June 27, 2024 2:46pm June 30, 2024 4:57pm ezetimibe 10 mg oral tablet (20 sources) Dietary Cholesterol Absorption Inhibitor Start: 12-29-2017 End: 08-15-2018 take 1 tablet by mouth once daily Ezetimibe (Zetia) 10 mg tablet Discontinued 10 mg PO daily 90 3 January 17, 2018 1:56pm August 15, 2018 4:39pm Start: 06-24-2017 End: 07-26-2017 take 1 tablet by mouth once daily Ezetimibe (Zetia) 10 mg tablet Discontinued 10 mg PO daily 90 3 July 08, 2017 11:29am July 26, 2017 5:01pm fluvastatin 40 mg oral capsule (16 sources) HMG-CoA Reductase Inhibitor Start: 01-08-2016 End: 07-08-2017 take 1 capsule by mouth every other day Fluvastatin 40 MG capsule Discontinued 40 mg PO EVERY OTHER DAY January 08, 2016 12:00am July 08, 2017 11:23am gabapentin 300 mg oral capsule (16 sources) Anti-epileptic Agent Start: 01-16-2016 End: 07-08-2017 take 1 capsule by mouth three times daily at mealtime Gabapentin 300 MG capsule Discontinued 300 mg PO 3 TIMES DAILY WITH MEALS 90 0 January 16, 2016 12:00am July 08, 2017 11:23am gemfibrozil 600 mg oral tablet (16 sources) Peroxisome Proliferator Receptor alpha Agonist Start: 09-04-2019 End: 02-28-2020 take 1 tablet by mouth twice daily Gemfibrozil 600 mg tablet Discontinued 600 mg PO TWICE A DAY 60 September 04, 2019 1:00am February 28, 2020 12:48pm 12 hr guaiFENesin 1200 mg extended release oral tablet (20 sources) Start: 06-30-2024 End: 11-24-2024 take 1 tablet by mouth every twelve hours Guaifenesin 1,200 mg tablet extended release 12hr Discontinued 1200 mg PO Q12H 60 June 30, 2024 1:00am November 24, 2024 1:05pm Start: 01-16-2016 End: 07-08-2017 take 1 mL by mouth every six hours as needed for cough Guaifenesin 10 ML liquid Discontinued 10 mL PO EVERY 6 HOURS NEEDED as needed for COUGH 0 January 16, 2016 12:00am July 08, 2017 11:22am Start: 01-16-2016 End: 07-08-2017 take 1 mL by mouth every six hours as needed Guaifenesin Discontinued 10 ML PO EVERY 6 HOURS NEEDED 0 January 16, 2016 12:00am July 08, 2017 11:22am hydroCHLOROthiazide 12.5 mg oral tablet (20 sources) Thiazide Diuretic Start: 10-08-2023 End: 02-28-2024 take 1 tablet by mouth once daily Hydrochlorothiazide 12.5 mg tablet Discontinued 12.5 mg PO DAILY 90 3 October 08, 2023 12:00am February 28, 2024 8:51am Start: 09-04-2019 End: 09-24-2023 take 1 tablet by mouth once daily Hydrochlorothiazide 12.5 mg tablet Discontinued 12.5 mg PO DAILY 90 3 October 14, 2022 2:16pm September 24, 2023 3:41pm Start: 06-24-2017 End: 08-15-2018 take 1 tablet by mouth once daily Hydrochlorothiazide 12.5 mg tablet Discontinued 12.5 mg PO daily 90 3 August 09, 2017 4:41pm January 17, 2018 1:57pm icosapent ethyl 1000 mg oral capsule (16 sources) Start: 11-17-2019 End: 03-05-2020 Icosapent Ethyl (Vascepa) 1 gram capsule Discontinued 2 g PO TWICE A DAY 120 11 November 17, 2019 12:00am March 05, 2020 2:33pm True intolerance to statins 24 hr isosorbide mononitrate 30 mg extended release oral tablet (20 sources) Nitrate Vasodilator Start: 07-08-2017 End: 11-14-2024 take 1 tablet by mouth once daily, then take 1 tablet by mouth every twenty-four hours Isosorbide Mononitrate 30 mg tablet extended release 24 hr Discontinued 30 mg PO daily 90 3 November 03, 2024 5:12pm November 14, 2024 11:02am blood pressure/heart - swallow whole with glass of water; do not crush/chew /dissolve /cut/break isosorbide dinitrate 30 mg oral tablet (16 sources) Nitrate Vasodilator Start: 06-24-2017 End: 07-08-2017 take 1 tablet by mouth once daily Isosorbide Dinitrate 30 mg tablet Discontinued 30 mg PO daily June 24, 2017 1:00am July 08, 2017 11:31am levoFLOXacin 750 mg oral tablet (20 sources) Quinolone Antimicrobial Start: 07-03-2024 End: 07-13-2024 take 1 tablet by mouth every twenty-four hours Levofloxacin 750 mg tablet Discontinued 750 mg PO Q24H 10 10 0 July 03, 2024 1:00am July 12, 2024 1:00am July 13, 2024 1:09am Start: 02-16-2019 End: 02-24-2019 take 1 tablet by mouth every twenty-four hours Levofloxacin (Levaquin) 750 mg tablet Discontinued 750 mg PO Q24H 7 7 0 February 16, 2019 12:00am February 22, 2019 12:00am February 24, 2019 12:08am lidocaine 25 mg/ml / prilocaine 25 mg/ml topical cream (16 sources) Antiarrhythmic, Amide Local Anesthetic Start: 03-27-2019 End: 11-13-2019 Lidocaine-Prilocaine 30 GM cream Discontinued 1 APPLICATIO TP DAILY NEEDED as needed for Not Specified March 27, 2019 4:10pm November 13, 2019 11:27am Squamous cell carcinoma of lung Malignant neoplasm of unspecified part of unspecified bronchus or lung Start: 03-27-2019 End: 11-13-2019 Lidocaine-Prilocaine Discont inued 1 APPLICATIO TP DAILY NEEDED 08 17March 27, 2019 4:10pm November 13, 2019 11:27am loratadine 10 mg oral tablet (16 sources) Start: 01-16-2016 End: 07-08-2017 take 1 tablet by mouth once daily Loratadine 10 MG tablet Discontinued 10 mg PO DAILY 0 January 16, 2016 12:00am July 08, 2017 11:22am LORazepam 0.5 mg oral tablet (20 sources) Benzodiazepine Start: 05-27-2021 End: 09-15-2021 take 1 tablet by mouth once Lorazepam 0.5 mg tablet Discontinued 0.5 mg PO ONCE 1 0 May 27, 2021 6:12pm September 15, 2021 3:41pm Anxiety Anxiety disorder, unspecified Prior to PET/CT mecobalamin 1 mg chewable tablet (16 sources) Start: 09-15-2021 End: 04-09-2024 take 1 tablet by mouth once daily Mecobalamin (Vitamin B12) 1,000 mcg tablet,chewable Discontinued 1000 ug PO DAILY September 15, 2021 1:00am April 09, 2024 4:07am 24 hr metoprolol succinate 25 mg extended release oral tablet (20 sources) beta-Adrenergic Jas Start: 07-08-2017 End: 11-14-2024 take 1 tablet by mouth once daily Metoprolol Succinate 25 mg tablet extended release 24 hr Discontinued 25 mg PO daily 90 3 November 03, 2024 5:12pm November 14, 2024 11:02am blood pressure Start: 06-24-2017 End: 07-08-2017 take 1 tablet by mouth once daily Metoprolol Tartrate 25 mg tablet Discontinued 25 mg PO daily June 24, 2017 1:00am July 08, 2017 11:27am OLANZapine 10 mg oral tablet (16 sources) Atypical Antipsychotic Start: 03-27-2019 End: 11-13-2019 take 1-4 tablets by mouth once daily as needed Olanzapine 10 MG tablet Discontinued 10 mg PO DAILY NEEDED 8 28 3 March 27, 2019 12:00am November 13, 2019 11:27am Squamous cell carcinoma of lung Malignant neoplasm of unspecified part of unspecified bronchus or lung Take 10 mg by mouth daily ONLY on days 1-4 and 8-11 of chemotherapy cycle ondansetron 8 mg disintegrating oral tablet (16 sources) Serotonin-3 Receptor Antagonist Start: 03-27-2019 End: 11-13-2019 take 1 tablet by mouth every eight hours as needed for nausea Ondansetron 8 MG tablet,disintegra ting Discontinued 8 mg PO EVERY 8 HOURS NEEDED as needed for Nausea 30 10 3 March 27, 2019 12:00am November 13, 2019 11:27am Non-small cell cancer of left lung Malignant neoplasm of unspecified part of left bronchus or lung oseltamivir 30 mg oral capsule (16 sources) Neuraminidase Inhibitor Start: 10-17-2018 End: 10-20-2018 take 1 capsule by mouth twice daily Oseltamivir 30 MG capsule Discontinued 30 mg PO TWICE A DAY 6 3 0 October 17, 2018 12:00am October 19, 2018 12:00am October 20, 2018 12:07am potassium chloride 20 meq extended release oral tablet (12 sources) Start: 10-08-2023 End: 02-28-2024 take 1 tablet by mouth once daily Potassium Chloride 20 mEq tablet extended release Discontinued 20 meq PO DAILY October 08, 2023 12:00am February 28, 2024 8:50am Start: 09-24-2023 End: 09-24-2023 Potassium Chloride 20 mEq ta blet extended release Discontinued meq PO September 24, 2023 1:00am September 24, 2023 3:40pm Start: 09-24-2023 End: 09-24-2023 Potassium Chloride Discontin ued MEQ PO September 24, 2023 1:00am September 24, 2023 3:40pm predniSONE 10 mg oral tablet (20 sources) Start: 02-16-2019 End: 02-27-2019 Prednisone 10 mg tablet Discontinued 10 mg PO daily 30 0 February 16, 2019 12:00am February 27, 2019 1:40pm take 4 tabs for three days, then 3 tabs for three days, then 2 tabs for three days, then 1 tab for 3 days Start: 10-17-2018 End: 11-08-2018 take 2 tablets by mouth once daily Prednisone 20 MG tablet Discontinued 40 mg PO DAILY@0800 10 0 October 17, 2018 12:00am November 08, 2018 2:27pm Start: 10-17-2018 End: 11-08-2018 take 40 mg by mouth once daily Prednisone Discontinued 40 MG PO DAILY@0800 10 October 17, 2018 12:00am November 08, 2018 2:27pm spironolactone 25 mg oral tablet (6 sources) Aldosterone Antagonist Start: 09-24-2023 End: 10-08-2023 take 1 tablet by mouth once daily Spironolactone 25 mg tablet Discontinued 25 mg PO DAILY 30 September 24, 2023 1:00am October 08, 2023 12:59pm sulfamethoxazole 800 mg / trimethoprim 160 mg oral tablet (4 sources) Dihydrofolate Reductase Inhibitor Antibacterial, Sulfonamide Antimicrobial Start: 08-11-2024 End: 09-22-2024 Sulfamethoxazole-Tr imethoprim 800-160 mg tablet Discontinued {tbl} PO August 11, 2024 1:00am September 22, 2024 2:35pm Vitamin B Complex (B Complex-Vitamin B12) tablet (16 sources) Start: 01-17-2018 End: 08-15-2018 take 1 tablet by mouth once daily Vitamin B Complex (B Complex-Vitamin B12) tablet Discontinued 1 TABLET PO daily January 17, 2018 1:54pm August 15, 2018 4:40pm Start: 01-17-2018 End: 08-15-2018 Vitamin B Complex (B Complex -Vitamin B12) tablet Discontinued 1 {tbl} PO daily January 17, 2018 12:00am August 15, 2018 4:40pm Start: 01-17-2018 End: 08-15-2018 take 1 tablet by mouth once daily Vitamin B Complex (B Complex-Vitamin B12) tablet Discontinued 1 TABLET PO daily January 16, 2018 11:00pm August 15, 2018 3:40pm Start: 01-17-2018 End: 08-15-2018 take 1 tablet by mouth once daily Vitamin B Complex (B Complex-Vitamin B12) tablet Discontinued 1 TABLET PO daily January 17, 2018 12:00am August 15, 2018 4:40pm Problems Active Problems Problem Classification Problem Date Documented Date Episodic/Chronic Acute cerebrovascular disease (17 sources) Cerebrovascular accident; Translations: [Ischemic stroke] Onset: 7 05-14-2017 Chronic Administrative/socia l admission (19 sources) Patient encounter status; Translations: [Counseling, unspecified] Episodic Anxiety disorders (16 sources) Anxiety; Translations: [Anxiety disorder, unspecified] 05-27-2021 Chronic Aortic; peripheral; and visceral artery aneurysms (5 sources) Thoracoabdominal aortic aneurysm; 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 Chronic obstructive pulmonary disease and bronchiectasis (20 sources) Chronic obstructive lung disease; Translations: [Chronic obstructive pulmonary disease, unspecified] Onset: 5 05-14-2017 Chronic Comment on above: FEV1 57% of predicte d 09/04/2019 Chronic obstructive pulmonary disease and bronchiectasis (1 source) Chronic obstructive pulmonary disease and bronchiectasis; Translations: [Other specified chronic obstructive pulmonary disease] Onset: 5 Coronary atherosclerosis and other heart disease (20 sources) Atherosclerotic heart disease of [place] coronary artery without angina pectoris; Translations: [Coronary atherosclerosis] Onset: 7 05-14-2017 Chronic Comment on above: The patient denies a ny angina. Her previous angina was left jaw radiating down into her chest symptoms. Her lipids are managed by the primary service her blood pressure is adequately controlled but she is requesting a change in the medications. She is not diabetic but she does continue to smoke counseled her on the mandatory nature she stopped smoking. The patient's lipid are less than optimally controlled but she is intolerant to all statin therapy and is on Repatha. At this point in time she is appropriately treated for her given situation Disorders of lipid metabolism (20 sources) Hyperlipidemia; Translations: [Hyperlipidemia, unspecified] Onset: 5 05-14-2017 Chronic Essential hypertension (20 sources) Hypertensive disorder; Translations: [Benign essential hypertension] 05-14-2017 Chronic Comment on above: Patient has a histor y of hypertension since the time of her AAA repair. She is complaining about the hypokalemia requirement for potassium supplementation when she is taking her hydrochlorothiazide was asking about discontinuing. I recommend that we trial her on spironolactone and hold the potassium. Fever of unknown origin (16 sources) Fever with chills; Translations: [Fever, unspecified] 12-28-2018 Episodic Heart valve disorders (20 sources) Heart murmur; Translations: [Cardiac murmur, unspecified] Episodic Hypertension with complications and secondary hypertension (1 source) Hypertensive heart disease with heart failure; Translations: [Hypertensive heart disease with heart failure] Onset: Chronic Maintenance chemotherapy; radiotherapy (19 sources) Patient encounter status; Translations: [Encounter for antineoplastic chemotherapy] Chronic Occlusion or stenosis of precerebral arteries (20 sources) Carotid artery stenosis; Translations: [Left carotid artery stenosis] Onset: 7 05-14-2017 Chronic Osteoarthritis (15 sources) Osteoarthritis of right knee joint; Translations: [Unilateral primary osteoarthritis, right knee] Onset: 5 02-15-2023 Chronic Other circulatory disease (4 sources) Disorder of carotid artery; Translations: [Disorder of arteries and arterioles, unspecified] 05-12-2024 Chronic Other circulatory disease (4 sources) Stenosis of left subclavian artery; Translations: [Stricture of artery] 05-12-2024 Chronic Other hematologic conditions (16 sources) Erythrocytosis; Translations: [Secondary polycythemia] 09-01-2021 Episodic Comment on above: Mild Other hematologic conditions (5 sources) Secondary polycythemia; Translations: [Polycythemia vera] Episodic Other lower respiratory disease (16 sources) Dyspnea; Translations: [Shortness of breath] 12-28-2018 Episodic Other lower respiratory disease (12 sources) Lung mass; Translations: [Other nonspecific abnormal finding of lung field] 12-28-2018 Episodic Other lower respiratory disease (16 sources) Dry cough; Translations: [Nonproductive cough] 12-28-2018 Episodic Other lower respiratory disease (11 sources) Hypoxemia; Translations: [Hypoxemia] 06-30-2024 Episodic Other non-traumatic joint disorders (7 sources) Unstable knee; Translations: [Other instability, unspecified knee] 02-15-2023 Episodic Other non-traumatic joint disorders (1 source) Other instability, unspecified knee; Translations: [Other joint derangement, not elsewhere classified, lower leg] 02-15-2023 Episodic Other nutritional; endocrine; and metabolic disorders (12 sources) Weight gain; Translations: [Abnormal weight gain] 12-28-2018 Episodic Other nutritional; endocrine; and metabolic disorders (4 sources) Weight increased; Translations: [Abnormal weight gain] 01-15-2018 Episodic Other upper respiratory disease (2 sources) Allergic rhinitis; Translations: [Allergic rhinitis, unspecified] 03-30-2025 Chronic Other upper respiratory disease (1 source) Allergic rhinitis, unspecified; Translations: [Allergic rhinitis, unspecified] Onset: Chronic Peripheral and visceral atherosclerosis (6 sources) Occlusion of artery; Translations: [Atherosclerosis of other arteries] 06-08-2024 Chronic Comment on above: CTA- images reviewed , occlusion of subclavian from origin to IRENE takeoff, left vertebral occluded/origin within subclavian occluded segmentDuplex- monophasic antegrade flow, unclear source of inflow, vertebral not visualized Pneumonia (except that caused by tuberculosis or sexually transmitted disease) (4 sources) Pneumonia due to other gram-negative bacteria; Translations: [Pneumonia due to Enterobacter cloacae] 07-04-2024 Episodic Residual codes; unclassified (16 sources) History of cardiac catheterization; Translations: [Other specified postprocedural states] 07-05-2019 Episodic Comment on above: 05/06/2009; Residual codes; unclassified (20 sources) History of repair of aneurysm of abdominal aorta; Translations: [Other specified postprocedural states] Onset: 9 07-05-2019 Episodic Comment on above: The patient has not had an abdominal ultrasound to surveilled the AAA repair in several years. [facility] per Dr Clarisse Gaines Residual codes; unclassified (4 sources) Past history of procedure; Translations: [Other specified postprocedural states] 05-12-2024 Episodic Thyroid disorders (6 sources) Thyroid nodule; Translations: [Nontoxic single thyroid nodule] Onset: 5 05-11-2024 Chronic Comment on above: Patient is a 79-year -old female, euthyroid from an endocrine standpoint, who makes follow-up for incidentally noted right thyroid nodule that was found during workup for recent COVID diagnosis. Patient appears to be asymptomatic from the compressive standpoint. She has a long history of pulmonary disease both oncologic and infectious related. She questions whether or not her thyroid nodularity is related to her lung cancer. I have informed her that this is unlikely and that this likely represents a completely separate issue. I did take time to review her thyroid ultrasound images with her and her . I also shared with them the TI-RADS grading system for triaging of thyroid nodules. Lastly, I extended the recommendation for thyroid biopsy since her TI-RADS 5 nodule of the right inferior pole met criteria. Patient was receptive and able to confirm that she had held her Plavix for 5 days prior to the biopsy. I counseled her that post procedurally I would recommend she hold this for another 2 days before resuming and the name of mitigating her periprocedural bleeding risk. Initially there was some resistance, but after further description for the reasoning patient obliged. Full details of the procedure are given in the procedures section of this note. Patient is a 79-year -old female, euthyroid from an endocrine standpoint, who makes follow-up for incidentally noted right thyroid nodule that was found during workup for recent COVID diagnosis. Patient appears to be asymptomatic from the compressive standpoint. She has a long history of pulmonary disease both oncologic and infectious related. She questions whether or not her thyroid nodularity is related to her lung cancer. I have informed her that this is unlikely and that this likely represents a completely separate issue. I did take time to review her thyroid ultrasound images with her and her . I also shared with them the TI-RADS grading system for triaging of thyroid nodules. Lastly, I extended the recommendation for thyroid biopsy since her TI-RADS 5 nodule of the right inferior pole met criteria. Patient was receptive and able to confirm that she had held her Plavix for 5 days prior to the biopsy. I counseled her that post procedurally I would recommend she hold this for another 2 days before resuming and the name of mitigating her periprocedural bleeding risk. Initially there was some resistance, but after further description for the reasoning patient obliged. Full details of the procedure are given in the procedures section of this note.Update 11/24/2024: Patient presents for repeat right thyroid biopsy. She has had several health updates, but generally reports improved health since her last visit. Patient was quite apprehensive about today's visit but after talking her through she successfully underwent repeat thyroid FNA and pathology is reporting adequacy with preliminary read based on the number of follicular cells observed. Biopsy was notably challenging given its location at 2 cm depth adjacent to the carotid artery and its small size. Yet it was completed uncomplicated fashion. Full details are given in the procedures section of this note. Patient is instructed to resume Plavix in 48 hours. Transient cerebral ischemia (16 sources) Cerebral ischemia; Translations: [Transient cerebral ischemic attack, unspecified] 12-28-2018 Chronic Unclassified (17 sources) Obstructive sleep apnea syndrome; Translations: [Obstructive sleep apnea (adult) (pediatric)] Onset: 7 05-14-2017 Chronic Unclassified (1 source) Long-term drug therapy; Translations: [Other intermediate project manager (current) drug therapy] Onset: 7 05-14-2017 Unclassified (1 source) 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; Translations: [Presence of cardiac and vascular implant and graft, unspecified] Onset: 7 05-14-2017 Unclassified (1 source) 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; Translations: [Presence of aortocoronary bypass graft] Onset: 7 05-14-2017 Unclassified (1 source) Cough, unspecified; Translations: [Cough, unspecified] Onset: Viral infection (4 sources) Disease caused by 2019-nCoV; Translations: [COVID-19] 04-09-2024 Episodic Past or Other Problems Problem Classification Problem Date Documented Da te Episodic/Chronic Coronary atherosclerosis and other heart disease (6 sources) Presence of aortocoronary bypass graft; Translations: [Aortocoronary bypass status] Onset: 07-15-2005 Episodic Other circulatory disease (1 source) H/O: aortic aneurysm; Translations: [Personal history of other diseases of the circulatory system] Onset: 05-14-2017 05-14-2017 Episodic Other lower respiratory disease (1 source) Dyspnea on exertion; Translations: [Other forms of dyspnea] Onset: 05-14-2017 05-14-2017 Episodic Other non-traumatic joint disorders (8 sources) Pain in right knee; Translations: [Right knee pain] Onset: 11-24-2024 02-15-2023 Episodic Residual codes; unclassified (8 sources) Other specified postprocedural states; Translations: [Other postprocedural status] Onset: 04-18-2009 Episodic Unclassified (19 sources) R breast gland removed Comment on above: due to producing cys ts (benign) Results Test Name Value Interpretation Reference Range Facility Chest without Contraston Chest without Contrast [facility] [address] [place], [place] [address] Chest without Contrast MR#: [id number] Acct: [id number] Name: SHANTHI SAM Rep #: [id number] : 1945 F 80 From: Tripp salas MD PCP: Dr. Ari Carballo MD Status: REG CLI Study: Chest without Contrast Date of Exam: 05/25/25 Exam# [id number] Ordering Dr: Ryley Russell MD PROCEDURE: CHEST WITHOUT CONTRAST 05/25/2025 REASON FOR EXAM: HX OF LUNG CA Cough and shortness of breath. TECHNIQUE: Chest CT without contrast. Coronal and Sagittal reconstruction series were provided. One or more dose reduction techniques were used (e.g., Automated exposure control, adjustment of the mA and/or kV according to patient size, use of iterative reconstruction technique RADIATION DOSE SUMMARY: CTDlvol: 16.18 mGy DLP: 662.91 mGycm COMPARISON: April 10, 2024. FINDINGS: Hardware: Prior CABG. Lymph nodes: Small benign-appearing mediastinal and axillary lymph nodes. Heart and Vasculature: Prior CABG. Atherosclerotic calcifications of the thoracic aorta. Thoracic aorta and pulmonary arteries have normal contours; noncontrast technique limits evaluation. Coronary Artery Calcifications: Present. Calcification of the mitral valve annulus. Lungs and Airways: Persistent focal scarring at the operative site in the apical segment of the left lower lobe. This is pleural-based. This has improved as compared to prior study. Stable thickening of the right major fissure as well as increased markings in the anterior aspect of the right upper lobe. Pleura: No pleural effusion. Upper Abdomen: Stable aneurysmal dilatation of the proximal abdominal aorta. Gallstones. Stable bilateral renal cysts and nonobstructive intrarenal calculi. Bones: Degenerative changes of the thoracic spine. CT/Chest without Contrast IMPRESSION: Coronary artery calcification (CAC) is is present Essentially stable examination except for improved aeration in the apical aspect of the left lower lobe. Reading Location: [place] [address] CC: Dr. Ryley Russell MD; Dr. 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 Normal [facility] Pulmonary Visit Reporton Pulmonary Visit Report [facility] of [address] [place] [address] OFFICE VISIT Date of Service: 03/30/25 MR#: [id number] Acct: [id number] Name: SHANTHI SAM Rep #: [id number] : 1945 Provider: GLORY Martel Age/Sex: 80/F [place] [facility] [place] Status: Signed Assessment and Plan Assessment and Plan (1) Asthma-COPD overlap syndrome: Status: Chronic Comment: FEV1 53% Plan: Deteriorated. The patient is more symptomatic with a productive cough. I do not believe that she requires antibiotics today. I am going to restart budesonide nebulized twice daily and DuoNebs nebulized twice daily. Sending the patient for blood work to evaluate for allergic triggers. Her symptoms are consistent with someone who would be experiencing severe persistent asthma with potentially an elevated IgE level or eosinophil count. Test results to be discussed at her follow- up visit. Consider repeating a PFT. I have encouraged her to utilize the Acapella that she has at home. If the patient experience frequent exacerbations consider escalating to chest physiotherapy vest. I had a lengthy conversation with the patient and encouraged her to be compliant with all immunizations as a respiratory viral infection will be detrimental to her and she would likely require mechanical ventilation. The patient has now decided to get the flu shot but will do so with her primary care doctor in the near future. Follow-up in the office in 6 weeks to discuss test results and evaluate her response to returning to nebulized medications. (2) Allergic rhinitis: Status: Acute Qualifiers: Allergic rhinitis trigger: unspecified Allergic rhinitis seasonality: unspecified Qualified Code(s): J30.9 - Allergic rhinitis, unspecified Plan: Newly identified. May be contributing to the cough. Treating with fluticasone 1 to 2 sprays each nostril daily. Follow-up in 6 weeks. Ordering blood work to evaluate for allergic triggers. (3) Squamous cell carcinoma of lung: Status: Chronic Qualifiers: Laterality: left Qualified Code(s): C34.92 - Malignant neoplasm of unspecified part of left bronchus or lung Comment: S/P L wedge resection, CT 05/23/2021 residual density LLL has increased in size. PET/CT 06/03/2021 shows hypermetabolic activity in LLL, neck nodes are benign. S/P SBRT to LLL from 07/08/2021 to 07/22/2021. CT on 09/18/2022 reviewed, shows linear scar LLL. Comes for follow up. CT 04/10/2024 reviewed. No evidence of progressive disease. Plan: Complicates exam, plan, care and prognosis. Serial imaging deferred to oncology. (4) Hypoxemia: Status: Chronic Plan: She is using and benefiting from supplemental oxygen. Continue to utilize 3 L/min of supplemental oxygen with sleep. Continue to monitor oxygen saturations with ambulation. Orders: Orders Allergen, Mini-Rast Today J30.9 - Allergic rhinitis, unspecified Aspergillus Antibodies Today J30.9 - Allergic rhinitis, unspecified CBC W/Diff, Automated Today J30.9 - Allergic rhinitis, unspecified Immunoglobulin E Today J30.9 - Allergic rhinitis, unspecified Medications: New budesonide 0.5 mg (2 mL) inhalation BID 120 mL 11RF J44.89 - Other specified chronic obstructive pulmonary disease fluticasone propionate 50 mcg/actuation 2 sprays intranasal DAILY 16 grams 3RF J30.9 - Allergic rhinitis, unspecified, J45.909 - Unspecified asthma, uncomplicated Refilled ipratropium-albuterol 0.5 mg-3 mg(2.5 mg base)/3 mL 3 mL inhalation Q4H PRN PRN 180 mL 6RF SOB /OR WHEEZING J44.9 - Chronic obstructive pulmonary disease, unspecified Discontinued budesonide Discontinued Reason: Order Changed 1 mg inhalation QDAY J44.9 - Chronic obstructive pulmonary disease, unspecified Plan Details Additional Comments: This note was generated with [employer] ([email or web address])ation software. It may contain incorrect words, spelling, and punctuation that were not noted in checking the note before signing. I have spent 43 minutes today reviewing labs, records and history. Time includes coordinating care, interpretation of tests. This also includes time I spent with the patient for exam, treatment plan and education as well as documenting clinical information. Follow Up: 6 Weeks HPI 6 M FU Chief Complaint: cough HPI Comments Details: This patient presents to the office today for follow-up of her asthma/COPD overlap syndrome complicated by a history of lung cancer. She is ambulatory, on room air and accompanied today by her . She has not recently been seen in the ED or urgent care for any respiratory illness. She has not required any antibiotics or prednisone for any breathing problems. She was previously compliant with budesonide nebulized once daily and DuoNebs once daily. Unfortunately, the prescription ran out and she did not request a refill. (more content not included)... Normal [facility] Cardiology Visit Reporton Cardiology Visit Report [facility] [address] [place] [address]. [address] [place] [address] OFFICE VISIT Date of Service: 12/08/24 MR#: [id number] Acct: [id number] Name: SHANTHI SAM Rep #: [id number] : 1945 Provider: Dr. Sue velarde MD Age/Sex: 79/F [place] [facility] [place] Status: Signed HPI HPI History of Present Illness Details: Patient 79-year-old white female that comes today for monitoring of her cardiovascular status with her . Patient status post coronary bypass graft surgery for coronary disease back 20 years ago at [facility]. She received a COLIN to the LAD a vein graft to the diagonal and vein graft to the OM branch of the circumflex and a free radial graft to the ramus branch. Patient carries a history of peripheral vascular disease as well she was diagnosed with a 3.7 cm abdominal aortic aneurysm that was suprarenal. This was status post AAA repair. She also has a left subclavian stenosis at the ostium up to the internal mammary artery. The internal mammary artery is patent and fills the LAD by an old cath in 2008. The patient denies any recurrence of her anginal symptoms which was a left neck left arm discomfort. The patient has been evaluated and is being followed by Dr. Browne for her AAA and he evaluated her for the left subclavian stenosis. It was felt given her lack of any symptoms that we could directly correlate with her subclavian stenosis no further treatment was indicated. We will continue to monitor her clinically. The patient also carries a history of lung cancer status post a second treatment with radiation in 2021 she is now continue to be cancer free. She also has a history of hypertension which is well- controlled she was intolerant of hydrochlorothiazide due to hypokalemia and spironolactone due to nausea. She also has a history of hyperlipidemia which is well-controlled and COPD. She has actually been able to get off oxygen and her O2 sat ranges 92% on room air. She does still have to use oxygen at night. The patient denies any PND orthopnea denies any significant lower extremity edema. She does occasionally get some transient lower extremity edema in her left leg. This possibly may be related to her amlodipine. Although is unusual for it to be unilateral. There was no significant edema today on exam. 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 Required: No Accompanied by: Self Is patient in pain?: No Allergies Penicillins Allergy (Mild, Verified 12/08/24 15:00) Rash simvastatin Allergy (Unknown, Verified 12/08/24 15:00) Myalgia Sulfa (Sulfonamide Antibiotics) Allergy (Unknown, Verified 12/08/24 15:00) Unknown gemfibrozil Adverse Reaction (Severe, Verified 12/08/24 15:00) Pain in joints Iodinated Contrast Media (Iodinated Contrast- Oral and IV Dye) Adverse Reaction (Severe, Verified 12/08/24 15:00) Vomiting spironolactone Adverse Reaction (Intermediate, Verified 12/08/24 15:00) Nausea and higher BP lisinopril Adverse Reaction (Mild, Verified 12/08/24 15:00) Cough losartan Adverse Reaction (Mild, Verified 12/08/24 15:00) Cough atorvastatin Adverse Reaction (Unknown, Verified 12/08/24 15:00) Myalgia fluvastatin Adverse Reaction (Unknown, Verified 12/08/24 15:00) Myalgia niacin Adverse Reaction (Unknown, Verified 12/08/24 15:00) Rash rosuvastatin Adverse Reaction (Unknown, Verified 12/08/24 15:00) Myalgia Medications ???Medication ???Instructions ???Recorded ???Confirmed ???Type cholecalciferol (vitamin D3) 25 1,000 unit PO QDAY supplement 09/0512/08/24 History mcg (1,000 unit) capsule magnesium oxide 400 mg PO DAILY 09/15/21 12/08/24 History evolocumab 140 mg/mL subcutaneous 140 mg subcut Q2W Paperwork for 1 08/31/23 12/08/24 Rx syringe (Repatha Syringe) pavan application being faxed #6 m L ipratropium 0.5 mg-albuterol 3 mg 3 ml inhalation Q4H PRN PRN SOB 1 09/04/23 12/08/24 Rx (2.5 mg base)/3 mL nebulization /OR WHEEZING #180 mL soln budesonide 1 mg/2 mL suspension 1 mg inhalation QDAY 09/08/2411/17 History for nebulization amlodipine 5 mg tablet 5 mg PO DAILY #90 tabs 11/14/24 Rx clopidogrel 75 mg tablet 75 mg PO QDAY #90 tabs 11/14/24 Rx isosorbide mononitrate 30 mg 30 mg PO QDAY #90 tabs 11/14/24 Rx tablet,extended release 24 hr metoprolol succinate 25 mg 25 mg PO QDAY #90 tabs 11/14/24 Rx tablet,extended release 2 (more content not included)... Normal [facility] Orthopedic Visit Reporton Orthopedic Visit Report [facility] [address] [place] [address] [address] [place] [address] OFFICE VISIT Date of Service: 11/24/24 MR#: [id number] Acct: [id number] Name: SHANTHI SAM Rep #: [id number] : 1945 Provider: GLORY raymundo Age/Sex: 79/F Location: [facility] [place] Status: Signed with Addenda ADDENDUM by GLORY Bal on 11/24/24 at 1419 Assessment and Plan Assessment and Plan (1) Right knee DJD: Status: Acute Qualifiers: Osteoarthritis type: primary Qualified Code(s): M17.11 - Unilateral primary osteoarthritis, right knee Orders: Orders Gelsyn Injection Today M25.561 - Pain in right knee Visco Injection-Home Med Today M17.11 - Unilateral primary osteoarthritis, right knee, M25.561 - Pain in right knee 11/24/24 1419 Date Becky Bal cc: * Signed Intake Vital Signs 09/22/24 08:25 11/24/24 12:59 Height 5 ft 3 in 5 ft 3 in Weight: 183 lb BMI 32.4 Intake Visit Reasons: RIGHT KNEE Chief Complaint: Right Knee Pain - wanting injection Accompanied by: Is patient in pain?: No Allergies Penicillins Allergy (Mild, Verified 11/24/24 14:04) Rash simvastatin Allergy (Unknown, Verified 11/24/24 14:04) Myalgia Sulfa (Sulfonamide Antibiotics) Allergy (Unknown, Verified 11/24/24 14:04) Unknown gemfibrozil Adverse Reaction (Severe, Verified 11/24/24 14:04) Pain in joints Iodinated Contrast Media (Iodinated Contrast- Oral and IV Dye) Adverse Reaction (Severe, Verified 11/24/24 14:04) Vomiting spironolactone Adverse Reaction (Intermediate, Verified 11/24/24 14:04) Nausea and higher BP lisinopril Adverse Reaction (Mild, Verified 11/24/24 14:04) Cough losartan Adverse Reaction (Mild, Verified 11/24/24 14:04) Cough atorvastatin Adverse Reaction (Unknown, Verified 11/24/24 14:04) Myalgia fluvastatin Adverse Reaction (Unknown, Verified 11/24/24 14:04) Myalgia niacin Adverse Reaction (Unknown, Verified 11/24/24 14:04) Rash rosuvastatin Adverse Reaction (Unknown, Verified 11/24/24 14:04) Myalgia Medications ???Medication ???Instructions ???Recorded ???Confirmed ???Type cholecalciferol (vitamin D3) 25 1,000 unit PO QDAY supplement 09/0511/24/24 History mcg (1,000 unit) capsule magnesium oxide 400 mg PO DAILY 09/15/21 11/24/24 History evolocumab 140 mg/mL subcutaneous 140 mg subcut Q2W Paperwork for 1 08/31/23 11/24/24 Rx syringe (Repatha Syringe) pavan application being faxed #6 m L ipratropium 0.5 mg-albuterol 3 mg 3 ml inhalation Q4H PRN PRN SOB 1 09/04/23 11/24/24 Rx (2.5 mg base)/3 mL nebulization /OR WHEEZING #180 mL soln budesonide 1 mg/2 mL suspension 1 mg inhalation QDAY 09/08/24 0504/12 History for nebulization amlodipine 5 mg tablet 5 mg PO DAILY #90 tabs 11/14/24 Rx clopidogrel 75 mg tablet 75 mg PO QDAY #90 tabs 11/14/24 Rx isosorbide mononitrate 30 mg 30 mg PO QDAY #90 tabs 11/14/24 Rx tablet,extended release 24 hr metoprolol succinate 25 mg 25 mg PO QDAY #90 tabs 11/14/24 Rx tablet,extended release 24 hr Have you fallen in the past year?: No PFSH Medical History Anxiety Cardiac murmur 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) Family History Father CAD (coronary artery disease) CVA (cerebral vascular accident) Heart disease Mother Heart disease Other History of AAA (abdominal aortic aneurysm) repair Social History household members: spouse Smoking Status: Former smoker alcohol intake: current alcohol intake frequency: holidays/special occasions only Alcohol type: beer, wine and hard liquor substance use type: does not use caffeine: Yes Type: coffee Number of servings: 5 what type of physical activity do you participate in: none seatbelt use: never do you feel safe at home: Yes HPI RIGHT KNEE Details: This documentation accurately reflects the service provided and (more content not included)... Normal [facility] Special Stain Group IIon Special Stain Group II Patient Age/Sex Location Account Attending Physician SHANTHI SAM Lina 79/F LABSPEC [id number] Dr. Sue Ruiz MD Specimen: [id number] Received: 11/24/24 Status: MAXIMUS [place] Num: [id number] Spec Type: ASP OUT Subm Dr: Dr. Sue Ruiz MD HEADER OPERATION: Fine needle aspiration of right thyroid nodule PRE-OP DIAGNOSIS: Right thyroid nodule TISSUE SUBMITTED: A- Right thyroid nodule fluid for cytology DIAGNOSIS CYTOLOGY * Thyroid, fna - right: * No malignant cells are identified * Benign follicular nodular disease COMMENT The specimen is evaluated at the time of biopsy by Dr. Spring. Immediate Evaluation = 1. Acellular. 2. Blood. 3. Blood. 4. Blood. 5. Adequate. CYTOLOGY STUDY Slides are reviewed. CYTOLOGY GROSS A. Received is 30 ml of pink-cloudy fluid cytolyt with particles, 5 PAP, 5DQ labeled with the patient's name and and designated per the requisition as Right thyroid nodule. Submitted for cytology and cell block preparation. Mr 11/24/2024 CPT: 61040 Signed (signature on file) Dr. Cindy Hudson, 12/04/24 1111 Normal [facility] Comment on above: Performed By: #### L 500.4050, M100.2400, L100.0100, M100.2000, L503.7505 #### [facility] [address] [place], [place], [address] Surgery Visit Reporton 11-24 Surgery Visit Report [facility] [address] [place] [address] OFFICE VISIT Date of Service: 11/24/24 MR#: [id number] Acct: [id number] Name: SHANTHI SAM Rep #: [id number] : 1945 Provider: Dr. Sue uriostegui MD Age/Sex: 79/F Location: [facility] Status: Signed Intake Vital Signs 09/22/24 08:25 11/24/24 12:59 11/24/24 14:03 Height 5 ft 3 in 5 ft 3 in 5 ft 3 in Weight: 182 lb BMI 32.2 BP 122/81 H Blood Pressure Location Rt brachial Position Sitting Respiration 17 Pulse 60 Pulse Source Monitor Pulse Oximetry (%) 90 Oxygen Delivery Method room air Intake Visit Reasons: THYROID BIOPSY Chief Complaint: thyroid biopsy Is patient in pain?: No Allergies Penicillins Allergy (Mild, Verified 11/24/24 14:04) Rash simvastatin Allergy (Unknown, Verified 11/24/24 14:04) Myalgia Sulfa (Sulfonamide Antibiotics) Allergy (Unknown, Verified 11/24/24 14:04) Unknown gemfibrozil Adverse Reaction (Severe, Verified 11/24/24 14:04) Pain in joints Iodinated Contrast Media (Iodinated Contrast- Oral and IV Dye) Adverse Reaction (Severe, Verified 11/24/24 14:04) Vomiting spironolactone Adverse Reaction (Intermediate, Verified 11/24/24 14:04) Nausea and higher BP lisinopril Adverse Reaction (Mild, Verified 11/24/24 14:04) Cough losartan Adverse Reaction (Mild, Verified 11/24/24 14:04) Cough atorvastatin Adverse Reaction (Unknown, Verified 11/24/24 14:04) Myalgia fluvastatin Adverse Reaction (Unknown, Verified 11/24/24 14:04) Myalgia niacin Adverse Reaction (Unknown, Verified 11/24/24 14:04) Rash rosuvastatin Adverse Reaction (Unknown, Verified 11/24/24 14:04) Myalgia Medications ???Medication ???Instructions ???Recorded ???Confirmed ???Type cholecalciferol (vitamin D3) 25 1,000 unit PO QDAY supplement 09/0511/24/24 History mcg (1,000 unit) capsule magnesium oxide 400 mg PO DAILY 09/15/21 11/24/24 History evolocumab 140 mg/mL subcutaneous 140 mg subcut Q2W Paperwork for 1 08/31/23 11/24/24 Rx syringe (Repatha Syringe) pavan application being faxed #6 m L ipratropium 0.5 mg-albuterol 3 mg 3 ml inhalation Q4H PRN PRN SOB 1 09/04/23 11/24/24 Rx (2.5 mg base)/3 mL nebulization /OR WHEEZING #180 mL soln budesonide 1 mg/2 mL suspension 1 mg inhalation QDAY 09/08/2404/12 History for nebulization amlodipine 5 mg tablet 5 mg PO DAILY #90 tabs 11/14/24 Rx clopidogrel 75 mg tablet 75 mg PO QDAY #90 tabs 11/14/24 Rx isosorbide mononitrate 30 mg 30 mg PO QDAY #90 tabs 11/14/24 Rx tablet,extended release 24 hr metoprolol succinate 25 mg 25 mg PO QDAY #90 tabs 11/14/24 Rx tablet,extended release 24 hr Have you fallen in the past year?: No PFSH Medical History Anxiety Cardiac murmur 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) Family History Father CAD (coronary artery disease) CVA (cerebral vascular accident) Heart disease Mother Heart disease Other History of AAA (abdominal aortic aneurysm) repair Social History household members: spouse Smoking Status: Former smoker alcohol intake: current alcohol intake frequency: holidays/special occasions only Alcohol type: beer, wine and hard liquor substance use type: does not use caffeine: Yes Type: coffee Number of servings: 5 what type of physical activity do you participate in: none seatbelt use: never do you feel safe at home: Yes HPI HPI HPI: Patient is a 79-year-old female who presents for thyroid nodularity. They are referred for surgical consultation from Dr. Carballo. This was discovered incidentally during imaging for a recent RSV followed by pneumonia, followed by COVID diagnosis. This represents patient's second visit as she presents for repeat thyroid biopsy since her initial FNA unfortunately resulted nondiagnostic. Her last visit was 05/11/2024. Mrs. Sam confirms EMR that she met with vascular surgery and was in (more content not included)... Normal [facility] Absolute lymphocyte countOrd ered By: Ari Carballo on 11-20-2024 Lymphocytes Auto (Unsp spec) [#/Vol] 1.29 10*3/uL 0.83-4.51 [facility] Absolute neutrophil countOrd ered By: Ari Carballo on 11-20-2024 Neutrophils (Bld) [#/Vol] 6.5 10*3/uL 2.0-7.7 [facility] Anion gap in Serum or Plasma Ordered By: Ari Carballo on 11-20-2024 Anion gap [Moles/Vol] 8 mmol/L 5- [facility] Automated lymphocyte count a s percentage of total leukocytesOrdered By: Ari Carballo on 11-20-2024 Lymphocytes/100 WBC Auto (Unsp spec) 14.9 % Low 19-41 [facility] BUN/creatinine ratioOrdered By: Ari Carballo on 11-20-2024 Urea nitrogen/Creatinine [Mass ratio] 21.6 mg/mg High 10-20 [facility] Basophil percentageOrdered B y: Ari Carballo on 11-20-2024 Basophils/100 WBC (Bld) 0.7 % 0-1 [facility] Bilirubin, totalOrdered By: Ari Carballo on 11-20-2024 Bilirubin [Mass/Vol] 0.51 mg/dL 0.00-1.30 [facility] CBC W/Diff, Automatedon Absolute Lymph 1.29 X10 3/uL Normal 0.83-4.51 [facility] Comment on above: Performed By: #### L 100.0100, L500.4050, L506.1001, L501.9520, L500.4100 #### [facility] [address] [place], [address] Absolute Neut 6.5 X10 3/uL Normal 2.0-7.7 [facility] Comment on above: Performed By: #### L 100.0100, L500.4050, L506.1001, L501.9520, L500.4100 #### [facility] [address] [place], [address] Basophils/100 WBC (Bld) 0.7 % Normal 0-1 [facility] Comment on above: Performed By: #### L 100.0100, L500.4050, L506.1001, L501.9520, L500.4100 #### [facility] [address] [place], [address] Eosinophils/100 WBC (Bld) 1.5 % Normal 0-5 [facility] Comment on above: Performed By: #### L 100.0100, L500.4050, L506.1001, L501.9520, L500.4100 #### [facility] [address] [place], [address] Erythrocyte distribution width (RBC) [Ratio] 13.6 % Normal 11.6-14.6 [facility] Comment on above: Performed By: #### L 100.0100, L500.4050, L506.1001, L501.9520, L500.4100 #### [facility] [address] [place], [address] Hematocrit (Bld) [Volume fraction] 47.8 % High 37-47 [facility] Comment on above: Performed By: #### L 100.0100, L500.4050, L506.1001, L501.9520, L500.4100 #### [facility] [address] [place], [address] Hemoglobin (Bld) [Mass/Vol] 15.4 g/dL High 12.0-15.0 [facility] Comment on above: Performed By: #### L 100.0100, L500.4050, L506.1001, L501.9520, L500.4100 #### [facility] [address] [place], [address] IG% 3.100 High 0.0-0.9 [facility] Comment on above: Result Comment: IG% - Immature Granulocytes (promyelocytes, myelocytes and metamyelocytes) > 1% indicates that a LEFT SHIFT is Present. Performed By: #### L 100.0100, L500.4050, L506.1001, L501.9520, L500.4100 #### [facility] [address] [place], [address] Lymphocytes/100 WBC (Bld) 14.9 % Low 19-41 [facility] Comment on above: Performed By: #### L 100.0100, L500.4050, L506.1001, L501.9520, L500.4100 #### [facility] [address] [place], [address] MCH (RBC) [Entitic mass] 29.2 pg Normal 27.0-32.0 [facility] Comment on above: Performed By: #### L 100.0100, L500.4050, L506.1001, L501.9520, L500.4100 #### [facility] [address] [place], [address] MCHC (RBC) [Mass/Vol] 32.2 g/dL Normal 32-36 [facility] Comment on above: Performed By: #### L 100.0100, L500.4050, L506.1001, L501.9520, L500.4100 #### [facility] [address] [place], [address] MCV (RBC) [Entitic vol] 90.7 fL Normal 81-99 [facility] Comment on above: Performed By: #### L 100.0100, L500.4050, L506.1001, L501.9520, L500.4100 #### [facility] [address] [place], [address] Monocytes/100 WBC (Bld) 5.0 % Normal 0-10 [facility] Comment on above: Performed By: #### L 100.0100, L500.4050, L506.1001, L501.9520, L500.4100 #### [facility] [address] [place], [address] Neutrophils/100 WBC (Bld) 74.8 % High 47-70 [facility] Comment on above: Performed By: #### L 100.0100, L500.4050, L506.1001, L501.9520, L500.4100 #### [facility] [address] [place], [address] Nucleated RBC (Bld) [#/Vol] 0 10*3/uL Normal 0-5 [facility] Comment on above: Performed By: #### L 100.0100, L500.4050, L506.1001, L501.9520, L500.4100 #### [facility] [address] [place], [address] Platelet mean volume (Bld) [Entitic vol] 10.4 fL Normal 6.2-12.0 [facility] Comment on above: Performed By: #### L 100.0100, L500.4050, L506.1001, L501.9520, L500.4100 #### [facility] [address] [place], [address] Platelets (Bld) [#/Vol] 266 10*3/uL Normal 150-450 [facility] Comment on above: Performed By: #### L 100.0100, L500.4050, L506.1001, L501.9520, L500.4100 #### [facility] [address] [place], [address] RBC (Bld) [#/Vol] 5.27 10*6/uL Normal 4.2-5.4 [facility] Comment on above: Performed By: #### L 100.0100, L500.4050, L506.1001, L501.9520, L500.4100 #### [facility] [address] [place], [address] RDW SD 45.3 fl High 35.1-43.9 [facility] Comment on above: Performed By: #### L 100.0100, L500.4050, L506.1001, L501.9520, L500.4100 #### [facility] [address] [place], [address] WBC (Bld) [#/Vol] 8.7 10*3/uL Normal 4.4-11.0 [facility] Comment on above: Performed By: #### L 100.0100, L500.4050, L506.1001, L501.9520, L500.4100 #### [facility] [address] [place], [address] Calculated very low density lipoprotein (VLDL) cholesterol measurementOrdered By: Ari Carballo on 11-20-2024 Calculated very low density lipoprotein (VLDL) cholesterol measurement 18 mg/dL 5-40 [facility] Carbon dioxide, total [Moles /volume] in Central venous bloodOrdered By: Ari Carballo on 11-20-2024 CO2 [Moles/Vol] 31.7 mmol/L 21.0-32.0 [facility] Chloride assayOrdered By: Donnie Carballo on 11-20-2024 Chloride [Moles/Vol] 99 mmol/L 98-108 [facility] Comprehensive Metabolic Prof ilon 11-20-2024 Albumin [Mass/Vol] 3.7 g/dL Normal 3.4-4.8 [facility] Comment on above: Performed By: #### L 100.0100, L500.4050, L506.1001, L501.9520, L500.4100 #### [facility] [address] [place], [address] Albumin/Globulin [Mass ratio] 1.4 {ratio} Normal 0.9-2.4 [facility] Comment on above: Performed By: #### L 100.0100, L500.4050, L506.1001, L501.9520, L500.4100 #### [facility] [address] [place], [address] ALK PHOS 76 U/L Normal 35-104 [facility] Comment on above: Performed By: #### L 100.0100, L500.4050, L506.1001, L501.9520, L500.4100 #### [facility] [address], [address] ALT [Catalytic activity/Vol] 19 U/L Normal <=34 [facility] Comment on above: Performed By: #### L 100.0100, L500.4050, L506.1001, L501.9520, L500.4100 #### [facility] [address] [place], [address] AST [Catalytic activity/Vol] 18 U/L Normal <=31 [facility] Comment on above: Performed By: #### L 100.0100, L500.4050, L506.1001, L501.9520, L500.4100 #### [facility] [address] [place], [address] Bilirubin [Mass/Vol] 0.51 mg/dL Normal 0.00-1.30 [facility] Comment on above: Performed By: #### L 100.0100, L500.4050, L506.1001, L501.9520, L500.4100 #### [facility] [address] [place], [address] BUN/CRE 21.6 RATIO High 10-20 [facility] Comment on above: Performed By: #### L 100.0100, L500.4050, L506.1001, L501.9520, L500.4100 #### [facility] [address] [place], [address] Calcium [Mass/Vol] 9.7 mg/dL Normal 7.6-11.0 [facility] Comment on above: Performed By: #### L 100.0100, L500.4050, L506.1001, L501.9520, L500.4100 #### [facility] [address] [place], [address] Chloride [Moles/Vol] 99 mmol/L Normal 98-108 [facility] Comment on above: Performed By: #### L 100.0100, L500.4050, L506.1001, L501.9520, L500.4100 #### [facility] [address] [place], [address] CO2 [Moles/Vol] 31.7 mmol/L Normal 21.0-32.0 [facility] Comment on above: Performed By: #### L 100.0100, L500.4050, L506.1001, L501.9520, L500.4100 #### [facility] [address] [place], [address] Creatinine [Mass/Vol] 0.96 mg/dL Normal 0.70-1.20 [facility] Comment on above: Performed By: #### L 100.0100, L500.4050, L506.1001, L501.9520, L500.4100 #### [facility] [address] [place], [address] GAP 8 Normal 5-15 [facility] Comment on above: Performed By: #### L 100.0100, L500.4050, L506.1001, L501.9520, L500.4100 #### [facility] [address] [place], [address] GFR/1.73 sq M.predicted among non-blacks MDRD (S/P/Bld) [Vol rate/Area] 61 mL/min/{1.73_m2} Normal >60 [facility] Comment on above: Result Comment: mL/m in/1.73m2 CKD-EPI Creatinine Equation (2020) Performed By: #### L 100.0100, L500.4050, L506.1001, L501.9520, L500.4100 #### [facility] [address] [place], [address] Globulin (S) [Mass/Vol] 2.7 g/dL Normal 2.2-4.2 [facility] Comment on above: Performed By: #### L 100.0100, L500.4050, L506.1001, L501.9520, L500.4100 #### [facility] [address] [place], [address] Glucose [Mass/Vol] 90 mg/dL Normal 70-99 [facility] Comment on above: Performed By: #### L 100.0100, L500.4050, L506.1001, L501.9520, L500.4100 #### [facility] [address] [place], [address] Potassium [Moles/Vol] 4.2 mmol/L Normal 3.3-5.1 [facility] Comment on above: Performed By: #### L 100.0100, L500.4050, L506.1001, L501.9520, L500.4100 #### [facility] [address] [place], [address] Sodium [Moles/Vol] 139 mmol/L Normal 133-145 [facility] Comment on above: Performed By: #### L 100.0100, L500.4050, L506.1001, L501.9520, L500.4100 #### [facility] [address] [place], [address] T PROT 6.4 g/dL Normal 5.9-8.4 [facility] Comment on above: Performed By: #### L 100.0100, L500.4050, L506.1001, L501.9520, L500.4100 #### [facility] [address] [place], [address] Urea nitrogen [Mass/Vol] 21 mg/dL High 4-19 [facility] Comment on above: Performed By: #### L 100.0100, L500.4050, L506.1001, L501.9520, L500.4100 #### [facility] [address] [place], [address] Eosinophil percentageOrdered By: Ari Carballo on 11-20-2024 Eosinophils/100 WBC (Bld) 1.5 % 0-5 [facility] Erythrocyte distribution wid th ratioOrdered By: Ari Carballo on 11-20-2024 Erythrocyte distribution width (RBC) [Ratio] 13.6 % 11.6-14.6 [facility] Erythrocyte distribution wid th standard deviationOrdered By: Ari Carballo on 11-20-2024 Erythrocyte distribution width (RBC) [Ratio] 45.3 fl High 35.1-43.9 [facility] Glomerular filtration rate ( GFR) estimation/1.73 sq m using serum, plasma, or whole bOrdered By: Ari Carballo on 11-20-2024 GFR/1.73 sq M.predicted among non-blacks MDRD (S/P/Bld) [Vol rate/Area] 61 mL/min/{1.73_m2} >60 [facility] Comment on above: mL/min/1.73m2 CKD-EP I Creatinine Equation (2020) Hematocrit Auto (Bld) [Volum e fraction]Ordered By: Ari Carballo on 11-20-2024 Hematocrit (Bld) [Volume fraction] 47.8 % High 37-47 [facility] Hemoglobin measurementOrdere d By: Ari Carballo 11-20-2024 Hemoglobin (Bld) [Mass/Vol] 15.4 g/dL High 12.0-15.0 [facility] Immature granulocytes/100 WB C Auto (Bld)Ordered By: Ari Carballo 11-20-2024 Immature granulocytes/100 WBC (Bld) 3.100 % High 0.0-0.9 [facility] Comment on above: IG% - Immature Granu locytes (promyelocytes, myelocytes and metamyelocytes) > 1% indicates that a LEFT SHIFT is Present. LDL calc ser/plasOrdered By: Ari Carballo on 11-20-2024 Cholesterol in LDL [Mass/Vol] 70 mg/dL [facility] Comment on above: Nmcdedxkcm=568-929 m g/dL & Higher Vbdb=486 mg/dL or greater Laboratory - Chemistry and C hemistry - challengeOrdered By: Ari Carballo on 11-20-2024 AST [Catalytic activity/Vol] 18 U/L <32 [facility] Lipid Profileon 11-20-2024 CHOL:HDL 2.93 Normal [facility] Comment on above: Performed By: #### L 100.0100, L500.4050, L506.1001, L501.9520, L500.4100 #### [facility] [address] [place], [place], [id number] Cholesterol [Mass/Vol] 134 mg/dL Normal <=200 [facility] Comment on above: Result Comment: Chol esterol level, Desirable <200 mg/dL Borderline high cholesterol 200-239 mg/dL High cholesterol >=240 mg/dL Recommendations of the NCEP Adult Treatment Panel for the following risk-cutoff thresholds for the [place] population. Performed By: #### L 100.0100, L500.4050, L506.1001, L501.9520, L500.4100 #### [facility] [address] [place], [address] Cholesterol in HDL [Mass/Vol] 46 mg/dL Normal [facility] Comment on above: Result Comment: Ivonne onal Cholesterol Education Program (NCEP) guidelines: <40 mg/dL: Low HDL-cholesterol (major risk factor for CHD) >= 60 mg/dL: High HDL-cholesterol (negative risk factor for CHD) HDL-cholesterol is affected by a number of factors, e.g. smoking, exercise, hormones, sex and age. Performed By: #### L 100.0100, L500.4050, L506.1001, L501.9520, L500.4100 #### [facility] [address] [place], [address] Cholesterol in LDL [Mass/Vol] 70 mg/dL Normal [facility] Comment on above: Result Comment: Bord suqrop=255-116 mg/dL Higher Trzt=738 mg/dL or greater Performed By: #### L 100.0100, L500.4050, L506.1001, L501.9520, L500.4100 #### [facility] [address] [place], [address] Cholesterol in VLDL [Mass/Vol] 18 mg/dL Normal 5-40 [facility] Comment on above: Performed By: #### L 100.0100, L500.4050, L506.1001, L501.9520, L500.4100 #### [facility] [address] [place], [address] Triglyceride [Mass/Vol] 89 mg/dL Normal [facility] Comment on above: Result Comment: The drugs N-Acetylcysteine and Metamizole may falsely depress this assay. Normal range: <150 mg/dL Borderline High: 150-199 mg/dL High: 200-499 mg/dL Very High: >500 mg/dL Performed By: #### L 100.0100, L500.4050, L506.1001, L501.9520, L500.4100 #### [facility] [address] [place], [address] MCV (mean corpuscular volume ) determinationOrdered By: Ari Carballo on 11-20-2024 MCV (RBC) [Entitic vol] 90.7 fL 81-99 [facility] Mean corpuscular hemoglobin (MCH) determinationOrdered By: Ari Carballo on 11-20-2024 MCH (RBC) [Entitic mass] 29.2 pg 27.0-32.0 [facility] Mean corpuscular hemoglobin concentration (MCHC) determinationOrdered By: Ari Carballo on 11-20-2024 MCHC (RBC) [Mass/Vol] 32.2 g/dL 32-36 [facility] Mean platelet volume determi nationOrdered By: Ari Carballo on 11-20-2024 Platelet mean volume (Bld) [Entitic vol] 10.4 fL 6.2-12.0 [facility] Monocyte percentageOrdered B y: Ari Carballo on 11-20-2024 Monocytes/100 WBC (Bld) 5.0 % 0-10 [facility] Neutrophil percentageOrdered By: Ari Carballo on 11-20-2024 Neutrophils/100 WBC (Bld) 74.8 % High 47-70 [facility] Nucleated red blood cell per centageOrdered By: Ari Carballo on 11-20-2024 Nucleated RBC/100 WBC (Bld) [Ratio] 0 % 0-5 [facility] Platelet countOrdered By: Donnie Carballo on 11-20-2024 Platelets (Bld) [#/Vol] 266 10*3/uL 150-450 [facility] Potassium measurement (mass/ volume)Ordered By: Ari Carballo on 11-20-2024 Potassium (Unsp spec) [Mass/Vol] 4.2 mmol/L 3.3-5.1 [facility] RBC Auto (Bld) [#/Vol]Ordere d By: Ari Carballo on 11-20-2024 RBC (Bld) [#/Vol] 5.27 10*6/uL 4.2-5.4 [facility] Screening total cholesterol/ high density lipoprotein (HDL) cholesterol ratioOrdered By: Ari Carballo 11-20-2024 Cholesterol.total/Chol esterol in HDL [Mass ratio] 2.93 {ratio} [facility] Serum creatinine measurement (mass/volume)Ordered By: Ari Carballo on 11-20-2024 Creatinine [Mass/Vol] 0.96 mg/dL 0.70-1.20 [facility] Serum globulin measurementOr dered By: Ari Carballo on 11-20-2024 Globulin (S) [Mass/Vol] 2.7 g/dL 2.2-4.2 [facility] Serum glucose measurement (m ass/volume)Ordered By: Ari Carballo on 11-20-2024 Glucose [Mass/Vol] 90 mg/dL 70-99 [facility] Serum or plasma alanine granados otransferase (ALT) measurementOrdered By: Ari Haris 11-20-2024 ALT [Catalytic activity/Vol] 19 U/L <35 [facility] Serum or plasma albumin leonard urement (mass/volume)Ordered By: Ari Haris 11-20-2024 Albumin [Mass/Vol] 3.7 g/dL 3.4-4.8 [facility] Serum or plasma albumin/glob ulin mass ratioOrdered By: Ari Haris 11-20-2024 Albumin/Globulin [Mass ratio] 1.4 {ratio} 0.9-2.4 [facility] Serum or plasma alkaline cathy sphatase measurementOrdered By: Ari Carballo 11-20-2024 ALP [Catalytic activity/Vol] 76 U/L 35-104 [facility] Serum or plasma calcium leonard urement (mass/volume)Ordered By: Ari Carballo 11-20-2024 Calcium [Mass/Vol] 9.7 mg/dL 7.6-11.0 [facility] Serum or plasma cholesterol in HDL measurement (mass/volume)Ordered By: Ari Haris 11-20-2024 Cholesterol in HDL [Mass/Vol] 46 mg/dL >40 [facility] Comment on above: National Cholesterol Education Program (NCEP) guidelines:<40 mg/dL: Low HDL-cholesterol (major risk factor for CHD)>= 60 mg/dL: High HDL-cholesterol (negative risk factor for CHD)HDL-cholesterol is affected by a number of factors, e.g. smoking, exercise, hormones, sex and age. Serum or plasma cholesterol measurement (mass/volume)Ordered By: Ari Carballo 11-20-2024 Cholesterol [Mass/Vol] 134 mg/dL <201 [facility] Comment on above: Cholesterol level, D esirable <200 mg/dLBorderline high cholesterol 200-239 mg/dLHigh cholesterol >=240 mg/dLRecommendations of the NCEP Adult Treatment Panel for the following risk-cutoff thresholds for the [place] population. Serum or plasma urea nitroge n measurement (mass/volume)Ordered By: Ari Carballo 11-20-2024 Urea nitrogen [Mass/Vol] 21 mg/dL High 4-19 [facility] Sodium levelOrdered By: Ari Carballo on 11-20-2024 Sodium [Moles/Vol] 139 mmol/L 133-145 [facility] TSH DL <= 0.005 mIU/L QnOrde red By: Ari Carballo on 11-20-2024 TSH Qn 1.490 uIU/mL 0.300-4.200 [facility] Thyroid Stim Hormone (TSH)on 11-20-2024 TSH 1.490 uIU/mL Normal 0.300-4.200 [facility] Comment on above: Performed By: #### L 100.0100, L500.4050, L506.1001, L501.9520, L500.4100 #### [facility] [address] [place], [place], [id number] Total proteinOrdered By: Ari Carballo on 11-20-2024 Protein [Mass/Vol] 6.4 g/dL 5.9-8.4 [facility] Triglycerides measurementOrd ered By: Ari Carballo on 11-20-2024 Triglyceride [Mass/Vol] 89 mg/dL <199 [facility] Comment on above: The drugs N-Acetylcy steine and Metamizole may falsely depress this assay. Normal range: <150 mg/dLBorderline High: 150-199 mg/dLHigh: 200-499 mg/dLVery High: >500 mg/dL Vitamin D,25 Hydroxyon 11-20 Vitamin D 25-OH 72.5 ng/mL Normal 30-100 [facility] Comment on above: Result Comment: Marlen min D Status Deficiency: <20 ng/mL (50nmol/L) Insufficiency: 20-30 ng/mL (50-75 nmol/L) Sufficiency: 30-100 ng/mL (75-250 nmol/L) Toxicity: >100 ng/mL (>250 nmol/L) Performed By: #### L 100.0100, L500.4050, L506.1001, L501.9520, L500.4100 #### [facility] [address] [place], [place], [id number] White blood cell (WBC) count Ordered By: Ari Carballo on 11-20-2024 WBC (Bld) [#/Vol] 8.7 10*3/uL 4.4-11.0 [facility] Respiratory Cultureon 2024 [facility]PC Amoxicillin/Clavulan ic Acid and Oral Cephalosporins are the drugs of choice, as most isolates are penicillin resistant. Microorganism Spec Cult Trimeth/Sulfa (Otitis), Ciprofloxacin, Ofloxacin and Erythromycin are alternate choices. Moraxella Catarrhalis Amount Growth 2+ Beta Lactamase-Reportable Positive Normal [facility] Comment on above: Performed By: #### L 500.4050, M100.2400, L100.0100, M100.2000, L503.7505 #### [facility] [address] [facility] [place], [address] Gram Stainon 11-15-2024 GS Acceptable Specimen? Yes (<25 Epithelial cells per/lpf) Gram Stain 3+ Gram positive cocci 2+ Gram positive rods 2+ White Blood Cells Normal [facility] Comment on above: Performed By: #### L 500.4050, M100.2400, L100.0100, M100.2000, L503.7505 #### [facility] [address] [place], [place], [address] [employer] Decub and/or Erecton 11-14-2024 [employer] Decub and/or Erect [facility] [address] [place], [place] [address] [employer] Decub and/or Erect MR#: [id number] Acct: [id number] Name: SHANTHI SAM Rep #: [id number] : 1945 F 79 From: Jose Melo MD PCP: Dr. Ari Carballo MD Status: REG CLI Study: [employer] Inc Decub and/or Erect Date of Exam: 11/14 Exam# [id number] Ordering Dr: Ari Carballo MD PROCEDURE: ABD INC DECUB AND/OR ERECT 11/14/2024 REASON FOR EXAM: CONGESTIVE HEART FAILURE AND WHEEZING TECHNIQUE: Single view abdomen. FINDINGS: Bowel gas: Gas in multiple loops of small bowel in a nonspecific bowel gas pattern. Calcifications: No suspicious calcifications. Bones: The bones are unremarkable. Other: RAD/[employer]d Inc Decub and/or Erect IMPRESSION: Nonspecific bowel gas pattern. Reading Location: [facility] CC: Dr. 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 Normal [facility] Absolute lymphocyte countOrd ered By: Ari Carballo on 11-14-2024 Lymphocytes Auto (Unsp spec) [#/Vol] 0.96 10*3/uL 0.83-4.51 [facility] Absolute neutrophil countOrd ered By: [facility] Neutrophils (Bld) [#/Vol] 6.4 10*3/uL 2.0-7.7 [facility] Anion gap in Serum or Plasma Ordered [facility]: [facility] 11-14-[facility]24 Anion gap [Moles/Vol] 10 mmol/L 5-15 [facility] Automated lymphocyte count a s percentage of total leukocytesOrdered By: Ari Haris on 11-14-2024 Lymphocytes/100 WBC Auto (Unsp spec) 11.8 % Low 19-41 [facility] BUN/creatinine ratioOrdered By: [facility] on 11-14-2024 Urea nitrogen/Creatinine [Mass ratio] 14.3 mg/mg 10-20 [facility] Basophil percentageOrdered B y: [facility] on 11-14-2024 Basophils/100 WBC (Bld) 0.6 % 0-1 [facility] Bilirubin, totalOrdered By: Ari Carballo on 11-14-2024 Bilirubin [Mass/Vol] 0.90 mg/dL 0.00-1.30 [facility] CBC W/Diff, Automatedon 10-18 Absolute Lymph 0.96 X10 3/uL Normal 0.83-4.51 [facility] Comment on above: Performed By: #### L 500.4050, M100.2400, L100.0100, M100.2000, L503.7505 #### [facility] [address] [place], [address] Absolute Neut 6.4 X10 3/uL Normal 2.0-7.7 [facility] Comment on above: Performed By: #### L 500.4050, M100.2400, L100.0100, M100.2000, L503.7505 #### [facility] [address] [place], [address] Basophils/100 WBC (Bld) 0.6 % Normal 0-1 [facility] Comment on above: Performed By: #### L 500.4050, M100.2400, L100.0100, M100.2000, L503.7505 #### [facility] [address] [place], [address] Eosinophils/100 WBC (Bld) 1.6 % Normal 0-5 [facility] Comment on above: Performed By: #### L 500.4050, M100.2400, L100.0100, M100.2000, L503.7505 #### [facility] [address] [place], [address] Erythrocyte distribution width (RBC) [Ratio] 13.7 % Normal 11.6-14.6 [facility] Comment on above: Performed By: #### L 500.4050, M100.2400, L100.0100, M100.2000, L503.7505 #### [facility] [address] [place], [address] Hematocrit (Bld) [Volume fraction] 44.9 % Normal 37-47 [facility] Comment on above: Performed By: #### L 500.4050, M100.2400, L100.0100, M100.2000, L503.7505 #### [facility] [address] [place], [address] Hemoglobin (Bld) [Mass/Vol] 14.8 g/dL Normal 12.0-15.0 [facility] Comment on above: Performed By: #### L 500.4050, M100.2400, L100.0100, M100.2000, L503.7505 #### [facility] [address] [place], [address] IG% 0.600 Normal 0.0-0.9 [facility] Comment on above: Result Comment: IG% - Immature Granulocytes (promyelocytes, myelocytes and metamyelocytes) > 1% indicates that a LEFT SHIFT is Present. Performed By: #### L 500.4050, M100.2400, L100.0100, M100.2000, L503.7505 #### [facility] [address] [place], [address] Lymphocytes/100 WBC (Bld) 11.8 % Low 19-41 [facility] Comment on above: Performed By: #### L 500.4050, M100.2400, L100.0100, M100.1999, L503.7505 #### [facility] [address] [place], [address] MCH (RBC) [Entitic mass] 30.4 pg Normal 27.0-32.0 [facility] Comment on above: Performed By: #### L 500.4050, M100.2400, L100.0100, M100.2000, L503.7505 #### [facility] [address] [place], [address] MCHC (RBC) [Mass/Vol] 33.0 g/dL Normal 32-36 [facility] Comment on above: Performed By: #### L 500.4050, M100.2400, L100.0100, M100.2000, L503.7505 #### [facility] [address] [place], [address] MCV (RBC) [Entitic vol] 92.2 fL Normal 81-99 [facility] Comment on above: Performed By: #### L 500.4050, M100.2400, L100.0100, M100.2000, L503.7505 #### [facility] [address] [place], [address] Monocytes/100 WBC (Bld) 7.5 % Normal 0-10 [facility] Comment on above: Performed By: #### L 500.4050, M100.2400, L100.0100, M100.2000, L503.7505 #### [facility] [address] [place], [address] Neutrophils/100 WBC (Bld) 77.9 % High 47-70 [facility] Comment on above: Performed By: #### L 500.4050, M100.2400, L100.0100, M100.2000, L503.7505 #### [facility] [address] [place], [address] Nucleated RBC (Bld) [#/Vol] 0 10*3/uL Normal 0-5 [facility] Comment on above: Performed By: #### L 500.4050, M100.2400, L100.0100, M100.2000, L503.7505 #### [facility] [address] [place], [address] Platelet mean volume (Bld) [Entitic vol] 10.9 fL Normal 6.2-12.0 [facility] Comment on above: Performed By: #### L 500.4050, M100.2400, L100.0100, M100.2000, L503.7505 #### [facility] [address] [place], [address] Platelets (Bld) [#/Vol] 225 10*3/uL Normal 150-450 [facility] Comment on above: Performed By: #### L 500.4050, M100.2400, L100.0100, M100.2000, L503.7505 #### [facility] [address] [place], [address] RBC (Bld) [#/Vol] 4.87 10*6/uL Normal 4.2-5.4 [facility] Comment on above: Performed By: #### L 500.4050, M100.2400, L100.0100, M100.2000, L503.7505 #### [facility] [address] [place], [address] RDW SD 47.2 fl High 35.1-43.9 [facility] Comment on above: Performed By: #### L 500.4050, M100.2400, L100.0100, M100.2000, L503.7505 #### [facility] [address] [place], [address] WBC (Bld) [#/Vol] 8.2 10*3/uL Normal 4.4-11.0 [facility] Comment on above: Performed By: #### L 500.4050, M100.2400, L100.0100, M100.2000, L503.7505 #### [facility] [address] [place], [address] Carbon dioxide, total [Moles /volume] in Central venous bloodOrdered By: Ari Carballo on 11-14-2024 CO2 [Moles/Vol] 30.2 mmol/L 21.0-32.0 [facility] Chloride assayOrdered By: Donnie Carballo on 11-14-2024 Chloride [Moles/Vol] 98 mmol/L 98-108 [facility] Comprehensive Metabolic Prof ilon 11-14-2024 Albumin [Mass/Vol] 3.5 g/dL Normal 3.4-4.8 [facility] Comment on above: Performed By: #### L 500.4050, M100.2400, L100.0100, M100.2000, L503.7505 #### [facility] [address] [place], [address] Albumin/Globulin [Mass ratio] 1.2 {ratio} Normal 0.9-2.4 [facility] Comment on above: Performed By: #### L 500.4050, M100.2400, L100.0100, M100.1999, L503.7505 #### [facility] [address] [place], [address] ALK PHOS 81 U/L Normal 35-104 [facility] Comment on above: Performed By: #### L 500.4050, M100.2400, L100.0100, M100.1999, L503.7505 #### [facility] [address] [place], [address] ALT [Catalytic activity/Vol] 36 U/L High <=34 [facility] Comment on above: Performed By: #### L 500.4050, M100.2400, L100.0100, M100.1999, L503.7505 #### [facility] [address] [place], [address] AST [Catalytic activity/Vol] 26 U/L Normal <=31 [facility] Comment on above: Performed By: #### L 500.4050, M100.2400, L100.0100, M100.1999, L503.7505 #### [facility] [address] [place], [address] Bilirubin [Mass/Vol] 0.90 mg/dL Normal 0.00-1.30 [facility] Comment on above: Performed By: #### L 500.4050, M100.2400, L100.0100, M100.2000, L503.7505 #### [facility] [address] [place], [address] BUN/CRE 14.3 RATIO Normal 10-20 [facility] Comment on above: Performed By: #### L 500.4050, M100.2400, L100.0100, M100.1999, L503.7505 #### [facility] [address] [place], [address] Calcium [Mass/Vol] 9.6 mg/dL Normal 7.6-11.0 [facility] Comment on above: Performed By: #### L 500.4050, M100.2400, L100.0100, M100.1999, L503.7505 #### [facility] [address], [address] Chloride [Moles/Vol] 98 mmol/L Normal 98-108 [facility] Comment on above: Performed By: #### L 500.4050, M100.2400, L100.0100, M1.1999, L503.7505 #### [facility] [address] [place], [address] CO2 [Moles/Vol] 30.2 mmol/L Normal 21.0-32.0 [facility] Comment on above: Performed By: #### L 500.4050, M100.2400, L100.0100, M100.1999, L503.7505 #### [facility] [address] [place], [address] Creatinine [Mass/Vol] 0.91 mg/dL Normal 0.70-1.20 [facility] Comment on above: Performed By: #### L 500.4050, M100.2400, L100.0100, M100.1999, L503.7505 #### [facility] [address] [place], [address] GAP 10 Normal 5-15 [facility] Comment on above: Performed By: #### L 500.4050, M100.2400, L100.0100, M100.1999, L503.7505 #### [facility] [address] [place], [address] GFR/1.73 sq M.predicted among non-blacks MDRD (S/P/Bld) [Vol rate/Area] 65 mL/min/{1.73_m2} Normal >60 [facility] Comment on above: Result Comment: mL/m in/1.73m2 CKD-EPI Creatinine Equation (2020) Performed By: #### L 500.4050, M100.2400, L100.0100, M100.1999, L503.7505 #### [facility] [address] [place], [address] Globulin (S) [Mass/Vol] 3.0 g/dL Normal 2.2-4.2 [facility] Comment on above: Performed By: #### L 500.4050, M100.2400, L100.0100, M100.1999, L503.7505 #### [facility] [address] [place], [address] Glucose [Mass/Vol] 97 mg/dL Normal 70-99 [facility] Comment on above: Performed By: #### L 500.4050, M100.2400, L100.0100, M100.1999, L503.7505 #### [facility] [address] [place], [address] Potassium [Moles/Vol] 3.8 mmol/L Normal 3.3-5.1 [facility] Comment on above: Performed By: #### L 500.4050, M100.2400, L100.0100, M100.1999, L503.7505 #### [facility] [address] [place], [address] Sodium [Moles/Vol] 138 mmol/L Normal 133-145 [facility] Comment on above: Performed By: #### L 500.4050, M100.2400, L100.0100, M100.2000, L503.7505 #### [facility] [address] [place], [address] T PROT 6.5 g/dL Normal 5.9-8.4 [facility] Comment on above: Performed By: #### L 500.4050, M100.2400, L100.0100, M100.2000, L503.7505 #### [facility] [address] [place], [address] Urea nitrogen [Mass/Vol] 13 mg/dL Normal 4-19 [facility] Comment on above: Performed By: #### L 500.4050, M100.2400, L100.0100, M100.2000, L503.7505 #### [facility] [address] [place], [address] Eosinophil percentageOrdered By: Ari Carballo on 11-14-2024 Eosinophils/100 WBC (Bld) 1.6 % 0-5 [facility] Erythrocyte distribution wid th ratioOrdered By: Ari Carballo on 11-14-2024 Erythrocyte distribution width (RBC) [Ratio] 13.7 % 11.6-14.6 [facility] Erythrocyte distribution wid th standard deviationOrdered By: Ari Carballo on 11-14-2024 Erythrocyte distribution width (RBC) [Ratio] 47.2 fl High 35.1-43.9 [facility] Glomerular filtration rate ( GFR) estimation/1.73 sq m using serum, plasma, or whole bOrdered By: Ari Carballo on 11-14-2024 GFR/1.73 sq M.predicted among non-blacks MDRD (S/P/Bld) [Vol rate/Area] 65 mL/min/{1.73_m2} >60 [facility] Comment on above: mL/min/1.73m2 CKD-EP I Creatinine Equation (2020) Gram stainOrdered By: Ari doran on 11-14-2024 Microscopic observation Gram stain Nom (Unsp spec) [facility] Hematocrit Auto (Bld) [Volum e fraction]Ordered By: Ari Carballo on 11-14-2024 Hematocrit (Bld) [Volume fraction] 44.9 % 37-47 [facility] Hemoglobin measurementOrdere d By: Ari Carballo on 11-14-2024 Hemoglobin (Bld) [Mass/Vol] 14.8 g/dL 12.0-15.0 [facility] Immature granulocytes/100 WB C Auto (Bld)Ordered By: Ari Carballo on 11-14-2024 Immature granulocytes/100 WBC (Bld) 0.600 % 0.0-0.9 [facility] Comment on above: IG% - Immature Granu locytes (promyelocytes, myelocytes and metamyelocytes) > 1% indicates that a LEFT SHIFT is Present. Influenza virus A and B and SARS-CoV-2 (COVID-19) and Respiratory syncytial virus RNAOrdered By: Ari Carballo on 11-14-2024 SARS-CoV-2 (COVID-19) RNA HILARIO+probe Ql (Unsp spec) [facility] L503.7505on 11-14-2024 Natriuretic peptide B (Bld) [Mass/Vol] 947 pg/mL Normal <=1800 [facility] Comment on above: Result Comment: Hear t Failure Unlikely: < 300 pg/mL Heart Failure Likely < 50 Years: > 450 pg/mL 50-75 Years: > 900 pg/mL >75 Years: > 1800 pg/mL Performed By: #### L 500.4050, M100.2400, L100.0100, M100.1999, L503.7505 #### [facility] [address] [place], [address] Laboratory - Chemistry and C hemistry - challengeOrdered By: Ari Carballo on 11-14-2024 AST [Catalytic activity/Vol] 26 U/L <32 [facility] M100.678on 11-14-2024 M100.678 Pending SARS-CoV-2 (COVID 19) Negative INFLUENZA A Negative INFLUENZA B Negative RSV PCR Negative Normal [facility] Comment on above: Performed By: #### L 500.4050, M100.2400, L100.0100, M100.2000, L503.7505 #### [facility] [address] [place], [address] MCV (mean corpuscular volume ) determinationOrdered By: Ari Carballo on 11-14-2024 MCV (RBC) [Entitic vol] 92.2 fL 81-99 [facility] Mean corpuscular hemoglobin (MCH) determinationOrdered By: Ari Carballo on 11-14-2024 MCH (RBC) [Entitic mass] 30.4 pg 27.0-32.0 [facility] Mean corpuscular hemoglobin concentration (MCHC) determinationOrdered By: Ari Carballo 11-14-2024 MCHC (RBC) [Mass/Vol] 33.0 g/dL 32-36 [facility] Mean platelet volume determi nationOrdered By: Ari Carballo on 11-14-2024 Platelet mean volume (Bld) [Entitic vol] 10.9 fL 6.2-12.0 [facility] Microbial respiratory cultur eOrdered By: Ari Carballo 11-14-2024 Microorganism identified Cx Nom (Unsp spec) Moraxella Catarrhalis Abnormal [facility] Monocyte percentageOrdered B y: Ari Carballo on 11-14-2024 Monocytes/100 WBC (Bld) 7.5 % 0-10 [facility] Natriuretic peptide.B prohor wesley N-Terminal [Mass/volume] in Serum or PlasmaOrdered By: Ari Carballo 11-14-2024 Natriuretic peptide.B prohormone N-Terminal [Mass/Vol] 947 pg/mL <1800 [facility] Comment on above: Heart Failure Unlike ly: < 300 pg/mLHeart Failure Likely< 50 Years: > 450 pg/mL50-75 Years: > 900 pg/mL>75 Years: > 1800 pg/mL Neutrophil percentageOrdered By: Ari Carballo on 11-14-2024 Neutrophils/100 WBC (Bld) 77.9 % High 47-70 [facility] Nucleated red blood cell per centageOrdered By: Ari Carballo 11-14-2024 Nucleated RBC/100 WBC (Bld) [Ratio] 0 % 0-5 [facility] Platelet countOrdered By: Donnie Carballo on 11-14-2024 Platelets (Bld) [#/Vol] 225 10*3/uL 150-450 [facility] Potassium measurement (mass/ volume)Ordered By: Ari Carballo 11-14-2024 Potassium (Unsp spec) [Mass/Vol] 3.8 mmol/L 3.3-5.1 [facility] RBC Auto (Bld) [#/Vol]Ordere d By: Ari Carballo on 11-14-2024 RBC (Bld) [#/Vol] 4.87 10*6/uL 4.2-5.4 [facility] Serum creatinine measurement (mass/volume)Ordered By: Ari Carballo on 11-14-2024 Creatinine [Mass/Vol] 0.91 mg/dL 0.70-1.20 [facility] Serum globulin measurementOr dered By: Ari Carballo 11-14-2024 Globulin (S) [Mass/Vol] 3.0 g/dL 2.2-4.2 [facility] Serum glucose measurement (m ass/volume)Ordered By: Ari Carballo 11-14-2024 Glucose [Mass/Vol] 97 mg/dL 70-99 [facility] Serum or plasma alanine granados otransferase (ALT) measurementOrdered By: Ari Carballo 11-14-2024 ALT [Catalytic activity/Vol] 36 U/L High <35 [facility] Serum or plasma albumin leonard urement (mass/volume)Ordered By: Ari Carballo 11-14-2024 Albumin [Mass/Vol] 3.5 g/dL 3.4-4.8 [facility] Serum or plasma albumin/glob ulin mass ratioOrdered By: Ari Carballo 11-14-2024 Albumin/Globulin [Mass ratio] 1.2 {ratio} 0.9-2.4 [facility] Serum or plasma alkaline cathy sphatase measurementOrdered By: Ari Carballo 11-14-2024 ALP [Catalytic activity/Vol] 81 U/L 35-104 [facility] Serum or plasma calcium leonard urement (mass/volume)Ordered By: Ari Carballo 11-14-2024 Calcium [Mass/Vol] 9.6 mg/dL 7.6-11.0 [facility] Serum or plasma urea nitroge n measurement (mass/volume)Ordered By: Ari Carballo 11-14-2024 Urea nitrogen [Mass/Vol] 13 mg/dL 4-19 [facility] Sodium levelOrdered By: Ari Carballo 11-14-2024 Sodium [Moles/Vol] 138 mmol/L 133-145 [facility] Total proteinOrdered By: Ari Carballo on 11-14-2024 Protein [Mass/Vol] 6.5 g/dL 5.9-8.4 [facility] White blood cell (WBC) count Ordered By: Ari Carballo on 11-14-2024 WBC (Bld) [#/Vol] 8.2 10*3/uL 4.4-11.0 [facility] 6 Minute Walk Teston 025 6 Minute Walk Test y [facility]monary Services/Neurology [address] [place] [address] MR#: [id number] Acct: [id number] Name: SHANTHI SAM Rep #: [id number] : 1945 79 From: Marko Deshpande DO Referring Dr: Cammie Martel [employer]RB[employer]ESTER [employer]ER-C Status: REG CLI Location: PSN Date: Sex: F C PSN 6 Minute Walk Test 6 Minute Walk Test 6 Minute Walk Test: 6 Minute Walk Test PSN:6-Minute Walk Test Start: 09/15/24 12:53 Freq: Status: Active Protocol: RESP.6MINW Document 09/15/24 13:26 SFENTON (Rec: 09/15/24 13:29 SFENTON [id number]) 6 Minute Walk Test Date Performed 09/15/24 Time Performed 12:30 Height 5 ft [address]: Cammie Martel [employer]RB[employer] FORESTER Assistive device Walker used: Pre-test Oxygen Delivery Room Air Method Pulse Ox (%) 96 Pulse Rate (60-100 92 beats/min) Dyspnea Kary Scale ( 0 0-10) Exertion Kary Scale 6 (6-20) 1st minute Oxygen Delivery Room Air Method Pulse Ox (%) 97 Pulse Rate (60-100 95 beats/min) 2nd minute Oxygen Delivery Room Air Method Pulse Ox (%) 94 Pulse Rate (60-100 99 beats/min) 3rd minute Oxygen Delivery Room Air Method Pulse Ox (%) 94 Pulse Rate (60-100 101 H beats/min) 4th minute Oxygen Delivery Room Air Method Pulse Ox (%) 95 Pulse Rate (60-100 100 beats/min) 5th minute Oxygen Delivery Room Air Method Pulse Ox (%) 95 Pulse Rate (60-100 105 H beats/min) 6th minute Oxygen Delivery Room Air Method Pulse Ox (%) 94 Pulse Rate (60-100 105 H beats/min) Dyspnea Kary Scale ( 2 0-10) Exertion Kary Scale 12 (6-20) Post-test Oxygen Delivery Room Air Method Pulse Ox (%) 96 Pulse Rate (60-100 91 beats/min) Full Laps Walked 10 Partial Lap, Number 36 of Tiles Walked Total Distance 626 Walked (ft) Interpretation Interpretation: The patient ambulated 626 feet over the course of 6 minutes beginning on room air with use of a walker. Pretesting oxygen saturation was noted to be 96% on room air. With ambulation, the erika oxygen saturation was 94%. Although there was evidence of impaired walk distance, there was no significant exertional oxygen desaturation. Recommendations Recommendations: There is no indication for the use of supplemental oxygen at this time. 09/22/24 0750 Date Marko Deshpande DO CC: Date Dictated: 09/22/2449 Date Transcribed: 09/22/2449 Personal Care Home Administrator: Dr. Marko Deshpande DO Signed Normal [facility] Pulmonary Visit Reporton Pulmonary Visit Report [facility] [address] [place] [address] OFFICE VISIT Date of Service: 09/22/24 MR#: [id number] Acct: [id number] Name: SHANTHI SAM Rep #: [id number] : 1945 Provider: GLORY Martel Age/Sex: 79/F [place] [facility] Status: Signed Assessment and Plan Assessment and Plan (1) Stage 2 moderate COPD by GOLD classification: Status: Chronic Comment: FEV1 57% of predicted 09/04/2019 Plan: Stable, she does not appear to be an exacerbation of COPD today. No need for prednisone or antibiotic. Continue current maintenance medication. No additional testing at this time, symptomatically controlled with use of budesonide nebulized once daily and DuoNebs once daily. Contact the office for any new or worsening symptoms. An acute visit and typically be arranged within 1-2 days. Follow-up in 6 months. (2) Squamous cell carcinoma of lung: Status: Chronic Qualifiers: Laterality: left Qualified Code(s): C34.92 - Malignant neoplasm of unspecified part of left bronchus or lung Comment: S/P L wedge resection, CT 05/23/2021 residual density LLL has increased in size. PET/CT 06/03/2021 shows hypermetabolic activity in LLL, neck nodes are benign. S/P SBRT to LLL from 07/08/2021 to 07/22/2021. CT on 09/18/2022 reviewed, shows linear scar LLL. Comes for follow up. CT 04/10/2024 reviewed. No evidence of progressive disease. Plan: Complicates exam, plan, care and prognosis. Serial imaging deferred to oncology. (3) Hypoxemia: Status: Chronic Plan: Improved. The patient no longer requires supplemental oxygen on exertion. We will check a overnight oximetry to make sure that the patient does not require any supplemental oxygen with sleep. If test results indicate that she is adequate on room air, supplemental oxygen will be discontinued. HPI HPI Comments Details: This patient presents to the office today for follow-up of her COPD. She is in a wheelchair, on room air and accompanied today by her . She has not recently been seen in the ED or urgent care for any respiratory illness. She has not required any antibiotics or prednisone for any breathing problems. She is compliant with budesonide nebulized once daily. She is also utilizing DuoNebs once daily. She does report rinsing her mouth out after each use. She denies any medication side effect such as sore throat or thrush. She does have shortness of breath that is worse with exertion. She denies any cough, sputum production or hemoptysis. She is no longer experiencing any wheezing, chest tightness, chest pain or palpitations. She has not had any fever, chills or body aches. She has not recently required use of her supplemental oxygen. She has been checking her oxygen saturation on room air. It is typically above 92%, this even occurs with exertion. Test results personally viewed patient: Walking oximetry completed on September 15, 2024. Patient was able to ambulate a total of 626 feet over the course of 6 minutes. She did not become hypoxic and does not currently require any supplemental oxygen. Intake Vital Signs 08/11/24 09:41 09/22/24 08:25 Height 5 ft 3 in 5 ft 3 in Weight: 183 lb BMI 32.4 BP 140/95 H Blood Pressure Location Lt brachial Position Sitting Respiration 18 Pulse 87 Pulse Source Monitor Temp 97.4 F L Temperature Source Temporal Artery Pulse Oximetry (%) 95 Oxygen Delivery Method room air Intake Visit Reasons: 4-6wk FU Chief Complaint: Right Knee Pain - wanting injection Corrugated Box Machine Operator Required: No DME Vendor: Lynne Accompanied by: Allergies Penicillins Allergy (Mild, Verified 09/22/24 13:34) Rash simvastatin Allergy (Unknown, Verified 09/22/24 13:34) Myalgia Sulfa (Sulfonamide Antibiotics) Allergy (Unknown, Verified 09/22/24 13:34) Unknown gemfibrozil Adverse Reaction (Severe, Verified 09/22/24 13:34) Pain in joints Iodinated Contrast Media (Iodinated Contrast- Oral and IV Dye) Adverse Reaction (Severe, Verified 09/22/24 13:34) Vomiting spironolactone Adverse Reaction (Intermediate, Verified 09/22/24 13:34) Nausea and higher BP lisinopril Adverse Reaction (Mild, Verified 09/22/24 13:34) Cough losartan Adverse Reaction (Mild, Verified 09/22/24 13:34) Cough atorvastatin Adverse Reaction (Unknown, Verified 09/22/24 13:34) Myalgia fluvastatin Adverse Reaction (Unknown, Verified 09/22/24 13:34) Myalgia niacin Adverse Reaction (Unknown, Verified 09/22/24 13:34) Rash rosuvastatin Adverse Reaction (Unknown, Verified 09/22/24 13:34) Myalgia Medications ???Medication ???Instructions ???Recorded ???Confirmed ???Type cholecalciferol (vitamin D3) 25 1,000 unit PO QDAY supplement 09/0509/22/24 History mcg (1,000 unit) capsule magnesium oxide 400 mg PO DAILY (more content not included)... Normal [facility] Orthopedic Visit Reporton Orthopedic Visit Report [facility] [address] [place] [address] OFFICE VISIT Date of Service: 09/08/24 MR#: [id number] Acct: [id number] Name: SHANTHI SAM Rep #: [id number] : 1945 Provider: Dr. Ryley pollard, Age/Sex: 79/F [place] [facility] Status: Signed Intake Vital Signs 08/11/24 09:41 Height 5 ft 3 in Weight: 183 lb BMI 32.4 BP 113/68 Blood Pressure Location Lt brachial Position Sitting Respiration 18 Pulse 72 Pulse Source Monitor Temp 97.2 F L Pulse Oximetry (%) 95 Oxygen Delivery Method nasal canula Oxygen Flow Rate (L/min) 3 Intake Visit Reasons: RIGHT KNEE Chief Complaint: Right Knee Pain - wanting injection Accompanied by: Is patient in pain?: Yes Pain scale (1-10): 7 Allergies Penicillins Allergy (Mild, Verified 09/08/24 09:51) Rash simvastatin Allergy (Unknown, Verified 09/08/24 09:51) Myalgia Sulfa (Sulfonamide Antibiotics) Allergy (Unknown, Verified 09/08/24 09:51) Unknown gemfibrozil Adverse Reaction (Severe, Verified 09/08/24 09:51) Pain in joints Iodinated Contrast Media (Iodinated Contrast- Oral and IV Dye) Adverse Reaction (Severe, Verified 09/08/24 09:51) Vomiting spironolactone Adverse Reaction (Intermediate, Verified 09/08/24 09:51) Nausea and higher BP lisinopril Adverse Reaction (Mild, Verified 09/08/24 09:51) Cough losartan Adverse Reaction (Mild, Verified 09/08/24 09:51) Cough atorvastatin Adverse Reaction (Unknown, Verified 09/08/24 09:51) Myalgia fluvastatin Adverse Reaction (Unknown, Verified 09/08/24 09:51) Myalgia niacin Adverse Reaction (Unknown, Verified 09/08/24 09:51) Rash rosuvastatin Adverse Reaction (Unknown, Verified 09/08/24 09:51) Myalgia Medications ???Medication ???Instructions ???Recorded ???Confirmed ???Type cholecalciferol (vitamin D3) 25 1,000 unit PO QDAY supplement 09/0509/08/24 History mcg (1,000 unit) capsule magnesium oxide 400 mg PO DAILY 09/15/21 09/08/24 History clopidogrel 75 mg tablet 75 mg PO QDAY #90 tabs 10/08/23 Rx isosorbide mononitrate 30 mg 30 mg PO QDAY #90 tabs 10/08/23 Rx tablet,extended release 24 hr metoprolol succinate 25 mg 25 mg PO QDAY #90 tabs 10/08/23 Rx tablet,extended release 24 hr amlodipine 5 mg tablet 5 mg PO DAILY #90 tabs 03/10/24 Rx evolocumab 140 mg/mL subcutaneous 140 mg subcut Q2W Paperwork for 1 08/31/23 09/08/24 Rx syringe (Repatha Syringe) pavan application being faxed #6 m L guaifenesin 1,200 mg tablet, 1,200 mg PO Q12H #60 tabs 06/30/24 09/08/24 Rx extended release 12 hr ipratropium 0.5 mg-albuterol 3 mg 3 ml inhalation Q4H PRN PRN SOB 1 09/04/23 09/08/24 Rx (2.5 mg base)/3 mL nebulization /OR WHEEZING #180 mL soln sulfamethoxazole 800 tab PO 08/11/24 09/08/24 History mg-trimethoprim 160 mg tablet budesonide 1 mg/2 mL suspension 1 mg inhalation QDAY 09/08/24 His tory for nebulization Have you fallen in the past year?: No PFSH Medical History Anxiety Cardiac murmur 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) Family History Father CAD (coronary artery disease) CVA (cerebral vascular accident) Heart disease Mother Heart disease Other History of AAA (abdominal aortic aneurysm) repair Social History household members: spouse Smoking Status: Former smoker alcohol intake: current alcohol intake frequency: holidays/special occasions only Alcohol type: beer, wine and hard liquor substance use type: does not use caffeine: Yes Type: coffee Number of servings: 5 what type of physical activity do you participate in: none seatbelt use: never do you feel safe at home: Yes HPI RIGHT KNEE Details: This documentation accurately reflects the service provided and the decisions made by me, Dr. Ryley Parada, DO 09/08/24 0744. Part of today???s visit was documented by [employer] ATC, acting as scribe. SHANTHI SAM is a 79 year old F here today (more content not included)... Normal [facility] Pulmonary Visit Reporton Pulmonary Visit Report [facility] [place] [address] [place] [address] OFFICE VISIT Date of Service: 08/11/24 MR#: [id number] Acct: [id number] Name: SHANTHI SAM Rep #: [id number] : 1945 Provider: GLORY Martel Age/Sex: 79/F [place] [facility] Status: Signed Assessment and Plan Assessment and Plan (1) Stage 2 moderate COPD by GOLD classification: Status: Chronic Comment: FEV1 57% of predicted 09/04/2019 Plan: Significantly improved. She no longer appears to be in exacerbation. Continue triple therapy with the use of budesonide and DuoNebs. Once the patient has completed the supply of budesonide and DuoNebs that she has on hand she will transition to Trelegy. Follow-up in the office in 4 months. She has been encouraged to contact the office with any new or worsening symptoms in the meantime. Patient is impressed with her response and states I wish I would have come to you sooner. (2) Squamous cell carcinoma of lung: Status: Chronic Qualifiers: Laterality: left Qualified Code(s): C34.92 - Malignant neoplasm of unspecified part of left bronchus or lung Comment: S/P L wedge resection, CT 05/23/2021 residual density LLL has increased in size. PET/CT 06/03/2021 shows hypermetabolic activity in LLL, neck nodes are benign. S/P SBRT to LLL from 07/08/2021 to 07/22/2021. CT on 09/18/2022 reviewed, shows linear scar LLL. Comes for follow up. CT 04/10/2024 reviewed. No evidence of progressive disease. Plan: Complicates exam, plan, care and prognosis. The patient reports that she is cancer free. (3) Hypoxemia: Status: Chronic Plan: She is using and benefiting from supplemental oxygen. Continue to titrate as needed to maintain saturations 89 to 92%. Orders: Orders Simple Pulmonary Exercise Test Today J44.9 - Chronic obstructive pulmonary disease, unspecified HPI 6 wk FU Chief Complaint: Follow-up after referral to ID HPI Comments Details: This patient presents to the office today for follow-up of her COPD. She is in a wheelchair, currently on supplemental oxygen and accompanied today by her . If you recall, at the last office visit a sputum was obtained. Ultimately, the patient was referred to infectious disease for management. Office visit from the infectious disease specialist indicates that she was treated with Bactrim DS starting on August 03, 2024. She did require premedication with Benadryl due to history of allergic reaction. He was also advised that the patient should return to the office as needed. She completed antibiotics yesterday. She is compliant with budesonide nebulized twice daily. She is also utilizing DuoNebs twice daily. She does report rinsing her mouth out after each use. She denies any medication side effect such as sore throat or thrush. She does have shortness of breath that is worse with exertion. The patient is happy to report that her cough is much less frequent. It is only producing clear or white-colored sputum now. She glo es any hemoptysis. She is no longer experiencing any wheezing, chest tightness, chest pain or palpitations. She has not had any fever, chills or body aches. Intake Vital Signs 06/30/24 07:36 08/11/24 09:41 Height 5 ft 3 in 5 ft 3 in Weight: 183 lb 183 lb BMI 32.4 32.4 BP 109/75 113/68 Blood Pressure Location Lt radial Lt brachial Position Sitting Sitting Respiration 22 H 18 Pulse 76 72 Pulse Source Monitor Monitor Temp 97.4 F L 97.2 F L Temperature Source Temporal Artery Temporal Artery Pulse Oximetry (%) 94 95 Oxygen Delivery Method nasal canula nasal canula Oxygen Flow Rate (L/min) 3 3 Comment patient reported weight Intake Visit Reasons: 6 wk FU Chief Complaint: 6wk FU DME Vendor: Lynne Is patient in pain?: No Allergies Penicillins Allergy (Mild, Verified 08/11/24 09:40) Rash simvastatin Allergy (Unknown, Verified 08/11/24 09:40) Myalgia Sulfa (Sulfonamide Antibiotics) Allergy (Unknown, Verified 08/11/24 09:40) Unknown gemfibrozil Adverse Reaction (Severe, Verified 08/11/24 09:40) Pain in joints Iodinated Contrast Media (Iodinated Contrast- Oral and IV Dye) Adverse Reaction (Severe, Verified 08/11/24 09:40) Vomiting spironolactone Adverse Reaction (Intermediate, Verified 08/11/24 09:40) Nausea and higher BP lisinopril Adverse Reaction (Mild, Verified 08/11/24 09:40) Cough losartan Adverse Reaction (Mild, Verified 08/11/24 09:40) Cough atorvastatin Adverse Reaction (Unknown, Verified 08/11/24 09:40) Myalgia fluvastatin Adverse Reaction (Unknown, Verified 08/11/24 09:40) Myalgia niacin Adverse Reaction (Unknown, Verified 08/11/24 09:40) Rash rosuvastatin Adverse Reaction (Unknown, Verified 08/11/24 09:40) Myalgia Medications ???Medication ???Instructions ???Recorded ?? (more content not included)... Normal [facility] Gram Stainon 07-02-2024 GS Acceptable Specimen? Yes (<25 Epithelial cells per/lpf) Gram Stain 4+ Gram positive cocci 4+ White Blood Cells Rare Epithelial cells 1+ Gram positive rods Normal [facility] Comment on above: Performed By: #### L 500.4050, M100.2400, L100.0100, M100.2000, L503.1346 #### [facility] [place], [address] Respiratory Cultureon 2023 RESPC Enterobacter cloacae complex Amount Growth 2+ Enterobacter cloacae complex: REACTION Cefepime Islt DIDI <=0.12 S Ciprofloxacin Islt DIDI <=0.06 S Gentamicin Islt DIDI <=1 S levoFLOXacin Islt DIDI <=0.12 S Meropenem Islt DIDI <=0.25 S Pip+Tazo Islt DIDI <=4 S TMP SMX Islt DIDI <=20 S Normal [facility] Comment on above: Performed By: #### L 500.4050, M100.2400, L100.0100, M100.2000, L503.7505 #### [facility] [address] [place], [place], [id number] Gram stainOrdered By: Jethro Martel on 06-30-2024 Microscopic observation Gram stain Nom (Unsp spec) [facility] Microorganism identified Cx Nom (Unsp spec)Ordered By: Cammie Martel on 06-30-2024 Respiratory Culture Enterobacter cloacae complex Abnormal [facility] Pulmonary Visit Reporton Pulmonary Visit Report [facility] of [employer] [address] [place] [address] OFFICE VISIT Date of Service: 06/30/24 MR#: [id number] Acct: [id number] Name: SHANTHI SAM Rep #: [id number] : 1945 Provider: GLORY Martel Age/Sex: 79/F [place] [facility] Status: Signed Assessment and Plan Assessment and Plan (1) Stage 2 moderate COPD by GOLD classification: Status: Resolved Comment: FEV1 57% of predicted 09/04/2019: pt asked for this dx to be removed, states she was told she doesn't have this any longer. Plan: Deteriorated. In an acute exacerbation today. Not able to put her on prednisone, it makes her crazy. Sputum obtained today for culture and sensitivity. Will hold off on antibiotics until test results are available. The patient was provided with a DuoNeb in the office today and given instructions on how to use the nebulizer device. This will be a new set up for her. She did seem to respond well to it and felt as though the sputum was easier to expectorate after completing the DuoNeb. I will be placing her on budesonide to be nebulized twice daily, DuoNebs and minimum of twice daily but upwards of every 6 hours as needed. She was unable to complete the NIOX that was requested in the office today. Return to the office in 6 weeks to evaluate her response to these medications. She was provided with a sample of Trelegy in the office today. She was given personal instruction on how to use the Ellipta device. She was given instructions to use the Ellipta device 1 puff daily until she is set up with budesonide. Once on budesonide she should discontinue Trelegy. (2) Squamous cell carcinoma of lung: Status: Chronic Qualifiers: Laterality: left Qualified Code(s): C34.92 - Malignant neoplasm of unspecified part of left bronchus or lung Comment: S/P L wedge resection, CT 05/23/2021 residual density LLL has increased in size. PET/CT 06/03/2021 shows hypermetabolic activity in LLL, neck nodes are benign. S/P SBRT to LLL from 07/08/2021 to 07/22/2021. CT on 09/18/2022 reviewed, shows linear scar LLL. Comes for follow up. CT 04/10/2024 reviewed. No evidence of progressive disease. Plan: Complicates exam, plan, care and prognosis. The patient reports that she is cancer free. (3) Hypoxemia: Status: Chronic Plan: She is using and benefiting from supplemental oxygen. Continue to titrate as needed to maintain saturations 89 to 92%. Orders: Orders NIOX Today R05.9 - Cough, unspecified Culture, Sputum Today J44.9 - Chronic obstructive pulmonary disease, unspecified Aerosol treatment (first) Today J44.9 - Chronic obstructive pulmonary disease, unspecified Medications: New guaifenesin ER 1,200 mg PO Q12H 60 tabs 6RF HPI Re-establish Chief Complaint: Persistent cough HPI Comments Details: This patient presents to the office today to reestablish care for her COPD. She is in a wheelchair, currently on supplemental oxygen and accompanied today by her . Patient reports that a year ago she came down with RSV. She then was diagnosed with pneumonia. Later developed COVID. She states that she has been sick for a year. She has not recently been seen in the ED or urgent care. She states that she is not able to tolerate prednisone as it makes her crazy. She is not currently on any inhalers. She believes that she was treated with Trelegy in the past. She does not even have albuterol at this point. She does have shortness of breath that is worse with exertion. She is exerted easily. She has a persistent cough. The cough keeps being productive of clear to yellow to green-colored sputum. She has sinus congestion as well as chest congestion. She has sinus drainage that can be green also. She has wheezing and chest tightness but denies any chest pain or palpitations. She has not had any fever, chills or body aches. s and chest congestion, occasional chest pain. Denies chest congestion. She reports that she does not have or use any inhalers or nebulizer. Intake Vital Signs 05/24/24 16:02 06/30/24 07:36 Height 5 ft 3 in 5 ft 3 in Weight: 183 lb BMI 32.4 BP 109/75 Blood Pressure Location Lt radial Position Sitting Respiration 22 H Pulse 76 Pulse Source Monitor Temp 97.4 F L Temperature Source Temporal Artery Pulse Oximetry (%) 94 Oxygen Delivery Method nasal canula Oxygen Flow Rate (L/min) 3 Comment patient reported weight Intake Visit Reasons: Re-establish Chief Complaint: discuss results Corrugated Box Machine Operator Required: No ZAYRA Vendor: Lynne Accompanied by: Allergies Penicillins Allergy (Mild, Verified 06/30/24 08:10) Rash simvastatin Allergy (Unknown, Verified 06/30/24 08:10) Myalgia Sulfa (Sulfonamide Antibiotics) Allergy (Unknown, Verified 06/30/24 08:10) Unknown (more content not included)... Normal [facility] MR/BMS.Manny 06-08-2024 MR/BMS.NICA [facility] Surgery [address] [place] [address] OFFICE VISIT Date of Service: 06/08/24 MR#: [id number] Acct: [id number] Name: SHANTHI SAM Lina Rep #: [id number] : 1945 Provider: Dr. Naga Browne MD Age/Sex: 79/F [place] [facility] Status: Signed Intake Vital Signs 05/11/24 14:03 05/24/24 16:02 06/08/24 16:18 Height 5 ft 3 in 5 ft 3 in Weight: 184 lb 4 oz BMI 32.6 BP 104/68 108/81 H Blood Pressure Location Lt brachial Lt brachial Position Sitting Sitting Respiration 18 16 Pulse 86 75 Pulse Source Monitor Monitor Temp 98.4 F 98.4 F Temp Source Temporal Pulse Oximetry (%) 92 95 Oxygen Delivery Method nasal canula nasal canula Oxygen Flow Rate (L/min) 3 3 Intake Visit Reasons: Discuss carotid duplex results Chief Complaint: discuss results Is patient in pain?: No Allergies Penicillins Allergy (Mild, Verified 06/08/24 16:21) Rash simvastatin Allergy (Unknown, Verified 06/08/24 16:21) Myalgia Sulfa (Sulfonamide Antibiotics) Allergy (Unknown, Verified 06/08/24 16:21) Unknown gemfibrozil Adverse Reaction (Severe, Verified 06/08/24 16:21) Pain in joints Iodinated Contrast Media (Iodinated Contrast- Oral and IV Dye) Adverse Reaction (Severe, Verified 06/08/24 16:21) Vomiting spironolactone Adverse Reaction (Intermediate, Verified 06/08/24 16:21) Nausea and higher BP lisinopril Adverse Reaction (Mild, Verified 06/08/24 16:21) Cough losartan Adverse Reaction (Mild, Verified 06/08/24 16:21) Cough atorvastatin Adverse Reaction (Unknown, Verified 06/08/24 16:21) Myalgia fluvastatin Adverse Reaction (Unknown, Verified 06/08/24 16:21) Myalgia niacin Adverse Reaction (Unknown, Verified 06/08/24 16:21) Rash rosuvastatin Adverse Reaction (Unknown, Verified 06/08/24 16:21) Myalgia Medications ???Medication ???Instructions ???Recorded ???Confirmed ???Type cholecalciferol (vitamin D3) 25 1,000 unit PO QDAY supplement 01/17/18 06/08/24 History mcg (1,000 unit) capsule magnesium oxide 400 mg PO DAILY 09/15/21 06/08/24 History clopidogrel 75 mg tablet 75 mg PO QDAY #90 tabs 10/08/23 06/08/24 Rx isosorbide mononitrate 30 mg 30 mg PO QDAY #90 tabs 10/08/23 06/08/24 Rx tablet,extended release 24 hr metoprolol succinate 25 mg 25 mg PO QDAY #90 tabs 10/08/23 06/08/24 Rx tablet,extended release 24 hr evolocumab 140 mg/mL subcutaneous See Rx Instructions .Route 10/18/23 06/08/24 Rx syringe (Repatha Syringe) .COMPLEX #6 mL amlodipine 5 mg tablet 5 mg PO DAILY #90 tabs 03/10/24 06/08/24 Rx Is last menstrual period known: No Post menopausal: Yes Patient : No Have you fallen in the past year?: No PFSH Medical History Anxiety Cardiac murmur 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) Family History Father CAD (coronary artery disease) CVA (cerebral vascular accident) Heart disease Mother Heart disease Other History of AAA (abdominal aortic aneurysm) repair Social History household members: spouse Smoking Status: Former smoker alcohol intake: current alcohol intake frequency: holidays/special occasions only Alcohol type: beer, wine and hard liquor substance use type: does not use caffeine: Yes Type: coffee Number of servings: 5 what type of physical activity do you participate in: none seatbelt use: never do you feel safe at home: Yes HPI HPI HPI: SHANTHI SAM, is a 79 F who presents to the office today for 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 She has had duplex to further define flow dynamics. She has not suffered any angina with general exertion or with LUE activity. She is very limited in activity by her COPD. Initial CABG was in 2004. Cath in 2008 apparently showed subclavian occlusion and patent COLIN bypass. ROS General General: Yes fatigue and weakness; No weight change, appetite, colon cancer or breast cancer HEENT HEENT: Yes hoarsene (more content not included)... Normal [facility] Orthopedic Visit Reporton Orthopedic Visit Report [facility] [address] [place] [address] [address] [place] [address] OFFICE VISIT Date of Service: 06/02/24 MR#: [id number] Acct: [id number] Name: SHANTHI SAM Rep #: [id number] : 1945 Provider: Dr. Ryley pollard DO Age/Sex: 79/F [place] [facility] Status: Signed Intake Vital Signs 05/24/24 16:02 Height 5 ft 3 in Weight: 184 lb 4 oz BMI 32.6 BP 104/68 Blood Pressure Location Lt brachial Position Sitting Respiration 18 Pulse 86 Pulse Source Monitor Temp 98.4 F Pulse Oximetry (%) 92 Oxygen Delivery Method nasal canula Oxygen Flow Rate (L/min) 3 Intake Visit Reasons: RIGHT KNEE Accompanied by: Is patient in pain?: Yes Pain scale (1-10): 4 Allergies Penicillins Allergy (Mild, Verified 06/02/24 09:01) Rash simvastatin Allergy (Unknown, Verified 06/02/24 09:01) Myalgia Sulfa (Sulfonamide Antibiotics) Allergy (Unknown, Verified 06/02/24 09:01) Unknown gemfibrozil Adverse Reaction (Severe, Verified 06/02/24 09:01) Pain in joints Iodinated Contrast Media (Iodinated Contrast- Oral and IV Dye) Adverse Reaction (Severe, Verified 06/02/24 09:01) Vomiting spironolactone Adverse Reaction (Intermediate, Verified 06/02/24 09:01) Nausea and higher BP lisinopril Adverse Reaction (Mild, Verified 06/02/24 09:01) Cough losartan Adverse Reaction (Mild, Verified 06/02/24 09:01) Cough atorvastatin Adverse Reaction (Unknown, Verified 06/02/24 09:01) Myalgia fluvastatin Adverse Reaction (Unknown, Verified 06/02/24 09:01) Myalgia niacin Adverse Reaction (Unknown, Verified 06/02/24 09:01) Rash rosuvastatin Adverse Reaction (Unknown, Verified 06/02/24 09:01) Myalgia Medications ???Medication ???Instructions ???Recorded ???Confirmed ???Type cholecalciferol (vitamin D3) 25 1,000 unit PO QDAY supplement 01/17/18 06/02/24 History mcg (1,000 unit) capsule magnesium oxide 400 mg PO DAILY 09/15/21 06/02/24 History clopidogrel 75 mg tablet 75 mg PO QDAY #90 tabs 10/08/23 06/02/24 Rx isosorbide mononitrate 30 mg 30 mg PO QDAY #90 tabs 10/08/23 06/02/24 Rx tablet,extended release 24 hr metoprolol succinate 25 mg 25 mg PO QDAY #90 tabs 10/08/23 06/02/24 Rx tablet,extended release 24 hr evolocumab 140 mg/mL subcutaneous See Rx Instructions .Route 10/18/23 06/02/24 Rx syringe (Repatha Syringe) .COMPLEX #6 mL amlodipine 5 mg tablet 5 mg PO DAILY #90 tabs 03/10/24 06/02/24 Rx Have you fallen in the past year?: No PFSH Medical History Anxiety Cardiac murmur 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) Family History Father CAD (coronary artery disease) CVA (cerebral vascular accident) Heart disease Mother Heart disease Other History of AAA (abdominal aortic aneurysm) repair Social History household members: spouse Smoking Status: Former smoker alcohol intake: current alcohol intake frequency: holidays/special occasions only Alcohol type: beer, wine and hard liquor substance use type: does not use caffeine: Yes Type: coffee Number of servings: 5 what type of physical activity do you participate in: none seatbelt use: never do you feel safe at home: Yes HPI RIGHT KNEE Details: This documentation accurately reflects the service provided and the decisions made by me, Dr. Ryley Parada, DO 06/02/24 0746. Part of today???s visit was documented by [ ], acting as scribe. SHANTHI SAM is a 79 year old F here today for Right knee Gel 1 injection. Ortho Exam General General: Yes no acute distress Neurologic: Yes alert and Yes oriented x3 Psychologic: Yes reasonable and appropriate Right Knee Skin/Wound: Yes CDI, No erythema, No ecchymosis and No swelling Homans Sign: No Knee ROM: Yes ROM-Extension -20 to 0 and No ROM-Flexion 0-140 (110) Examination: Yes Med jt line tenderness, Yes Lat jt line tenderness, Yes Crepitus, Yes Pain with flexion, Yes Sullivan's, No TTP Pes Anserine and No Illiotibial band tendern (more content not included)... Normal [facility] Absolute lymphocyte countOrd ered By: Ari Carballo on 11-19-2023 Lymphocytes Auto (Unsp spec) [#/Vol] 1.53 10*3/uL 0.83-4.51 [facility] Automated lymphocyte count a s percentage of total leukocytesOrdered By: Ari Cabrallo on 11-19-2023 Lymphocytes/100 WBC Auto (Unsp spec) 23.7 % 19-41 [facility] Basophil percentageOrdered B y: Ari Carballo on 11-19-2023 Basophils/100 WBC (Bld) 0.8 % 0-1 [facility] Bilirubin [Mass/Vol] 1.40 mg/dL 0.20-1.00 [facility] Comment on above: For patients on eltr ombopag therapy, use of Dimension [place] TBIL is not recommended. Chloride [Moles/Vol] 99 mmol/L 98-107 [facility] Cholesterol [Mass/Vol] 170 mg/dL <200 [facility] Comment on above: <200 mg/dL Desirable 200-240 mg/dL Borderline >240 mg/dL High Risk Eosinophils/100 WBC (Bld) 1.4 % 0-5 [facility] Glucose [Mass/Vol] 86 mg/dL 74-106 [facility] Hemoglobin (Bld) [Mass/Vol] 15.4 g/dL 12.0-15.0 [facility] Monocytes/100 WBC (Bld) 6.8 % 0-10 [facility] Neutrophils (Bld) [#/Vol] 4.3 10*3/uL 2.0-7.7 [facility] Neutrophils/100 WBC (Bld) 67.0 % 47-70 [facility] Potassium [Moles/Vol] 4.4 mmol/L 3.5-5.1 [facility] Protein [Mass/Vol] 6.7 g/dL 6.4-8.2 [facility] Sodium [Moles/Vol] 136 mmol/L 136-145 [facility] Triglyceride [Mass/Vol] 125 mg/dL <199 [facility] Comment on above: The drugs N-Acetylcy steine and Metamizole may falsely depress this assay.Serum Triglycerides Reference Interval Normal <150 mg/dL Borderline high 150 - 199 mg/dL High 200 - 499 mg/dL Very High > or = 500 mg/dL WBC (Bld) [#/Vol] 6.5 10*3/uL 4.4-11.0 [facility] Determination of erythrocyte mean corpuscular volume (MCV)Ordered By: Ari Carballo on 11-19-2023 MCV (RBC) [Entitic vol] 85.8 fL 81-99 [facility] Erythrocyte distribution wid th ratioOrdered By: Ari Carballo on 11-19-2023 Erythrocyte distribution width (RBC) [Ratio] 16.3 % 11.6-14.6 [facility] Erythrocyte distribution wid th standard deviationOrdered By: Ari Carballo on 11-19-2023 Erythrocyte distribution width (RBC) [Entitic vol] 50.4 fL 35.1-43.9 [facility] Hematocrit Auto (Bld) [Volum e fraction]Ordered By: Ari Carballo on 11-19-2023 Hematocrit (Bld) [Volume fraction] 50.8 % 37-47 [facility] Immature granulocytes/100 WB C Auto (Bld)Ordered By: Ari Carballo on 11-19-2023 Immature granulocytes/100 WBC (Bld) 0.300 % 0.0-0.9 [facility] Comment on above: IG% - Immature Granu locytes (promyelocytes, myelocytes and metamyelocytes) > 1% indicates that a LEFT SHIFT is Present. Laboratory - Chemistry and C hemistry - challengeOrdered By: Ari Carballo on 11-19-2023 Albumin/Globulin [Mass ratio] 1.2 {ratio} 0.9-2.4 [facility] ALP [Catalytic activity/Vol] 61 U/L 45-117 [facility] ALT [Catalytic activity/Vol] 15 U/L 13-56 [facility] Cholesterol in HDL [Mass/Vol] 48 mg/dL >40 [facility] Comment on above: The drugs N-Acetylcy steine and Metamizole may falsely depress this assay. Reference Range HDL <40 mg/dL Low HDL Cholesterol HDL >or= 60 mg/dL High HDL Cholesterol Cholesterol in LDL [Mass/Vol] 97 mg/dL 0-130 [facility] CO2 [Moles/Vol] 33.0 mmol/L 21.0-32.0 [facility] Globulin (S) [Mass/Vol] 3.1 g/dL 2.2-4.2 [facility] Urea nitrogen/Creatinine [Mass ratio] 14.0 mg/mg 10-20 [facility] Laboratory - Hematology and Cell countsOrdered By: Ari Carballo on 11-19-2023 MCH (RBC) [Entitic mass] 26.0 pg 27.0-32.0 [facility] MCHC (RBC) [Mass/Vol] 30.3 g/dL 32-36 [facility] Nucleated RBC/100 WBC (Bld) [Ratio] 0 % 0-5 [facility] Platelet mean volume (Bld) [Entitic vol] 11.2 fL 6.2-12.0 [facility] Platelets (Bld) [#/Vol] 210 10*3/uL 150-450 [facility] No Panel InformationOrdered By: Ari Carballo on 11-19-2023 Estimated GFR (MDRD) Amer 64 mL/min >60 [facility] Comment on above: GFR Calc Estimated GFR (MDRD) Non-Af Amer 53 mL/min >60 [facility] Comment on above: Non- GFR Calc Vitamin D 25-Hydroxy 88.2 ng/mL [facility] Comment on above: Vitamin D 25(OH) Sta tus Range Deficiency <20 ng/mL (50nmol/L) Insufficiency 20 - 30 ng/mL (50 - 75 nmol/L) Sufficiency 30 - 100 ng/mL (75 - 250 nmol/L) Toxicity >100 ng/mL (>250 nmol/L) VLDL Cholesterol 25 mg/dL 5-40 [facility] RBC Auto (Bld) [#/Vol]Ordere d By: Ari Carballo on 11-19-2023 RBC (Bld) [#/Vol] 5.92 10*6/uL 4.2-5.4 [facility] Serum or plasma calcium leonard urement (mass/volume)Ordered By: Ari Carballo on 11-19-2023 Calcium [Mass/Vol] 9.7 mg/dL 8.5-10.1 [facility] Serum or plasma creatinine m easurement (mass/volume)Ordered By: Ari Carballo on 11-19-2023 Creatinine [Mass/Vol] 1.07 mg/dL 0.55-1.02 [facility] Comment on above: The validity of the calculated GFR & GFRAA in patients over 70 years has not been determined. Clinical correlation is essential. Serum or plasma thyroid stim ulating hormone (TSH) measurement (units/volume)Ordered By: Ari Carballo on 11-19-2023 TSH Qn 1.31 uIU/mL 0.358-3.74 [facility] Serum or plasma urea nitroge n measurement (mass/volume)Ordered By: Ari Carballo on 11-19-2023 Urea nitrogen [Mass/Vol] 15 mg/dL 7-18 [facility] Thin prep Papanicolaou smear with manual screeningOrdered By: Ari Carballo on 05-03-2024 Thin prep Papanicolaou smear with manual screening 3.6 g/dL 3.2-5.0 [facility] Thin prep Papanicolaou smear with manual screening 17 U/L 15-37 [facility] Thin prep Papanicolaou smear with manual screening 4 5-15 [facility] Basophil percentageOrdered B y: Sue Gaming on 10-15-2023 Chloride [Moles/Vol] 105 mmol/L 98-107 [facility] Glucose [Mass/Vol] 91 mg/dL 74-106 [facility] Potassium [Moles/Vol] 4.3 mmol/L 3.5-5.1 [facility] Sodium [Moles/Vol] 139 mmol/L 136-145 [facility] Laboratory - Chemistry and C hemistry - challengeOrdered By: Sue Gaming on 10-15-2023 CO2 [Moles/Vol] 31.0 mmol/L 21.0-32.0 [facility] Urea nitrogen/Creatinine [Mass ratio] 9.3 mg/mg 10-20 [facility] No Panel InformationOrdered By: Sue Gaming on 10-15-2023 Estimated GFR (MDRD) Amer 63 mL/min >60 [facility] Comment on above: GFR Calc Estimated GFR (MDRD) Non-Af Amer 52 mL/min >60 [facility] Comment on above: Non- GFR Calc Serum or plasma calcium leonard urement (mass/volume)Ordered By: Sue Gaming on 10-15-2023 Calcium [Mass/Vol] 8.9 mg/dL 8.5-10.1 [facility] Serum or plasma creatinine m easurement (mass/volume)Ordered By: Sue Gaming on 10-15-2023 Creatinine [Mass/Vol] 1.08 mg/dL 0.55-1.02 [facility] Comment on above: The validity of the calculated GFR & GFRAA in patients over 70 years has not been determined. Clinical correlation is essential. Serum or plasma urea nitroge n measurement (mass/volume)Ordered By: Sue Gaming on 10-15-2023 Urea nitrogen [Mass/Vol] 10 mg/dL 7-18 [facility] Thin prep Papanicolaou smear with manual screeningOrdered By: Sue Gaming on 10-15-2023 Thin prep Papanicolaou smear with manual screening 3 5-15 [facility] Absolute lymphocyte countOrd ered By: Dr. Russell on 11-03-2022 Lymphocytes Auto (Unsp spec) [#/Vol] 1.54 10*3/uL 0.83-4.51 [facility] Basophil percentageOrdered B y: Dr. Russell on 11-03-2022 Basophils/100 WBC (Bld) 0.7 % 0-1 [facility] Bilirubin [Mass/Vol] 0.80 mg/dL 0.20-1.00 [facility] Comment on above: For patients on eltr ombopag therapy, use of Dimension [place] TBIL is not recommended. Chloride [Moles/Vol] 102 mmol/L 98-107 [facility] Eosinophils/100 WBC (Bld) 2.7 % 0-5 [facility] Glucose [Mass/Vol] 102 mg/dL 74-106 [facility] Comment on above: Fasting Glucose resu lt from 100 to 125 mg/dL suggests IMPAIRED HOMEOSTASIS per A.D.A. criteria. LDH [Catalytic activity/Vol] 195 U/L 84-246 [facility] Neutrophils (Bld) [#/Vol] 4.5 10*3/uL 2.0-7.7 [facility] Neutrophils/100 WBC (Bld) 66.3 % 47-70 [facility] Potassium [Moles/Vol] 4.0 mmol/L 3.5-5.1 [facility] Protein [Mass/Vol] 6.6 g/dL 6.4-8.2 [facility] Sodium [Moles/Vol] 139 mmol/L 136-145 [facility] WBC (Bld) [#/Vol] 6.8 10*3/uL 4.4-11.0 [facility] Blood erythrocytes count (nu mber/volume)Ordered By: Dr. Russell on 11-03-2022 RBC (Bld) [#/Vol] 4.54 10*6/uL 4.2-5.4 [facility] Blood hemoglobin measurement (mass/volume)Ordered By: Dr. Russell on 11-03-2022 Hemoglobin (Bld) [Mass/Vol] 13.1 g/dL 12.0-15.0 [facility] Blood lymphocytes/100 leukoc ytesOrdered By: Dr. Russell on 11-03-2022 Lymphocytes/100 WBC (Bld) 22.8 % 19-41 [facility] Blood monocytes/100 leukocyt esOrdered By: Dr. Russell on 11-03-2022 Monocytes/100 WBC (Bld) 7.2 % 0-10 [facility] Blood platelet mean volumeOr dered By: Dr. Russell on 11-03-2022 Platelet mean volume (Bld) [Entitic vol] 11.5 fL 6.2-12.0 [facility] Determination of erythrocyte mean corpuscular volume (MCV)Ordered By: Dr. Russell on 11-03-2022 MCV (RBC) [Entitic vol] 93.4 fL 81-99 [facility] Hematocrit Auto (Bld) [Volum e fraction]Ordered By: Dr. Russell on 11-03-2022 Hematocrit (Bld) [Volume fraction] 42.4 % 37-47 [facility] Laboratory - Chemistry and C hemistry - challengeOrdered By: Dr. Russell on 11-03-2022 ALP [Catalytic activity/Vol] 56 U/L 45-117 [facility] ALT [Catalytic activity/Vol] 24 U/L 13-56 [facility] CO2 [Moles/Vol] 33.0 mmol/L 21.0-32.0 [facility] Globulin (S) [Mass/Vol] 3.0 g/dL 2.2-4.2 [facility] Urea nitrogen/Creatinine [Mass ratio] 18.3 mg/mg 10-20 [facility] Laboratory - Hematology and Cell countsOrdered By: Dr. Russell on 11-03-2022 Erythrocyte distribution width (RBC) [Entitic vol] 47.9 fL 35.1-43.9 [facility] Erythrocyte distribution width (RBC) [Ratio] 14.0 % 11.6-14.6 [facility] Immature granulocytes/100 WBC (Bld) 0.300 % 0.0-0.9 [facility] Comment on above: IG% - Immature Granu locytes (promyelocytes, myelocytes and metamyelocytes) > 1% indicates that a LEFT SHIFT is Present. MCH (RBC) [Entitic mass] 28.9 pg 27.0-32.0 [facility] Nucleated RBC/100 WBC (Bld) [Ratio] 0 % 0-5 [facility] [Mass/Vol]Or dered By: Dr. Russell on 11-03-2022 MCHC (RBC) [Mass/Vol] 30.9 g/dL 32-36 [facility] No Panel InformationOrdered By: Dr. Russell on 11-03-2022 Estimated GFR (MDRD) Amer 66 mL/min >60 [facility] Comment on above: GFR Calc Estimated GFR (MDRD) Non-Af Amer 55 mL/min >60 [facility] Comment on above: Non- GFR Calc Thyroid Stimulating Hormone (TSH) 1.51 uIU/mL 0.358-3.74 [facility] Vitamin D 25-Hydroxy 55.1 ng/mL [facility] Comment on above: Vitamin D 25(OH) Sta tus Range Deficiency <20 ng/mL (50nmol/L) Insufficiency 20 - 30 ng/mL (50 - 75 nmol/L) Sufficiency 30 - 100 ng/mL (75 - 250 nmol/L) Toxicity >100 ng/mL (>250 nmol/L) Platelets bldOrdered By: Dr. Russell on 11-03-2022 Platelets (Bld) [#/Vol] 257 10*3/uL 150-450 [facility] Serum or plasma albumin leonard urement (mass/volume)Ordered By: Dr. Russell on 11-03-2022 Albumin [Mass/Vol] 3.6 g/dL 3.2-5.0 [facility] Serum or plasma albumin/glob ulin mass ratioOrdered By: Dr. Russell on 11-03-2022 Albumin/Globulin [Mass ratio] 1.2 {ratio} 0.9-2.4 [facility] Serum or plasma calcium leonard urement (mass/volume)Ordered By: Dr. Russell on 11-03-2022 Calcium [Mass/Vol] 8.8 mg/dL 8.5-10.1 [facility] Serum or plasma creatinine m easurement (mass/volume)Ordered By: Dr. Russell on 11-03-2022 Creatinine [Mass/Vol] 1.04 mg/dL 0.55-1.02 [facility] Comment on above: The validity of the calculated GFR & GFRAA in patients over 70 years has not been determined. Clinical correlation is essential. Serum or plasma urea nitroge n measurement (mass/volume)Ordered By: Dr. Russell on 11-03-2022 Urea nitrogen [Mass/Vol] 19 mg/dL 7-18 [facility] Thin prep Papanicolaou smear with manual screeningOrdered By: Dr. Russell on 11-03-2022 Thin prep Papanicolaou smear with manual screening 24 U/L 15-37 [facility] Thin prep Papanicolaou smear with manual screening 4 5-15 [facility] Absolute lymphocyte countOrd ered By: Dr. Russell on 09-21-2022 Lymphocytes Auto (Unsp spec) [#/Vol] 1.72 10*3/uL 0.83-4.51 [facility] Basophil percentageOrdered B y: Dr. Russell on 09-21-2022 Basophils/100 WBC (Bld) 0.9 % 0-1 [facility] Bilirubin [Mass/Vol] 1.10 mg/dL 0.20-1.00 [facility] Comment on above: For patients on eltr ombopag therapy, use of Dimension [place] TBIL is not recommended. Chloride [Moles/Vol] 102 mmol/L 98-107 [facility] Eosinophils/100 WBC (Bld) 2.2 % 0-5 [facility] Glucose [Mass/Vol] 84 mg/dL 74-106 [facility] LDH [Catalytic activity/Vol] 187 U/L 84-246 [facility] Neutrophils (Bld) [#/Vol] 4.9 10*3/uL 2.0-7.7 [facility] Neutrophils/100 WBC (Bld) 65.9 % 47-70 [facility] Potassium [Moles/Vol] 3.9 mmol/L 3.5-5.1 [facility] Protein [Mass/Vol] 7.1 g/dL 6.4-8.2 [facility] Sodium [Moles/Vol] 141 mmol/L 136-145 [facility] WBC (Bld) [#/Vol] 7.4 10*3/uL 4.4-11.0 [facility] Blood erythrocytes count (nu mber/volume)Ordered By: Dr. Russell on 09-21-2022 RBC (Bld) [#/Vol] 4.89 10*6/uL 4.2-5.4 [facility] Blood hemoglobin measurement (mass/volume)Ordered By: Dr. Russell on 09-21-2022 Hemoglobin (Bld) [Mass/Vol] 14.4 g/dL 12.0-15.0 [facility] Blood lymphocytes/100 leukoc ytesOrdered By: Dr. Russell on 09-21-2022 Lymphocytes/100 WBC (Bld) 23.3 % 19-41 [facility] Blood monocytes/100 leukocyt esOrdered By: Dr. Russell on 09-21-2022 Monocytes/100 WBC (Bld) 7.2 % 0-10 [facility] Blood platelet mean volumeOr dered By: Dr. Russell on 09-21-2022 Platelet mean volume (Bld) [Entitic vol] 10.9 fL 6.2-12.0 [facility] Determination of erythrocyte mean corpuscular volume (MCV)Ordered By: Dr. Russell on 09-21-2022 MCV (RBC) [Entitic vol] 94.3 fL 81-99 [facility] Hematocrit Auto (Bld) [Volum e fraction]Ordered By: Dr. Russell on 09-21-2022 Hematocrit (Bld) [Volume fraction] 46.1 % 37-47 [facility] Laboratory - Chemistry and C hemistry - challengeOrdered By: Dr. Russell on 09-21-2022 ALP [Catalytic activity/Vol] 52 U/L 45-117 [facility] ALT [Catalytic activity/Vol] 24 U/L 13-56 [facility] CO2 [Moles/Vol] 34.0 mmol/L 21.0-32.0 [facility] Globulin (S) [Mass/Vol] 3.3 g/dL 2.2-4.2 [facility] Urea nitrogen/Creatinine [Mass ratio] 13.4 mg/mg 10-20 [facility] Laboratory - Hematology and Cell countsOrdered By: Dr. Russell on 09-21-2022 Erythrocyte distribution width (RBC) [Entitic vol] 50.4 fL 35.1-43.9 [facility] Erythrocyte distribution width (RBC) [Ratio] 14.6 % 11.6-14.6 [facility] Immature granulocytes/100 WBC (Bld) 0.500 % 0.0-0.9 [facility] Comment on above: IG% - Immature Granu locytes (promyelocytes, myelocytes and metamyelocytes) > 1% indicates that a LEFT SHIFT is Present. MCH (RBC) [Entitic mass] 29.4 pg 27.0-32.0 [facility] Nucleated RBC/100 WBC (Bld) [Ratio] 0 % 0-5 [facility] MCHC Auto (RBC) [Mass/Vol]Or dered By: Dr. Russell on 09-21-2022 MCHC (RBC) [Mass/Vol] 31.2 g/dL 32-36 [facility] No Panel InformationOrdered By: Dr. Russell on 09-21-2022 Estimated Creatinine Clearance Calc 35.90 ml/min [facility] Estimated GFR (MDRD) Amer 61 mL/min >60 [facility] Comment on above: GFR Calc Estimated GFR (MDRD) Non-Af Amer 50 mL/min >60 [facility] Comment on above: Non- GFR Calc Platelets bldOrdered By: Dr. Russell on 09-21-2022 Platelets (Bld) [#/Vol] 196 10*3/uL 150-450 [facility] Serum or plasma albumin leonard urement (mass/volume)Ordered By: Dr. Russell on 09-21-2022 Albumin [Mass/Vol] 3.8 g/dL 3.2-5.0 [facility] Serum or plasma albumin/glob ulin mass ratioOrdered By: Dr. Russell on 09-21-2022 Albumin/Globulin [Mass ratio] 1.2 {ratio} 0.9-2.4 [facility] Serum or plasma calcium leonard urement (mass/volume)Ordered By: Dr. Russell on 09-21-2022 Calcium [Mass/Vol] 9.8 mg/dL 8.5-10.1 [facility] Serum or plasma creatinine m easurement (mass/volume)Ordered By: Dr. Russell on 09-21-2022 Creatinine [Mass/Vol] 1.12 mg/dL 0.55-1.02 [facility] Comment on above: The validity of the calculated GFR & GFRAA in patients over 70 years has not been determined. Clinical correlation is essential. Serum or plasma urea nitroge n measurement (mass/volume)Ordered By: Dr. Russell on 09-21-2022 Urea nitrogen [Mass/Vol] 15 mg/dL 7-18 [facility] Thin prep Papanicolaou smear with manual screeningOrdered By: Dr. Russell on 09-21-2022 Thin prep Papanicolaou smear with manual screening 23 U/L 15-37 [facility] Thin prep Papanicolaou smear with manual screening 5 5-15 [facility] Absolute lymphocyte counton 04-28-2022 Lymphocytes Auto (Unsp spec) [#/Vol] 1.41 10*3/uL 0.83-4.51 [facility] Work Phone: Basophil percentageon 2021 Basophils/100 WBC (Bld) 0.8 % 0-1 [facility] Work Phone: Bilirubin [Mass/Vol] 1.40 mg/dL 0.20-1.00 [facility] Work Phone: Comment on above: For patients on eltr ombopag therapy, use of Dimension [place] TBIL is not recommended. Chloride [Moles/Vol] 100 mmol/L 98-107 [facility] Work Phone: Eosinophils/100 WBC (Bld) 1.1 % 0-5 [facility] Work Phone: Glucose [Mass/Vol] 68 mg/dL 74-106 [facility] Work Phone: Neutrophils (Bld) [#/Vol] 4.2 10*3/uL 2.0-7.7 [facility] Work Phone: Neutrophils/100 WBC (Bld) 67.0 % 47-70 [facility] Work Phone: Potassium [Moles/Vol] 3.8 mmol/L 3.5-5.1 [facility] Work Phone: Protein [Mass/Vol] 7.1 g/dL 6.4-8.2 [facility] Work Phone: Sodium [Moles/Vol] 139 mmol/L 136-145 [facility] Work Phone: WBC (Bld) [#/Vol] 6.3 10*3/uL 4.4-11.0 [facility] Work Phone: Blood erythrocytes count (nu mber/volume)on 04-28-2022 RBC (Bld) [#/Vol] 5.13 10*6/uL 4.2-5.4 [facility] Work Phone: Blood hemoglobin measurement (mass/volume)on 04-28-2022 Hemoglobin (Bld) [Mass/Vol] 16.3 g/dL 12.0-15.0 [facility] Work Phone: Blood lymphocytes/100 leukoc yteson 04-28-2022 Lymphocytes/100 WBC (Bld) 22.4 % 19-41 [facility] Work Phone: Blood monocytes/100 leukocyt eson 04-28-2022 Monocytes/100 WBC (Bld) 8.4 % 0-10 [facility] Work Phone: Blood platelet mean volumeon 04-28-2022 Platelet mean volume (Bld) [Entitic vol] 11.3 fL 6.2-12.0 [facility] Work Phone: [phone] Determination of erythrocyte mean corpuscular volume (MCV)on 04-28-2022 MCV (RBC) [Entitic vol] 95.5 fL 81-99 [facility] Work Phone: Hematocrit Auto (Bld) [Volum e fraction]on 04-28-2022 Hematocrit (Bld) [Volume fraction] 49.0 % 37-47 [facility] Work Phone: Laboratory - Chemistry and C hemistry - challengeon 04-28-2022 ALP [Catalytic activity/Vol] 51 U/L 45-117 [facility] Work Phone: ALT [Catalytic activity/Vol] 27 U/L 13-56 [facility] Work Phone: CO2 [Moles/Vol] 32.0 mmol/L 21.0-32.0 [facility] Work Phone: Globulin (S) [Mass/Vol] 3.4 g/dL 2.2-4.2 [facility] Work Phone: Urea nitrogen/Creatinine [Mass ratio] 14.0 mg/mg 10-20 [facility] Work Phone: Laboratory - Hematology and Cell countson 04-28-2022 Erythrocyte distribution width (RBC) [Entitic vol] 45.9 fL 35.1-43.9 [facility] Work Phone: Erythrocyte distribution width (RBC) [Ratio] 13.0 % 11.6-14.6 [facility] Work Phone: Immature granulocytes/100 WBC (Bld) 0.300 % 0.0-0.9 [facility] Work Phone: Comment on above: IG% - Immature Granu locytes (promyelocytes, myelocytes and metamyelocytes) > 1% indicates that a LEFT SHIFT is Present. MCH (RBC) [Entitic mass] 31.8 pg 27.0-32.0 [facility] Work Phone: Nucleated RBC/100 WBC (Bld) [Ratio] 0 % 0-5 [facility] Work Phone: MCHC Auto (RBC) [Mass/Vol]on 04-28-2022 MCHC (RBC) [Mass/Vol] 33.3 g/dL 32-36 [facility] Work Phone: No Panel Informationon 04-28 Estimated GFR (MDRD) Amer 64 mL/min >60 [facility] Work Phone: Comment on above: GFR Calc Estimated GFR (MDRD) Non-Af Amer 53 mL/min >60 [facility] Work Phone: Comment on above: Non- GFR Calc Thyroid Stimulating Hormone (TSH) 1.32 uIU/mL 0.358-3.74 [facility] Work Phone: Vitamin D 25-Hydroxy 55.2 ng/mL [facility] Work Phone: Comment on above: Vitamin D 25(OH) Sta tus Range Deficiency <20 ng/mL (50nmol/L) Insufficiency 20 - 30 ng/mL (50 - 75 nmol/L) Sufficiency 30 - 100 ng/mL (75 - 250 nmol/L) Toxicity >100 ng/mL (>250 nmol/L) Platelets bldon 04-28-2022 Platelets (Bld) [#/Vol] 194 10*3/uL 150-450 [facility] Work Phone: Serum or plasma albumin leonard urement (mass/volume)on 04-28-2022 Albumin [Mass/Vol] 3.7 g/dL 3.2-5.0 [facility] Work Phone: Serum or plasma albumin/glob ulin mass ratioon 04-28-2022 Albumin/Globulin [Mass ratio] 1.1 {ratio} 0.9-2.4 [facility] Work Phone: Serum or plasma calcium leonard urement (mass/volume)on 04-28-2022 Calcium [Mass/Vol] 9.7 mg/dL 8.5-10.1 [facility] Work Phone: Serum or plasma creatinine m easurement (mass/volume)on 04-28-2022 Creatinine [Mass/Vol] 1.07 mg/dL 0.55-1.02 [facility] Work Phone: Comment on above: The validity of the calculated GFR & GFRAA in patients over 70 years has not been determined. Clinical correlation is essential. Serum or plasma urea nitroge n measurement (mass/volume)on 04-28-2022 Urea nitrogen [Mass/Vol] 15 mg/dL 7-18 [facility] Work Phone: Thin prep Papanicolaou smear with manual screeningon 04-28-2022 Thin prep Papanicolaou smear with manual screening 20 U/L 15-37 [facility] Work Phone: Thin prep Papanicolaou smear with manual screening 7 5-15 [facility] Work Phone: Absolute lymphocyte counton 03-24-2022 Lymphocytes Auto (Unsp spec) [#/Vol] 1.47 10*3/uL 0.83-4.51 [facility] Work Phone: Basophil percentageon 2021 Basophils/100 WBC (Bld) 0.8 % 0-1 [facility] Work Phone: Bilirubin [Mass/Vol] 1.70 mg/dL 0.20-1.00 [facility] Work Phone: Comment on above: For patients on eltr ombopag therapy, use of [employer] [place] TBIL is not recommended. Chloride [Moles/Vol] 100 mmol/L 98-107 [facility] Work Phone: Eosinophils/100 WBC (Bld) 0.7 % 0-5 [facility] Work Phone: Glucose [Mass/Vol] 89 mg/dL 74-106 [facility] Work Phone: Neutrophils (Bld) [#/Vol] 5.0 10*3/uL 2.0-7.7 [facility] Work Phone: Neutrophils/100 WBC (Bld) 70.0 % 47-70 [facility] Work Phone: Potassium [Moles/Vol] 4.3 mmol/L 3.5-5.1 [facility] Work Phone: Protein [Mass/Vol] 6.8 g/dL 6.4-8.2 [facility] Work Phone: Sodium [Moles/Vol] 138 mmol/L 136-145 [facility] Work Phone: WBC (Bld) [#/Vol] 7.1 10*3/uL 4.4-11.0 [facility] Work Phone: Blood erythrocytes count (nu mber/volume)on 03-24-2022 RBC (Bld) [#/Vol] 4.90 10*6/uL 4.2-5.4 [facility] Work Phone: [phone] Blood hemoglobin measurement (mass/volume)on 03-24-2022 Hemoglobin (Bld) [Mass/Vol] 15.6 g/dL 12.0-15.0 [facility] Work Phone: Blood lymphocytes/100 leukoc yteson 03-24-2022 Lymphocytes/100 WBC (Bld) 20.7 % 19-41 [facility] Work Phone: Blood monocytes/100 leukocyt eson 03-24-2022 Monocytes/100 WBC (Bld) 7.2 % 0-10 [facility] Work Phone: Blood platelet mean volumeon 03-24-2022 Platelet mean volume (Bld) [Entitic vol] 10.7 fL 6.2-12.0 [facility] Work Phone: [phone] Determination of erythrocyte mean corpuscular volume (MCV)on 03-24-2022 MCV (RBC) [Entitic vol] 97.3 fL 81-99 [facility] Work Phone: [phone] Hematocrit Auto (Bld) [Volum e fraction]on 03-24-2022 Hematocrit (Bld) [Volume fraction] 47.7 % 37-47 [facility] Work Phone: [phone] Laboratory - Chemistry and C hemistry - challengeon 03-24-2022 ALP [Catalytic activity/Vol] 48 U/L 45-117 [facility] Work Phone: ALT [Catalytic activity/Vol] 20 U/L 13-56 [facility] Work Phone: [phone] CO2 [Moles/Vol] 33.0 mmol/L 21.0-32.0 [facility] Work Phone: [phone] Globulin (S) [Mass/Vol] 3.0 g/dL 2.2-4.2 [facility] Work Phone: [phone] Urea nitrogen/Creatinine [Mass ratio] 12.0 mg/mg 10-20 [facility] Work Phone: Laboratory - Hematology and Cell countson 03-24-2022 Erythrocyte distribution width (RBC) [Entitic vol] 46.8 fL 35.1-43.9 [facility] Work Phone: Erythrocyte distribution width (RBC) [Ratio] 13.1 % 11.6-14.6 [facility] Work Phone: Immature granulocytes/100 WBC (Bld) 0.600 % 0.0-0.9 [facility] Work Phone: Comment on above: IG% - Immature Granu locytes (promyelocytes, myelocytes and metamyelocytes) > 1% indicates that a LEFT SHIFT is Present. MCH (RBC) [Entitic mass] 31.8 pg 27.0-32.0 [facility] Work Phone: Nucleated RBC/100 WBC (Bld) [Ratio] 0 % 0-5 [facility] Work Phone: MCHC Auto (RBC) [Mass/Vol]on 03-24-2022 MCHC (RBC) [Mass/Vol] 32.7 g/dL 32-36 [facility] Work Phone: No Panel Informationon 03-24 Estimated Creatinine Clearance Calc 34.37 ml/min [facility] Work Phone: Estimated GFR (MDRD) Amer 58 mL/min >60 [facility] Work Phone: Comment on above: GFR Calc Estimated GFR (MDRD) Non-Af Amer 48 mL/min >60 [facility] Work Phone: Comment on above: Non- GFR Calc Platelets bldon 03-24-2022 Platelets (Bld) [#/Vol] 186 10*3/uL 150-450 [facility] Work Phone: Serum or plasma albumin leonard urement (mass/volume)on 03-24-2022 Albumin [Mass/Vol] 3.8 g/dL 3.2-5.0 [facility] Work Phone: Serum or plasma albumin/glob ulin mass ratioon 03-24-2022 Albumin/Globulin [Mass ratio] 1.3 {ratio} 0.9-2.4 [facility] Work Phone: Serum or plasma calcium leonard urement (mass/volume)on 03-24-2022 Calcium [Mass/Vol] 9.5 mg/dL 8.5-10.1 [facility] Work Phone: Serum or plasma creatinine m easurement (mass/volume)on 03-24-2022 Creatinine [Mass/Vol] 1.17 mg/dL 0.55-1.02 [facility] Work Phone: Comment on above: The validity of the calculated GFR & GFRAA in patients over 70 years has not been determined. Clinical correlation is essential. Serum or plasma urea nitroge n measurement (mass/volume)on 03-24-2022 Urea nitrogen [Mass/Vol] 14 mg/dL 7-18 [facility] Work Phone: Thin prep Papanicolaou smear with manual screeningon 03-24-2022 Thin prep Papanicolaou smear with manual screening 18 U/L 15-37 [facility] Work Phone: Thin prep Papanicolaou smear with manual screening 5 5-15 [facility] Work Phone: Thin prep Papanicolaou smear with manual screening 185 U/L 84-246 [facility] Work Phone: Absolute lymphocyte counton 10-27-2021 Lymphocytes Auto (Unsp spec) [#/Vol] 1.15 10*3/uL 0.83-4.51 [facility] Work Phone: [phone] Basophil percentageon 2021 Basophils/100 WBC (Bld) 0.5 % 0-1 [facility] Work Phone: [phone] Bilirubin [Mass/Vol] 0.80 mg/dL 0.20-1.00 [facility] Work Phone: Comment on above: For patients on eltr ombopag therapy, use of Dimension [place] TBIL is not recommended. Chloride [Moles/Vol] 102 mmol/L 98-107 [facility] Work [facility]: Eosinophils/100 WBC (Bld) 0.3 % 0-5 [facility] Work Phone: Glucose [Mass/Vol] 115 mg/dL 74-106 [facility] Work Phone: Comment on above: Fasting Glucose resu lt from 100 to 125 mg/dL suggests IMPAIRED HOMEOSTASIS per A.D.A. criteria. Neutrophils (Bld) [#/Vol] 9.3 10*3/uL 2.0-7.7 [facility] Work Phone: Neutrophils/100 WBC (Bld) 82.8 % 47-70 [facility] Work Phone: Potassium [Moles/Vol] 4.8 mmol/L 3.5-5.1 [facility] Work Phone: Protein [Mass/Vol] 6.4 g/dL 6.4-8.2 [facility] Work Phone: Sodium [Moles/Vol] 139 mmol/L 136-145 [facility] Work Phone: WBC (Bld) [#/Vol] 11.3 10*3/uL 4.4-11.0 [facility] Work Phone: Blood erythrocytes count (nu mber/volume)on 10-27-2021 RBC (Bld) [#/Vol] 4.90 10*6/uL 4.2-5.4 [facility] Work Phone: Blood hemoglobin measurement (mass/volume)on 10-27-2021 Hemoglobin (Bld) [Mass/Vol] 15.1 g/dL 12.0-15.0 [facility] Work Phone: Blood lymphocytes/100 leukoc yteson 10-27-2021 Lymphocytes/100 WBC (Bld) 10.2 % 19-41 [facility] Work Phone: Blood monocytes/100 leukocyt eson 10-27-2021 Monocytes/100 WBC (Bld) 3.0 % 0-10 [facility] Work Phone: Blood platelet mean volumeon 10-27-2021 Platelet mean volume (Bld) [Entitic vol] 10.7 fL 6.2-12.0 [facility] Work Phone: Determination of erythrocyte mean corpuscular volume (MCV)on 10-27-2021 MCV (RBC) [Entitic vol] 93.9 fL 81-99 [facility] Work Phone: Hematocrit Auto (Bld) [Volum e fraction]on 10-27-2021 Hematocrit (Bld) [Volume fraction] 46.0 % 37-47 [facility] Work Phone: [phone] Laboratory - Chemistry and C hemistry - challengeon 10-27-2021 ALP [Catalytic activity/Vol] 54 U/L 45-117 [facility] Work Phone: ALT [Catalytic activity/Vol] 29 U/L 13-56 [facility] Work Phone: CO2 [Moles/Vol] 32.0 mmol/L 21.0-32.0 [facility] Work Phone: [phone] Globulin (S) [Mass/Vol] 3.1 g/dL 2.2-4.2 [facility] Work Phone: [phone] Urea nitrogen/Creatinine [Mass ratio] 20.0 mg/mg 10-20 [facility] Work Phone: [phone] Laboratory - Hematology and Cell countson 10-27-2021 Erythrocyte distribution width (RBC) [Entitic vol] 47.9 fL 35.1-43.9 [facility] Work Phone: Erythrocyte distribution width (RBC) [Ratio] 13.9 % 11.6-14.6 [facility] Work Phone: Immature granulocytes/100 WBC (Bld) 3.200 % 0.0-0.9 [facility] Work Phone: [phone] Comment on above: IG% - Immature Granu locytes (promyelocytes, myelocytes and metamyelocytes) > 1% indicates that a LEFT SHIFT is Present. MCH (RBC) [Entitic mass] 30.8 pg 27.0-32.0 [facility] Work Phone: Nucleated RBC/100 WBC (Bld) [Ratio] 0 % 0-5 [facility] Work Phone: MCHC Auto (RBC) [Mass/Vol]on 10-27-2021 MCHC (RBC) [Mass/Vol] 32.8 g/dL 32-36 [facility] Work Phone: No Panel Informationon 10-27 Estimated GFR (MDRD) Amer 51 mL/min >60 [facility] Work Phone: Comment on above: GFR Calc Estimated GFR (MDRD) Non-Af Amer 43 mL/min >60 [facility] Work Phone: Comment on above: Non- GFR Calc Thyroid Stimulating Hormone (TSH) 1.39 uIU/mL 0.358-3.74 [facility] Work Phone: Vitamin D 25-Hydroxy 78.7 ng/mL [facility] Work Phone: Comment on above: Vitamin D 25(OH) Sta tus Range Deficiency <20 ng/mL (50nmol/L) Insufficiency 20 - 30 ng/mL (50 - 75 nmol/L) Sufficiency 30 - 100 ng/mL (75 - 250 nmol/L) Toxicity >100 ng/mL (>250 nmol/L) Platelets bldon 10-27-2021 Platelets (Bld) [#/Vol] 316 10*3/uL 150-450 [facility] Work Phone: Serum or plasma albumin leonard urement (mass/volume)on 10-27-2021 Albumin [Mass/Vol] 3.3 g/dL 3.2-5.0 [facility] Work Phone: Serum or plasma albumin/glob ulin mass ratioon 10-27-2021 Albumin/Globulin [Mass ratio] 1.1 {ratio} 0.9-2.4 [facility] Work Phone: Serum or plasma calcium leonard urement (mass/volume)on 10-27-2021 Calcium [Mass/Vol] 8.5 mg/dL 8.5-10.1 [facility] Work Phone: Serum or plasma creatinine m easurement (mass/volume)on 10-27-2021 Creatinine [Mass/Vol] 1.30 mg/dL 0.55-1.02 [facility] Work Phone: Comment on above: The validity of the calculated GFR & GFRAA in patients over 70 years has not been determined. Clinical correlation is essential. Serum or plasma urea nitroge n measurement (mass/volume)on 10-27-2021 Urea nitrogen [Mass/Vol] 26 mg/dL 7-18 [facility] Work Phone: Thin prep Papanicolaou smear with manual screeningon 10-27-2021 Thin prep Papanicolaou smear with manual screening 18 U/L 15-37 [facility] Work Phone: Thin prep Papanicolaou smear with manual screening 5 5-15 [facility] Work Phone: Laboratory - Microbiology an d Antimicrobial susceptibilityon 10-22-2021 SARS-CoV-2 (COVID-19) RNA HILARIO+probe Ql (Unsp spec) Not detected Not Detect [facility] Work Phone: Comment on above: Normal Reference Ran ge: Not DetectedMethod:(RT-PCR) real-time reverse transcriptase PCRLuminex REGINE Instrument*The Food and Drug Administration (FDA) has issued an Emergency Use Authorization (EAU) for the REGINE SARS-CoV-2 Assay for the rapid detection of the virus that causes COVID-19. This test has been validated, but the FDAs independent review of this validation is pending.*Negative results do not preclude infection and should not be used as the sole basis for treatment or patient management. Optimum specimen types and timing for peak viral levels during infections caused by SARS-CoV-2 have not been determined. Collection of multiple specimens from the same patient may be necessary to detect the virus. The possibility of a false negative result should be considered if the patient has clinical presentation or has had recent exposure. No Panel Informationon 10-22 Influenza Types A,B Direct FA (DIDI) [facility] Work Phone: Absolute lymphocyte counton 10-21-2021 Lymphocytes Auto (Unsp spec) [#/Vol] 1.17 10*3/uL 0.83-4.51 [facility] Work Phone: Basophil percentageon 2021 Basophils/100 WBC (Bld) 0.7 % 0-1 [facility] Work Phone: Bilirubin [Mass/Vol] 1.10 mg/dL 0.20-1.00 [facility] Work Phone: Comment on above: For patients on eltr ombopag therapy, use of Dimension [place] TBIL is not recommended. Chloride [Moles/Vol] 102 mmol/L 98-107 [facility] Work Phone: Eosinophils/100 WBC (Bld) 4.6 % 0-5 [facility] Work Phone: Glucose [Mass/Vol] 96 mg/dL 74-106 [facility] Work Phone: Neutrophils (Bld) [#/Vol] 5.1 10*3/uL 2.0-7.7 [facility] Work Phone: Neutrophils/100 WBC (Bld) 68.3 % 47-70 [facility] Work Phone: Potassium [Moles/Vol] 3.4 mmol/L 3.5-5.1 [facility] Work Phone: Protein [Mass/Vol] 6.1 g/dL 6.4-8.2 [facility] Work Phone: Sodium [Moles/Vol] 137 mmol/L 136-145 [facility] Work Phone: WBC (Bld) [#/Vol] 7.5 10*3/uL 4.4-11.0 [facility] Work Phone: Blood erythrocytes count (nu mber/volume)on 10-21-2021 RBC (Bld) [#/Vol] 4.32 10*6/uL 4.2-5.4 [facility] Work Phone: [phone] Blood hemoglobin measurement (mass/volume)on 10-21-2021 Hemoglobin (Bld) [Mass/Vol] 13.3 g/dL 12.0-15.0 [facility] Work Phone: Blood lymphocytes/100 leukoc yteson 10-21-2021 Lymphocytes/100 WBC (Bld) 15.5 % 19-41 [facility] Work Phone: Blood monocytes/100 leukocyt eson 10-21-2021 Monocytes/100 WBC (Bld) 10.5 % 0-10 [facility] Work Phone: Blood platelet mean volumeon 10-21-2021 Platelet mean volume (Bld) [Entitic vol] 11.0 fL 6.2-12.0 [facility] Work Phone: [phone] Determination of erythrocyte mean corpuscular volume (MCV)on 10-21-2021 MCV (RBC) [Entitic vol] 95.8 fL 81-99 [facility] Work Phone: [phone] Hematocrit Auto (Bld) [Volum e fraction]on 10-21-2021 Hematocrit (Bld) [Volume fraction] 41.4 % 37-47 [facility] Work Phone: [phone] Laboratory - Chemistry and C hemistry - challengeon 10-21-2021 ALP [Catalytic activity/Vol] 54 U/L 45-117 [facility] Work Phone: [phone] ALT [Catalytic activity/Vol] 25 U/L 13-56 [facility] Work Phone: CO2 [Moles/Vol] 31.0 mmol/L 21.0-32.0 [facility] Work Phone: Globulin (S) [Mass/Vol] 3.3 g/dL 2.2-4.2 [facility] Work Phone: [phone] Urea nitrogen/Creatinine [Mass ratio] 18.0 mg/mg 10-20 [facility] Work Phone: Laboratory - Hematology and Cell countson 10-21-2021 Erythrocyte distribution width (RBC) [Entitic vol] 48.1 fL 35.1-43.9 [facility] Work Phone: Erythrocyte distribution width (RBC) [Ratio] 13.4 % 11.6-14.6 [facility] Work Phone: Immature granulocytes/100 WBC (Bld) 0.400 % 0.0-0.9 [facility] Work Phone: Comment on above: IG% - Immature Granu locytes (promyelocytes, myelocytes and metamyelocytes) > 1% indicates that a LEFT SHIFT is Present. MCH (RBC) [Entitic mass] 30.8 pg 27.0-32.0 [facility] Work Phone: Nucleated RBC/100 WBC (Bld) [Ratio] 0 % 0-5 [facility] Work Phone: MCHC Auto (RBC) [Mass/Vol]on 10-21-2021 MCHC (RBC) [Mass/Vol] 32.1 g/dL 32-36 [facility] Work Phone: No Panel Informationon 10-21 Estimated GFR (MDRD) Amer 62 mL/min >60 [facility] Work Phone: Comment on above: GFR Calc Estimated GFR (MDRD) Non-Af Amer 51 mL/min >60 [facility] Work Phone: Comment on above: Non- GFR Calc Platelets bldon 10-21-2021 Platelets (Bld) [#/Vol] 224 10*3/uL 150-450 [facility] Work Phone: Serum or plasma albumin leonard urement (mass/volume)on 10-21-2021 Albumin [Mass/Vol] 2.8 g/dL 3.2-5.0 [facility] Work Phone: Serum or plasma albumin/glob ulin mass ratioon 10-21-2021 Albumin/Globulin [Mass ratio] 0.8 {ratio} 0.9-2.4 [facility] Work Phone: Serum or plasma calcium leonard urement (mass/volume)on 10-21-2021 Calcium [Mass/Vol] 7.8 mg/dL 8.5-10.1 [facility] Work Phone: Serum or plasma creatinine m easurement (mass/volume)on 10-21-2021 Creatinine [Mass/Vol] 1.11 mg/dL 0.55-1.02 [facility] Work Phone: Comment on above: The validity of the calculated GFR & GFRAA in patients over 70 years has not been determined. Clinical correlation is essential. Serum or plasma urea nitroge n measurement (mass/volume)on 10-21-2021 Urea nitrogen [Mass/Vol] 20 mg/dL 7-18 [facility] Work Phone: Thin prep Papanicolaou smear with manual screeningon 10-21-2021 Thin prep Papanicolaou smear with manual screening 14 U/L 15-37 [facility] Work Phone: Thin prep Papanicolaou smear with manual screening 4 5-15 [facility] Work Phone: Serum or plasma erythropoiet in (EPO) measurement (units/volume)on 11-25-2020 Erythropoietin (EPO) Qn 20.3 mIU/mL 2.6-18.5 [facility] Comment on above: [employer] DxI 800 Immunoassay SystemValues obtained with different assay methods or kits cannotbe used interchangeably. Results cannot be interpreted asabsolute evidence of the presence or absence of malignantdisease.Performed at: [facility] - [address] [id number] Director: Manuel Flannery PhD, Phone: [phone] Basophil percentageon 2019 Cholesterol [Mass/Vol] 213 mg/dL <200 [facility] Comment on above: <200 mg/dL Desirable 200-240 mg/dL Borderline >240 mg/dL High Risk Triglyceride [Mass/Vol] 101 mg/dL <199 [facility] Comment on above: The drugs N-Acetylcy steine and Metamizole may falsely depress this assay.Serum Triglycerides Reference Interval Normal <150 mg/dL Borderline high 150 - 199 mg/dL High 200 - 499 mg/dL Very High > or = 500 mg/dL Direct bilirubinon 0 Bilirubin.direct [Mass/Vol] 0.15 mg/dL 0.00-0.30 [facility] Serum or plasma cholesterol in HDL measurement (mass/volume)on 11-13-2019 Cholesterol in HDL [Mass/Vol] 49 mg/dL >40 [facility] Comment on above: The drugs N-Acetylcy steine and Metamizole may falsely depress this assay. Reference Range HDL <40 mg/dL Low HDL Cholesterol HDL >or= 60 mg/dL High HDL Cholesterol Serum or plasma cholesterol in VLDL measurement (mass/volume)on 11-13-2019 Cholesterol in VLDL [Mass/Vol] 20 mg/dL 5-40 [facility] Serum or plasma low density lipoprotein (LDL) cholesterol measurement (mass/volume)on 11-13-2019 Cholesterol in LDL [Mass/Vol] 144 mg/dL 0-130 [facility] Laboratory - Hematology and Cell countson 07-05-2019 Anisocytosis Ql (Bld) 1+ [facility] Laboratory - Chemistry and C hemistry - challengeon 06-28-2019 Magnesium [Mass/Vol] 1.8 mg/dL 1.6-2.6 [facility] Macrocytes detectionon 06-28 Macrocytes Ql (Bld) 1+ [facility] No Panel Informationon 06-28 Differential Comment SCANNED [facility] Thin prep Papanicolaou smear with manual screeningon 06-28-2019 Thin prep Papanicolaou smear with manual screening 1+ [facility] Basophil percentageon 2018 Basophil percentage 2.7 mg/dL 2.5-4.9 [facility] No Panel Informationon 06-21 Homocysteine 8.3 umol/L 3.2-10.7 [facility] No Panel Informationon 05-31 MTHFR Thermolabile Variant DNA Anal Comment . 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 The MTHFR [id number] variant was not identified.Homozygosity for the C677T mutation confers an increasedrisk for the development of hyperhomocysteinemia when theindividual is deficient in folate, vitamin B6, or [id number]. A fasting homocysteine level should be measured.Hyperhomocysteinemia may also occur due to mutations inenzymes other than MTHFR that are involved inhomocysteine metabolism, or arise due to acquired factors.If homocysteine falls within the normal range, there is noincreased risk for venous thromboembolism or in women,recurrent loss. Elevated homocysteine may beassociated with a mildly increased risk for venousthrombosis, coronary artery disease and recurrent pregnancyloss. Women homozygous for MTHFR C677T also have a modestlyincreased risk of neural tube defects with , witha greater risk if the fetus is also homozygous for [id number]. Other risk factors may be detected throughsystematic clinical laboratory analysis.Methylenetetrahydrofolate reductase (MTHFR) is a busby enzyme in thefolate pathway and is responsible for the metabolism of homocysteine.There are two common variants in the MTHFR gene, c.655c>T(p.[id number]), referred to as C677T, and c.1286A>C (p.Mtp715Ysm),referred to as D8362L. Individuals homozygous for C677T (two copiesof the variant), have decreased activity of the MTHFR enzyme and apredisposition to hyperhomocysteinemia, particularly when deficient infolate. Hyperhomocysteinemia is a risk factor for venous thrombosisand coronary artery disease and is associated with an increased riskof open neural tube defects. The C677T variant does notindependently increase risk of these conditions in the absence ofhyperhomocysteinemia. The Z0684F variant is not associated withelevated homocysteine levels unless a C677T variant is also present;however, the clinical significance of heterozygosity for both [id number] is controversial. Population data suggest that these twovariants are not present on the same chromosome, but rare exceptionshave been reported of triple variant MTHFR genotypes (ie. homozygousfor one variant and heterozygous for the other). Homozygosity [id number] has an estimated frequency of 10% to 15% in Caucasians and 25%in Hispanics.Additional information:Dietary folic acid, B6 and B12 supplementation has been suggested tolower homocysteine levels in some people. Folic acid supplementationhas been shown to reduce the occurrence of neural tube defects.Genetic counselors are available for health care providers to discussresults at [phone].Methodology:DNA analysis of the MTHFR gene was performed by PCRamplification followed by restriction analysis. Thediagnostic sensitivity is >99% for both. Molecular-basedtesting is highly accurate, but as in any laboratory test,rare diagnostic errors may occur. All test results must becombined with clinical information for the most accurateinterpretation.This test was developed and its performance characteristicsdetermined by [facility]. It has not been cleared or approved bythe Food and Drug Administration.References:Livia LD, Arnoldo Q. Am J Epidemiol 2000; 151(9):862-877.Sajan MM, Caridad JA. Arch Pathol Lab Med 2007; 131(6):872-884.Frosst P et al. Kelsey Ashley 1995; 10(1):111-113.Hickey SE et al. Ashley Med 2013; 15(2):153-156.[place] C et al. Obstet Gynecol 2011; 118(3):730-740.Jovany B et al. Eur J Epidemiol 2013; 28(8):621-647.Reny Varma, PhD, Marc Arambula, PhD, Lizandro Lowery MClarisseSClarisse, PhD, Federico Saleem, PhD, Rashawn Marie, PhD, Sebastien Levine, PhD, FACMGPerformed at: - [facility] [id number] [place], [place] [id number] Director: Dilip Coreas MD, Phone: [phone] Thin prep Papanicolaou smear with manual screeningon 05-31-2019 Thin prep Papanicolaou smear with manual screening Not Reportable [facility] Basic Metabolic Panelon 01-17 Anion gap [Moles/Vol] 3 Normal [facility] Comment on above: Performed By: #### H EMOG, BMP3, PT/AP #### [address] [address] Calcium [Mass/Vol] 8.7 mg/dL Normal 8.4-10.4 [facility] Comment on above: Performed By: #### H BENJI SHULTZ3, PT/AP #### [place] [address] [address] [place], [place] CO2 [Moles/Vol] 36 mmol/L High 22-30 [facility] Comment on above: Performed By: #### H BENJI SHULTZ3, PT/AP #### [place] [address] [address] [place], [place] Creatinine [Mass/Vol] 0.70 mg/dL Normal 0.52-1.25 [facility] Comment on above: Performed By: #### H ANDREW SHULTZ, PT/AP #### [place] [address] [address] [place], [place] GFR/1.73 sq M predicted among blacks MDRD (S/P/Bld) [Vol rate/Area] mL/min/{1.73_m2} Normal >60 [facility] Comment on above: Performed By: #### H BENJI SHULTZ3, PT/AP #### [place] [address] [address] [place], [place] GFR/1.73 sq M predicted among non-blacks MDRD (S/P/Bld) [Vol rate/Area] mL/min/{1.73_m2} Normal >60 [facility] Comment on above: Result Comment: Sour ce- MDRD equation with creatinine calibration to IDMS(NKDEP) eGFR not recommended for drug dose adjustment Performed By: #### H LEXII BMP3, PT/AP #### [place] [address] [address] [place], [place] Glucose [Mass/Vol] 118 mg/dL High 70-100 [facility] Comment on above: Performed By: #### H LEXII BMP3, PT/AP #### [place] [address] [address] [place], [place] Urea nitrogen [Mass/Vol] 17 mg/dL Normal 7-20 [facility] Comment on above: Performed By: #### H LEXII BMP3, PT/AP #### [place] [address] [place] [address] Chloride [Moles/Vol] 101 mmol/L Normal 98-107 [facility] Comment on above: Performed By: #### H EMOG, BMP3, PT/AP #### [facility] [address] [place] [address] Potassium [Moles/Vol] 4.2 mmol/L Normal 3.5-5.1 [facility] Comment on above: Result Comment: Slig htly hemolysed, interpret with caution. Performed By: #### H EMOG, BMP3, PT/AP #### [facility] [address] [place] [address] Sodium [Moles/Vol] 140 mmol/L Normal 135-145 [facility] Comment on above: Performed By: #### H EMOG, BMP3, PT/AP #### [facility] [address] [place] [address] CR Chest Portableon 02-14-20 19 CR Chest Portable Patient Name: SHANTHI CORTEZ Diagnostic Radiology Exam Date/Time 02/13/2019 06:19:00 EDT Exam CR Chest Portable Ordering Physician JAN ARIAS Accession Number [id number] CPT4 Codes 48700 () Reason For Exam thoracotomy Report Indication: [...] within normal limits. There are lower lung infiltrates/atelectatic changes and probable small bilateral pleural effusions. These findings are similar on the left and mildly progressed on the right. Report Dictated on Final Dictated: 02/13/2019 7:09 am Dictating Physician: DO PATEL ANTHONY Signed Date and Time: 02/13/2019 7:10 am Signed by: DO PATEL ANTHONY Transcribed Date and Time: 02/13/2019 7:09 Normal [facility] Hemogram w/ Autodiffon 02-13 Abs Baso Cnt 0.0 10*3/uL Normal 0.0-0.2 [facility] Comment on above: Performed By: #### H EMDF, BMP3 ####[place] [id number] [place], [place] Abs Neutrophile Cnt 4.2 10*3/uL Normal 1.8-7.0 [facility] Comment on above: Performed By: #### H EMDF, BMP3 ####[place] [address] [place], [place] Basophils/100 WBC (Bld) 0.6 % Normal 0.0-2.0 [facility] Comment on above: Performed By: #### H EMDF, BMP3 ####[place] [address] [place], [place] Eosinophils (Bld) [#/Vol] 0.1 10*3/uL Normal 0.0-0.5 [facility] Comment on above: Performed By: #### H EMDF, BMP3 ####[place] [place], [place] Eosinophils/100 WBC (Bld) 2.1 % Normal 1.0-6.0 [facility] Comment on above: Performed By: #### H EMDF, BMP3 ####[place] [address] [place], [place] Erythrocyte distribution width (RBC) [Ratio] 15.4 % High 11.5-14.5 [facility] Comment on above: Performed By: #### H EMDF, BMP3 ####[address] Granulocytes/100 WBC (Bld) 76.5 % Normal 40.0-80.0 [facility] Comment on above: Performed By: #### H EMDF, BMP3 ####[place] [place] [address] Hematocrit (Bld) [Volume fraction] 35.6 % Normal 35.0-47.0 [facility] Comment on above: Performed By: #### H DEE BMP3 ####[address] Hemoglobin (Bld) [Mass/Vol] 12.0 g/dL Normal 11.7-16.0 [facility] Comment on above: Performed By: #### Daisy PRICE BMP3 ####[address] Lymphocytes (Bld) [#/Vol] 0.8 10*3/uL Low 1.0-4.3 [facility] Comment on above: Performed By: #### H DEE BMP3 ####[address] Lymphocytes/100 WBC (Bld) 14.0 % Low 20.0-40.0 [facility] Comment on above: Performed By: #### Daisy PRICE BMP3 ####[address] MCH (RBC) [Entitic mass] 29.7 pg Normal 26.0-34.0 [facility] Comment on above: Performed By: #### H DEE BMP3 ####[address] MCHC (RBC) [Mass/Vol] 33.6 % Normal 32.0-36.0 [facility] Comment on above: Performed By: #### H DEE BMP3 ####[address] MCV (RBC) [Entitic vol] 88.3 fL Normal 79.0-98.0 [facility] Comment on above: Performed By: #### Daisy PRIEC BMP3 ####[address] Monocytes (Bld) [#/Vol] 0.4 10*3/uL Normal 0.0-0.8 [facility] Comment on above: Performed By: #### H BENJI PRICE3 ####[employer] [id number] [place], [place] Monocytes/100 WBC (Bld) 6.8 % Normal 2.0-10.0 [facility] Comment on above: Performed By: #### H EMDF, BMP3 ####[employer] [id number] [place], [place] Platelet mean volume (Bld) [Entitic vol] 9.8 fL Normal 7.4-10.4 [facility] Comment on above: Performed By: #### H EMDF, BMP3 ####[employer] [id number] [place], [place] Platelets (Bld) [#/Vol] 158 10*3/uL Normal 140-440 [facility] Comment on above: Performed By: #### H EMDF, BMP3 ####[employer] [id number] [place], [place] RBC (Bld) [#/Vol] 4.03 10*6/uL Normal 3.80-5.20 [facility] Comment on above: Performed By: #### H EMDF, BMP3 ####[employer] [id number] [place], [place] WBC (Bld) [#/Vol] 5.5 10*3/uL Normal 3.6-10.7 [facility] Comment on above: Performed By: #### H EMDF, BMP3 ####[employer] [id number] [place], [place] CR Chest Portableon 02-13-20 19 CR Chest Portable Patient Name: SHANTHI CORTEZ Diagnostic Radiology Exam Date/Time 02/12/2019 07:14:27 EDT Exam CR Chest Portable Ordering Physician [id number] PUGH Accession Number [id number] CPT4 Codes 14079 () Reason For Exam thoracotomy Report CHEST [...] Transcribed Date and Time: 02/12/2019 8:47 Normal [facility] Comp Panel with Mg Reflexon 02-12-2019 Calcium [Mass/Vol] 9.1 mg/dL Normal 8.4-10.4 [facility] Comment on above: Performed By: #### H EMDF, CMP3M, LIPD2, HA1C2, TROPN ####[address] [place] [place], [place] ALP [Catalytic activity/Vol] 37 U/L Low 38-126 [facility] Comment on above: Performed By: #### H EMDF, CMP3M, LIPD2, HA1C2, TROPN ####[place] [place], [place] ALT [Catalytic activity/Vol] 21 U/L Normal 13-69 [facility] Comment on above: Performed By: #### H EMDF, CMP3M, LIPD2, HA1C2, TROPN ####[place] [place], [place] Anion gap [Moles/Vol] 4 Normal [facility] Comment on above: Performed By: #### H EMDF, CMP3M, LIPD2, HA1C2, TROPN ####[place] [address] [place], [place] AST [Catalytic activity/Vol] 31 U/L Normal 15-46 [facility] Comment on above: Performed By: #### H EMDF, CMP3M, LIPD2, HA1C2, TROPN ####[place] [address] [place], [place] Bilirubin [Mass/Vol] 1.5 mg/dL High 0.2-1.3 [facility] Comment on above: Performed By: #### H EMDF, CMP3M, LIPD2, HA1C2, TROPN ####[place] [address] [place], [place] CO2 [Moles/Vol] 37 mmol/L High 22-30 [facility] Comment on above: Performed By: #### H EMDF, CMP3M, LIPD2, HA1C2, TROPN ####[place] [address] [place], [place] Creatinine [Mass/Vol] 0.81 mg/dL Normal 0.52-1.25 [facility] Comment on above: Performed By: #### H EMDF, CMP3M, LIPD2, HA1C2, TROPN ####[place] [address] [place], [place] GFR/1.73 sq M predicted among blacks MDRD (S/P/Bld) [Vol rate/Area] mL/min/{1.73_m2} Normal >60 [facility] Comment on above: Performed By: #### H EMDF, CMP3M, LIPD2, HA1C2, TROPN ####[place] [address] [place], [place] GFR/1.73 sq M predicted among non-blacks MDRD (S/P/Bld) [Vol rate/Area] mL/min/{1.73_m2} Normal >60 [facility] Comment on above: Result Comment: Sour ce- MDRD equation with creatinine calibration to IDMS(NKDEP) eGFR not recommended for drug dose adjustment Performed By: #### H EMDF, CMP3M, LIPD2, HA1C2, TROPN ####[place] [address] [place], [place] Glucose [Mass/Vol] 110 mg/dL High 70-100 [facility] Comment on above: Performed By: #### H EMDF, CMP3M, LIPD2, HA1C2, TROPN ####[place] [place] [address] Protein [Mass/Vol] 5.6 g/dL Low 6.3-8.2 [facility] Comment on above: Performed By: #### H EMDF, CMP3M, LIPD2, HA1C2, TROPN ####[place] [place] [address] Urea nitrogen [Mass/Vol] 15 mg/dL Normal 7-20 [facility] Comment on above: Performed By: #### H EMDF, CMP3M, LIPD2, HA1C2, TROPN ####[place] [place] [address] Potassium [Moles/Vol] 4.0 mmol/L Normal 3.5-5.1 [facility] Comment on above: Performed By: #### H EMDF, CMP3M, LIPD2, HA1C2, TROPN ####[address] [place] [place] [address] Sodium [Moles/Vol] 141 mmol/L Normal 135-145 [facility] Comment on above: Performed By: #### H EMDF, CMP3M, LIPD2, HA1C2, TROPN ####[address] [place] [place] [address] Albumin [Mass/Vol] 3.2 g/dL Low 3.5-5.0 [facility] Comment on above: Performed By: #### H EMDF, CMP3M, LIPD2, HA1C2, TROPN ####[place] [place] [address] Chloride [Moles/Vol] 100 mmol/L Normal 98-107 [facility] Comment on above: Performed By: #### H EMDF, CMP3M, LIPD2, HA1C2, TROPN ####[place] [place] [address] Hemoglobin A1Con 02-12-2019 HbA1c (Bld) [Mass fraction] 117 mg/dL Normal [facility] Comment on above: Performed By: #### H EMDF, CMP3M, LIPD2, HA1C2, TROPN ####[place] [place], [place] HbA1c (Bld) [Mass fraction] 5.7 % Normal 4.0-5.7 [facility] Comment on above: Result Comment: --Hg bA1C levels may not be accurate in patients who have renal disease, received recent blood transfusions, are anemic, or who have dyshemoglobinemia. Performed By: #### H EMDF, CMP3M, LIPD2, HA1C2, TROPN ####[address] Hemogram w/ Autodiffon 02-12 Abs Baso Cnt 0.0 10*3/uL Normal 0.0-0.2 [facility] Comment on above: Performed By: #### H EMDF, CMP3M, LIPD2, HA1C2, TROPN ####[address] Abs Neutrophile Cnt 4.2 10*3/uL Normal 1.8-7.0 [facility] Comment on above: Performed By: #### H EMDF, CMP3M, LIPD2, HA1C2, TROPN ####[address] Basophils/100 WBC (Bld) 0.4 % Normal 0.0-2.0 [facility] Comment on above: Performed By: #### H EMDF, CMP3M, LIPD2, HA1C2, TROPN ####[place] [place], [place] Eosinophils (Bld) [#/Vol] 0.1 10*3/uL Normal 0.0-0.5 [facility] Comment on above: Performed By: #### H EMDF, CMP3M, LIPD2, HA1C2, TROPN ####[address] Eosinophils/100 WBC (Bld) 1.9 % Normal 1.0-6.0 [facility] Comment on above: Performed By: #### H EMDF, CMP3M, LIPD2, HA1C2, TROPN ####[address] Erythrocyte distribution width (RBC) [Ratio] 15.0 % High 11.5-14.5 [facility] Comment on above: Performed By: #### H EMDF, CMP3M, LIPD2, HA1C2, TROPN ####[address] Granulocytes/100 WBC (Bld) 75.2 % Normal 40.0-80.0 [facility] Comment on above: Performed By: #### H EMDF, CMP3M, LIPD2, HA1C2, TROPN ####[address] Hematocrit (Bld) [Volume fraction] 36.1 % Normal 35.0-47.0 [facility] Comment on above: Performed By: #### H EMDF, CMP3M, LIPD2, HA1C2, TROPN ####[address] Hemoglobin (Bld) [Mass/Vol] 12.2 g/dL Normal 11.7-16.0 [facility] Comment on above: Performed By: #### H EMDF, CMP3M, LIPD2, HA1C2, TROPN ####[id number] [place], [place] Lymphocytes (Bld) [#/Vol] 0.8 10*3/uL Low 1.0-4.3 [facility] Comment on above: Performed By: #### H EMDF, CMP3M, LIPD2, HA1C2, TROPN ####[address] Lymphocytes/100 WBC (Bld) 13.5 % Low 20.0-40.0 [facility] Comment on above: Performed By: #### H EMDF, CMP3M, LIPD2, HA1C2, TROPN ####[address] MCH (RBC) [Entitic mass] 29.9 pg Normal 26.0-34.0 [facility] Comment on above: Performed By: #### H EMDF, CMP3M, LIPD2, HA1C2, TROPN ####[id number] [place], [place] MCHC (RBC) [Mass/Vol] 33.8 % Normal 32.0-36.0 [facility] Comment on above: Performed By: #### H EMDF, CMP3M, LIPD2, HA1C2, TROPN ####[address] MCV (RBC) [Entitic vol] 88.4 fL Normal 79.0-98.0 [facility] Comment on above: Performed By: #### H EMDF, CMP3M, LIPD2, HA1C2, TROPN ####[address] Monocytes (Bld) [#/Vol] 0.5 10*3/uL Normal 0.0-0.8 [facility] Comment on above: Performed By: #### H EMDF, CMP3M, LIPD2, HA1C2, TROPN ####[id number] [place], [place] Monocytes/100 WBC (Bld) 9.0 % Normal 2.0-10.0 [facility] Comment on above: Performed By: #### H EMDF, CMP3M, LIPD2, HA1C2, TROPN ####[address] Platelet mean volume (Bld) [Entitic vol] 9.8 fL Normal 7.4-10.4 [facility] Comment on above: Performed By: #### H EMDF, CMP3M, LIPD2, HA1C2, TROPN ####[address] Platelets (Bld) [#/Vol] 153 10*3/uL Normal 140-440 [facility] Comment on above: Performed By: #### H EMDF, CMP3M, LIPD2, HA1C2, TROPN ####[address] [place], [place] RBC (Bld) [#/Vol] 4.08 10*6/uL Normal 3.80-5.20 [facility] Comment on above: Performed By: #### H EMDF, CMP3M, LIPD2, HA1C2, TROPN ####[address] WBC (Bld) [#/Vol] 5.6 10*3/uL Normal 3.6-10.7 [facility] Comment on above: Performed By: #### H EMDF, CMP3M, LIPD2, HA1C2, TROPN ####[address] Lipid Panelon 02-12-2019 Cholesterol in HDL [Mass/Vol] 46 mg/dL Normal 40-60 [facility] Comment on above: Performed By: #### H EMDF, CMP3M, LIPD2, HA1C2, TROPN ####[id number] [place], [place] Cholesterol.total/Chol esterol in HDL [Mass ratio] 4 Normal [facility] Comment on above: Result Comment: Ref Range: < 3 Low Risk for CHD 3-6 Mod Risk for CHD > 6 High Risk for CHD Performed By: #### H EMDF, CMP3M, LIPD2, HA1C2, TROPN ####[address] [place], [place] Protein [Mass/Vol] 99 mg/dL Normal <100 [facility] Comment on above: Performed By: #### H EMDF, CMP3M, LIPD2, HA1C2, TROPN ####[address] [place], [place] Cholesterol [Mass/Vol] 165 mg/dL Normal < 200 [facility] Comment on above: Performed By: #### H EMDF, CMP3M, LIPD2, HA1C2, TROPN ####[employer] [id number] [place] [address] Triglyceride [Mass/Vol] 98 mg/dL Normal <150 [facility] Comment on above: Performed By: #### H EMDF, CMP3M, LIPD2, HA1C2, TROPN ####[facility] [place] [address] MRA Head w/o Contraston 01-17 MRA Head w/o Contrast Patient Name: SHANTHI KERNS MRI Exam Date/Time 02/12/2019 15:36:38 EDT Exam MRA Head w/o Contrast Ordering Physician CARMEN MARTIN Accession Number [id number] CPT4 Codes 92698 () Reason For Exam stroke work up [...] Transcribed Date and Time: 02/12/2019 3:59 Normal [facility] MRA Neck w/ + w/o Contraston 02-12-2019 MRA Neck w/ + w/o Contrast Patient Name: SHANTHI SAM MRI Exam Date/Time 02/12/2019 15:43:10 EDT Exam MRA Neck w/ + w/o Contrast Ordering Physician CARMEN MARTIN Accession Number [id number] CPT4 Codes 12299 () Reason For Exam stroke work up [...] Transcribed Date and Time: 02/12/2019 3:59 Normal [facility] MRI Brain w/ + w/o Contrasto n 02-12-2019 MRI Brain w/ + w/o Contrast Patient Name: SHANTHI SAM MRI Exam Date/Time 02/12/2019 15:47:18 EDT Exam MRI Brain w/ + w/o Contrast Ordering Physician CARMEN MARTIN Accession Number [id number] CPT4 Codes 42199 () Reason For Exam stroke work up [...] Transcribed Date and Time: 02/12/2019 3:59 Normal [facility] Troponin Ion 02-12-2019 Troponin I.cardiac [Mass/Vol] ng/mL Normal 0.000-0.034 [facility] Comment on above: Result Comment: < 0. 034 = negative 0.034 ? 0.120 = indeterminate > 0.120 = positive Performed By: #### H EMDF, CMP3M, LIPD2, HA1C2, TROPN ####[address] [place], [place] Basic Metabolic Panelon 01-17 Calcium [Mass/Vol] 9.0 mg/dL Normal 8.4-10.4 [facility] Comment on above: Performed By: #### H EMDF BMP3 ####[address] [place], [place] Anion gap [Moles/Vol] 7 Normal [facility] Comment on above: Performed By: #### H EMDF BMP3 ####[address] [place], [place] CO2 [Moles/Vol] 34 mmol/L High 22-30 [facility] Comment on above: Performed By: #### H EMDF BMP3 ####[address] [place], [place] Glucose [Mass/Vol] 105 mg/dL High 70-100 [facility] Comment on above: Performed By: #### H EMDF BMP3 ####[address] [place], [place] Urea nitrogen [Mass/Vol] 19 mg/dL Normal 7-20 [facility] Comment on above: Performed By: #### Daisy PRICE BMP3 ####[address] [place], [place] Creatinine [Mass/Vol] 1.00 mg/dL Normal 0.52-1.25 [facility] Comment on above: Performed By: #### Daisy PRICE BMP3 ####[address] [place] [address] GFR/1.73 sq M predicted among blacks MDRD (S/P/Bld) [Vol rate/Area] mL/min/{1.73_m2} Normal >60 [facility] Comment on above: Performed By: #### Daisy PRICE BMP3 ####[address] GFR/1.73 sq M predicted among non-blacks MDRD (S/P/Bld) [Vol rate/Area] 54.5 mL/min/{1.73_m2} Normal >60 [facility] Comment on above: Result Comment: Sour ce- MDRD equation with creatinine calibration to IDMS(NKDEP) eGFR not recommended for drug dose adjustment Performed By: #### Daisy PRICE BMP3 ####[address] [place], [place] Chloride [Moles/Vol] 98 mmol/L Normal 98-107 [facility] Comment on above: Performed By: #### H DEE BMP3 ####[address] [place], [place] Potassium [Moles/Vol] 4.2 mmol/L Normal 3.5-5.1 [facility] Comment on above: Performed By: #### Daisy PRICE BMP3 ####[address] [place], [place] Sodium [Moles/Vol] 138 mmol/L Normal 135-145 [facility] Comment on above: Performed By: #### Daisy PRICE BMP3 ####[facility] [id number] [place] [address] CR Chest Portableon 02-12-20 CR Chest Portable Patient Name: SHANTHI CORTEZ Diagnostic Radiology Exam Date/Time 02/11/2019 06:20:09 EDT Exam CR Chest Portable Ordering Physician JAN ARIAS Accession Number [id number] CPT4 Codes 58215 () Reason For Exam thoracotomy Report CHEST [...] Transcribed Date and Time: 02/11/2019 7:08 Normal [facility] CT Head or Brain w/o Contras ton 02-11-2019 CT Head or Brain w/o Contrast Patient Name: SHANTHI SAM CT Exam Date/Time 02/11/2019 13:45:[address] Head or Brain w/o Contrast Ordering Physician CARMEN MARTIN Accession Number [id number] CPT4 Codes 05004 () Reason For Exam STROKE Report Examination: [...] Transcribed Date and Time: 02/11/2019 2:05 Normal [facility] Glucose,Bedsideon 02-11-2019 Glucose [Mass/Vol] 80 mg/dL Normal 70-100 [facility] Comment on above: Result Comment: Test performed by glucose meter. Results may be 10%-15% lower than serum/plasma values. (CLIA ID [id number]) Performed By: #### B GLU ####[facility] [place] [address] Hemogramon 02-11-2019 Erythrocyte distribution width (RBC) [Ratio] 15.0 % High 11.5-14.5 [facility] Comment on above: Performed By: #### H EMOG ####[facility] [place] [address]#### PT ####[facility] [place] [address] Hematocrit (Bld) [Volume fraction] 37.9 % Normal 35.0-47.0 [facility] Comment on above: Performed By: #### H EMOG ####[address] #### PT ####[address] [address] Hemoglobin (Bld) [Mass/Vol] 12.6 g/dL Normal 11.7-16.0 [facility] Comment on above: Performed By: #### H EMOG ####[address] #### PT ####[address] [address] MCH (RBC) [Entitic mass] 29.5 pg Normal 26.0-34.0 [facility] Comment on above: Performed By: #### H EMOG ####[address] #### PT ####[address] [address] MCHC (RBC) [Mass/Vol] 33.3 % Normal 32.0-36.0 [facility] Comment on above: Performed By: #### H EMOG ####[address] #### PT ####[address] [address] MCV (RBC) [Entitic vol] 88.4 fL Normal 79.0-98.0 [facility] Comment on above: Performed By: #### H EMOG ####[address] #### PT ####[address] [address] Platelet mean volume (Bld) [Entitic vol] 9.3 fL Normal 7.4-10.4 [facility] Comment on above: Performed By: #### H EMOG ####[address] #### PT ####[address] [address] Platelets (Bld) [#/Vol] 149 10*3/uL Normal 140-440 [facility] Comment on above: Performed By: #### H EMOG ####[address] #### PT ####[address] [address] RBC (Bld) [#/Vol] 4.28 10*6/uL Normal 3.80-5.20 [facility] Comment on above: Performed By: #### H EMOG ####[address] #### PT ####[address] [address] WBC (Bld) [#/Vol] 6.3 10*3/uL Normal 3.6-10.7 [facility] Comment on above: Performed By: #### H EMOG ####[address] #### PT ####[address] [address] Hemogram w/ Autodiffon 02-11 Abs Baso Cnt 0.1 10*3/uL Normal 0.0-0.2 [facility] Comment on above: Performed By: #### H EMDGeorg[place] BMP3 ####[address] Abs Neutrophile Cnt 5.7 10*3/uL Normal 1.8-7.0 [facility] Comment on above: Performed By: #### H EMD[place] BMP3 ####[address] Basophils/100 WBC (Bld) 1.0 % Normal 0.0-2.0 [facility] Comment on above: Performed By: #### H EMD[place] BMP3 ####[address] [place] [address] Eosinophils (Bld) [#/Vol] 0.1 10*3/uL Normal 0.0-0.5 [facility] Comment on above: Performed By: #### H EMDF, BMP3 ####[address] [address] Eosinophils/100 WBC (Bld) 1.2 % Normal 1.0-6.0 [facility] Comment on above: Performed By: #### H EMDF, BMP3 ####[address] [address] Erythrocyte distribution width (RBC) [Ratio] 15.1 % High 11.5-14.5 [facility] Comment on above: Performed By: #### H EMDF, BMP3 ####[address] Granulocytes/100 WBC (Bld) 76.6 % Normal 40.0-80.0 [facility] Comment on above: Performed By: #### H EMDF, BMP3 ####[address] Hematocrit (Bld) [Volume fraction] 38.9 % Normal 35.0-47.0 [facility] Comment on above: Performed By: #### H EMDF, BMP3 ####[address] [address] Hemoglobin (Bld) [Mass/Vol] 13.0 g/dL Normal 11.7-16.0 [facility] Comment on above: Performed By: #### H EMDF, BMP3 ####[address] [address] Lymphocytes (Bld) [#/Vol] 1.1 10*3/uL Normal 1.0-4.3 [facility] Comment on above: Performed By: #### H EMDF, BMP3 ####[address] [address] Lymphocytes/100 WBC (Bld) 14.6 % Low 20.0-40.0 [facility] Comment on above: Performed By: #### H DEE BMP3 ####[address] MCH (RBC) [Entitic mass] 29.4 pg Normal 26.0-34.0 [facility] Comment on above: Performed By: #### H DEE BMP3 ####[address] [place], [place] MCHC (RBC) [Mass/Vol] 33.5 % Normal 32.0-36.0 [facility] Comment on above: Performed By: #### H DEE BMP3 ####[address] MCV (RBC) [Entitic vol] 87.8 fL Normal 79.0-98.0 [facility] Comment on above: Performed By: #### H DEE BMP3 ####[address] Monocytes (Bld) [#/Vol] 0.5 10*3/uL Normal 0.0-0.8 [facility] Comment on above: Performed By: #### H DEE BMP3 ####[address] [place], [place] Monocytes/100 WBC (Bld) 6.6 % Normal 2.0-10.0 [facility] Comment on above: Performed By: #### H DEE BMP3 ####[address] Platelet mean volume (Bld) [Entitic vol] 9.9 fL Normal 7.4-10.4 [facility] Comment on above: Performed By: #### H DEE BMP3 ####[address] Platelets (Bld) [#/Vol] 171 10*3/uL Normal 140-440 [facility] Comment on above: Performed By: #### H DEE BMP3 ####[address] RBC (Bld) [#/Vol] 4.42 10*6/uL Normal 3.80-5.20 [facility] Comment on above: Performed By: #### H BENJI PRICE3 ####[address] [place], [place] WBC (Bld) [#/Vol] 7.5 10*3/uL Normal 3.6-10.7 [facility] Comment on above: Performed By: #### H BENJI PRICE3 ####[address] Prothrombin Timeon 9 INR Coag (PPP) [Relative time] 0.92 s Normal 0.90-1.10 [facility] Comment on above: Result Comment: Shiv mmended [...] Myocardial Infarction Performed By: #### H EMOG ####[address] #### PT ####[address] [address] PT Coag (PPP) [Time] 9.7 s Normal 9.0-12.0 [facility] Comment on above: Performed By: #### H EMOG ####[address] #### PT ####[address] [address] Troponin Ion 02-11-2019 Troponin I.cardiac [Mass/Vol] ng/mL Normal 0.000-0.034 [facility] Comment on above: Result Comment: < 0. 034 = negative 0.034 ? 0.120 = indeterminate > 0.120 = positive Performed By: #### T ROPN ####[facility] [place], [place] Basic Metabolic Panelon 07-2 Calcium [Mass/Vol] 9.0 mg/dL Normal 8.4-10.4 [facility] Comment on above: Performed By: #### H MACYF, BMP3 ####[facility] [employer] [place], [place] Anion gap [Moles/Vol] 7 Normal [facility] Comment on above: Performed By: #### H DEE, BMP3 ####[employer] [place], [place] CO2 [Moles/Vol] 32 mmol/L High 22-30 [facility] Comment on above: Performed By: #### H DEE, BMP3 ####[employer] [place], [place] Creatinine [Mass/Vol] 1.02 mg/dL Normal 0.52-1.25 [facility] Comment on above: Performed By: #### H EMDF, BMP3 ####[employer] [place], [place] GFR/1.73 sq M predicted among blacks MDRD (S/P/Bld) [Vol rate/Area] mL/min/{1.73_m2} Normal >60 [facility] Comment on above: Performed By: #### H MACYF, BMP3 ####[employer] [place], [place] GFR/1.73 sq M predicted among non-blacks MDRD (S/P/Bld) [Vol rate/Area] 53.3 mL/min/{1.73_m2} Normal >60 [facility] Comment on above: Result Comment: Sour ce- MDRD equation with creatinine calibration to IDMS(NKDEP) eGFR not recommended for drug dose adjustment Performed By: #### H EMDF, BMP3 ####[employer] [place], [place] Glucose [Mass/Vol] 109 mg/dL High 70-100 [facility] Comment on above: Performed By: #### H EMDF, BMP3 ####[facility] [place] [address] Urea nitrogen [Mass/Vol] 20 mg/dL Normal 7-20 [facility] Comment on above: Performed By: #### H EMDF, BMP3 ####[facility] [place] [address] Chloride [Moles/Vol] 101 mmol/L Normal 98-107 [facility] Comment on above: Performed By: #### H EMDF, BMP3 ####[facility] [place] [address] Potassium [Moles/Vol] 4.3 mmol/L Normal 3.5-5.1 [facility] Comment on above: Performed By: #### H EMDF, BMP3 ####[facility] [place] [address] Sodium [Moles/Vol] 140 mmol/L Normal 135-145 [facility] Comment on above: Performed By: #### H EMDF, BMP3 ####[facility] [place] [address] CR Chest Portableon 02-11-20 19 CR Chest Portable Patient Name: SHANTHI CORTEZ Diagnostic Radiology Exam Date/Time 02/10/2019 09:56:13 EDT Exam CR Chest Portable Ordering Physician JAN ARIAS Accession Number [id number] CPT4 Codes 93553 () Reason For Exam thoracotomy Report EXAM TYPE: RADIOLOGIC EXAMINATION, CHEST, SINGLE VIEW FRONTAL (CXR SINGLE VIEW) EXAM DATE AND TIME: 02/10/2019 9:56 AM EDT INDICATION: Thoracotomy COMPARISON: 02/09/2019 TECHNIQUE: A single frontal view of the thorax was obtained and reviewed. Special views: None. IMPRESSION: 1. Lines/Tubes/Devices/Hardwar e: Stable projection left chest tube. Please confirm position/function of devices/catheters clinically. 2. Lungs: Some atelectasis left lower lobe. 3. Pleura: Possible small left effusion. Left subcutaneous emphysema. No significant pneumothorax. 4. Heart and mediastinum: Limited. Atherosclerosis. Cardiac enlargement. 5. Upper abdomen: No acute process seen. Report Dictated on Workstation: [id number] Final Dictated: 02/10/2019 10:11 am Dictating Physician: MD SAGE JOHN Signed Date and Time: 02/10/2019 10:12 am Signed by: MD SAGE JOHN Transcribed Date and Time: 02/10/2019 10:11 Normal [facility] Hemogram w/ Autodiffon 02-10 Abs Baso Cnt 0.1 10*3/uL Normal 0.0-0.2 [facility] Comment on above: Performed By: #### H BENJI PRICE3 #### [address] [address] Abs Neutrophile Cnt 9.9 10*3/uL High 1.8-7.0 [facility] Comment on above: Performed By: #### H DEE BMP3 #### [address] [address] Basophils/100 WBC (Bld) 0.6 % Normal 0.0-2.0 [facility] Comment on above: Performed By: #### H DEE BMP3 #### [address] [address] Eosinophils (Bld) [#/Vol] 0.0 10*3/uL Normal 0.0-0.5 [facility] Comment on above: Performed By: #### H DEE BMP3 #### [address] [address] Eosinophils/100 WBC (Bld) 0.2 % Low 1.0-6.0 [facility] Comment on above: Performed By: #### H DEE BMP3 #### [address] [address] Erythrocyte distribution width (RBC) [Ratio] 15.6 % High 11.5-14.5 [facility] Comment on above: Performed By: #### H DEE BMP3 #### [address] [place], [place] Granulocytes/100 WBC (Bld) 84.1 % High 40.0-80.0 [facility] Comment on above: Performed By: #### H EMD[place] BMP3 #### [address] [place], [place] Hematocrit (Bld) [Volume fraction] 41.4 % Normal 35.0-47.0 [facility] Comment on above: Performed By: #### H EDE, BMP3 #### [address] [address] [place] Hemoglobin (Bld) [Mass/Vol] 13.8 g/dL Normal 11.7-16.0 [facility] Comment on above: Performed By: #### H DEE, BMP3 #### [address] Lymphocytes (Bld) [#/Vol] 1.2 10*3/uL Normal 1.0-4.3 [facility] Comment on above: Performed By: #### H EMDF, BMP3 #### [address] [address] [place], [place] Lymphocytes/100 WBC (Bld) 10.2 % Low 20.0-40.0 [facility] Comment on above: Performed By: #### H EMDF, BMP3 #### [address] [address] [place], [place] MCH (RBC) [Entitic mass] 29.4 pg Normal 26.0-34.0 [facility] Comment on above: Performed By: #### H EMDF, BMP3 #### [address] [place] MCHC (RBC) [Mass/Vol] 33.3 % Normal 32.0-36.0 [facility] Comment on above: Performed By: #### H EMDF, BMP3 #### [address] MCV (RBC) [Entitic vol] 88.5 fL Normal 79.0-98.0 [facility] Comment on above: Performed By: #### H EMDF, BMP3 #### [facility] [address] [place] Monocytes (Bld) [#/Vol] 0.6 10*3/uL Normal 0.0-0.8 [facility] Comment on above: Performed By: #### H EMDF, BMP3 #### [facility] [address] [place] Monocytes/100 WBC (Bld) 4.9 % Normal 2.0-10.0 [facility] Comment on above: Performed By: #### H EMDF, BMP3 #### [address] [address] [place], [place] Platelet mean volume (Bld) [Entitic vol] 9.5 fL Normal 7.4-10.4 [facility] Comment on above: Performed By: #### H EMDF, BMP3 #### [address] [address] [place], [place] Platelets (Bld) [#/Vol] 174 10*3/uL Normal 140-440 [facility] Comment on above: Performed By: #### H EMDF, BMP3 #### [address] [address] [address] [place], [place] RBC (Bld) [#/Vol] 4.68 10*6/uL Normal 3.80-5.20 [facility] Comment on above: Performed By: #### H EMDF, BMP3 #### [facility] [address] [place] WBC (Bld) [#/Vol] 11.8 10*3/uL High 3.6-10.7 [facility] Comment on above: Performed By: #### H EMDF, BMP3 #### [facility] [address] [place], [place] Basic Metabolic Panelon 07-2 Anion gap [Moles/Vol] 9 Normal [facility] Comment on above: Performed By: #### H EMDF, BMP3 #### [facility] [address] [place] [address] Calcium [Mass/Vol] 8.7 mg/dL Normal 8.4-10.4 [facility] Comment on above: Performed By: #### H DEE BMP3 #### [address] [address] [address] [place], [place] CO2 [Moles/Vol] 27 mmol/L Normal 22-30 [facility] Comment on above: Performed By: #### H DEE, BMP3 #### [address] [address] [address] Glucose [Mass/Vol] 140 mg/dL High 70-100 [facility] Comment on above: Performed By: #### H DEE BMP3 #### [address] [address] [address] [place] Urea nitrogen [Mass/Vol] 17 mg/dL Normal 7-20 [facility] Comment on above: Performed By: #### H DEE BMP3 #### [address] [address] [place] Creatinine [Mass/Vol] 0.88 mg/dL Normal 0.52-1.25 [facility] Comment on above: Performed By: #### H DEE BMP3 #### [address] [address] [address] [place] GFR/1.73 sq M predicted among blacks MDRD (S/P/Bld) [Vol rate/Area] mL/min/{1.73_m2} Normal >60 [facility] Comment on above: Performed By: #### H DEE, BMP3 #### [place] [address] [address], [place] GFR/1.73 sq M predicted among non-blacks MDRD (S/P/Bld) [Vol rate/Area] mL/min/{1.73_m2} Normal >60 [facility] Comment on above: Result Comment: Sour ce- MDRD equation with creatinine calibration to IDMS(NKDEP) eGFR not recommended for drug dose adjustment Performed By: #### H DEE, BMP3 #### [place] [address] [address], [place] Chloride [Moles/Vol] 102 mmol/L Normal 98-107 [facility] Comment on above: Performed By: #### H EMDF, BMP3 #### [facility] [address] Potassium [Moles/Vol] 4.4 mmol/L Normal 3.5-5.1 [facility] Comment on above: Performed By: #### H EMDF, BMP3 #### [facility] [address] [place] Sodium [Moles/Vol] 137 mmol/L Normal 135-145 [facility] Comment on above: Performed By: #### H EMDF, BMP3 #### [facility] [address] [place] CR Chest Portableon 02-10-20 19 CR Chest Portable Patient Name: SHANTHI CORTEZ Diagnostic Radiology Exam Date/Time 02/09/2019 05:41:33 EDT Exam CR Chest Portable Ordering Physician [id number] PUGH Accession Number [id number] CPT4 Codes 22781 () Reason For Exam s/p Thoracotomy Report [...] Transcribed Date and Time: 02/09/2019 7:36 Normal [facility] Hemogram w/ Autodiffon 02-09 Abs Baso Cnt 0.0 10*3/uL Normal 0.0-0.2 [facility] Comment on above: Performed By: #### H EMDF, BMP3 #### [facility] [address] Abs Neutrophile Cnt 9.9 10*3/uL High 1.8-7.0 [facility] Comment on above: Performed By: #### H EMDF, BMP3 #### [facility] [address] [place] Basophils/100 WBC (Bld) 0.4 % Normal 0.0-2.0 [facility] Comment on above: Performed By: #### H EMDF, BMP3 #### [facility] [address] Eosinophils (Bld) [#/Vol] 0.0 10*3/uL Normal 0.0-0.5 [facility] Comment on above: Performed By: #### H EMDF BMP3 #### [place] [address] [address] [place], [place] Eosinophils/100 WBC (Bld) 0.0 % Low 1.0-6.0 [facility] Comment on above: Performed By: #### H EMDF BMP3 #### [place] [address] [address] [place] Erythrocyte distribution width (RBC) [Ratio] 14.9 % High 11.5-14.5 [facility] Comment on above: Performed By: #### H EMDF, BMP3 #### [place] [address] [address] [place] Granulocytes/100 WBC (Bld) 92.7 % High 40.0-80.0 [facility] Comment on above: Performed By: #### H EMDF, BMP3 #### [place] [address] [address] [place], [place] Hematocrit (Bld) [Volume fraction] 43.8 % Normal 35.0-47.0 [facility] Comment on above: Performed By: #### H EMDF, BMP3 #### [place] [address] [address] [place], [place] Hemoglobin (Bld) [Mass/Vol] 14.7 g/dL Normal 11.7-16.0 [facility] Comment on above: Performed By: #### H DEE BMP3 #### [place] [address] [address] [place], [place] Lymphocytes (Bld) [#/Vol] 0.5 10*3/uL Low 1.0-4.3 [facility] Comment on above: Performed By: #### H DEE BMP3 #### [place] [address] [address], [place] Lymphocytes/100 WBC (Bld) 5.0 % Low 20.0-40.0 [facility] Comment on above: Performed By: #### H DEE BMP3 #### [place] [address] [address] [place], [place] MCH (RBC) [Entitic mass] 29.4 pg Normal 26.0-34.0 [facility] Comment on above: Performed By: #### H DEE BMP3 #### [address] MCHC (RBC) [Mass/Vol] 33.5 % Normal 32.0-36.0 [facility] Comment on above: Performed By: #### H DEE BMP3 #### [address] MCV (RBC) [Entitic vol] 87.8 fL Normal 79.0-98.0 [facility] Comment on above: Performed By: #### H DEE BMP3 #### [place] [address] [address] [place], [place] Monocytes (Bld) [#/Vol] 0.2 10*3/uL Normal 0.0-0.8 [facility] Comment on above: Performed By: #### H DEE BMP3 #### [place] [address] [place], [place] Monocytes/100 WBC (Bld) 1.9 % Low 2.0-10.0 [facility] Comment on above: Performed By: #### H DEE BMP3 #### [place] [address] [address] [place], [place] Platelet mean volume (Bld) [Entitic vol] 9.4 fL Normal 7.4-10.4 [facility] Comment on above: Performed By: #### Daisy PRICE BMP3 #### [facility] [address] Platelets (Bld) [#/Vol] 181 10*3/uL Normal 140-440 [facility] Comment on above: Performed By: #### Daisy PRICE BMP3 #### [employer] [place] [address] [address], [place] RBC (Bld) [#/Vol] 4.99 10*6/uL Normal 3.80-5.20 [facility] Comment on above: Performed By: #### Daisy PRICE BMP3 #### [place] [address] [address] [place], [place] WBC (Bld) [#/Vol] 10.7 10*3/uL Normal 3.6-10.7 [facility] Comment on above: Performed By: #### Daisy PRICE BMP3 #### [employer] [place] [address] [address], [place] Leukodepleted Red Cellson Leukodepleted Red Cells Leukodepleted Red Cells: [id number] released 02/09/19 07:30 JMV Unit Blood Type: O Unit Blood Rh: POS Blood Product Code: AS1 Unit Number: [id number] Unit Status: released Barcoded Unit Number: =[id number] Barcoded Product Code: = Barcoded ABO/Rh: =%5100 Unit Expiration: [id number] Unit Volume Transfused: 0 Unit Transfusion Start Date/Time: Unit Transfusion End Date/Time: Normal [facility] Comment on above: Performed By: #### Daisy PRICE BMP3 #### [employer] [facility] [address] Arterial Blood Gaseson 02-08 CO2 [Moles/Vol] 23.7 mmol/L Normal 23.0-27.0 [facility] Comment on above: Performed By: #### H EMDF, BMP3 #### [facility] [address] [place] HCO3 (Bld) [Moles/Vol] 22.7 mmol/L Normal 21.0-25.0 [facility] Comment on above: Performed By: #### H EMDF, BMP3 #### [facility] [address] [place] Hemoglobin (Bld) [Mass/Vol] 13.7 g/dL Normal ScreenOnly [facility] Comment on above: Performed By: #### H EMDF, BMP3 #### [place] [address] [address] Oxygen (Bld) [Partial pressure] 70.0 mm[Hg] Low 80.0-100.0 [facility] Comment on above: Performed By: #### H EMDF, BMP3 #### [place] [address] [address] Oxygen saturation in Blood 93.9 % Low 95.0-100.0 [facility] Comment on above: Performed By: #### H EMDF, BMP3 #### [place] [address] [address] pCO2 34.1 mm[Hg] Low 35.0-45.0 [facility] Comment on above: Performed By: #### H EMDF, BMP3 #### [place] [address] [address] pH (Bld) 7.441 Normal 7.350-7.450 [facility] Comment on above: Performed By: #### H EMDF, BMP3 #### [place] [address] [address] [place] Std Base Excess -0.8 mmol/L Normal -3.0-3.0 [facility] Comment on above: Performed By: #### H EMDF, BMP3 #### [place] [address] [address] FIO2 No data Normal [facility] Comment on above: Performed By: #### H EMDF, BMP3 #### [place] [address] [address] CR Chest Portableon 02-09-20 19 CR Chest Portable Patient Name: SHANTHI CORTEZ Diagnostic Radiology Exam Date/Time 02/08/2019 17:10:32 EDT Exam CR Chest Portable Ordering Physician [id number] JAN STEWART Accession Number [id number] CPT4 Codes 61561 () Reason For Exam s/p Thoracotomy Report [...] Transcribed Date and Time: 02/08/2019 6:18 Normal [facility] Hemoglobin AND Hematocriton 02-08-2019 Hematocrit (Bld) [Volume fraction] 44.1 % Normal 35.0-47.0 [facility] Comment on above: Performed By: #### H BENJI PRICE3 #### [employer] [facility] [address] [place] [address] Hemoglobin (Bld) [Mass/Vol] 14.6 g/dL Normal 11.7-16.0 [facility] Comment on above: Performed By: #### H BENJI PRICE3 #### [facility] [address] [place] [address] Op Noteon 02-08-2019 Op Note PATIENT: TELLY SAM ADMISSION DATE: 02/08/2019 SURGERY DATE: 02/08/2019 [...] and no air leak was evident. A 24-[place] drain was left in the chest [...] to the recovery room. cc: Dr. Ari Carballo [facility] Job ID: [id number] Goran Knight MD DOD:02/08/2019 04:06 P NOMAN/doug DOT:02/08/2019 05:30 P Job Number: [id number] Document Number: [id number] cc: Goran Knight MD [address] [facility] [address] Normal [facility] Surgical Pathologyon 019 Surgical Pathology [id number] [facility] PATHOLOGY [facility] LABORATORY MEDICINE [address] [place] [address] FINAL SURGICAL PATHOLOGY REPORT NAME: SHANTHI SAM N [id number] : 1945 74 Y F [facility] NO.: [id number] LOCATION: [address] [place] [address] 05 PROCEDURE 02/08/2019 DATE: SURGEON: GORAN KNIGHT MD RECEIVED 02/09/2019 DATE: ATTENDING: GORAN KNIGHT MD REPORT DATE: 2019 COPIES TO: DIAGNOSIS: A. 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 B. LUNG, LEFT LOWER LOBE, WEDGE - WELL DIFFERENTIATED SQUAMOUSCELL CARCINOMA. ASJ/ADOLFO Signature> S SUE DE LA O M.D. CLINICAL INFORMATION: C34.92 SPECIMEN: (A) LUNG, [...] characteristics determined by the clinical laboratories of [facility]. They have not been cleared by the [...] negativity on decalcified specimens. Professional Performing Location: [address] [address]. DEPARTMENT OF PATHOLOGY AND LABORATORY MEDICINE [place], [place] [address] Normal [facility] TS GELon 02-08-2019 TS GEL ABO Group: O Rh, Gel: POS Antibody Screen Gel: NEG Normal [facility] Comment on above: Performed By: #### H EMDF, BMP3 #### [address] [address] Leukodepleted Red Cellson Leukodepleted Red Cells Leukodepleted Red Cells: [id number] released 01/16/19 07:42 JMV Unit Blood Type: O Unit Blood Rh: POS Blood Product Code: AS3 Unit Number: [id number] Unit Status: released Barcoded Unit Number: =[id number] Barcoded Product Code: = Barcoded ABO/Rh: =%5100 Unit Expiration: Leukodepleted Red Cells: [id number] released 01/16/19 07:42 JMV Unit Blood Type: O Unit Blood Rh: POS Blood Product Code: AS3 Unit Number: [id number] Unit Status: released Barcoded Unit Number: =[id number] Barcoded Product Code: = Barcoded ABO/Rh: =%5100 Unit Expiration: Normal [facility] Comment on above: Performed By: #### T SGL #### [place] [address] #### LRC #### [address] [address] Basic Metabolic Panelon 12-18 Anion gap [Moles/Vol] 7 Normal [facility] Comment on above: Performed By: #### H EMOG, BMP3, PT/AP #### [address] [address] Calcium [Mass/Vol] 9.0 mg/dL Normal 8.4-10.4 [facility] Comment on above: Performed By: #### H EMOG, BMP3, PT/AP #### [address] [address] CO2 [Moles/Vol] 29 mmol/L Normal 22-30 [facility] Comment on above: Performed By: #### H EMOG, BMP3, PT/AP #### [place] [address] [address] Glucose [Mass/Vol] 102 mg/dL High 70-100 [facility] Comment on above: Performed By: #### H ANDREW SHULTZ, PT/AP #### [facility] [address] [place] Urea nitrogen [Mass/Vol] 14 mg/dL Normal 7-20 [facility] Comment on above: Performed By: #### H BENJI SHULTZ3, PT/AP #### [facility] [address] [place] Creatinine [Mass/Vol] 0.87 mg/dL Normal 0.52-1.25 [facility] Comment on above: Performed By: #### H ANDREW SHULTZ, PT/AP #### [place] [address] [address] [place] GFR/1.73 sq M predicted among blacks MDRD (S/P/Bld) [Vol rate/Area] mL/min/{1.73_m2} Normal >60 [facility] Comment on above: Performed By: #### H ANDREW SHULTZ, PT/AP #### [place] [address] [address] [place] GFR/1.73 sq M predicted among non-blacks MDRD (S/P/Bld) [Vol rate/Area] mL/min/{1.73_m2} Normal >60 [facility] Comment on above: Result Comment: Sour ce- MDRD equation with creatinine calibration to IDMS(NKDEP) eGFR not recommended for drug dose adjustment Performed By: #### H BENJI SHULTZ3, PT/AP #### [facility] [address] [place] Potassium [Moles/Vol] 4.3 mmol/L Normal 3.5-5.1 [facility] Comment on above: Performed By: #### H LEXII BMP3, PT/AP #### [facility] [address] [place] Sodium [Moles/Vol] 142 mmol/L Normal 135-145 [facility] Comment on above: Performed By: #### H EMOG, BMP3, PT/AP #### [facility] [address] [place] Chloride [Moles/Vol] 106 mmol/L Normal 98-107 [facility] Comment on above: Performed By: #### H EMOG, BMP3, PT/AP #### [facility] [address] [place] [address] CR Chest Portableon 01-14-20 19 CR Chest Portable Patient Name: SHANTHI CORTEZ Diagnostic Radiology Exam Date/Time 01/13/2019 08:56:24 EDT Exam CR Chest Portable Ordering Physician ASHUTOSH PARKER JAN C Accession Number [id number] CPT4 Codes 50905 () Reason For Exam pre op lung [...] Transcribed Date and Time: 01/13/2019 9:58 Normal [facility] Hemogramon 01-13-2019 Erythrocyte distribution width (RBC) [Ratio] 14.6 % High 11.5-14.5 [facility] Comment on above: Performed By: #### H EMOG, BMP3, PT/AP #### [facility] [address] [place] [address] Hematocrit (Bld) [Volume fraction] 40.9 % Normal 35.0-47.0 [facility] Comment on above: Performed By: #### H EMOG, BMP3, PT/AP #### [place] [address] [address] [place] Hemoglobin (Bld) [Mass/Vol] 13.7 g/dL Normal 11.7-16.0 [facility] Comment on above: Performed By: #### H EMOG, BMP3, PT/AP #### [place] [address] [address] [place] MCH (RBC) [Entitic mass] 29.6 pg Normal 26.0-34.0 [facility] Comment on above: Performed By: #### H EMOG, BMP3, PT/AP #### [place] [address] [address] [place] MCHC (RBC) [Mass/Vol] 33.6 % Normal 32.0-36.0 [facility] Comment on above: Performed By: #### H EMOG, BMP3, PT/AP #### [place] [address] [address] [place] MCV (RBC) [Entitic vol] 88.3 fL Normal 79.0-98.0 [facility] Comment on above: Performed By: #### H EMOG, BMP3, PT/AP #### [place] [address] [place], [place] Platelet mean volume (Bld) [Entitic vol] 9.5 fL Normal 7.4-10.4 [facility] Comment on above: Performed By: #### H EMOG, BMP3, PT/AP #### [place] [address] [address] [place] Platelets (Bld) [#/Vol] 201 10*3/uL Normal 140-440 [facility] Comment on above: Performed By: #### H EMOG, BMP3, PT/AP #### [address] RBC (Bld) [#/Vol] 4.63 10*6/uL Normal 3.80-5.20 [facility] Comment on above: Performed By: #### H EMOG, BMP3, PT/AP #### [place] [address] [address] [place] WBC (Bld) [#/Vol] 5.1 10*3/uL Normal 3.6-10.7 [facility] Comment on above: Performed By: #### H BENJI SHULTZ3, PT/AP #### [place] [address] [address] [place] Protime AND APTTon 9 INR Coag (PPP) [Relative time] 0.9 Normal 0.9-1.1 [facility] Comment on above: Result Comment: Shiv mmended [...] prevent Myocardial Infarction Performed By: #### H LEXII, BMP3, PT/AP #### [place] [address] [address] [place] PT Coag (PPP) [Time] 10.1 s Normal 9.0-12.0 [facility] Comment on above: Result Comment: . Performed By: #### H LEXII BMP3, PT/AP #### [address] aPTT Coag (Bld) [Time] 26.1 s Normal 20.0-30.5 [facility] Comment on above: Result Comment: NOTE : The therapeutic time for Heparin anticoagulation, based on Xa activity inhibition, is an APTT of 46-80 seconds. Performed By: #### H EMOG, BMP3, PT/AP #### [address] TS GELon 01-13-2019 TS GEL ABO Group: O Rh, Gel: POS Antibody Screen Gel: NEG Normal [facility] Comment on above: Performed By: #### T SGL #### [address] #### LRC #### [address] [address] Basic Metabolic Panelon 05-2 Calcium [Mass/Vol] 9.3 mg/dL Normal 8.4-10.4 [facility] Comment on above: Performed By: #### H DEE BMP3 #### [address] [address] Glucose [Mass/Vol] 95 mg/dL Normal 70-100 [facility] Comment on above: Performed By: #### H DEE BMP3 #### [address] [address] Urea nitrogen [Mass/Vol] 19 mg/dL Normal 7-20 [facility] Comment on above: Performed By: #### H DEE BMP3 #### [address] [address] Anion gap [Moles/Vol] 6 Normal [facility] Comment on above: Performed By: #### H DEE BMP3 #### [address] CO2 [Moles/Vol] 30 mmol/L Normal 22-30 [facility] Comment on above: Performed By: #### H DEE BMP3 #### [address] [address] Creatinine [Mass/Vol] 1.13 mg/dL Normal 0.52-1.25 [facility] Comment on above: Performed By: #### H DEE BMP3 #### [place] [address] [place] [address] GFR/1.73 sq M predicted among blacks MDRD (S/P/Bld) [Vol rate/Area] 57.4 mL/min/{1.73_m2} Normal >60 [facility] Comment on above: Performed By: #### H DEE BMP3 #### [place] [address] [place] [address] GFR/1.73 sq M predicted among non-blacks MDRD (S/P/Bld) [Vol rate/Area] 47.4 mL/min/{1.73_m2} Normal >60 [facility] Comment on above: Result Comment: Sour ce- MDRD equation with creatinine calibration to IDMS(NKDEP) eGFR not recommended for drug dose adjustment Performed By: #### H DEE BMP3 #### [place] [address] [address] [place] Potassium [Moles/Vol] 4.5 mmol/L Normal 3.5-5.1 [facility] Comment on above: Performed By: #### H DEE BMP3 #### [place] [address] [address] [place] Chloride [Moles/Vol] 105 mmol/L Normal 98-107 [facility] Comment on above: Performed By: #### H DEE BMP3 #### [place] [address] [address] [place] Sodium [Moles/Vol] 140 mmol/L Normal 135-145 [facility] Comment on above: Performed By: #### H DEE BMP3 #### [place] [address] [address] [place] Hemogram w/ Autodiffon 12-14 Abs Baso Cnt 0.1 10*3/uL Normal 0.0-0.2 [facility] Comment on above: Performed By: #### H DEE BMP3 #### [place] [address] [address] [place] Abs Neutrophile Cnt 4.3 10*3/uL Normal 1.8-7.0 [facility] Comment on above: Performed By: #### H DEE BMP3 #### [place] [address] [address] [place] Basophils/100 WBC (Bld) 1.3 % Normal 0.0-2.0 [facility] Comment on above: Performed By: #### Daisy PRICE BMP3 #### [place] [address] [address] [place] Eosinophils (Bld) [#/Vol] 0.2 10*3/uL Normal 0.0-0.5 [facility] Comment on above: Performed By: #### H DEE BMP3 #### [facility] [address] [place] [address] Eosinophils/100 WBC (Bld) 3.2 % Normal 1.0-6.0 [facility] Comment on above: Performed By: #### H EMDF, BMP3 #### [facility] [address] [place] [address] Erythrocyte distribution width (RBC) [Ratio] 14.8 % High 11.5-14.5 [facility] Comment on above: Performed By: #### H EMDF, BMP3 #### [facility] [address] [place] [address] Granulocytes/100 WBC (Bld) 67.3 % Normal 40.0-80.0 [facility] Comment on above: Performed By: #### H EMDF, BMP3 #### [place] [address] [address] [place] Hematocrit (Bld) [Volume fraction] 42.8 % Normal 35.0-47.0 [facility] Comment on above: Performed By: #### H EMDF, BMP3 #### [facility] [address] Hemoglobin (Bld) [Mass/Vol] 14.4 g/dL Normal 11.7-16.0 [facility] Comment on above: Performed By: #### H EMDF, BMP3 #### [facility] [address] Lymphocytes (Bld) [#/Vol] 1.4 10*3/uL Normal 1.0-4.3 [facility] Comment on above: Performed By: #### H EMDF, BMP3 #### [facility] [address] [place] [address] Lymphocytes/100 WBC (Bld) 21.8 % Normal 20.0-40.0 [facility] Comment on above: Performed By: #### H EMDF, BMP3 #### [facility] [address] MCH (RBC) [Entitic mass] 30.4 pg Normal 26.0-34.0 [facility] Comment on above: Performed By: #### H EMDF BMP3 #### [address] MCHC (RBC) [Mass/Vol] 33.6 % Normal 32.0-36.0 [facility] Comment on above: Performed By: #### H EMDF BMP3 #### [address] MCV (RBC) [Entitic vol] 90.6 fL Normal 79.0-98.0 [facility] Comment on above: Performed By: #### H EMDF BMP3 #### [address] Monocytes (Bld) [#/Vol] 0.4 10*3/uL Normal 0.0-0.8 [facility] Comment on above: Performed By: #### H DEE BMP3 #### [address] Monocytes/100 WBC (Bld) 6.4 % Normal 2.0-10.0 [facility] Comment on above: Performed By: #### H DEE BMP3 #### [address] Platelet mean volume (Bld) [Entitic vol] 9.6 fL Normal 7.4-10.4 [facility] Comment on above: Performed By: #### H EMDF BMP3 #### [address] Platelets (Bld) [#/Vol] 171 10*3/uL Normal 140-440 [facility] Comment on above: Performed By: #### H EMDF BMP3 #### [address] RBC (Bld) [#/Vol] 4.72 10*6/uL Normal 3.80-5.20 [facility] Comment on above: Performed By: #### H EMDF BMP3 #### [address] [address] WBC (Bld) [#/Vol] 6.3 10*3/uL Normal 3.6-10.7 [facility] Comment on above: Performed By: #### H DEE BMP3 #### [employer] [facility] [address] [place] [address] Op Noteon 12-14-2018 Op Note PATIENT: TELLY SAM ADMISSION DATE: 12/14/2018 SURGERY DATE: 12/14/2018 [...] with anticipated discharge home. cc: Dr. Ari Carballo [facility] Job ID: [id number] Goran Knight MD DOD:12/14/2018 03:18 P KLM/dsk DOT:12/14/2018 03:38 P Job Number: [id number] Document Number: [id number] cc: Goran Knight MD [facility] [address] [facility] [address] Normal [facility] Surgical Pathologyon 019 Surgical Pathology [id number] [facility] PATHOLOGY AND LABORATORY MEDICINE [address] [place] [address] FINAL SURGICAL PATHOLOGY REPORT NAME: SHANTHI SAM : 1945 73 Y F BILLING NO.: [id number] LOCATION: [place] [address] 22 PROCEDURE 12/14/2018 DATE: SURGEON: GORAN KNIGHT [...] reactive lymphoid tissue, with normal follicles showing [id number] follicular B-cells and CD3-positive paracortical T-cells. BCL-6 [...] characteristics determined by the clinical laboratories of [facility]. They have not been cleared by the [...] negativity on decalcified specimens. Professional Performing Location: [address] [address]. DEPARTMENT OF PATHOLOGY AND LABORATORY MEDICINE [place], [place] [address] Normal [facility] Clinical Lists Update: Prelo resource agent 05-14-2017 Left ventricular Ejection fraction 65 % Invalid Interpretation Code [employer] [facility] Work Phone: Tobacco use CPHS Former smoker Invalid Interpretation Code [facility] Work Phone: Clinical Lists Update: Prelo resource agent 04-05-2017 Cholesterol 186 mg/dL Invalid Interpretation Code [employer] [facility] Work Phone: HDL Cholesterol 46 mg/dL Invalid Interpretation Code [facility] Work Phone: [phone] LDL Cholesterol 114 mg/dL Invalid Interpretation Code [facility] Work Phone: [phone] Triglyceride 126 mg/dL Invalid Interpretation Code [facility] Work Phone: Vital Signs Date Time Vital Sign Value Performing Clinician Steph montes 03-30-2025 08:51-0400 Body mass index (BMI) [Ratio] 31.6 kg/m2 Dr. Ari Carballo MD Work Phone: [facility] 03-30-2025 08:51-0400 Body temperature 97.3 [degF] Dr. Ari Carballo MD Work Phone: [facility] 03-30-2025 08:51-0400 Body weight 81.[address] Ari Carballo MD Work Phone: [facility] 03-30-2025 08:51-0400 Diastolic blood pressure 85 mm[Hg] Dr. Ari Carballo MD Work Phone: [facility] 03-30-2025 08:51-0400 Heart rate 74 /min Dr. Ari Carballo MD Work Phone: [facility] 03-30-2025 08:51-0400 Respiratory rate 18 /min Dr. Ari Carballo MD Work Phone: [facility] 03-30-2025 08:51-0400 SaO2% (BldA) [Mass fraction] 96 % Dr. Ari Carballo MD Work Phone: [facility] 03-30-2025 08:51-0400 Systolic blood pressure 138 mm[Hg] Dr. Ari Carballo MD Work Phone: [facility] 12-08-2024 15:00-0400 Body height 160.[address] Ari Carballo MD Work Phone: 8(556)898-171933 [place] [address] 12-08-2024 15:00-0400 Body mass index (BMI) [Ratio] 32.2 kg/m2 Dr. Ari Carballo MD Work Phone: 1(172)502-083132 [place] [address] 12-08-2024 15:00-0400 Body weight 82.[address] Ari Carballo MD Work Phone: 5(976)190-289633 [place] [address] 12-08-2024 15:00-0400 Diastolic blood pressure 73 mm[Hg] Dr. Ari Carballo MD Work Phone: 7(238)614-326333 [place] [address] 12-08-2024 15:00-0400 Heart rate 64 /min Dr. Ari Carballo MD Work Phone: 8(396)070-171333 [place] [address] 12-08-2024 15:00-0400 Respiratory rate 18 /min Dr. Ari Carballo MD Work Phone: 1(068)985-637933 [place] [address] 12-08-2024 15:00-0400 SaO2% (BldA) [Mass fraction] 92 % Dr. Ari Carballo MD Work Phone: 9(347)052-466633 [place] [address] 12-08-2024 15:00-0400 Systolic blood pressure 106 mm[Hg] Dr. Ari Carballo MD Work Phone: 8(516)266-832333 [place] [address] 11-24-2024 14:03-0400 Body height 160.[address] Ari Carballo MD Work Phone: 6(866)921-444433 [place] [address] 11-24-2024 14:03-0400 Body mass index (BMI) [Ratio] 32.2 kg/m2 Dr. Ari Carballo MD Work Phone: 8(922)696-353433 [place] [address] 11-24-2024 14:03-0400 Body weight 82.[address] Ari Carballo MD Work Phone: 6(357)362-793233 [place] [address] 11-24-2024 14:03-0400 Diastolic blood pressure 81 mm[Hg] Dr. Ari Carballo MD Work Phone: 7(237)953-761233 [place] [address] 11-24-2024 14:03-0400 Heart rate 60 /min Dr. Ari Carballo MD Work Phone: 4(093)236-166932 [place] [address] 11-24-2024 14:03-0400 Respiratory rate 17 /min Dr. Ari Carballo MD Work Phone: 2(258)136-595732 [place] [address] 11-24-2024 14:03-0400 SaO2% (BldA) [Mass fraction] 90 % Dr. Ari Carballo MD Work Phone: 0(664)108-406632 [place] [address] 11-24-2024 14:03-0400 Systolic blood pressure 122 mm[Hg] Dr. Ari Carballo MD Work Phone: 7(978)122-216633 [place] [address] 11-24-2024 12:59-0400 Body mass index (BMI) [Ratio] 32.4 kg/m2 Dr. Ari Carballo MD Work Phone: 4(110)082-894033 [place] [address] 11-24-2024 12:59-0400 Body weight [address] Ari Carballo MD Work Phone: 8(216)350-978933 [place] [address] 09-22-2024 08:25-0500 Body mass index (BMI) [Ratio] 32.4 kg/m2 Dr. Ari Carballo MD Work Phone: 7(305)112-202133 [place] [address] 09-22-2024 08:25-0500 Body temperature 97.4 [degF] Dr. Ari Carballo MD Work Phone: 4(795)736-999533 [place] [address] 09-22-2024 08:25-0500 Body weight [address] Ari Carballo MD Work Phone: 0(258)909-215133 [place] [address] 09-22-2024 08:25-0500 Diastolic blood pressure 95 mm[Hg] Dr. Ari Carballo MD Work Phone: 4(169)727-352233 [place] [address] 09-22-2024 08:25-0500 Heart rate 87 /min Dr. Ari Carballo MD Work Phone: 4(098)103-997432 [place] [address] 09-22-2024 08:25-0500 Respiratory rate 18 /min Dr. Ari Carballo MD Work Phone: 7(058)532-182433 [place] [address] 09-22-2024 08:25-0500 SaO2% (BldA) [Mass fraction] 95 % Dr. Ari Carballo MD Work Phone: 9(067)555-272832 [place] [address] 09-22-2024 08:25-0500 Systolic blood pressure 140 mm[Hg] Dr. Ari Carballo MD Work Phone: 9(881)803-312533 [place] [address] 09-15-2024 13:26-0500 Body height 160.[address] Ari Carballo MD Work Phone: 4(672)484-192833 [place] [address] 09-15-2024 13:26-0500 Heart rate 92 /min Dr. Ari Carballo MD Work Phone: 3(763)481-123433 [place] [address] 09-15-2024 13:26-0500 SaO2% (BldA) [Mass fraction] 96 % Dr. Ari Carballo MD Work Phone: 9(362)283-510233 [place] [address] 08-11-2024 09:41-0500 Body mass index (BMI) [Ratio] 32.4 kg/m2 Dr. Ari Carballo MD Work Phone: 2(560)224-909933 [place] [address] 08-11-2024 09:41-0500 Body temperature 97.2 [degF] Dr. Ari Carballo MD Work Phone: 9(000)996-216433 [place] [address] 08-11-2024 09:41-0500 Body weight [address] Ari Carballo MD Work Phone: 7(986)366-403933 [place] [address] 08-11-2024 09:41-0500 Diastolic blood pressure 68 mm[Hg] Dr. Ari Carballo MD Work Phone: 0(016)013-729533 [place] [address] 08-11-2024 09:41-0500 Heart rate 72 /min Dr. Ari Carballo MD Work Phone: 4(370)210-756333 [place] [address] 08-11-2024 09:41-0500 Inhaled oxygen flow rate 3 L/min Dr. Ari Carballo MD Work Phone: 8(442)152-503033 [place] [address] 08-11-2024 09:41-0500 Respiratory rate 18 /min Dr. Ari Carballo MD Work Phone: 4(968)693-688933 [place] [address] 08-11-2024 09:41-0500 SaO2% (BldA) [Mass fraction] 95 % Dr. Ari Carballo MD Work Phone: 2(812)156-769232 [place] [address] 08-11-2024 09:41-0500 Systolic blood pressure 113 mm[Hg] Dr. Ari Carballo MD Work Phone: 6(232)285-702332 [place] [address] 06-30-2024 07:36-0500 Body mass index (BMI) [Ratio] 32.4 kg/m2 Dr. Ari Carballo MD Work Phone: 0(528)970-374232 [place] [address] 06-30-2024 07:36-0500 Body temperature 97.4 [degF] Dr. Ari Carballo MD Work Phone: 8(363)385-455232 [place] [address] 06-30-2024 07:36-0500 Body weight [address] Ari Carballo MD Work Phone: 1(910)322-478233 [place] [address] 06-30-2024 07:36-0500 Diastolic blood pressure 75 mm[Hg] Dr. Ari Carballo MD Work Phone: 1(167)565-282433 [place] [address] 06-30-2024 07:36-0500 Heart rate 76 /min Dr. Ari Carballo MD Work Phone: 3(719)338-378132 [place] [address] 06-30-2024 07:36-0500 Inhaled oxygen flow rate 3 L/min Dr. Ari Carballo MD Work Phone: 6(864)828-358632 [place] [address] 06-30-2024 07:36-0500 Respiratory rate 22 /min Dr. Ari Carballo MD Work Phone: 2(945)784-616232 [place] [address] 06-30-2024 07:36-0500 SaO2% (BldA) [Mass fraction] 94 % Dr. Ari Carballo MD Work Phone: 0(397)474-081632 [place] [address] 06-30-2024 07:36-0500 Systolic blood pressure 109 mm[Hg] Dr. Ari Carballo MD Work Phone: 3(333)917-096032 [place] [address] 06-08-2024 16:18-0500 Body temperature 98.4 [degF] Dr. Ari Carballo MD Work Phone: 0(533)919-092032 [place] [address] 06-08-2024 16:18-0500 Diastolic blood pressure 81 mm[Hg] Dr. Ari Carballo MD Work Phone: [facility] 06-08-2024 16:18-0500 Heart rate 75 /min Dr. Ari Carballo MD Work Phone: 1(198)556-161332 [place] [address] 06-08-2024 16:18-0500 Inhaled oxygen flow rate 3 L/min Dr. Ari Carballo MD Work Phone: 6(776)709-680632 [place] [address] 06-08-2024 16:18-0500 Respiratory rate 16 /min Dr. Ari Carballo MD Work Phone: 0(401)599-001132 [place] [address] 06-08-2024 16:18-0500 SaO2% (BldA) [Mass fraction] 95 % Dr. Ari Carballo MD Work Phone: 6(652)786-550833 [place] [address] 06-08-2024 16:18-0500 Systolic blood pressure 108 mm[Hg] Dr. Ari Carballo MD Work Phone: 5(000)755-297133 [place] [address] 09-24-2023 14:25-0500 Body height 161.[address] Ari Carballo Work Phone: 9(436)573-800533 [place] [address] 09-24-2023 14:25-0500 Body mass index (BMI) [Ratio] 33.8 kg/m2 Dr. Ari Carballo Work Phone: 4(113)124-818032 [place] [address] 09-24-2023 14:25-0500 Body weight 87.[address] Ari Carballo Work Phone: 5(611)817-878032 [place] [address] 09-24-2023 14:25-0500 Diastolic blood pressure 81 mm[Hg] Dr. Ari Carballo Work Phone: 3(937)480-027732 [place] [address] 09-24-2023 14:25-0500 Heart rate 77 /min Dr. Ari Carballo Work Phone: 7(174)264-723432 [place] [address] 09-24-2023 14:25-0500 Respiratory rate 18 /min Dr. Ari Carballo Work Phone: 3(778)636-687932 [place] [address] 09-24-2023 14:25-0500 Systolic blood pressure 136 mm[Hg] Dr. Ari Carballo Work Phone: 1(550)429-915833 [place] [address] 02-15-2023 15:12-0400 Body height 161.[address] Ari Carballo Work Phone: 1(843)636-012833 [place] [address] 02-15-2023 15:12-0400 Body mass index (BMI) [Ratio] 33.2 kg/m2 Dr. Ari Carballo Work Phone: 0(083)137-277133 [place] [address] 02-15-2023 15:12-0400 Body weight 86.[address] Ari Carballo Work Phone: 6(369)522-292433 [place] [address] 12-25-2022 15:26-0400 Body height 161.[address] Ari Carballo Work Phone: 5(623)287-618233 [place] [address] 12-25-2022 15:26-0400 Body mass index (BMI) [Ratio] 35.4 kg/m2 Dr. Ari Carballo Work Phone: 2(753)578-851433 [place] [address] 12-25-2022 15:26-0400 Body weight 92.[address] Ari Carballo Work Phone: 6(376)613-844133 [place] [address] 12-25-2022 15:26-0400 Diastolic blood pressure 80 mm[Hg] Dr. Ari Carballo Work Phone: 8(791)934-150133 [place] [address] 12-25-2022 15:26-0400 Heart rate 82 /min Dr. Ari Carballo Work Phone: 0(620)825-306033 [place] [address] 12-25-2022 15:26-0400 Respiratory rate 18 /min Dr. Ari Carballo Work Phone: 0(247)031-887733 [place] [address] 12-25-2022 15:26-0400 Systolic blood pressure 143 mm[Hg] Dr. Ari Carballo Work Phone: 0(758)315-506533 [place] [address] 09-21-2022 15:29-0500 Body height 161.[address] Ari Carballo Work Phone: 7(159)733-549433 [place] [address] 09-21-2022 15:22-0500 Body mass index (BMI) [Ratio] 35.4 kg/m2 Dr. Ari Carballo Work Phone: 6(383)805-518633 [place] [address] 03-06-2023 15:22-0500 Body temperature 98.2 [degF] Dr. Ari Carballo Work Phone: [facility] 09-21-2022 15:22-0500 Body weight 92.[address] Ari Carballo Work Phone: [facility] 09-21-2022 15:22-0500 Diastolic blood pressure 74 mm[Hg] Dr. Ari Carballo Work Phone: [facility] 09-21-2022 15:22-0500 Heart rate 87 /min Dr. Ari Carballo Work Phone: [facility] 09-21-2022 15:22-0500 Respiratory rate 17 /min Dr. Ari Carballo Work Phone: [facility] 09-21-2022 15:22-0500 SaO2% (BldA) [Mass fraction] 92 % Dr. Ari Carballo Work Phone: [facility] 09-21-2022 15:22-0500 Systolic blood pressure 105 mm[Hg] Dr. Ari Carballo Work Phone: [facility] 03-24-2022 13:31-0400 Body height 161.[address] Ari Carballo Work Phone: [facility] Work Phone: 03-24-2022 13:23-0400 Body mass index (BMI) [Ratio] 35.2 kg/m2 Dr. Ari Carballo Work Phone: [facility] Work Phone: 03-24-2022 13:23-0400 Body temperature 98.3 [degF] Dr. Ari Carballo Work Phone: [facility] Work Phone: 03-24-2022 13:23-0400 Body weight 91.[address] Ari Carballo Work Phone: [facility] Work Phone: 03-24-2022 13:23-0400 Diastolic blood pressure 102 mm[Hg] Dr. Ari Carballo Work Phone: [facility] Work Phone: 03-24-2022 13:23-0400 Heart rate 75 /min Dr. Ari Carballo Work Phone: [facility] Work Phone: 03-24-2022 13:23-0400 Respiratory rate 15 /min Dr. Ari Carballo Work Phone: [facility] Work Phone: 03-24-2022 13:23-0400 SaO2% (BldA) [Mass fraction] 91 % Dr. Ari Carballo Work Phone: [facility] Work Phone: 03-24-2022 13:23-0400 Systolic blood pressure 150 mm[Hg] Dr. Ari Carballo Work Phone: [facility] Work Phone: 09-15-2021 13:32-0500 Body height 161.[address] Ari Carballo Work Phone: [facility] Work Phone: 09-15-2021 13:32-0500 Body weight 92.[address] Ari Carballo Work Phone: [facility] Work Phone: 09-15-2021 13:32-0500 Diastolic blood pressure 78 mm[Hg] Dr. Ari Carballo Work Phone: [facility] Work Phone: 09-15-2021 13:32-0500 Heart rate 72 /min Dr. Ari Carballo Work Phone: [facility] Work Phone: 09-15-2021 13:32-0500 Respiratory rate 16 /min Dr. Ari Carballo Work Phone: [facility] Work Phone: 09-15-2021 13:32-0500 Systolic blood pressure 117 mm[Hg] Dr. Ari Carballo Work Phone: [facility] Work Phone: 09-01-2021 14:13-0500 Body temperature 98.4 [degF] Dr. Ari Carballo Work Phone: [facility] Work Phone: 09-01-2021 14:13-0500 Diastolic blood pressure 74 mm[Hg] Dr. Ari Carballo Work Phone: [facility] Work Phone: 09-01-2021 14:13-0500 Heart rate 72 /min Dr. Ari Carballo Work Phone: [facility] Work Phone: 09-01-2021 14:13-0500 Respiratory rate 15 /min Dr. Ari Carballo Work Phone: [facility] Work Phone: 09-01-2021 14:13-0500 SaO2% (BldA) [Mass fraction] 90 % Dr. Ari Carballo Work Phone: [facility] Work Phone: 09-01-2021 14:13-0500 Systolic blood pressure 116 mm[Hg] Dr. Ari Carballo Work Phone: [facility] Work Phone: 02-24-2021 15:03-0400 Body mass index (BMI) [Ratio] 34.9 kg/m2 Dr. Ari Carballo Work Phone: [facility] Work Phone: 05-28-2020 13:03-0500 Body mass index (BMI) [Ratio] 35.1 kg/m2 Dr. Ari Carballo Work Phone: [facility] 05-28-2020 13:03-0500 Body temperature 97.3 [degF] Dr. Ari Carballo Work Phone: [facility] 05-28-2020 13:03-0500 Body weight 89.[address] Ari Carballo Work Phone: [facility] 05-28-2020 13:03-0500 Diastolic blood pressure 88 mm[Hg] Dr. Ari Carballo Work Phone: [facility] 05-28-2020 13:03-0500 Heart rate 67 /min Dr. Ari Carballo Work Phone: [facility] 05-28-2020 13:03-0500 Respiratory rate 16 /min Dr. Ari Carballo Work Phone: [facility] 05-28-2020 13:03-0500 SaO2% (BldA) [Mass fraction] 96 % Dr. Ari Carballo Work Phone: [facility] 05-28-2020 13:03-0500 Systolic blood pressure 125 mm[Hg] Dr. Ari Carballo Work Phone: [facility] 02-16-2019 13:40-0400 Inhaled oxygen flow rate 3 L/min Dr. Ari Carballo Work Phone: [facility] Encounters Encounter Date Encounter Type Care Provider Facility Start: 05-25-2025 ambulatory [facility] Facility:[facility] Start: 05-02-2025 ambulatory Ari [facility] Start: 03-30-2025 End: 03-30-2025 Patient encounter procedure Cammie HOLDER -[facility] Work Phone: Start: 03-30-2025 End: 03-30-[address] Ari Carballo MD Work Phone: -[facility] Start: 12-08-2024 End: 12-08-[address] Sue Gaming MD -[facility] Work Phone: Start: 12-08-2024 End: 12-08-2024 ambulatory Ari Carballo [facility] Start: 11-24-2024 End: 11-24-[address] Sue Ruiz MD -[facility] Work Phone: Start: 11-24-2024 End: 11-24-[address] Ari Carballo MD Work Phone: [facility] Work Phone: Start: 11-24-2024 End: 11-24-2024 ambulatory Sue Ruiz Facility:[facility] Start: 11-20-2024 End: 11-20-[address] Ari Carballo MD Work Phone: [facility] Work Phone: Start: 11-20-2024 End: 11-20-[address] Ari Carballo MD -Laboratory Work Phone: Start: 11-20-2024 End: 11-20-2024 ambulatory [facility] Facility:[facility] Start: 11-14-2024 End: 11-14-[address] Ari Carballo MD -Radiology, [facility] Work Phone: Start: 11-14-2024 End: 11-14-2024 ambulatory [facility] Facility:[facility] Start: 09-22-2024 End: 09-22-2024 Patient encounter procedure Cammie Martel NP-C -[facility] Work Phone: Start: 09-22-2024 End: 09-22-2024 ambulatory [facility] Facility:[facility] Start: 09-22-2024 ambulatory [facility] Start: 09-22-2024 Non-patient / Non-visit Dr. Marko grewal DO -[facility] Start: 09-15-2024 End: 09-15-[address] Ari Carballo MD Work Phone: [facility] Work Phone: Start: 09-15-2024 End: 09-15-2024 Patient encounter procedure Cammie HOLDER -Pulmonary Services/Neurology Work Phone: Start: 09-15-2024 End: 09-15-2024 ambulatory [facility] Facility:[facility] Start: 09-08-2024 End: 09-08-[address] Ryley Parada DO -[facility] Work Phone: Start: 09-08-2024 End: 09-08-2024 ambulatory Ari Chi Haris Facility:[facility] Start: 08-11-2024 End: 08-11-2024 Patient encounter procedure Cammie Martel [employer]-C -[facility] Work Phone: Start: 08-11-2024 End: 08-11-2024 ambulatory Ari [facility] Haris Facility:[facility] Start: 07-17-2024 ambulatory Sue Ruiz Facility: [facility] Start: 06-30-2024 End: 06-30-2024 Patient encounter procedure Cammie Martel [employer]-C -Laboratory, Specimen Work Phone: Start: 06-30-2024 End: 06-30-2024 Patient encounter procedure Cammie Martel [employer]-C -[facility] Work Phone: Start: 06-30-2024 End: 06-30-2024 ambulatory Ari [facility] Haris Facility:[facility] Start: 06-30-2024 End: 06-30-2024 ambulatory Ari Chi Haris Facility:[facility] Start: 06-08-2024 End: 06-08-[address] Naga Browne MD -[facility] Work Phone: Start: 06-08-2024 End: 06-08-2024 ambulatory Ari Chi Haris Facility:[facility] Start: 06-02-2024 End: 06-02-[address] Ryley Parada DO -[facility] Work Phone: Start: 06-02-2024 End: 06-02-2024 ambulatory Ari Chi Haris Facility:[facility] Start: 11-19-2023 End: 11-19-[address] Ari Carballo Work Phone: [facility] Work Phone: Start: 11-19-2023 End: 11-19-[address] Ari Carballo Work Phone: [facility]-Laboratory Work Phone: Start: 10-25-2023 End: 10-25-[address] Ari Carballo Work Phone: [facility] Work Phone: Start: 10-15-2023 Non-patient / Non-visit Dr. Donnie Carballo Work Phone: [facility] Start: 10-15-2023 End: 10-15-[address] Ari Carballo Work Phone: [facility] Work Phone: Start: 10-15-2023 End: 10-15-[address] [facility] Work Phone: [facility] Work Phone: Start: 09-24-2023 End: 09-24-[address] Ari Carballo Work Phone: [facility] Work Phone: Start: 02-27-2023 End: 02-27-[address] Ari Carballo Work Phone: [facility] Work Phone: Start: 02-27-2023 End: 02-27-[address] Ari Carballo Work Phone: [facility] Work Phone: Start: 02-15-2023 End: 02-15-[address] Ari Carballo Work Phone: [facility] Work Phone: Start: 01-14-2023 End: 01-14-[address] Ari Carballo Work Phone: [facility] Work Phone: Start: 01-14-2023 End: 01-14-[address] Ari Carballo Work Phone: [facility]-Radiology, [facility] Work Phone: Start: 12-25-2022 End: 12-25-[address] Ari Carballo Work Phone: [facility] Work Phone: Start: 11-03-2022 End: 11-03-[address] Ari Carballo Work Phone: [facility] Work Phone: Start: 11-03-2022 End: 11-03-[address] [facility] Start: 09-21-[address] Ari ledezma Work Phone: [facility] Start: 09-21-2022 End: 09-21-[address] Ari Carballo Work Phone: [facility] Start: 09-18-2022 End: 09-18-[address] Ari Carballo Work Phone: [facility] Work Phone: Start: 09-18-2022 End: 09-18-[address] Ari Carballo Work Phone: [facility] Start: 04-28-2022 End: 04-28-[address] Ari Carballo Work Phone: [facility] Work Phone: Start: 04-28-2022 End: 04-28-[address] Ari Carballo Work Phone: [facility] Office 3rd Flr Start: 03-24-[address] Ari ledezma Work Phone: [facility] Start: 03-24-2022 End: 03-24-[address] Ari Carballo Work Phone: [facility] Start: 03-17-2022 End: 03-17-2022 ambulatory [facility] Work Phone: Start: 03-17-2022 End: 03-17-2022 Patient encounter procedure [facility] Scan, [facility] Start: 11-11-2021 End: 11-11-[address] Ari Carballo Work Phone: [facility]-Outpatient Breast Imaging Start: 10-27-2021 End: 10-27-[address] Ari Carballo Work Phone: [facility]-Laboratory, Phy Office 3rd Flr Start: 10-22-2021 End: 10-22-[address] Air Carballo Work Phone: [facility]-Pulmonary Services/Neurology Start: 10-21-2021 End: 10-21-[address] Ari Carballo Work Phone: [facility]-Radiology, [facility] Start: 10-21-2021 End: 10-21-[address] Ari Carballo Work Phone: [facility]-Laboratory, Phy Office 3rd Flr Start: 09-15-2021 End: 09-15-[address] Ari Carballo Work Phone: [facility] Start: 09-01-2021 End: 09-01-2021 Patient encounter procedure Dr. Ari Carballo Work Phone: [facility] Start: 08-26-2021 End: 08-26-[address] Ari Carballo Work Phone: [facility] Procedures Date Procedure Procedure Detail Performing Clinician Start: 11-20-2024 Vitamin D, 25-hydrox y measurement Dr. Ari Carballo MD Work Phone: Comment on above: Vitamin D StatusDefi ciency: <20 ng/mL (50nmol/L)Insufficiency: 20-30 ng/mL (50-75 nmol/L)Sufficiency: 30-100 ng/mL (75-250 nmol/L)Toxicity: >100 ng/mL (>250 nmol/L) Start: 11-14-2024 Plain X-ray abdomen Dr. Ari Carballo MD Work Phone: Start: 11-14-2024 Gram stain microscopy Santos Carballo MD Work Phone: Start: 11-14-2024 Respiratory microbia l culture Dr. Ari Cabrallo MD Work Phone: Start: 11-14-2024 SARS-CoV-2, Influenz a & RSV (PCR) Dr. Ari Carballo MD Work Phone: Start: 06-30-2024 Gram stain microscopy Santos Carballo MD Work Phone: Start: 06-30-2024 Respiratory microbia l culture Dr. Ari Carballo MD Work Phone: Start: 02-27-2023 MRI of joint of lowe r extremity Dr. Ari Carballo Work Phone: Start: 02-15-2023 Radiologic examinati on of knee Dr. Ari Carballo Work Phone: Start: 01-14-2023 Radiologic examinati on of knee Dr. Ari Carballo Work Phone: Start: 09-18-2022 CT of chest and abdo men without contrast Dr. Ari Carballo Work Phone: Start: 03-17-2022 CT of chest without contrast Start: 11-11-2021 Screening mammography Santos Carballo Work Phone: Start: 10-22-2021 Influenza Types A,B Direct FA (DIDI) Dr. Ari Carballo Work Phone: Start: 10-22-2021 End: 10-22-2021 Respiratory syncytial virus antigen assay Dr. Ari Carballo Work Phone: Start: 10-21-2021 Plain chest X-ray Dr. Anila Carballo Work Phone: Start: 08-26-2021 CT of chest without contrast Dr. Ari Carballo Work Phone: Start: 06-03-2021 PET/CT Tumor Base -T high Subs Dr. 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 Sue Gaming MD Comment on above: COLIN to LAD, radial artery as a free graft to the ramus intermedius, SVG to Dx and marginal branch of LCX @ [facility] Dr. Blue 07/15/2005 Plan of Treatment Date Care Activity Detail Author Start: 01-08-2020 Venous catheter care management [facility] Start: 11-13-2019 Venous catheter care management [facility] Start: 05-18-2017 End: 05-18-2017 Appointment [facility] Work Phone: CBC W Auto Different ial panel - Blood [facility] Work Phone: CBC W Auto Different ial panel - Blood [facility] CBC W Auto Different ial panel - Blood [facility] CT Chest and Abdomen WO contrast [facility] Work Phone: CT Chest and Abdomen WO contrast [facility] IgE [Units/volume] i n Serum or Plasma [facility] Lactate dehydrogenas e measurement [facility] LDH [facility] Work Phone: Patient referral [facility] Work Phone: [facility] Immunizations Immunization Date Immunization Notes Care Provider Fa [facility] 04-23-2020 influenza, injectabl e, quadrivalent, preservative free Dr. Ari Carballo Work Phone: [facility] 04-23-2020 influenza, seasonal, injectable Dr. Ari Carballo Work Phone: [facility] 07-04-[address] Ari Carballo Work Phone: [facility] 01-07-2010 pneumococcal conjuga te vaccine, [address] Ari Carballo Work Phone: [facility] Payers Date Payer Category Payer Self-pay [id number] 2016 Medicare [id number] Unknown [id number] 2.16.8 [id number] Unknown [id number] 2.16.8 [id number] Unknown [id number] 2.16.8 [id number] Unknown [id number] 2.16.8 [id number] Unknown [id number] 2.16.8 [id number] Unknown [id number] 2.16.8 [id number] Unknown [id number] 2.16.8 [id number] Unknown [id number] 2.16.8 40.1.260014.3.579.2.462 Unknown [id number] 2.16.8 40.1.026812.3.579.2.462 Unknown [id number] 2.16.8 40.1.559122.3.579.2.462 Unknown [id number] 2.16.8 [id number] Unknown [id number] 2.16.8 [id number] Unknown [id number] 2.16.8 40.1.131015.3.579.2.462 Unknown [id number] 2.16.8 40.1.814499.3.579.2.462 Unknown [id number] 2.16.8 [id number] Unknown [id number] 2.16.8 40.1.066454.3.579.2.462 Unknown [id number] 2.16.8 [id number] Unknown [id number] 2.16.8 [id number] Unknown [id number] 2.16.8 [id number] Social History Date Type Detail Facility Start: 09-15-2021 End: 10-25-2023 Tobacco smoking status AKIS Unknown if ever smoked [facility] Start: 10-14-2018 None [facility] Start: 11-14-2020 Homeless [facility] Start: 05-28-2020 Non-smoker [facility] Start: 1945 Sex Assigned At Female [facility] Start: 04-09-2024 Tobacco smoking stat [facility] Ex-smoker (finding) [facility] Start: 09-28-2024 Sex Female (finding) [facility] Medical Equipment Procedure Code Equipment Code Equipment Origin al Text Equipment Identifier Dates Insertion, vascular access port PORT,POWER 8FR FDA Start: 03-22-2019 Insertion, vascular access port PORT,POWER 8FR FDA Start: 03-22-2019 Insertion, vascular access port PORT,POWER 8FR FDA Start: 03-22-2019 Insertion, vascular access port PORT,POWER 8FR FDA Start: 03-22-2019 Insertion, vascular access port PORT,POWER 8FR FDA Start: 03-22-2019 Insertion, vascular access port PORT,POWER 8FR FDA Start: 03-22-2019 Insertion, vascular access port PORT,POWER 8FR FDA Start: 03-22-2019 Insertion, vascular access port PORT,POWER 8FR FDA Start: 03-22-2019 Insertion, vascular access port PORT,POWER 8FR FDA Start: 03-22-2019 Insertion, vascular access port PORT,POWER 8FR FDA Start: 03-22-2019 Insertion, vascular access port PORT,POWER 8FR FDA Start: 03-22-2019 Insertion, vascular access port PORT,POWER 8FR FDA Start: 03-22-2019 Insertion, vascular access port PORT,POWER 8FR FDA Start: 03-22-2019 Insertion, vascular access port PORT,POWER 8FR FDA Start: 03-22-2019 Insertion, vascular access port PORT,POWER 8FR FDA Start: 03-22-2019 Insertion, vascular access port PORT,POWER 8FR FDA Start: 03-22-2019 Mental Status Date Assessment Result Facility 07-05-2019 Cognitive function Mood Descript ion Appropriate;Calm;Cheerful [facility] Work Phone: Clinical Notes 04-18-2009 to 12-08-2024 Note Date & Type Note Facility 12-08-2024 Evaluation note Diagnosis Onset Date Resolution 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 heart without angina pectoris chronic December 08, 2024 2:55pm Hyperlipidemia chronic December 08, 2024 2:55pm Hypertension chronic December 08 2:55pm Left subclavian artery occlusion chronic December 08, 2024 2:55pm Hx of CABG July 15, 2005 resolved December 08, 2024 2:55pm Allergic rhinitis acute 2024 1:03pm [facility] Work Phone: 1(934) 970-730703-07-2025 Procedure notey [facility] Services/Neurology [address] [place] [address] MR#: [id number] Acct: [id number] Name: SHANTHI SAM Rep #:[id number] : 1945 79 From: Marko Deshpande DO Referring Dr: Cammie Martel 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 FORESTER [employer]-C Status: REG CLI Location: PSN Date: Sex: F C PSN 6 Minute Walk Test 6 Minute Walk Test 6 Minute Walk Test: 6 Minute Walk Test PSN:6-Minute Walk Test Start: 09/15/24 12:53 Freq: Status: Active Protocol: RESP.6MINW Document 09/15/24 13:26 SFENTON (Rec: 09/15/24 13:29 SFENTON [id number]) 6 Minute Walk Test Date Performed 09/15/24 Time Performed 12:30 Height 5 ft [address]: Cammie Martel URB[employer] FORESTER Assistive device Walker used: Pre-test Oxygen Delivery Room Air Method Pulse Ox (%) 96 Pulse Rate (60-100 92 beats/min) Dyspnea Kary Scale ( 0 0-10) Exertion Kary Scale 6 (6-20) 1st minute Oxygen Delivery Room Air Method Pulse Ox (%) 97 Pulse Rate (60-100 95 beats/min) 2nd minute Oxygen Delivery Room Air Method Pulse Ox (%) 94 Pulse Rate (60-100 99 beats/min) 3rd minute Oxygen Delivery Room Air Method Pulse Ox (%) 94 Pulse Rate (60-100 101 H beats/min) 4th minute Oxygen Delivery Room Air Method Pulse Ox (%) 95 Pulse Rate (60-100 100 beats/min) 5th minute Oxygen Delivery Room Air Method Pulse Ox (%) 95 Pulse Rate (60-100 105 H beats/min) 6th minute Oxygen Delivery Room Air Method Pulse Ox (%) 94 Pulse Rate (60-100 105 H beats/min) Dyspnea Kary Scale ( 2 0-10) Exertion Kary Scale 12 (6-20) Post-test Oxygen Delivery Room Air Method Pulse Ox (%) 96 Pulse Rate (60-100 91 beats/min) Full Laps Walked 10 Partial Lap, Number 36 of Tiles Walked Total Distance 626 Walked (ft) Interpretation Interpretation: The patient ambulated 626 feet over the course of 6 minutes beginning on room air with use of a walker. Pretesting oxygen saturation was noted to be 96% on room air. With ambulation, the erika oxygensaturation was 94%. Although therewas evidence of impaired walk distance, there was no significant exertional oxygen desaturation. Recommendations Recommendations: There is no indication for the use of supplemental oxygen at this time. 09/22/24 0750 O> Date _ Marko Deshpande DO CC: ~ Date Dictated: 09/22/24748 Date Transcribed: 09/22/24748 Personal Care Home Administrator: Dr. 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 September 22, 2024 1:30pm [facility] Work Phone: 1(284) 996-664201-24-2025 Evaluation note* Diagnosis Onset Date Resolution Status Admit Date Hypoxemia chronic August 11, 2024 9:30am Squamous cell carcinoma of lung fax 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 repairer violetta August 11, 2024 9:30am 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 August 11 9:30am Right knee DJD acute August 202024 9:35am Hypoxemia chronic September 22 1:30pm Squamous cell carcinoma of lung fax machine repairer violetta September 22, 2024 1:30pm 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 September 22, 2024 1:30pm Right knee DJD acute November 24, 2 025 12:49pm Thyroid nodule acute November 24, 2 025 1:45pm [facility] Work Phone: 1(961) 927-308011-15-2024 Evaluation note* Diagnosis Onset Date Resolution Status Admit Date Right knee DJD acute May 192023 8:55am Left subclavian artery occlusion chronic June 08, 2 024 3:48pm Hypoxemia chronic June 30, 2024 8:02am Squamous cell carcinoma of lung fax machine repairer violetta June 30, 2024 8:02am 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 June 30, 2 024 8:02am Hypoxemia chronic August 11, 2024 9:30am Squamous cell carcinoma of lung fax 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 repairer violetta August 11, 2024 9:30am 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 August 11 9:30am Right knee DJD acute August 202024 9:35am Hypoxemia chronic September 22 1:30pm Squamous cell carcinoma of lung fax machine repairer violetta September 22, 2024 1:30pm 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 heart without angina pectoris chronic History of abdominal aortic aneurysm repair April, resolved Hypertension chronic Hx of CABG July 15, 2005 resolved [facility] Work Phone: 1(525) 216-102610-01-2009 Evaluation note* Diagnosis Onset Date Resolution Status Atherosclerosis of coronary artery of 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 heart without angina pectoris History of abdominal aortic aneurysm repair Hypertension Hx of CABG [facility] Work Phone: Chief complaint+Reason for visit Narrative* Chief Complaint 9 M FU/PREV PFM F/U AAA REPAIR OPEN PROCEDURE/COPY LABS PCP right knee Reason for Visit Atherosclerosis of c oronary artery of [place] heart without angina pectoris History of abdominal aortic aneurysm repair Hypertension Hx of CABG Right knee DJD [facility] Work Phone: Evaluation note* Diagnosis Onset Date Resolution Status Polycythemia chronic Squamous cell carcinoma of lung chronic Atherosclerosis of coronary artery of [place] heart without angina pectoris chronic Cardiac murmur chronic Hyperlipidemia chronic History of AAA (abdominal ao rtic aneurysm) repair resolved Hx of CABG July 15, 2005 resolved [facility] Work Phone: Evaluation noteNo assessment information available [facility] Work Phone: Evaluation note* Diagnosis Onset Date Resolution Status Polycythemia chronic Squamous cell carcinoma of lung chronic Chemotherapy management, encounter for acute Encounter for education acut e Non-small cell cancer of left lung resolved R breast gland removed resol [facility] Work Phone: Evaluation note* Diagnosis Onset Date Resolution Status Squamous cell carcinoma of lung chronic Chemotherapy management, encounter for acute Encounter for education acut e Non-small cell cancer of left lung resolved R breast gland removed resol mora [facility] Work Phone: Evaluation note* Diagnosis Onset Date Resolution Status Atherosclerosis of coronary artery of [place] heart without angina pectoris chronic Cardiac murmur chronic Hyperlipidemia chronic History of AAA (abdominal aortic aneurysm) repair resolved [facility] Work Phone: Evaluation note* Diagnosis Onset Date Resolution Status Atherosclerosis of coronary artery of [place] heart without angina pectoris chronic Cardiac murmur chronic Hyperlipidemia chronic History of AAA (abdominal aortic aneurysm) repair resolved Instability of knee joint ac [place] Right knee DJD acute [facility] Work Phone: Reason for referral (narrative)No reason for referral [facility] Work [facility]: Summary Purpose Family History No Family History Records Found Relationship Condition Age at Onset Recorded Date/T albert father Coronary artery disease Unknown Cerebrovascular accident (CVA) Unknown Relationship Condition Age at Onset Recorded Date/T albert Not Specified History of abdominal aortic aneurysm (AAA) repair Unknown father Coronary artery disease Unknown Cerebrovascular accident (CVA) Unknown Relationship Condition Age at Onset Recorded Date/T albert Not Specified History of abdominal aortic aneurysm (AAA) repair Unknown father Coronary artery disease Unknown Cerebrovascular accident (CVA) Unknown Cardiac disease Unknown mother Cardiac disease Unknown Advance Directives No Advanced Directives Records Found Advance Directive Response Recorded Date/ Time Advance Directives No June 12:26pm Living Will No July 05 12:26pm Power of Wool Sacker No July 05, 2019 12:26pm Advance Directive Response Recorded Date/ Time Advance Directives No June 11:26am Living Will No July 05 11:26am Power of Wool Sacker No July 05, 2019 11:26am Advance Directive Response Recorded Date/ Time Living Will No April 09, 2024 6:39am Power of Wool Sacker No March 6:39am Advance Directives No June 12:26pm Advance Directive Response Recorded Date/ Time Advance Directives No June 12:26pm Hospital Course Note Discharge Summary Shanthi dave : 1945 ADMIT DATE: 02/08/2019 DISCHARGE DATE: 02/13/2019 ATTENDING PHYSICIAN: Goran Knight MD VISIT STATUS: Admission CODE STATUS: Prior DISCHARGE DIAGNOSES: Active Problems: S/P thoracotomy Resolved Problems: * No resolved hospital problems. * HOSPITAL COURSE: Shanthi Sam is a 74 y.o. female who presented to [facility] on 02/08/2019 for a left thoracotomy with [...] occipital lobe, corresponding with clinical vision changes. Patie (more content not included)... Chief Complaint and Reason for Visit Chief Complaint LUNG CANCER 4MO LABS REVIEW CT 6 M FU TESTING Reason for Visit Polycythemia Squamous cell carcinoma of lung Atherosclerosis of coronary artery of [place] heart without angina pectoris Cardiac murmur Hyperlipidemia History of AAA (abdominal aortic aneurysm) repair Hx of CABG Chief Complaint LUNG CANCER 4MO LABS REVIEW CT 6 M FU TESTING SCREENING Reason for Visit Polycythemia Squamous cell carcinoma of lung Atherosclerosis of coronary artery of [place] heart without angina pectoris Cardiac murmur Hyperlipidemia History of AAA (abdominal aortic aneurysm) repair Hx of CABG Chief Complaint MALIGNANT NEOPLASM O F LEFT LUNG Chief Complaint MALIGNANT NEOPLASM O F LEFT LUNG 6MO LABS REVIEW CT RESTAGING LUNG CANCER Reason for Visit Polycythemia Squamous cell carcinoma of lung Chemotherapy management, encounter for Encounter for education Non-small cell cancer of left lung R breast gland removed Chief Complaint LUNG CA 6MO LABS REVIEW CT RESTAGING LUNG CANCER Reason for Visit Squamous cell carcin jazmin of lung Chemotherapy management, encounter for Encounter for education Non-small cell cancer of left lung R breast gland removed Chief Complaint 1 Y FU PREV PFM PT R KNEE PAIN Reason for Visit Atherosclerosis of c oronary artery of [place] heart without angina pectoris Cardiac murmur Hyperlipidemia History of AAA (abdominal aortic aneurysm) repair Chief Complaint 1 Y FU PREV PFM PT R KNEE PAIN RIGHT KNEE RM 2 PAIN IN RIGHT KNEE Reason for Visit Atherosclerosis of c oronary artery of [place] heart without angina pectoris Cardiac murmur Hyperlipidemia History of AAA (abdominal aortic aneurysm) repair Instability of knee joint Right knee DJD Chief Complaint Admit Date RIGHT KNEE June 02, 2024 8:55am Discuss carotid duplex results June 08, 2024 3:48pm Re-establish June 30, 2024 8:02am 6 wk FU August 11, 2024 9 :30am RIGHT KNEE September 08, 2024 9:35am COPD September 15, 2024 12:20pm COPD September 22, 2024 7:49 am 4-6wk FU September 22, 2024 1:30 pm Reason for Visit Admit Date Right knee DJD June 02, 2024 8:55am Left subclavian artery occlusion Novembe 2023 3:48pm Hypoxemia June 30, 2024 8:02am Squamous cell carcinoma of lung June 30, 2024 8:02am Stage 2 moderate COPD by GOLD classifica tion June 30, 2024 8:02am Hypoxemia August 11, 2024 9 :30am Squamous cell carcinoma of lung August 11, 2024 9:30am Stage 2 moderate COPD by GOLD classifica tion August 11, 2024 9:30am Right knee DJD September 08, 2024 9:35am Hypoxemia September 22, 2024 1:30 pm Squamous cell carcinoma of lung September 1:30pm Stage 2 moderate COPD by GOLD classifica tion September 22, 2024 1:30pm Chief Complaint Admit Date 6 wk August 11, 2024 9 :30am RIGHT KNEE September 08, 2024 9:35am COPD September 15, 2024 12:20pm COPD September 22, 2024 7:49 am 4-6wk FU September 22, 2024 1:30 pm Reason for Visit Admit Date Hypoxemia August 11, 2024 9 :30am Squamous cell carcinoma of lung August 11, 2024 9:30am Stage 2 moderate COPD by GOLD classifica tion August 11, 2024 9:30am Right knee DJD September 08, 2024 9:35am Hypoxemia September 22, 2024 1:30 pm Squamous cell carcinoma of lung September h2024 1:30pm Stage 2 moderate COPD by GOLD classifica tion September 22, 2024 1:30pm Chief Complaint Admit Date 6 wk FU August 11, 2024 9 :30am RIGHT KNEE September 08, 2024 9:35am COPD September 15, 2024 12:20pm COPD September 22, 2024 7:49 am 4-6wk FU September 22, 2024 1:30 pm RIGHT KNEE November 24, 2024 12:49p m THYROID BIOPSY November 24, 2024 1:45pm Reason for Visit Admit Date Hypoxemia August 11, 2024 9 :30am Squamous cell carcinoma of lung August 11, 2024 9:30am Stage 2 moderate COPD by GOLD classifica tion August 11, 2024 9:30am Right knee DJD September 08, 2024 9:35am Hypoxemia September 22, 2024 1:30 pm Squamous cell carcinoma of lung September 1:30pm Stage 2 moderate COPD by GOLD classifica tion September 22, 2024 1:30pm Right knee DJD November 24, 2024 12:49p m Thyroid nodule November 24, 2024 1:45pm Chief Complaint Admit Date 1 Y FU December 08, 2024 2:55p m 6 M FU March 30, 2025 1:03pm Reason for Visit Admit Date 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 heart without angina pectoris December 08, 2024 2:55pm Hyperlipidemia December 08, 2024 2:55p m Hypertension December 08, 2024 2:55p m Left subclavian artery occlusion November 2:55pm Hx of CABG December 08, 2024 2:55p m Allergic rhinitis March 30, 2025 1:03pm Additional Source Comments INFORMATION SOURCE (unrecogn ized section and content) DATE CREATED AUTHOR 03/07/2019 [facility] DATE CREATED AUTHOR AUTHOR'S ORGANIZ ATION 05/29/2025 [facility] Goals (unrecognized section and content) Goals may be documented in a n alternate sectionGoals may be documented in an alternate sectionGoals may be documented in an alternate sectionGoals may be documented in an alternate sectionGoals may be documented in an alternate sectionGoals may be documented in an alternate sectionGoals may be documented in an alternate sectionGoals may be documented in an alternate sectionGoals may be documented in an alternate sectionGoals may be documented in an alternate sectionGoals may be documented in an alternate sectionGoals may be documented in an alternate sectionGoals may be documented in an alternate sectionGoals may be documented in an alternate sectionGoals may be documented in an alternate sectionGoals may be documented in an alternate section Care Teams (unrecognized sec tion and content) Team Status: Active Member Role Status Dates Dr. Ari Carballo MD Family Provider Active Dr. Ari Carballo MD Primary Care Provider Active Team Status: Inactive Member Role Status Dates Dr. Ari Carballo MD Primary Care Provider, Referring Provider Active Dr. Ryley Russell MD Attending Provider Active Team Status: Active Member Role Status Dates Dr. Ari Carballo MD Primary Care Provi shayne, Family Provider, Referring Provider Active Dr. Ryley Russell MD Attending Provider Active Team Status: Inactive Member Role Status Dates Dr. Ari Carballo MD Primary Care Provider Active Dr. Ryley Russell MD Attending Provider Active Team Status: Inactive Member Role Status Dates Dr. Ari Carballo MD Primary Care Provider, Attending Provider Active Team Status: Inactive Member Role Status Dates Dr. Ari Carballo MD Primary Care Provider, Referring Provider Active Frank Kellogg URB[employer] FORESTER, [employer]RB[employer]ER-C Attending Provider Active Team Status: Inactive Member Role Status Dates Dr. Ari Carballo MD Primary Care Provi shayne, Attending Provider, Referring Provider Active Team Status: Inactive Member Role Status Dates Dr. Ari Carballo MD Primary Care Provider, Referring Provider Active Dr. Ryley Parada DO Attending Provider Active Team Status: Inactive Member Role Status Dates Dr. Ari Carballo MD Primary Care Provider Active Dr. Walter Yeung MD Attending Provider Active Team Status: Inactive Member Role Status Dates Dr. Ari Carballo MD Primary Care Provider Active Dr. Ryley Parada DO Attending Provider, Referring Provider Active Team Status: Inactive Member Role Status Dates Dr. Ari Carballo MD Primary Care Provider, Referring Provider Active Dr. uSe Gaming MD Attending Provider Active Team Status: Active Member Role Status Dates Dr. Ari Carballo MD Primary Care Provider Active Dr. Naga Browne MD Attending Provider Active Team Status: Inactive Member Role Status Dates Dr. Ari Carballo MD Primary Care Provider Active Dr. Sue Gaming MD Attending Provider, Referring Provider Active Team Status: Active Member Role Status Dates Dr. Ari Carballo MD Primary Care Provider Active Dr. Naga Browne MD Attending Provider Active Dr. Sue Gaming MD Referring Provider Active Team Status: Active Member Role Status Dates Dr. Ari Carballo MD Primary Care Provider Active Team Status: Inactive Member Role Status Dates Dr. Ari Carballo MD Primary Care Provider Active Start: June 02, 2024 End: June 02, 2024 Dr. Ari Carballo MD Referring Provider Active Start: June 02, 2024 End: June 02, 2024 Dr. Ryley Parada DO Attending Provider Active Start: June 02, 2024 End: June 02, 2024 Team Status: Inactive Member Role Status Dates Dr. Ari Carballo MD Primary Care Provider Active Start: June 08, 2024 End: June 08, 2024 Dr. Ari Carballo MD Referring Provider Active Start: June 08, 2024 End: June 08, 2024 Dr. Naga Browne MD Attending Provider Active S tart: June 08, 2024 End: June 08, 2024 Team Status: Inactive Member Role Status Dates Dr. Ari Carballo MD Primary Care Provider Active Start: June 30, 2024 End: June 30, 2024 Dr. Ari Carballo MD Referring Provider Active Start: June 30, 2024 End: June 30, 2024 Cammie Martel URB[employer] FORESTER, URBAN FORESTER-C Attending Provider Active Start: June 30, 2024 End: June 30, 2024 Team Status: Inactive Member Role Status Dates Dr. Ari Carballo MD Primary Care Provider Active Start: June 30, 2024 End: June 30, 2024 Cammie Martel URBAN FORESTER, URBAN FORESTER-C Attending Provider Active Start: June 30, 2024 End: June 30, 2024 Cammie Martel URBAN FORESTER, URBAN FORESTER-C Referring Provider Active Start: June 30, 2024 End: June 30, 2024 Team Status: Inactive Member Role Status Dates Dr. Ari Carballo MD Primary Care Provider Active Start: August 11, 2024 End: August 11, 2024 Dr. Ari Carballo MD Referring Provider Active Start: August 11, 2024 End: August 11, 2024 Cammie Martel URBAN FORESTER, URBAN FORESTER-C Attending Provider Active Start: August 11, 2024 End: August 11, 2024 Team Status: Inactive Member Role Status Dates Dr. Ari Carballo MD Primary Care Provider Active Start: September 08, 2024 End: September 08, 2024 Dr. Ari Carballo MD Referring Provider Active Start: September 08, 2024 End: September 08, 2024 Dr. Ryley Parada DO Attending Provider Active Start: September 08, 2024 End: September 08, 2024 Team Status: Inactive Member Role Status Dates Dr. Ari Carballo MD Primary Care Provider Active Start: September 15, 2024 End: September 15, 2024 Cammie Martel URBAN FORESTER, URBAN FORESTER-C Attending Provider Active Start: September 15, 2024 End: September 15, 2024 Cammie Martel URBAN FORESTER, URBAN FORESTER-C Referring Provider Active Start: September 15, 2024 End: September 15, 2024 Team Status: Active Member Role Status Dates Dr. Ari Carballo MD Primary Care Provider Active Start: September 22, 2024 Cammie Martel URBAN FORESTER, URBAN FORESTER-C Referring Provider Active Start: September 22, 2024 Cammie Martel URBAN FORESTER, URBAN FORESTER-C Other Provider Active Start: September 22, 2024 Dr. Marko Deshpande DO Attending Provider Active S tart: September 22, 2024 Team Status: Inactive Member Role Status Dates Dr. Ari Carballo MD Primary Care Provider Active Start: September 22, 2024 End: September 22, 2024 Dr. Ari Carballo MD Referring Provider Active Start: September 22, 2024 End: September 22, 2024 Cammie Martel URBAN FORESTER, URBAN FORESTER-C Attending Provider Active Start: September 22, 2024 End: September 22, 2024 Team Status: Inactive Member Role Status Dates Dr. Ari Carballo MD Primary Care Provider Active Start: November 14, 2024 End: November 14, 2024 Dr. Ari Carballo MD Attending Provider Active Start: November 14, 2024 End: November 14, 2024 Dr. Ari Carballo MD Referring Provider Active Start: November 14, 2024 End: November 14, 2024 Team Status: Inactive Member Role Status Dates Dr. Ari Carballo MD Primary Care Provider Active Start: November 20, 2024 End: November 20, 2024 Dr. Ari Carballo MD Attending Provider Active Start: November 20, 2024 End: November 20, 2024 Dr. Ari Carballo MD Referring Provider Active Start: November 20, 2024 End: November 20, 2024 Team Status: Inactive Member Role Status Dates Dr. Ari Carballo MD Primary Care Provider Active Start: November 24, 2024 End: November 24, 2024 Dr. Ari Carballo MD Referring Provider Active Start: November 24, 2024 End: November 24, 2024 GLORY Johns Attending Provider Active Start: November 24, 2024 End: November 24, 2024 Team Status: Inactive Member Role Status Dates Dr. Ari Carballo MD Primary Care Provider Active Start: November 24, 2024 End: November 24, 2024 Dr. Ari Carballo MD Referring Provider Active Start: November 24, 2024 End: November 24, 2024 Dr. Sue Ruiz MD Attending Provider Active Start: November 24, 2024 End: November 24, 2024 Team Status: Inactive Member Role Status Dates Dr. Ari Carballo MD Primary Care Provider Active Start: November 24, 2024 End: November 24, 2024 Dr. Sue Ruiz MD Attending Provider Active Start: November 24, 2024 End: November 24, 2024 Dr. Sue Ruiz MD Referring Provider Active Start: November 24, 2024 End: November 24, 2024 Team Status: Active Member Role/Relationship Status Dates Dr. Ari aCrballo MD Primary Care Provider Active Team Status: Inactive Member Role/Relationship Status Dates Dr. Ari Carballo MD Primary Care Provider Active Start: December 08, 2024 End: December 08, 2024 Dr. Ari Carballo MD Referring Provider Active Start: December 08, 2024 End: December 08, 2024 Dr. Sue Gaming MD Attending Provider Active Start: December 08, 2024 End: December 08, 2024 Team Status: Inactive Member Role/Relationship Status Dates Dr. Ari Carballo MD Primary Care Provider Active Start: March 30, 2025 End: March 30, 2025 Dr. Ari Carballo MD Referring Provider Active Start: March 30, 2025 End: March 30, 2025 GLORY Valerio NP Attending Provider Active Start: March 30, 2025 End: March 30, 2025 FOR RECORDS PERTAINING TO PATIENTS WHO ARE [...] BE BASED ON THE PRIMARY CLINICAL RECORDS. [facility] [employer] [facility]. provides no warranty or guarantee of the accuracy or completeness of information in this document.
== END | disposition home or self-care (01) ==
LOC: CT 10:52
PROVIDERS: PCP Family Medicine Geriatric Medicine; Referring Provider Physician Assistant; Visit Provider Physician Assistant
DX: I71.60 Thoracoabdominal aortic aneurysm, without rupture, unspecified (principal)
CPT/HCPCS: 71250; 74150